=== PATIENT | male | born 1970 | race African-American/Black ===

== ENCOUNTER 2020-01-20 13:59 | Outpatient (REF) | payer OTHER, MEDICAID, SELFPAY ==
[2020-01-20 15:38] LABS: Hematocrit 46.6 % (42-52); Hemoglobin 15.4 g/dl (14.0-18.0); Mean Corpuscular Hemoglobin 31.3 pg (27.0-33.0); Mean Corpuscular Volume 94.7 fL (80-98); Mean Platelet Volume 9.7 fL (9.4-12.4); Platelet Count 310 X10*3/uL (160-400); Red Blood Count 4.92 X10*6/uL (4.60-5.80); Red Cell Distribution Width 13.6 % (11.0-16.0); White Blood Count 7.8 X10*3/uL (4.8-10.8)
[2020-01-20 16:09] LABS: Alanine Aminotransferase 28 U/L (0-40); Albumin Level 3.9 g/dL (3.5-5.0); Alkaline Phosphatase 105 U/L (39-117); Anion Gap 14 (12-20); Aspartate Amino Transferase 18 U/L (5-37); Bilirubin Direct 0.2 mg/dL (0.0-0.5); Bilirubin Total 0.6 mg/dL (0.0-1.0); Blood Urea Nitrogen 24 mg/dL (9-16); Calcium 8.8 mg/dL (8.4-10.2); Carbon Dioxide 20 mmol/L (22-29); Chloride 105 mmol/L (96-108); Estimated Glomerular Filt Rate 51; Glucose Random 333 mg/dL (60-115); Potassium 5.3 mmol/l (3.3-5.1); Sodium 134 mmol/L (135-145)
[2020-01-21 08:22] LABS: Syphilis Screen Reactive (Nonreactive)
[2020-01-21 17:06] LABS: Absolute CD3 Count 2338 cells/uL (840-3060); Absolute CD4 Count 534 cells/uL (490-1740); Absolute CD8 Count 1780 cells/uL (180-1170); Absolute Lymphocytes 2752 cells/uL (850-3900); Percent CD3 Cells 85 % (57-85); Percent CD4 Cells 19 % (30-61); Percent CD8 Cells 65 % (12-42)
[2020-01-24 11:31] LABS: RPR Quantitative Reactive 1:8 (Nonreactive)
[2020-01-25 13:22] LABS: HIV RNA PCR Qn Copies <20 NOT DETECTED copies/mL (NOT DETECTED); HIV RNA PCR Qn Log Copies <1.30 NOT DETECTED (NOT DETECTED)
[2020-02-04 14:37] LABS: T.Pallidum Particle Agg Test Reactive (Nonreactive)
== END 2020-01-20 14:00 | disposition home or self-care (01) ==
LOC: HO.LAB 13:59
PROVIDERS: PCP Internal Medicine; Visit Provider Internal Medicine
DX: B20 Human immunodeficiency virus [HIV] disease (principal); Z11.3 Encounter for screening for infections with a predominantly sexual mode of transmission
CPT/HCPCS: 36415; 80048; 80076; 85027; 86359; 86360; 86592; 86780; 87536; 99212

== ENCOUNTER 2020-06-09 10:46 | Outpatient (REF) | payer OTHER, SELFPAY ==
[2020-06-09 11:43] LABS: MANUAL DIFF FLAG NO
[2020-06-09 11:48] LABS: Basophils Percent Auto 0.6 % (0-2); Eosinophils Absolute Auto 0.1 X10*3/uL (0.0-0.4); Eosinophils Percent Auto 1.4 % (0-4); Hematocrit 49.2 % (42-52); Hemoglobin 15.6 g/dl (14.0-18.0); Imm Gran Abs Auto 0.02 X10*3/uL (0.00-0.03); Imm Gran Pct Auto 0.3 % (0.0-0.4); Lymphocytes Absolute Auto 3.2 X10*3/uL (1.2-4.9); Lymphocytes Percent Auto 45.3 % (20-40); Mean Corpuscular HGB Conc 31.7 g/dl (31.0-36.0); Mean Corpuscular Hemoglobin 30.6 pg (27.0-33.0); Mean Corpuscular Volume 96.5 fL (80-98); Mean Platelet Volume 9.8 fL (9.4-12.4); Monocytes Absolute Auto 0.5 X10*3/uL (0.1-1.2); Monocytes Percent Auto 7.5 % (2-11); Neutrophils Absolute Auto 3.2 X10*3/uL (2.0-8.3); Neutrophils Percent Auto 44.9 % (45-73); Platelet Count 249 X10*3/uL (160-400); Red Cell Distribution Width 13.7 % (11.0-16.0); White Blood Count 7.1 X10*3/uL (4.8-10.8)
[2020-06-09 12:13] LABS: Alanine Aminotransferase 34 U/L (0-40); Alkaline Phosphatase 97 U/L (39-117); Anion Gap 11 (12-20); Aspartate Amino Transferase 21 U/L (5-37); Bilirubin Total 0.6 mg/dL (0.0-1.0); Blood Urea Nitrogen 18 mg/dL (9-16); Carbon Dioxide 21 mmol/L (22-29); Chloride 109 mmol/L (96-108); Cholesterol 149 mg/dL; Estimated Glomerular Filt Rate > 60; Glucose Fasting 163 mg/dL (60-99); HDL Cholesterol 28 mg/dL; LDL Cholesterol Calculated 67 mg/dl; Potassium 5.3 mmol/L (3.3-5.1); Sodium 136 mmol/L (135-145); Total Protein 7.6 g/dL (6.5-8.0); Triglycerides 272 mg/dL
[2020-06-11 20:52] LABS: TS Negative Control Passed; TS Panel A 1; TS Panel B 2; TS Positive Control Passed; TSpotTB Negative (SeeBelow)
[2020-06-14 13:51] LABS: Vitamin D 25-OH, D2 <4 ng/mL; Vitamin D 25-OH, D3 10 ng/mL; Vitamin D 25-OH, Total 10 ng/mL (30-100)
== END 2020-06-09 10:47 | disposition home or self-care (01) ==
LOC: HO.LAB 10:46
PROVIDERS: PCP Internal Medicine; Visit Provider Internal Medicine
DX: B20 Human immunodeficiency virus [HIV] disease (principal); E55.9 Vitamin D deficiency, unspecified; N18.9 Chronic kidney disease, unspecified; E11.9 Type 2 diabetes mellitus without complications; E78.5 Hyperlipidemia, unspecified
CPT/HCPCS: 36415; 80053; 80061; 82306; 85025; 86481

== ENCOUNTER 2020-06-29 13:53 | Outpatient (REF) | payer OTHER, SELFPAY ==
[2020-06-30 08:29] LABS: Syphilis Screen Reactive (Nonreactive)
[2020-06-30 13:01] LABS: Absolute CD3 Count 3224 cells/uL (840-3060); Absolute CD4 Count 667 cells/uL (490-1740); Absolute CD8 Count 2557 cells/uL (180-1170); Absolute Lymphocytes 3800 cells/uL (850-3900); CD4 CD8 Ratio 0.26 (0.86-5.00); Percent CD3 Cells 85 % (57-85); Percent CD4 Cells 18 % (30-61); Percent CD8 Cells 67 % (12-42)
[2020-06-30 15:56] LABS: HIV RNA PCR Qn Copies <20 NOT DETECTED copies/mL (NOT DETECTED); HIV RNA PCR Qn Log Copies <1.30 NOT DETECTED (NOT DETECTED)
[2020-07-06 15:13] LABS: RPR Quantitative Reactive 1:8 (Nonreactive)
[2020-07-09 11:29] LABS: T.Pallidum Particle Agg Test Reactive (Nonreactive)
== END 2020-06-29 13:54 | disposition home or self-care (01) ==
LOC: HO.LAB 13:53
PROVIDERS: PCP Internal Medicine; Visit Provider Internal Medicine
DX: B20 Human immunodeficiency virus [HIV] disease (principal); Z79.899 Other long term (current) drug therapy
CPT/HCPCS: 36415; 86359; 86360; 86592; 86780; 87536; 99212

== ENCOUNTER 2020-10-05 09:42 | Outpatient (REF) | payer OTHER, SELFPAY ==
[2020-10-05 10:22] LABS: MANUAL DIFF FLAG NO
[2020-10-05 10:25] LABS: Basophils Percent Auto 0.4 % (0-2); Eosinophils Absolute Auto 0.1 X10*3/uL (0.0-0.4); Eosinophils Percent Auto 1.6 % (0-4); Hematocrit 45.8 % (42-52); Hemoglobin 15.2 g/dl (14.0-18.0); Imm Gran Abs Auto 0.04 X10*3/uL (0.00-0.03); Imm Gran Pct Auto 0.5 % (0.0-0.4); Lymphocytes Absolute Auto 3.1 X10*3/uL (1.2-4.9); Lymphocytes Percent Auto 41.1 % (20-40); Mean Corpuscular HGB Conc 33.2 g/dl (31.0-36.0); Mean Corpuscular Hemoglobin 31.4 pg (27.0-33.0); Mean Corpuscular Volume 94.6 fL (80-98); Mean Platelet Volume 9.5 fL (9.4-12.4); Monocytes Absolute Auto 0.6 X10*3/uL (0.1-1.2); Monocytes Percent Auto 7.5 % (2-11); Neutrophils Absolute Auto 3.7 X10*3/uL (2.0-8.3); Neutrophils Percent Auto 48.9 % (45-73); Platelet Count 249 X10*3/uL (160-400); Red Blood Count 4.84 X10*6/uL (4.60-5.80); Red Cell Distribution Width 13.6 % (11.0-16.0); White Blood Count 7.6 X10*3/uL (4.8-10.8)
[2020-10-05 10:50] LABS: Alanine Aminotransferase 42 U/L (0-40); Albumin Level 3.9 g/dL (3.5-5.0); Alkaline Phosphatase 96 U/L (39-117); Anion Gap 13 (12-20); Aspartate Amino Transferase 24 U/L (5-37); Bilirubin Total 0.3 mg/dL (0.0-1.0); Blood Urea Nitrogen 21 mg/dL (9-16); Calcium 9.1 mg/dL (8.4-10.2); Carbon Dioxide 20 mmol/L (22-29); Chloride 107 mmol/L (96-108); Cholesterol 167 mg/dL; Estimated Glomerular Filt Rate 49; Glucose Fasting 242 mg/dL (60-99); HDL Cholesterol 30 mg/dL; Potassium 4.7 mmol/L (3.3-5.1); Sodium 135 mmol/L (135-145); Total Protein 7.5 g/dL (6.5-8.0); Triglycerides 443 mg/dL
[2020-10-05 11:51] LABS: Creatinine Urine 68.27 mg/dL
[2020-10-09 14:51] LABS: Vitamin D 25-OH, D2 20 ng/mL; Vitamin D 25-OH, D3 7 ng/mL; Vitamin D 25-OH, Total 27 ng/mL (30-100)
== END 2020-10-05 09:43 | disposition home or self-care (01) ==
LOC: HO.LAB 09:42
PROVIDERS: PCP Internal Medicine; Visit Provider Internal Medicine
DX: E11.22 Type 2 diabetes mellitus with diabetic chronic kidney disease (principal); N18.31 Chronic kidney disease, stage 3a; D63.1 Anemia in chronic kidney disease; E66.01 Morbid (severe) obesity due to excess calories; E78.5 Hyperlipidemia, unspecified; E55.9 Vitamin D deficiency, unspecified; Z79.4 Long term (current) use of insulin
CPT/HCPCS: 36415; 80053; 80061; 82043; 82306; 85025

== ENCOUNTER 2020-12-28 14:10 | Outpatient (REF) | payer OTHER, SELFPAY ==
[2020-12-28 15:18] LABS: MANUAL DIFF FLAG NO
[2020-12-28 15:35] LABS: Basophils Percent Auto 0.3 % (0-2); Eosinophils Absolute Auto 0.1 X10*3/uL (0.0-0.4); Eosinophils Percent Auto 0.6 % (0-4); Hematocrit 50.9 % (42.0-52.0); Hemoglobin 16.8 g/dl (14.0-18.0); Imm Gran Abs Auto 0.03 X10*3/uL (0.00-0.03); Imm Gran Pct Auto 0.3 % (0.0-0.4); Lymphocytes Absolute Auto 3.1 X10*3/uL (1.2-4.9); Lymphocytes Percent Auto 34.2 % (20-40); Mean Corpuscular Hemoglobin 31.6 pg (27.0-33.0); Mean Corpuscular Volume 95.7 fL (80.0-98.0); Mean Platelet Volume 9.6 fL (9.4-12.4); Monocytes Absolute Auto 0.6 X10*3/uL (0.1-1.2); Monocytes Percent Auto 6.6 % (2-11); Neutrophils Absolute Auto 5.16 x10*3/uL (2.0-8.3); Platelet Count 325 X10*3/uL (160-400); Red Blood Count 5.32 X10*6/uL (4.60-5.80); Red Cell Distribution Width 12.8 % (11.0-16.0); White Blood Count 8.9 X10*3/uL (4.8-10.8)
[2020-12-28 15:59] LABS: Alanine Aminotransferase 28 U/L (0-40); Albumin Level 4.5 g/dL (3.5-5.0); Alkaline Phosphatase 96 U/L (39-117); Anion Gap 15 (12-20); Aspartate Amino Transferase 23 U/L (5-37); Bilirubin Direct 0.3 mg/dL (0.0-0.5); Bilirubin Total 0.8 mg/dL (0.0-1.0); Blood Urea Nitrogen 24 mg/dL (9-16); Calcium 9.6 mg/dL (8.4-10.2); Carbon Dioxide 21 mmol/L (22-29); Chloride 105 mmol/L (96-108); Estimated Glomerular Filt Rate 37; Glucose Random 173 mg/dL (60-115); Potassium 5.8 mmol/L (3.3-5.1); Sodium 135 mmol/L (135-145); Total Protein 8.4 g/dL (6.5-8.0)
[2020-12-29 09:33] LABS: Syphilis Screen Reactive (Nonreactive)
[2020-12-29 14:20] LABS: Absolute CD3 Count 2502 cells/uL (840-3060); Absolute CD4 Count 676 cells/uL (490-1740); Absolute CD8 Count 1817 cells/uL (180-1170); Absolute Lymphocytes 3023 cells/uL (850-3900); CD4 CD8 Ratio 0.37 (0.86-5.00); Percent CD3 Cells 83 % (57-85); Percent CD4 Cells 22 % (30-61); Percent CD8 Cells 60 % (12-42)
[2020-12-29 16:21] LABS: HIV RNA PCR Qn Copies <20 NOT DETECTED copies/mL (NOT DETECTED); HIV RNA PCR Qn Log Copies <1.30 NOT DETECTED (NOT DETECTED)
[2021-01-04 15:18] LABS: RPR Quantitative Reactive 1:8 (Nonreactive)
[2021-01-04 15:22] LABS: T.Pallidum Particle Agg Test Reactive (Nonreactive)
== END 2020-12-28 14:11 | disposition home or self-care (01) ==
LOC: HO.LAB 14:10
PROVIDERS: PCP Internal Medicine; Visit Provider Internal Medicine
DX: B20 Human immunodeficiency virus [HIV] disease (principal)
CPT/HCPCS: 36415; 80048; 80076; 85025; 86359; 86360; 86592; 86780; 87536; 99212

== ENCOUNTER 2021-03-04 11:11 | Outpatient (REF) | payer OTHER, SELFPAY ==
[2021-03-04 12:03] LABS: Binax Internal Control QC Valid; Binax Now Covid-19 Ag Negative (Negative)
== END 2021-03-04 11:12 | disposition home or self-care (01) ==
LOC: HO.LAB 11:11
PROVIDERS: Visit Provider Internal Medicine
DX: Z20.822 Contact with and (suspected) exposure to COVID-19 (principal)
CPT/HCPCS: 36415; C9803; U0003

== ENCOUNTER 2021-03-16 14:05 | Outpatient (REF) | payer OTHER, SELFPAY ==
[2021-03-16 15:04] LABS: COVID-19 Test Positive (Negative); IDNOW Serial# 16C4AD1C
== END 2021-03-16 14:06 | disposition home or self-care (01) ==
LOC: HO.LAB 14:05
PROVIDERS: Visit Provider Internal Medicine
DX: Z20.822 Contact with and (suspected) exposure to COVID-19 (principal)
CPT/HCPCS: 87635; C9803

== ENCOUNTER 2021-03-22 14:57 | Outpatient (REF) | payer OTHER, SELFPAY ==
[2021-03-22 15:42] LABS: Binax Internal Control QC Valid; Binax Now Covid-19 Ag Negative (Negative)
== END 2021-03-22 14:58 | disposition home or self-care (01) ==
LOC: HO.LAB 14:57
PROVIDERS: Visit Provider Internal Medicine
DX: Z20.822 Contact with and (suspected) exposure to COVID-19 (principal)
CPT/HCPCS: C9803

== ENCOUNTER 2021-04-15 15:00 | Outpatient (REF) | payer OTHER, SELFPAY ==
[2021-04-15 15:54] LABS: Binax Internal Control QC Valid; Binax Now Covid-19 Ag Negative (Negative)
== END 2021-04-15 15:01 | disposition home or self-care (01) ==
LOC: HO.LAB 15:00
PROVIDERS: PCP Internal Medicine; Visit Provider Internal Medicine
DX: Z13.89 Encounter for screening for other disorder (principal)

== ENCOUNTER 2021-05-02 10:47 | Outpatient (REF) | payer OTHER, SELFPAY ==
--- NOTE | 2021-05-02 10:56 | ECG_ITS ---
Test Reason : E87.5 Blood Pressure : / mmHG Vent. Rate : 071 BPM Atrial Rate : 071 BPM P-R Int : 162 ms QRS Dur : 080 ms QT Int : 398 ms P-R-T Axes : 066 028 034 degrees QTc Int : 432 ms Normal sinus rhythm Normal ECG No previous ECGs available Referred By: Humaira Hood Electronically Signed By:ENE LUU MD
[2021-05-02 12:30] LABS: Alanine Aminotransferase 18 U/L (0-40); Alkaline Phosphatase 76 U/L (39-117); Anion Gap 13 (12-20); Aspartate Amino Transferase 20 U/L (5-37); Bilirubin Total 0.6 mg/dL (0.0-1.0); Blood Urea Nitrogen 37 mg/dL (9-16); Calcium 9.5 mg/dL (8.4-10.2); Carbon Dioxide 21 mmol/L (22-29); Chloride 107 mmol/L (96-108); Cholesterol 149 mg/dL; Estimated Glomerular Filt Rate 33; Glucose Fasting 59 mg/dL (60-99); HDL Cholesterol 29 mg/dL; LDL Cholesterol Calculated 89 mg/dl; Sodium 136 mmol/L (135-145); Total Protein 7.5 g/dL (6.5-8.0); Triglycerides 155 mg/dL
[2021-05-02 12:38] LABS: Creatinine Urine 177.42 mg/dL; Microalbum/Creatinine Ratio Ur 17.4 ug/mg cr
[2021-05-06 13:10] LABS: Vitamin D 25-OH, D2 5 ng/mL; Vitamin D 25-OH, D3 20 ng/mL; Vitamin D 25-OH, Total 25 ng/mL (30-100)
== END 2021-05-02 10:48 | disposition home or self-care (01) ==
LOC: HO.LAB 10:47
PROVIDERS: PCP Internal Medicine; Visit Provider Internal Medicine
DX: E11.9 Type 2 diabetes mellitus without complications (principal); E55.9 Vitamin D deficiency, unspecified; E78.5 Hyperlipidemia, unspecified; E87.5 Hyperkalemia
CPT/HCPCS: 36415; 80053; 80061; 82043; 82306; 93005

== ENCOUNTER 2021-05-24 14:24 | Outpatient (REF) | payer OTHER, SELFPAY ==
[2021-05-24 15:16] LABS: Cholesterol 178 mg/dL; HDL Cholesterol 34 mg/dL; LDL Cholesterol Calculated 105 mg/dl; Triglycerides 196 mg/dL
[2021-05-24 15:39] LABS: Creatinine Urine 85.92 mg/dL; Microalbum/Creatinine Ratio Ur 62.8 ug/mg cr
[2021-05-26 17:41] LABS: TS Negative Control Passed; TS Panel A 3; TS Panel B 1; TS Positive Control Passed; TSpotTB Negative (Negative)
[2021-05-29 13:41] LABS: Vitamin D 25-OH, D2 5 ng/mL; Vitamin D 25-OH, D3 26 ng/mL; Vitamin D 25-OH, Total 31 ng/mL (30-100)
== END 2021-05-24 14:25 | disposition home or self-care (01) ==
LOC: HO.LAB 14:24
PROVIDERS: PCP Internal Medicine; Visit Provider Internal Medicine
DX: E78.5 Hyperlipidemia, unspecified (principal); E11.9 Type 2 diabetes mellitus without complications; E55.9 Vitamin D deficiency, unspecified; Z11.1 Encounter for screening for respiratory tuberculosis
CPT/HCPCS: 36415; 80061; 82043; 82306; 86481

== ENCOUNTER → 2021-06-08 14:44 | Outpatient (BNVA) | payer OTHER, SELFPAY | PROVIDERS: Visit Provider Internal Medicine | DX: Z21 Asymptomatic human immunodeficiency virus [HIV] infection status (principal) | CPT/HCPCS: 99212 ==

== ENCOUNTER 2021-06-20 11:31 | Outpatient (REF) | payer OTHER, SELFPAY ==
[2021-06-20 13:35] LABS: Syphilis Screen Reactive (Nonreactive)
[2021-06-20 14:30] LABS: CT PCR NOT DETECTED (Not Detect.); NG PCR NOT DETECTED (Not Detect.)
[2021-06-21 23:21] LABS: HIV RNA PCR Qn Copies <20 DETECTED copies/mL (NOT DETECTED); HIV RNA PCR Qn Log Copies <1.30 DETECTED (NOT DETECTED)
[2021-06-22 16:56] LABS: Absolute CD3 Count 1800 cells/uL (840-3060); Absolute CD4 Count 528 cells/uL (490-1740); Absolute CD8 Count 1279 cells/uL (180-1170); Absolute Lymphocytes 2364 cells/uL (850-3900); CD4 CD8 Ratio 0.41 (0.86-5.00); Percent CD3 Cells 76 % (57-85); Percent CD4 Cells 22 % (30-61); Percent CD8 Cells 54 % (12-42)
[2021-06-25 11:13] LABS: T.Pallidum Particle Agg Test Reactive (Nonreactive)
[2021-06-25 11:14] LABS: RPR Quantitative Reactive 1:8 (Nonreactive)
== END 2021-06-20 11:32 | disposition home or self-care (01) ==
LOC: HO.LAB 11:31
PROVIDERS: PCP Internal Medicine; Visit Provider Internal Medicine
DX: B20 Human immunodeficiency virus [HIV] disease (principal)
CPT/HCPCS: 36415; 86359; 86360; 86592; 86780; 87491; 87536; 87591

== ENCOUNTER 2021-09-19 11:55 | Outpatient (REF) | payer OTHER, SELFPAY ==
[2021-09-19 12:22] LABS: COVID-19 Test Positive (Negative)
== END 2021-09-19 11:56 | disposition home or self-care (01) ==
LOC: HO.LAB 11:55
PROVIDERS: PCP Internal Medicine; Visit Provider Internal Medicine
DX: Z20.822 Contact with and (suspected) exposure to COVID-19 (principal)
CPT/HCPCS: 87635; C9803

== ENCOUNTER 2021-09-21 14:28 | Outpatient (REF) | payer OTHER, SELFPAY ==
[2021-09-21 15:06] LABS: COVID-19 Test Positive (Negative); IDNOW Serial# 16C4AD1C
== END 2021-09-21 14:29 | disposition home or self-care (01) ==
LOC: HO.LAB 14:28
PROVIDERS: Visit Provider Internal Medicine
DX: Z20.822 Contact with and (suspected) exposure to COVID-19 (principal)
CPT/HCPCS: 87635; C9803

== ENCOUNTER 2021-09-26 15:11 | Outpatient (REF) | payer OTHER, SELFPAY ==
[2021-09-26 15:46] LABS: COVID-19 Test Positive (Negative); IDNOW Serial# 9DB6401D
== END 2021-09-26 15:12 | disposition home or self-care (01) ==
LOC: HO.LAB 15:11
PROVIDERS: Visit Provider Internal Medicine
DX: Z20.822 Contact with and (suspected) exposure to COVID-19 (principal)
CPT/HCPCS: 87635; C9803

== ENCOUNTER 2021-10-03 15:40 | Outpatient (REF) | payer OTHER, SELFPAY ==
[2021-10-03 17:13] LABS: COVID-19 Test Negative (Negative); IDNOW Serial# 16C4AD1C
== END 2021-10-03 15:41 | disposition home or self-care (01) ==
LOC: HO.LAB 15:40
PROVIDERS: Visit Provider Internal Medicine
DX: Z20.822 Contact with and (suspected) exposure to COVID-19 (principal)
CPT/HCPCS: 87635; C9803

== ENCOUNTER 2021-11-03 10:08 | Outpatient (REF) | payer OTHER, SELFPAY ==
[2021-11-03 11:47] LABS: COVID-19 Test Negative (Negative)
== END 2021-11-03 10:09 | disposition home or self-care (01) ==
LOC: HO.LAB 10:08
PROVIDERS: Visit Provider Internal Medicine
DX: Z20.822 Contact with and (suspected) exposure to COVID-19 (principal)
CPT/HCPCS: 87635; C9803

== ENCOUNTER 2022-01-03 12:31 | Outpatient (REF) | payer OTHER, SELFPAY ==
[2022-01-03 14:14] LABS: Alanine Aminotransferase 28 U/L (0-40); Albumin Level 3.7 g/dL (3.5-5.0); Alkaline Phosphatase 65 U/L (39-117); Anion Gap 10 (12-20); Aspartate Amino Transferase 20 U/L (5-37); Bilirubin Total 0.6 mg/dL (0.0-1.0); Blood Urea Nitrogen 19 mg/dL (9-16); Calcium 8.9 mg/dL (8.4-10.2); Carbon Dioxide 25 mmol/L (22-29); Chloride 108 mmol/L (96-108); Cholesterol 146 mg/dL; Estimated Glomerular Filt Rate > 60; Glucose Fasting 200 mg/dL (60-99); HDL Cholesterol 33 mg/dL; LDL Cholesterol Calculated 90 mg/dl; Potassium 4.6 mmol/L (3.3-5.1); Sodium 138 mmol/L (135-145); Total Protein 6.8 g/dL (6.5-8.0); Triglycerides 115 mg/dL; Vitamin D 25-OH Total 21.5 ng/mL (>30)
[2022-01-03 14:16] LABS: Microalbum/Creatinine Ratio Ur 74.8 ug/mg cr
[2022-01-03 15:40] LABS: CT PCR NOT DETECTED (Not Detect.); NG PCR NOT DETECTED (Not Detect.)
== END 2022-01-03 12:32 | disposition home or self-care (01) ==
LOC: HO.LAB 12:31
PROVIDERS: Absent Provider Internal Medicine; PCP Internal Medicine; Visit Provider Internal Medicine
DX: Z11.3 Encounter for screening for infections with a predominantly sexual mode of transmission (principal); E78.5 Hyperlipidemia, unspecified; E55.9 Vitamin D deficiency, unspecified; E78.2 Mixed hyperlipidemia; E11.9 Type 2 diabetes mellitus without complications; J45.20 Mild intermittent asthma, uncomplicated
CPT/HCPCS: 36415; 80053; 80061; 82043; 82306; 87491; 87591

== ENCOUNTER → 2022-01-10 09:53 | Outpatient (BNVA) | payer OTHER, SELFPAY | PROVIDERS: PCP Internal Medicine; Visit Provider Urology | DX: N40.1 Benign prostatic hyperplasia with lower urinary tract symptoms (principal); E11.69 Type 2 diabetes mellitus with other specified complication; N52.1 Erectile dysfunction due to diseases classified elsewhere | CPT/HCPCS: 99202 ==

== ENCOUNTER 2022-01-31 10:03 | Outpatient (REF) | payer OTHER, SELFPAY ==
[2022-01-31 13:21] LABS: CT PCR NOT DETECTED (Not Detect.); NG PCR NOT DETECTED (Not Detect.)
[2022-02-01 04:47] LABS: ~HepC Num1 0.09 S/CO (0.00-0.79); ~Hepatitis C Antibody Nonreactive (Nonreactive)
[2022-02-01 05:52] LABS: Syphilis Screen Reactive (Nonreactive)
[2022-02-02 11:07] LABS: Absolute CD3 Count 2903 cells/uL (840-3060); Absolute CD4 Count 913 cells/uL (490-1740); Absolute CD8 Count 2028 cells/uL (180-1170); Absolute Lymphocytes 3670 cells/uL (850-3900); CD4 CD8 Ratio 0.45 (0.86-5.00); Percent CD3 Cells 79 % (57-85); Percent CD4 Cells 25 % (30-61); Percent CD8 Cells 55 % (12-42)
[2022-02-02 20:08] LABS: HIV RNA PCR Qn Copies <20 DETECTED copies/mL (NOT DETECTED); HIV RNA PCR Qn Log Copies <1.30 DETECTED (NOT DETECTED)
[2022-02-05 15:32] LABS: RPR Quantitative Reactive 1:8 (Nonreactive)
[2022-02-05 15:33] LABS: T.Pallidum Particle Agg Test Reactive (Nonreactive)
== END 2022-01-31 10:04 | disposition home or self-care (01) ==
LOC: HO.LAB 10:03
PROVIDERS: PCP Internal Medicine; Visit Provider Internal Medicine
DX: Z11.3 Encounter for screening for infections with a predominantly sexual mode of transmission (principal); Z11.4 Encounter for screening for human immunodeficiency virus [HIV]; Z21 Asymptomatic human immunodeficiency virus [HIV] infection status
CPT/HCPCS: 36415; 86359; 86360; 86592; 86780; 86803; 87491; 87536; 87591

== ENCOUNTER → 2022-02-08 11:11 | Outpatient (BNVA) | payer OTHER, SELFPAY | PROVIDERS: PCP Internal Medicine; Visit Provider Internal Medicine | DX: Z21 Asymptomatic human immunodeficiency virus [HIV] infection status (principal); E11.22 Type 2 diabetes mellitus with diabetic chronic kidney disease; N18.30 Chronic kidney disease, stage 3 unspecified; Z79.899 Other long term (current) drug therapy | CPT/HCPCS: 99212 ==

== ENCOUNTER 2022-03-06 18:52 | Outpatient (REF) | payer OTHER, SELFPAY ==
[2022-03-06 19:44] LABS: Influenza A PCR NEGATIVE (Negative); Influenza B PCR NEGATIVE (Negative); Resp Syncy Virus RNA Qual PCR NEGATIVE (Negative); SARS COV2 PCR INHOUSE NEGATIVE (Negative)
== END 2022-03-06 18:53 | disposition home or self-care (01) ==
LOC: HO.LNP 18:52
PROVIDERS: Visit Provider Internal Medicine
DX: R43.9 Unspecified disturbances of smell and taste (principal); Z20.822 Contact with and (suspected) exposure to COVID-19
CPT/HCPCS: 0241U

== ENCOUNTER 2022-05-19 10:57 | Outpatient (REF) | payer OTHER, SELFPAY ==
[2022-05-19 11:17] LABS: MANUAL DIFF FLAG NO
[2022-05-19 11:49] LABS: Basophils Percent Auto 0.4 % (0-2); Eosinophils Absolute Auto 0.1 X10*3/uL (0.0-0.4); Eosinophils Percent Auto 1.3 % (0-4); Hematocrit 46.7 % (42.0-52.0); Hemoglobin 15.2 g/dl (14.0-18.0); Imm Gran Abs Auto 0.03 X10*3/uL (0.00-0.03); Imm Gran Pct Auto 0.4 % (0.0-0.4); Lymphocytes Absolute Auto 3.1 X10*3/uL (1.2-4.9); Lymphocytes Percent Auto 39.2 % (20-40); Mean Corpuscular HGB Conc 32.5 g/dl (31.0-36.0); Mean Corpuscular Hemoglobin 31.1 pg (27.0-33.0); Mean Corpuscular Volume 95.5 fL (80.0-98.0); Mean Platelet Volume 10.1 fL (9.4-12.4); Monocytes Absolute Auto 0.8 X10*3/uL (0.1-1.2); Monocytes Percent Auto 9.7 % (2-11); Neutrophils Absolute Auto 3.9 x10*3/uL (2.0-8.3); Platelet Count 256 X10*3/uL (160-400); Red Blood Count 4.89 X10*6/uL (4.60-5.80); Red Cell Distribution Width 13.6 % (11.0-16.0); White Blood Count 7.9 X10*3/uL (4.8-10.8)
[2022-05-19 12:06] LABS: Estimated Average Glucose 157 mg/dL; Hemoglobin A1c % 7.1 %
[2022-05-19 12:21] LABS: Alanine Aminotransferase 22 U/L (0-40); Albumin Level 3.7 g/dL (3.5-5.0); Alkaline Phosphatase 74 U/L (39-117); Anion Gap 12 (12-20); Aspartate Amino Transferase 18 U/L (5-37); Bilirubin Total 0.5 mg/dL (0.0-1.0); Blood Urea Nitrogen 17 mg/dL (9-16); Calcium 8.8 mg/dL (8.4-10.2); Carbon Dioxide 24 mmol/L (22-29); Chloride 111 mmol/L (96-108); Cholesterol 129 mg/dL; Estimated Glomerular Filt Rate 44; Glucose Fasting 172 mg/dL (60-99); HDL Cholesterol 26 mg/dL; LDL Cholesterol Calculated 59 mg/dl; Potassium 4.6 mmol/L (3.3-5.1); Sodium 142 mmol/L (135-145); Total Protein 6.8 g/dL (6.5-8.0); Triglycerides 224 mg/dL
[2022-05-19 12:37] LABS: Folate 11.2 ng/mL (> or = 4.0); Prostate Specific Antigen 1.43 ng/mL (<0.05-4.0); TSH reflex Free T4 1.74 uIU/mL (0.32-4.0); Vitamin B12 216 pg/mL (200-900); Vitamin D 25-OH Total 29.2 ng/mL (>30)
== END 2022-05-19 10:58 | disposition home or self-care (01) ==
LOC: HO.LAB 10:57
PROVIDERS: PCP Internal Medicine; Visit Provider Nurse Practitioner Family
DX: E11.9 Type 2 diabetes mellitus without complications (principal); E78.5 Hyperlipidemia, unspecified; Z12.5 Encounter for screening for malignant neoplasm of prostate
CPT/HCPCS: 36415; 80053; 80061; 82306; 82607; 82746; 83036; 84153; 84443; 85025

== ENCOUNTER 2022-07-27 15:56 | Outpatient (REF) | payer OTHER, SELFPAY ==
[2022-07-29 22:33] LABS: TS Negative Control Passed; TS Panel A 0; TS Panel B 2; TS Positive Control Passed; TSpotTB Negative (Negative)
== END 2022-07-27 15:57 | disposition home or self-care (01) ==
LOC: HO.LAB 15:56
PROVIDERS: PCP Internal Medicine; Visit Provider Internal Medicine
DX: Z11.1 Encounter for screening for respiratory tuberculosis (principal)
CPT/HCPCS: 36415; 86481

== ENCOUNTER 2022-07-31 12:23 | Outpatient (REF) | payer OTHER, SELFPAY ==
[2022-08-01 18:28] LABS: Rubella IgG Antibody 1.14 Index; Rubeola IgG (Measles) >300.00 AU/mL; Varicella IgG Antibody >4000.00 index
== END 2022-07-31 12:24 | disposition home or self-care (01) ==
LOC: HO.LAB 12:23
PROVIDERS: PCP Internal Medicine; Visit Provider Internal Medicine
DX: Z01.84 Encounter for antibody response examination (principal)
CPT/HCPCS: 36415; 86735; 86762; 86765; 86787

== ENCOUNTER 2022-08-07 12:33 | Outpatient (REF) | payer OTHER, SELFPAY ==
[2022-08-07 14:35] LABS: Syphilis Screen Reactive (Nonreactive)
[2022-08-09 10:39] LABS: Absolute CD3 Count 3468 cells/uL (840-3060); Absolute CD4 Count 1034 cells/uL (490-1740); Absolute CD8 Count 2479 cells/uL (180-1170); Absolute Lymphocytes 4218 cells/uL (850-3900); CD4 CD8 Ratio 0.42 (0.86-5.00); Percent CD3 Cells 82 % (57-85); Percent CD4 Cells 25 % (30-61); Percent CD8 Cells 59 % (12-42)
[2022-08-09 13:54] LABS: HIV RNA PCR Qn Copies NOT DETECTED copies/mL (NOT DETECTED); HIV RNA PCR Qn Log Copies NOT DETECTED (NOT DETECTED)
[2022-08-11 13:57] LABS: RPR Quantitative Reactive 1:8 (Nonreactive)
[2022-08-11 13:58] LABS: T.Pallidum Particle Agg Test Reactive (Nonreactive)
== END 2022-08-07 12:34 | disposition home or self-care (01) ==
LOC: HO.LAB 12:33
PROVIDERS: PCP Internal Medicine; Visit Provider Internal Medicine
DX: B20 Human immunodeficiency virus [HIV] disease (principal)
CPT/HCPCS: 36415; 86359; 86360; 86592; 86780; 87536

== ENCOUNTER → 2022-08-16 13:27 | Outpatient (BNVA) | payer OTHER, SELFPAY | PROVIDERS: PCP Internal Medicine; Visit Provider Internal Medicine | DX: B20 Human immunodeficiency virus [HIV] disease (principal); E11.22 Type 2 diabetes mellitus with diabetic chronic kidney disease; N18.31 Chronic kidney disease, stage 3a; Z79.4 Long term (current) use of insulin | CPT/HCPCS: 99212 ==

== ENCOUNTER 2022-09-21 13:51 | Outpatient (AMB) | payer OTHER, SELFPAY ==
[2022-09-21 13:58] VITALS: BP 134/86; BMI 43.6
--- NOTE | 2022-09-21 13:58 | A.OFFPC_ITS ---
Vital Signs 09/21/22 13:58 Height 5 ft 4 in Weight 254 lb BMI 43.6 BP 134/86 Blood Pressure Location Lt brachial Position Sitting Intake Visit Reasons: DM Intake Note: Patient here for a follow up DM General Neurologist Required: No Accompanied by: Self / Same As Patient Allergies glipizide Allergy (Mild, Verified 09/21/22 14:07) rash tuberculin, purified protein deriva Allergy (Mild, Verified 09/21/22 14:07) Swelling martinez Allergy (Mild, Uncoded 09/21/22 14:07) Hives Medication List - Last Reconciled 09/21/22 by Humaira Hood MD amitriptyline 100 mg PO BEDTIME atorvastatin 10 mg PO DAILY finjhkgmn-kglksojs-xbpmuum ala 50-200-25 mg (Biktarvy) 1 tab PO DAILY 90 days nwfduvbxt-kiieolmr-euqlhld ala 50-200-25 mg (Biktarvy) 1 tab PO DAILY 30 days blood sugar diagnostic Use 1 test strip twice a day blood sugar diagnostic (Accu-Chek Guide test strips) Use 1 test strip three times a day blood-glucose meter (Accu-Chek Guide Glucose Meter) As directed cholecalciferol (vitamin D3) 50 mcg PO DAILY 90 days doxazosin 4 mg PO BEDTIME 30 days dulaglutide 0.75 mg (0.5 mL) subcut QWEEK 90 days fenofibrate 54 mg PO DAILY 90 days glyburide 5 mg PO BID insulin lispro protamin-lispro 100 unit/mL (75-25) 20 units (0.2 mL) subcut BID 30 days lancets (Accu-Chek Fastclix Lancet Drum) Use 1 lancet three times a day lisinopril 10 mg PO DAILY meclizine mg PO nebulizers (AeroEclipse II Nebulizer) As directed omeprazole 20 mg PO DAILY 90 days pen needle, diabetic (Comfort EZ Pen [place]) Use 1 pen needle twice a day sodium chloride 0.9% 1 mL inhalation Q8H PRN 90 days tadalafil 5 mg PO DAILY 90 days tadalafil 20 mg PO ONCE PRN 30 days topiramate 100 mg PO BID Tobacco use date assessed: 05/19/22 Dental Screening Dental Screen Date: 09/21/22 Did you have a dental visit in the last 12 months?: Yes Did you have a dental problem in the last 6 months where you did not have access to dental care?: No Was dental information given to patient?: Patient has dentist HPI HPI Comments History of Present Illness Details This is a 52-year-old male with diabetes mellitus type 2 on long-term current use of insulin, morbid obesity, HIV and chronic kidney disease stage 3 that comes today for follow-up on his conditions. A1c elevated today but for the last 2 week he has not been taking Trulicity or insulin because he was in [place] and forgot his medications. He is morbidly obese with a BMI of 43.6 and was advised to dieting and exercise. Will think about weight loss surgery. HIV has been stable with medications and this is follow by ID. Has chronic kidney disease in which GFR has decreased and this is follow by Nephrology. No chest pain or shortness of breath. [facility] Medical History CKD (chronic kidney disease) CKD (chronic kidney disease) stage 3, GFR 30-59 ml/min Diabetes mellitus Dyslipidemia Essential hypertension HIV (human immunodeficiency virus infection) Hyperkalemia Mild intermittent asthma Mixed hyperlipidemia Morbid obesity Morbid obesity Renal calculi Surgical History No pertinent past surgical history Family History Father Myocardial infarction Hypertension CVD (cardiovascular disease) Mother Stroke CVD (cardiovascular disease) Mental health disorder Sister Diabetes Social History Housing: Apartment Alcohol intake: former Patient Tobacco Use Status: Never used Tobacco e-Cigarette/Vaping Use: Never Used Second Hand Smoke Exposure: Yes service: No Current occupational status: employed Current occupational exposures/hazards: No Cognitive needs: No Hearing needs: No Vision needs: No Questionnaire Thrive Questionnaire Date Thrive assessed: 05/19/22 SARAH-7 AMB Questionnaire SARAH-7 Date SARAH - 7 assessed: 05/19/22 Source: Developed by Drs. Maykel Moreau, Krystal Montaño, Deniz Burgos and colleagues, with an educational samantha from [employer]. Review of Systems Const All systems reviewed & are unremarkable except as noted in HPI and below Eyes Reports no additional complaints, Denies change in vision and Denies other visual disturbances Card Denies chest pain at rest, Denies chest pain with activity, Denies edema, Denies irregular heart rhythm, Denies claudication, Denies dyspnea, Denies dyspnea on exertion, Denies orthopnea, Denies paroxysmal nocturnal dyspnea and Denies slow heart rate Resp Denies cough, Denies dyspnea and Denies dyspnea on exertion GI Denies abdominal pain, Denies change in bowel habits, Denies excessive flatus, Denies nausea and Denies vomiting Denies urinary hesitancy, Denies urinary incontinence and Denies urinary urgency Musc Denies abnormal gait, Denies atrophy, Denies deformity and Denies limited range of motion Skin/Breast Denies bleeding lesions, Denies changing lesions and Denies rash Neuro Denies abnormal gait and Denies lack of coordination Physical exam (Primary Care) Vital Signs: Last Vital Signs BP 134/86 09/21/22 13:58 BMI result Body Mass Index 43.6 Tobacco/Smoking Status: Tobacco use Status Tobacco use date assessed 05/19/22 09/21/22 13:58 Patient Tobacco Use Status Never used Tobacco 09/21/22 13:58 e-Cigarette/Vaping Use Never Used 09/21/22 13:58 Thrive Assessment: Date of Thrive Assessment Date Thrive assessed 05/19/22 09/21/22 13:58 Eyes General: appearance normal, both eyes and all related structures Eyelids: Yes eyelids normal Conjunctivae: conjunctivae normal Neck Neck: Yes normal visual inspection and Yes supple Resp Effort & Inspection: normal respiratory effort Auscultation: clear to auscultation bilaterally Cardio Jugular venous distension: no JVD Rate: regular rate Rhythm: regular rhythm Heart sounds: S1 normal heart sound present and S2 normal heart sound present Extrem General: Yes full ROM Results AMB Hemoglobin A1c AMB Hemoglobin A1c 7.7 % Last Edit by AIDA Magallanes on 09/21/22 14:0 6 Results Reviewed Results Reviewed: Laboratory Last Values Hgb A1c (Clinic) 7.7 % (4.0-6.0) H 09/21/22 13:54 Assessment and Plan Assessment & Plan (1) CKD (chronic kidney disease) stage 3, GFR 30-59 ml/min: Code(s): N18.30 - Chronic kidney disease, stage 3 unspecified Plan: Follow-up with nephrology. Avoid NSAIDs. Keep blood pressure less than 130/80. (2) Morbid obesity: Code(s): E66.01 - Morbid (severe) obesity due to excess calories Plan: Start diet and exercise. BMI goal is less than 30. 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 Continue glyburide. A1c goal is equal or less than 7%. (4) HIV (human immunodeficiency virus infection): Comment: He is doing well He has been taking Biktarvy He is still been taking medication for diabetes. He has no some neuropathy and CKD has worsening in spring but patient says improving Biktarvy can be used with renal dysfunction without dose adjustment. Syphilis titer is serofast at 1:8. Code(s): B20 - Human immunodeficiency virus [HIV] disease Qualifiers: HIV symptom status: asymptomatic, with no history of HIV-related illness Qualified Code(s): Z21 - Asymptomatic human immunodeficiency virus [HIV] infection status Plan: Continue Biktarvy. Follow-up with ID. Orders: Orders Lipid Panel 4 Months E78.5 - Hyperlipidemia, unspecified Microalbumin, Random (w Creat) 4 Months E11.9 - Type 2 diabetes mellitus without complications Vitamin D 25-OH Total 4 Months E55.9 - Vitamin D deficiency, unspecified Comprehensive [place]. Panel Fast 4 Months N18.30 - Chronic kidney disease, stage 3 unspecified AMB Hemoglobin A1c Today E11.9 - Type 2 diabetes mellitus without complications Medications: Refilled dulaglutide 0.75 mg (0.5 mL) subcut QWEEK 90 days 6.5 mL 1RF insulin lispro protamin-lispro 100 unit/mL (75-25) 20 units (0.2 mL) subcut BID 30 days 12 mL 11RF diabetes mellitus pen needle, diabetic (Comfort EZ Pen [place]) Use 1 pen needle twice a day 100 ea 11RF E11.9 - Type 2 diabetes mellitus without complications glyburide 5 mg PO BID 60 tabs 6RF Coding Level of Care Code Est Pt Level 4 (21372) Diagnoses CKD (chronic kidney disease) stage 3, GFR 30-59 ml/min N18.30 Morbid obesity E66.01 Diabetes mellitus E11.22; N18.31; Z79.4 Diabetes mellitus type: type 2 Diabetes mellitus residential insulin use: with residential use Diabetes mellitus complication status: with kidney complications Diabetes mellitus complication detail: with chronic kidney disease Chronic kidney disease stage: stage 3 (moderate) Chronic kidney disease stage 3 subtype: stage 3a (GFR 45-59) HIV (human immunodeficiency virus infection) Z21 HIV symptom status: asymptomatic, with no history of HIV-related illness Time Spent (min) 25
== END 2022-09-21 14:18 | disposition home or self-care (01) ==
PROVIDERS: PCP Internal Medicine; Visit Provider Internal Medicine
DX: E11.22 Type 2 diabetes mellitus with diabetic chronic kidney disease (principal); E66.01 Morbid (severe) obesity due to excess calories; N18.31 Chronic kidney disease, stage 3a; Z68.41 Body mass index [BMI] 40.0-44.9, adult; Z79.4 Long term (current) use of insulin; Z21 Asymptomatic human immunodeficiency virus [HIV] infection status
CPT/HCPCS: 83036; 99214

== ENCOUNTER 2022-09-21 14:56 | Outpatient (AMB) | payer OTHER, SELFPAY ==
--- NOTE | 2022-09-21 15:09 | A.OFFVIS_ITS ---
Intake Intake Visit Reasons: colonoscopy screening Allergies glipizide Allergy (Mild, Verified 09/21/22 14:07) rash tuberculin, purified protein deriva Allergy (Mild, Verified 09/21/22 14:07) Swelling martinez Allergy (Mild, Uncoded 09/21/22 14:07) Hives Medication List - Last Reconciled 09/21/22 by Esha Carias PA-C amitriptyline 100 mg PO BEDTIME atorvastatin 10 mg PO DAILY jxafvcpsu-pezhzzot-hpncxpc ala 50-200-25 mg (Biktarvy) 1 tab PO DAILY 90 days vfemequxp-rjbmdouh-cehpbvr ala 50-200-25 mg (Biktarvy) 1 tab PO DAILY 30 days blood sugar diagnostic Use 1 test strip twice a day blood sugar diagnostic (Accu-Chek Guide test strips) Use 1 test strip three times a day blood-glucose meter (Accu-Chek Guide Glucose Meter) As directed cholecalciferol (vitamin D3) 50 mcg PO DAILY 90 days doxazosin 4 mg PO BEDTIME 30 days dulaglutide 0.75 mg (0.5 mL) subcut QWEEK 90 days fenofibrate 54 mg PO DAILY 90 days glyburide 5 mg PO BID insulin lispro protamin-lispro 100 unit/mL (75-25) 20 units (0.2 mL) subcut BID 30 days lancets (Accu-Chek Fastclix Lancet Drum) Use 1 lancet three times a day lisinopril 10 mg PO DAILY meclizine mg PO nebulizers (AeroEclipse II Nebulizer) As directed omeprazole 20 mg PO DAILY 90 days pen needle, diabetic (Comfort EZ Pen [place]) Use 1 pen needle twice a day sodium chloride 0.9% 1 mL inhalation Q8H PRN 90 days tadalafil 5 mg PO DAILY 90 days tadalafil 20 mg PO ONCE PRN 30 days topiramate 100 mg PO BID HPI HPI Comments History of Present Illness Details A 52 y/o male hx constipation metamucil works very well Acid reflux- for many years-omeprazole- some breakthrough-never had EGD Bowels are normal 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 [place]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 [place] Nausea, vomiting, hematemesis, hematochezia fever or chills PFSH Medical History CKD (chronic kidney disease) CKD (chronic kidney disease) stage 3, GFR 30-59 ml/min Diabetes mellitus Dyslipidemia Essential hypertension HIV (human immunodeficiency virus infection) Hyperkalemia Mild intermittent asthma Mixed hyperlipidemia Morbid obesity Morbid obesity Renal calculi Surgical History No pertinent past surgical history Family History Father Myocardial infarction Hypertension CVD (cardiovascular disease) Mother Stroke CVD (cardiovascular disease) Mental health disorder Sister Diabetes Social History Housing: Apartment Alcohol intake: former Patient Tobacco Use Status: Never used Tobacco e-Cigarette/Vaping Use: Never Used Second Hand Smoke Exposure: Yes service: No Current occupational status: employed Current occupational exposures/hazards: No Cognitive needs: No Hearing needs: No Vision needs: No Review of Systems Const All systems reviewed & are unremarkable except as noted in HPI and below Card Denies chest pain and Denies dyspnea Resp Denies dyspnea GI Denies abdominal pain, Reports constipation and Reports heartburn Physical Exam Const General: cooperative, healthy appearing and comfortable Nutritional Appearance: overweight Orientation/consciousness: patient oriented x3 Limitations: language barrier Cardio Rate: regular rate Rhythm: regular rhythm Heart sounds: S1 normal heart sound present and S2 normal heart sound present GI Palpation (GI): Soft to palpation and nontender Auscultation: normal bowel sounds Skin General skin exam: no rashes or lesions noted Neuro General: patient oriented x3 Extrem General: Yes full ROM Psych Appearance: grossly normal Mental Status: mental status grossly normal Speech and movement: Normal speech and movement present Affect: normal affect Attitude: cooperative Thought process: Normal thought process present Thought content: Normal thought content present Insight: Good insight present (Psych) Judgement: Good judgement present (Psych) Results AMB Hemoglobin A1c AMB Hemoglobin A1c 7.7 % Last Edit by AIDA Magallanes on 09/21/22 14:0 6 Assessment & Plan Assessment & Plan (1) Acid reflux: Code(s): K21.9 - Gastro-esophageal reflux disease without esophagitis Plan: Reflux precautions reviewed/avoid Culprits Continue usual medication EGD-r/o pud, nonulcer dyspepsia, esophagitis other endoscopic findings to account for symptoms (2) Screening for colon cancer: Code(s): Z12.11 - Encounter for screening for malignant neoplasm of colon Plan: Screening colonoscopy Plan EGD/ colonoscopy - PEG 1/2 dose of insulin- morning of - no DM medications Orders: Orders EGD/[place] Combo - GI Use Only 09/21/22 K21.9 - Gastro-esophageal reflux disease without esophagitis, Z12.11 - Encounter for screening for malignant neoplasm of colon Medications: New peg-electrolyte soln 420 gram Start at 6:00pm the evening before procedure, drink one 8oz glass every 15 minutes until complete 240 mL PO ONCE PRN 4,000 mL 0RF laxative effect 1 day Patient Instructions: EGD/ colonoscopy Discussed procedure, rare risks, prep literature given Reflux precautions reviewed Reviewed medications-half dose insulin evening before procedure as well morning of procedure no diabetes medications Must be escorted due to anesthesia Encouraged to call questions or concerns Appreciate the opportunity assist in the care the patient Quality Reporting (2020) Adult ([facility] [address] 138/04/19/68) Smoking risk assessment performed?: Yes Patient Tobacco Use Status: Never used Tobacco Coding Level of Care Code New Pt Level 3 (31031) Diagnoses Acid reflux K21.9 Screening for colon cancer Z12.11 Time Spent (min) 30 Comment [id number]
== END 2022-09-21 15:27 | disposition home or self-care (01) ==
PROVIDERS: PCP Internal Medicine; Visit Provider Physician Assistant
DX: K21.9 Gastro-esophageal reflux disease without esophagitis (principal); Z12.11 Encounter for screening for malignant neoplasm of colon
CPT/HCPCS: 99203

== ENCOUNTER → 2022-09-21 14:56 | Outpatient (BNVA) | payer OTHER, SELFPAY | PROVIDERS: PCP Internal Medicine; Visit Provider Physician Assistant | DX: Z12.11 Encounter for screening for malignant neoplasm of colon (principal); K21.9 Gastro-esophageal reflux disease without esophagitis; E11.9 Type 2 diabetes mellitus without complications; E66.01 Morbid (severe) obesity due to excess calories; Z79.4 Long term (current) use of insulin; Z79.899 Other long term (current) drug therapy | CPT/HCPCS: 99202 ==

== ENCOUNTER 2023-01-24 10:49 | Outpatient (REF) | payer OTHER, SELFPAY ==
[2023-01-24 11:10] LABS: MANUAL DIFF FLAG NO
[2023-01-24 11:49] LABS: Basophils Absolute Auto 0.1 X10*3/uL (0.0-0.2); Basophils Percent Auto 0.6 % (0-2); Eosinophils Absolute Auto 0.1 X10*3/uL (0.0-0.4); Eosinophils Percent Auto 1.6 % (0-4); Hematocrit 48.6 % (42.0-52.0); Hemoglobin 16.6 g/dl (14.0-18.0); Imm Gran Abs Auto 0.01 X10*3/uL (0.00-0.03); Imm Gran Pct Auto 0.1 % (0.0-0.4); Lymphocytes Absolute Auto 3.5 X10*3/uL (1.2-4.9); Lymphocytes Percent Auto 42.2 % (20-40); Mean Corpuscular HGB Conc 34.2 g/dl (31.0-36.0); Mean Corpuscular Volume 93.8 fL (80.0-98.0); Mean Platelet Volume 9.9 fL (9.4-12.4); Monocytes Absolute Auto 0.5 X10*3/uL (0.1-1.2); Monocytes Percent Auto 5.7 % (2-11); Neutrophils Absolute Auto 4.1 x10*3/uL (2.0-8.3); Neutrophils Percent Auto 49.8 % (45-73); Platelet Count 267 X10*3/uL (160-400); Red Blood Count 5.18 X10*6/uL (4.60-5.80); Red Cell Distribution Width 12.5 % (11.0-16.0); White Blood Count 8.2 X10*3/uL (4.8-10.8)
[2023-01-24 12:33] LABS: Alanine Aminotransferase 26 U/L (0-40); Albumin Level 4.2 g/dL (3.5-5.0); Alkaline Phosphatase 73 U/L (39-117); Anion Gap 13 (12-20); Aspartate Amino Transferase 18 U/L (5-37); Bilirubin Direct 0.2 mg/dL (0.0-0.5); Bilirubin Total 0.5 mg/dL (0.0-1.0); Blood Urea Nitrogen 16 mg/dL (9-16); Calcium 9.2 mg/dL (8.4-10.2); Carbon Dioxide 20 mmol/L (22-29); Chloride 108 mmol/L (96-108); Cholesterol 171 mg/dL (<200); Estimated Glomerular Filt Rate > 60; Glucose Fasting 213 mg/dL (60-99); Glucose Random 214 mg/dL (60-115); HDL Cholesterol 32 mg/dL (>40); LDL Cholesterol Calculated 88 mg/dL (<100); Potassium 4.5 mmol/L (3.3-5.1); Sodium 136 mmol/L (135-145); Total Protein 7.8 g/dL (6.5-8.0); Triglycerides 258 mg/dL (<150)
[2023-01-24 12:48] LABS: Vitamin D 25-OH Total 30.3 ng/mL (>30)
[2023-01-24 12:55] LABS: Syphilis Screen Reactive (Nonreactive)
[2023-01-24 13:12] LABS: Creatinine Urine 253.48 mg/dL; Microalbum/Creatinine Ratio Ur 164.5 ug/mg cr (<30)
[2023-01-25 09:15] LABS: ~HepC Num1 0.08 S/CO (0.00-0.79); ~Hepatitis C Antibody Nonreactive (Nonreactive)
[2023-01-25 13:18] LABS: Absolute CD3 Count 2744 cells/uL (840-3060); Absolute CD4 Count 834 cells/uL (490-1740); Absolute CD8 Count 1934 cells/uL (180-1170); Absolute Lymphocytes 3461 cells/uL (850-3900); CD4 CD8 Ratio 0.43 (0.86-5.00); Percent CD3 Cells 79 % (57-85); Percent CD4 Cells 24 % (30-61); Percent CD8 Cells 56 % (12-42)
[2023-01-25 15:13] LABS: HIV RNA PCR Qn Copies NOT DETECTED copies/mL (NOT DETECTED); HIV RNA PCR Qn Log Copies NOT DETECTED (NOT DETECTED)
[2023-01-31 15:05] LABS: RPR Quantitative Reactive 1:4 (Nonreactive)
[2023-01-31 15:06] LABS: T.Pallidum Particle Agg Test Reactive (Nonreactive)
== END 2023-01-24 10:50 | disposition home or self-care (01) ==
LOC: HO.LAB 10:49
PROVIDERS: Internal Medicine; PCP Internal Medicine; Visit Provider Internal Medicine
DX: E78.5 Hyperlipidemia, unspecified (principal); E11.9 Type 2 diabetes mellitus without complications; E55.9 Vitamin D deficiency, unspecified; N18.30 Chronic kidney disease, stage 3 unspecified; B20 Human immunodeficiency virus [HIV] disease
CPT/HCPCS: 36415; 80048; 80053; 80061; 80076; 82043; 82248; 82306; 82570; 85025; 86359; 86360; 86592; 86780; 86803; 87536

== ENCOUNTER 2023-01-30 14:33 | Outpatient (AMB) | payer OTHER, SELFPAY ==
[2023-01-30 14:41] VITALS: BP 152/90; BMI 42.9
--- NOTE | 2023-01-30 14:41 | MHC.PC.OV ---
Vital Signs 01/30/23 14:41 Height 5 ft 4 in Weight 250 lb BMI 42.9 BP 152/90 H Blood Pressure Location Lt brachial Position Sitting Intake Visit Reasons: dm Intake Note: Patient here for a follow up DM Machine Former Required: No Accompanied by: Mother Allergies glipizide Allergy (Mild, Verified 01/30/23 14:52) rash tuberculin, purified protein deriva Allergy (Mild, Verified 01/30/23 14:52) Swelling martinez Allergy (Mild, Uncoded 01/30/23 14:52) Hives Medication List - Last Reconciled 01/30/23 by Humaira Hood MD amitriptyline 100 mg PO BEDTIME atorvastatin 10 mg PO DAILY kworoqgrd-rwsmyrsa-nkkojjs ala 50-200-25 mg (Biktarvy) 1 tab PO DAILY 30 days blood sugar diagnostic Use 1 test strip twice a day blood sugar diagnostic (Accu-Chek Guide test strips) Use 1 test strip three times a day blood-glucose meter (Accu-Chek Guide Glucose Meter) As directed cholecalciferol (vitamin D3) 50 mcg PO DAILY 90 days doxazosin 4 mg PO BEDTIME 30 days dulaglutide 0.75 mg (0.5 mL) subcut QWEEK 90 days empagliflozin (Jardiance) 25 mg PO DAILY 90 days fenofibrate 54 mg PO DAILY 90 days glyburide 5 mg PO BID insulin lispro protamin-lispro 100 unit/mL (75-25) 20 units (0.2 mL) subcut BID 30 days lancets (Accu-Chek Fastclix Lancet Drum) Use 1 lancet three times a day lisinopril 10 mg PO DAILY meclizine mg PO nebulizers (AeroEclipse II Nebulizer) As directed omeprazole 20 mg PO DAILY 90 days peg-electrolyte soln 420 gram 240 mL PO ONCE PRN 1 day pen needle, diabetic (Comfort EZ Pen Olga) Use 1 pen needle twice a day sodium chloride 0.9% 1 mL inhalation Q8H PRN 90 days tadalafil 5 mg PO DAILY 90 days tadalafil 20 mg PO ONCE PRN 30 days topiramate 100 mg PO BID Tobacco use date assessed: 05/19/22 Dental Screening Dental Screen Date: 01/30/23 Did you have a dental visit in the last 12 months?: Yes Did you have a dental problem in the last 6 months where you did not have access to dental care?: No Was dental information given to patient?: Patient has dentist HPI HPI Comments History of Present Illness Details This is a 52-year-old male with diabetes mellitus type 2, hypertension, dyslipidemia, HIV and morbid obesity that comes today for follow-up on his conditions. A1c not on goal and he has been out of Trulicity and insulin for a while. I refill insulin and increase Trulicity. Blood pressure elevated today and he did took his lisinopril. Blood pressure will be recheck in 3 weeks by nurse navigator. LDL not on goal and I will increase statins from 10 mg to 20 mg. HIV stable and this is follow by Infectious Disease. He is morbidly obese with a BMI of 42.9 and declines weight loss surgery at the moment. Was advised to diet and exercise as tolerated to reach BMI goal less than 30. No chest pain or shortness of breath. Accompanied by mother. [facility] Medical History Mixed hyperlipidemia CKD (chronic kidney disease) stage 3, GFR 30-59 ml/min Mild intermittent asthma Hyperkalemia Morbid obesity Renal calculi Morbid obesity Dyslipidemia CKD (chronic kidney disease) Essential hypertension Diabetes mellitus HIV (human immunodeficiency virus infection) Surgical History No pertinent past surgical history Family History Father Myocardial infarction Hypertension CVD (cardiovascular disease) Mother Stroke CVD (cardiovascular disease) Mental health disorder Sister Diabetes Social History Housing: Apartment Alcohol intake: former Patient Tobacco Use Status: Never used Tobacco e-Cigarette/Vaping Use: Never Used Second Hand Smoke Exposure: Yes service: No Current occupational status: employed Current occupational exposures/hazards: No Cognitive needs: No Hearing needs: No Vision needs: No Questionnaire Thrive Questionnaire Date Thrive assessed: 05/19/22 SARAH-7 AMB Questionnaire SARAH-7 Date SARAH - 7 assessed: 05/19/22 Source: Developed by Drs. Maykel Moreau, Krystal MontañoDeniz and colleagues, with an educational samantha from [employer]. Review of Systems Const All systems reviewed & are unremarkable except as noted in HPI and below Eyes Reports no additional complaints, Denies change in vision and Denies other visual disturbances Card Denies chest pain at rest, Denies chest pain with activity, Denies edema, Denies irregular heart rhythm, Denies claudication, Denies dyspnea, Denies dyspnea on exertion, Denies orthopnea, Denies paroxysmal nocturnal dyspnea and Denies slow heart rate Resp Denies cough, Denies dyspnea and Denies dyspnea on exertion GI Denies abdominal pain, Denies change in bowel habits, Denies excessive flatus, Denies nausea and Denies vomiting Denies urinary hesitancy, Denies urinary incontinence and Denies urinary urgency Musc Denies abnormal gait, Denies atrophy, Denies deformity and Denies limited range of motion Skin/Breast Denies bleeding lesions, Denies changing lesions and Denies rash Neuro Denies abnormal gait and Denies lack of coordination Physical exam (Primary Care) Vital Signs: Last Vital Signs BP 152/90 H 01/30/23 14:41 BMI result Body Mass Index 42.9 Tobacco/Smoking Status: Tobacco use Status Tobacco use date assessed 05/19/22 01/30/23 14:49 Patient Tobacco Use Status Never used Tobacco 01/30/23 14:49 e-Cigarette/Vaping Use Never Used 01/30/23 14:49 Thrive Assessment: Date of Thrive Assessment Date Thrive assessed 05/19/22 01/30/23 14:49 Eyes General: appearance normal, both eyes and all related structures Eyelids: Yes eyelids normal Conjunctivae: conjunctivae normal Neck Neck: Yes normal visual inspection and Yes supple Resp Effort & Inspection: normal respiratory effort Auscultation: clear to auscultation bilaterally Cardio Jugular venous distension: no JVD Rate: regular rate Rhythm: regular rhythm Heart sounds: S1 normal heart sound present and S2 normal heart sound present Extrem General: Yes full ROM Office Procedures Flu Questionnaire Does the patient have a severe egg allergy?: No Does the patient have severe life threatening allergies?: No Does the patient have a fever or illness today?: No Has the patient ever had Guillain-[place] Syndrome?: No Has the patient ever had any past reaction to a flu shot?: No Results AMB Hemoglobin A1c AMB Hemoglobin A1c 8.8 % Last Edit by AIDA Magallanes on 01/30/23 14:57 Immunizations flu vacc [id number] 6mos up(PF) 60 mcg(15 mcgx4)/0.5 mL IM syringe Performing Provider: Humaira Hood MD Performing Location: [facility] Administered by: Farzaneh Hernández CMA on 01/30/23 15:15 Dose Route Admin Location Dispensed Lot Number Expiration Date NDC Slab Polisher 0.5 mL IM Right Deltoid 0.5 mL [id number] 08/26/23 [id number] [employer] VIS Given Date VIS Provided VIS Publication Date 01/30/23 Single Vaccine 20 Eligibility Eligibility Date Funding Source Not VFC Eligible 01/30/23 Private Results Reviewed Results Reviewed: Laboratory Last Values Hgb A1c (Clinic) 8.8 % (4.0-6.0) H 01/30/23 14:49 Assessment and Plan Assessment & Plan (1) Diabetes mellitus: Code(s): E11.9 - Type 2 diabetes mellitus without complications Qualifiers: Diabetes mellitus type: type 2 Diabetes mellitus [facility] insulin use: with [facility] use Diabetes mellitus complication status: with kidney complications Diabetes mellitus complication detail: with chronic kidney disease Chronic kidney disease stage: stage 3 (moderate) Chronic kidney disease stage 3 subtype: stage 3a (GFR 45-59) Qualified Code(s): E11.22 - Type 2 diabetes mellitus with diabetic chronic kidney disease; N18.31 - Chronic kidney disease, stage 3a; Z79.4 - [facility] (current) use of insulin Plan: Continue Jardiance. Restart insulin. Restart Trulicity. A1c goal is equal or less than 7%. (2) HIV (human immunodeficiency virus infection): Comment: He is doing well He has been taking Biktarvy He is still been taking medication for diabetes. He has no some neuropathy and CKD has worsening in spring but patient says improving Biktarvy can be used with renal dysfunction without dose adjustment. Syphilis titer is serofast at 1:8. Code(s): B20 - Human immunodeficiency virus [HIV] disease Qualifiers: HIV symptom status: asymptomatic, with no history of HIV-related illness Qualified Code(s): Z21 - Asymptomatic human immunodeficiency virus [HIV] infection status Plan: Continue Biktarvy. Follow-up with Infectious Disease. (3) Essential hypertension: Code(s): I10 - Essential (primary) hypertension Plan: Continue lisinopril. Blood pressure goal is equal or less than 130/80. Blood pressure will be recheck in 3 weeks by nurse navigator. (4) Dyslipidemia: Code(s): E78.5 - Hyperlipidemia, unspecified Plan: Increase statins from 10 mg to 20 mg. LDL goal is equal or less than 70. (5) Morbid obesity: Code(s): E66.01 - Morbid (severe) obesity due to excess calories Plan: Start diet and exercise. BMI goal is less than 30. Orders: Orders Lipid Panel 4 Months E78.5 - Hyperlipidemia, unspecified Vitamin D 25-OH Total 4 Months E55.9 - Vitamin D deficiency, unspecified Influenza [id number] Immunization Today Z23 - Encounter for immunization T Spot TB Today Z11.1 - Encounter for screening for respiratory tuberculosis AMB Hemoglobin A1c Today E11.9 - Type 2 diabetes mellitus without complications Microalbumin, Random (w Creat) 4 Months E11.9 - Type 2 diabetes mellitus without complications Comprehensive [place]. Panel Fast 4 Months E11.9 - Type 2 diabetes mellitus without complications Medications: New dulaglutide (Trulicity) 1.5 mg (0.5 mL) subcut QWEEK 90 days 6.5 mL 1RF E11.9 - Type 2 diabetes mellitus without complications atorvastatin 20 mg PO BEDTIME 90 days 90 tabs 1RF dulaglutide (Trulicity) 1.5 mg (0.5 mL) subcut QWEEK 90 days 6.5 mL 1RF E11.9 - Type 2 diabetes mellitus without complications Refilled insulin lispro protamin-lispro 100 unit/mL (75-25) 20 units (0.2 mL) subcut BID 30 days 12 mL 11RF diabetes mellitus Discontinued atorvastatin Discontinued Reason: Patient Completed Course 10 mg PO DAILY 90 tabs 3RF dulaglutide Discontinued Reason: Patient Completed Course 0.75 mg (0.5 mL) subcut QWEEK 90 days 6.5 mL 1RF Coding Level of Care Code Est Pt Level 4 (13116) Diagnoses Type 2 diabetes mellitus with stage 3a chronic kidney disease, with long-term current use of insulin E11.22; N18.31; Z79.4 Diabetes mellitus type: type 2 Diabetes mellitus [facility] insulin use: with [facility] Diabetes mellitus complication status: with kidney complications Diabetes mellitus complication detail: with chronic kidney disease Chronic kidney disease stage: stage 3 (moderate) Chronic kidney disease stage 3 subtype: stage 3a (GFR 45-59) Asymptomatic HIV infection, with no history of HIV-related illness Z21 HIV symptom status: asymptomatic, with no history of HIV-related illness Essential hypertension I10 Dyslipidemia E78.5 Morbid obesity E66.01 Time Spent (min) 23
== END 2023-01-30 15:19 | disposition home or self-care (01) ==
PROVIDERS: PCP Internal Medicine; Visit Provider Internal Medicine
DX: Z23 Encounter for immunization (principal); E11.22 Type 2 diabetes mellitus with diabetic chronic kidney disease; I12.9 Hypertensive chronic kidney disease with stage 1 through stage 4 chronic kidney disease, or unspecified chronic kidney disease; N18.31 Chronic kidney disease, stage 3a; Z79.4 Long term (current) use of insulin; Z21 Asymptomatic human immunodeficiency virus [HIV] infection status; E78.5 Hyperlipidemia, unspecified; E66.01 Morbid (severe) obesity due to excess calories
CPT/HCPCS: 83036; 90471; 90686; 99214

== ENCOUNTER 2023-02-21 14:36 | Outpatient (AMB) | payer OTHER, SELFPAY ==
--- NOTE | 2023-02-21 14:40 | MHC.OFFVIS ---
Intake Intake Visit Reasons: follow up hiv Allergies glipizide Allergy (Mild, Verified 01/30/23 14:52) rash tuberculin, purified protein deriva Allergy (Mild, Verified 01/30/23 14:52) Swelling martinez Allergy (Mild, Uncoded 01/30/23 14:52) Hives HPI follow up hiv HPI Details He is doing well. He has CD4 count of 834 and viral load undetectable on 01/24. RPR is stable at 1:4. He has no complaints. [facility] Medical History Mixed hyperlipidemia CKD (chronic kidney disease) stage 3, GFR 30-59 ml/min Mild intermittent asthma Hyperkalemia Morbid obesity Renal calculi Morbid obesity Dyslipidemia CKD (chronic kidney disease) Essential hypertension Diabetes mellitus HIV (human immunodeficiency virus infection) Surgical History No pertinent past surgical history Family History Father Myocardial infarction Hypertension CVD (cardiovascular disease) Mother Stroke CVD (cardiovascular disease) Mental health disorder Sister Diabetes Social History Housing: Apartment Alcohol intake: former Patient Tobacco Use Status: Never used Tobacco e-Cigarette/Vaping Use: Never Used Second Hand Smoke Exposure: Yes service: No Current occupational status: employed Current occupational exposures/hazards: No Cognitive needs: No Hearing needs: No Vision needs: No Review of Systems Const All systems reviewed & are unremarkable except as noted in HPI and below Physical Exam Const General: cooperative Orientation/consciousness: patient oriented x3 HEENT Head: Yes normal to inspection Mouth: Normal oral and palatal mucosa present Eyes General: appearance normal, both eyes and all related structures Pupils: Equal, round and reactive pupils present Resp Effort & Inspection: normal respiratory effort Cardio Rate: regular rate Rhythm: regular rhythm GI Palpation (GI): Soft to palpation and nontender General: Yes no CVA tenderness Back/Spine/Pelvis Back: no CVA tenderness Skin General skin exam: no rashes or lesions noted Neuro General: patient oriented x3 Cranial nerves: Yes CN's II-XII intact bilaterally and Yes Equal, round and reactive pupils present Extrem General: Yes normal to inspection Psych Appearance: grossly normal Assessment & Plan Assessment & Plan (1) HIV (human immunodeficiency virus infection): Comment: He is doing well He has been taking Biktarvy Code(s): B20 - Human immunodeficiency virus [HIV] disease Qualifiers: HIV symptom status: asymptomatic, with no history of HIV-related illness Qualified Code(s): Z21 - Asymptomatic human immunodeficiency virus [HIV] infection status Plan: Continue Biktarvy. Six month refill given. See in six months Medications: Refilled ojigofiyp-ktzdmkby-qxmwjlj ala 50-200-25 mg (Biktarvy) 1 tab PO DAILY 30 tabs 0RF 30 days Quality Reporting (2019) Adult ([facility] 138/04/19/68) Smoking risk assessment performed?: Yes Patient Tobacco Use Status: Never used Tobacco Coding Level of Care Code Est Pt Level 3 (75586) Diagnoses Asymptomatic HIV infection, with no history of HIV-related illness Z21 HIV symptom status: asymptomatic, with no history of HIV-related illness
== END 2023-02-21 15:02 | disposition home or self-care (01) ==
PROVIDERS: PCP Internal Medicine; Visit Provider Internal Medicine
DX: Z21 Asymptomatic human immunodeficiency virus [HIV] infection status (principal)
CPT/HCPCS: 99213

== ENCOUNTER → 2023-02-21 14:36 | Outpatient (BNVA) | payer OTHER, SELFPAY | PROVIDERS: PCP Internal Medicine; Visit Provider Internal Medicine | DX: Z21 Asymptomatic human immunodeficiency virus [HIV] infection status (principal) | CPT/HCPCS: 99212 ==

== ENCOUNTER 2023-03-16 14:10 | Outpatient (AMB) | payer OTHER, SELFPAY ==
--- NOTE | 2023-03-16 14:10 | A.OFFVIS_ITS ---
Intake Vital Signs 03/16/23 14:11 Height 5 ft 4 in Weight 245 lb BMI 42.0 Pulse 100 Pulse Source Pulse Oximeter Pulse Oximetry (%) 99 Intake Visit Reasons: hiv follow up 1 month Officer Captain Required: Yes Officer Captain Name: Radha Watkins [employer] Information Interpreted: clinical only Allergies glipizide Allergy (Mild, Verified 03/16/23 14:16) rash tuberculin, purified protein deriva Allergy (Mild, Verified 03/16/23 14:16) Swelling martinez Allergy (Mild, Uncoded 01/30/23 14:52) Hives HPI hiv follow up 1 month HPI Details He had COVID last time he came to see us so is rescheduled for today. He takes Biktarvy and uses Cialis prn need and wants refill. He has CD4 count of 834 and viral load undetectable on 01/24. He has normal PSA and is working on getting a colonoscopy. He has some constipation but otherwise feels well. [facility] Medical History Mixed hyperlipidemia CKD (chronic kidney disease) stage 3, GFR 30-59 ml/min Mild intermittent asthma Hyperkalemia Morbid obesity Renal calculi Morbid obesity Dyslipidemia CKD (chronic kidney disease) Essential hypertension Diabetes mellitus HIV (human immunodeficiency virus infection) Surgical History No pertinent past surgical history Family History Father Myocardial infarction Hypertension CVD (cardiovascular disease) Mother Stroke CVD (cardiovascular disease) Mental health disorder Sister Diabetes Social History Housing: Apartment Alcohol intake: former Patient Tobacco Use Status: Never used Tobacco e-Cigarette/Vaping Use: Never Used Second Hand Smoke Exposure: Yes service: No Current occupational status: employed Current occupational exposures/hazards: No Cognitive needs: No Hearing needs: No Vision needs: No Review of Systems Const All systems reviewed & are unremarkable except as noted in HPI and below Physical Exam Vital Signs: Last Vital Signs Pulse 100 03/16/23 14:11 Pulse Ox 99 03/16/23 14:11 BMI result Body Mass Index 42.0 Const General: cooperative Orientation/consciousness: patient oriented x3 HEENT Head: Yes normal to inspection Mouth: Normal oral and palatal mucosa present Eyes General: appearance normal, both eyes and all related structures Pupils: Equal, round and reactive pupils present Resp Effort & Inspection: normal respiratory effort Cardio Rate: regular rate Rhythm: regular rhythm GI Palpation (GI): Soft to palpation and nontender General: Yes no CVA tenderness Back/Spine/Pelvis Back: no CVA tenderness Skin General skin exam: no rashes or lesions noted Neuro General: patient oriented x3 Cranial nerves: Yes CN's II-XII intact bilaterally and Yes Equal, round and reactive pupils present Extrem General: Yes normal to inspection Psych Appearance: grossly normal Assessment & Plan Assessment & Plan (1) HIV (human immunodeficiency virus infection): Comment: He is doing well He has been taking Biktarvy His CD4 count is 834 and viral load is undetectable. His RPR is 1:4 and stable. Continue Biktarvy Check labs June 2023 and see August 2023 (written for) Also renewal Biktarvy Get Emma from Dr Irvin (last prescriber) Code(s): B20 - Human immunodeficiency virus [HIV] disease Qualifiers: HIV symptom status: asymptomatic, with no history of HIV-related illness Qualified Code(s): Z21 - Asymptomatic human immunodeficiency virus [HIV] infection status Plan: per above Orders: Orders HIV-1 RNA QN PCR Expanded 4 Months B20 - Human immunodeficiency virus [HIV] disease RPR Monitor reflex titer 4 Months B20 - Human immunodeficiency virus [HIV] disease Hepatitis C Antibody 4 Months B20 - Human immunodeficiency virus [HIV] disease Lymphocyte Subset Panel 3 4 Months B20 - Human immunodeficiency virus [HIV] disease Medications: Refilled vxzlaazxf-ahhnodgy-hgrelgl ala 50-200-25 mg (Biktarvy) 1 tab PO DAILY 30 days 30 tabs 5RF mqdhhdgfw-haegxuhj-tiprjxl ala 50-200-25 mg (Biktarvy) 1 tab PO DAILY 30 tabs 5RF 30 days Quality Reporting (2019) Adult ([facility] 138/04/19/68) Smoking risk assessment performed?: Yes Patient Tobacco Use Status: Never used Tobacco Coding Level of Care Code Est Pt Level 4 (43435) Diagnoses Asymptomatic HIV infection, with no history of HIV-related illness Z21 HIV symptom status: asymptomatic, with no history of HIV-related illness
[2023-03-16 14:11] VITALS: PULSE 100; O2SAT 99; BMI 42.0
== END 2023-03-16 14:46 | disposition home or self-care (01) ==
LOC: HO.HID 14:10
PROVIDERS: PCP Internal Medicine; Visit Provider Internal Medicine
DX: Z21 Asymptomatic human immunodeficiency virus [HIV] infection status (principal)
CPT/HCPCS: 99214

== ENCOUNTER → 2023-03-16 14:10 | Outpatient (BNVA) | payer OTHER, SELFPAY | PROVIDERS: PCP Internal Medicine; Visit Provider Internal Medicine | DX: Z21 Asymptomatic human immunodeficiency virus [HIV] infection status (principal) | CPT/HCPCS: 99212 ==

== ENCOUNTER 2023-05-23 12:12 | Outpatient (REF) | payer OTHER, SELFPAY ==
[2023-05-23 13:36] LABS: Alanine Aminotransferase 30 U/L (0-40); Albumin Level 4.1 g/dL (3.5-5.0); Alkaline Phosphatase 75 U/L (39-117); Anion Gap 12 (12-20); Aspartate Amino Transferase 18 U/L (5-37); Bilirubin Total 0.5 mg/dL (0.0-1.0); Blood Urea Nitrogen 17 mg/dL (9-16); Calcium 9.2 mg/dL (8.4-10.2); Carbon Dioxide 23 mmol/L (22-29); Chloride 109 mmol/L (96-108); Cholesterol 164 mg/dL (<200); Estimated Glomerular Filt Rate 50; Glucose Fasting 162 mg/dL (60-99); HDL Cholesterol 35 mg/dL (>40); LDL Cholesterol Calculated 94 mg/dL (<100); Potassium 4.6 mmol/L (3.3-5.1); Sodium 139 mmol/L (135-145); Total Protein 7.9 g/dL (6.5-8.0); Triglycerides 178 mg/dL (<150)
[2023-05-23 13:51] LABS: Vitamin D 25-OH Total 34.9 ng/mL (>30)
[2023-05-23 14:56] LABS: Creatinine Urine 84.58 mg/dL; Microalbum/Creatinine Ratio Ur 70.9 ug/mg cr (<30)
[2023-05-25 23:08] LABS: TS Negative Control Passed; TS Panel A 0; TS Panel B 0; TS Positive Control Passed; TSpotTB Negative (Negative)
== END 2023-05-23 12:13 | disposition home or self-care (01) ==
LOC: HO.LAB 12:12
PROVIDERS: PCP Internal Medicine; Visit Provider Internal Medicine
DX: Z11.1 Encounter for screening for respiratory tuberculosis (principal); E11.9 Type 2 diabetes mellitus without complications; E78.5 Hyperlipidemia, unspecified; E55.9 Vitamin D deficiency, unspecified
CPT/HCPCS: 36415; 80053; 80061; 82043; 82306; 82570; 86481

== ENCOUNTER 2023-05-31 13:58 | Outpatient (AMB) | payer OTHER, SELFPAY ==
--- NOTE | 2023-05-31 14:07 | A.OFFPC_ITS ---
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 Accompanied by: Mother Allergies glipizide Allergy (Mild, Verified 05/31/23 14:37) rash tuberculin, purified protein deriva Allergy (Mild, Verified 05/31/23 14:37) Swelling martinez Allergy (Mild, Uncoded 05/31/23 14:37) Hives Medication List - Last Reconciled 05/31/23 by Humaira Hood MD amitriptyline 100 mg PO BEDTIME atorvastatin 20 mg PO BEDTIME 90 days boswqaqgp-wmcnirzt-fwyyobx ala 50-200-25 mg (Biktarvy) 1 tab PO DAILY 30 days blood sugar diagnostic Use 1 test strip twice a day blood sugar diagnostic (Accu-Chek Guide test strips) Use 1 test strip three times a day blood sugar diagnostic (FreeStyle Test strips) Use 1 strip three times a day blood-glucose meter (Accu-Chek Guide Glucose Meter) As directed blood-glucose meter (FreeStyle Lite Meter kit) As directed cholecalciferol (vitamin D3) 50 mcg PO DAILY 90 days doxazosin 4 mg PO BEDTIME 30 days dulaglutide (Trulicity) 1.5 mg (0.5 mL) subcut QWEEK 90 days empagliflozin (Jardiance) 25 mg PO DAILY 90 days fenofibrate 54 mg PO DAILY 90 days glyburide 5 mg PO BID lancets (FreeStyle Lancets) Use 1 lancet three times a day lancets (Accu-Chek Fastclix Lancet Drum) Use 1 lancet three times a day lisinopril 10 mg PO DAILY meclizine mg PO nebulizers (AeroEclipse II Nebulizer) As directed peg-electrolyte soln 420 gram 240 mL PO ONCE PRN 1 day pen needle, diabetic (Comfort EZ Pen Rollingstone) Use 1 pen needle twice a day sodium chloride 0.9% 1 mL inhalation Q8H PRN 90 days tadalafil 5 mg PO DAILY 90 days tadalafil 20 mg PO ONCE PRN 30 days topiramate 100 mg PO BID Tobacco use date assessed: 05/31/23 Dental Screening Dental Screen Date: 05/31/23 Did you have a dental visit in the last 12 months?: Yes Did you have a dental problem in the last 6 months where you did not have access to dental care?: No Was dental information given to patient?: Patient has dentist HPI HPI Comments History of Present Illness Details This is a 52-year-old male with HIV, diabetes mellitus type 2 and morbid obesity that comes accompanied by mother which has dementia for his physical exam. He also has chronic kidney disease stage 3 which he follows with nephrology. A1c within goal. He is morbidly obese with a BMI of 40.2 and is intentionally losing weight. HIV is follow by Infectious Disease and has been stable. Colonoscopy still pending. No chest pain or shortness of breath. [facility] Medical History Mixed hyperlipidemia CKD (chronic kidney disease) stage 3, GFR 30-59 ml/min Mild intermittent asthma Hyperkalemia Morbid obesity Renal calculi Morbid obesity Dyslipidemia CKD (chronic kidney disease) Essential hypertension Diabetes mellitus HIV (human immunodeficiency virus infection) Surgical History No pertinent past surgical history Family History Father Myocardial infarction Hypertension CVD (cardiovascular disease) Mother Stroke CVD (cardiovascular disease) Mental health disorder Sister Diabetes Social History Housing: Apartment Alcohol intake: former Patient Tobacco Use Status: Never used Tobacco e-Cigarette/Vaping Use: Never Used Second Hand Smoke Exposure: Yes service: No Current occupational status: employed Current occupational exposures/hazards: No Cognitive needs: No Hearing needs: No Vision needs: No Questionnaire PHQ-9 Over the last 2 weeks, how often have you been bothered by any of the following problems? 1. Little interest or pleasure in doing things: not at all 2. Feeling down, depressed, or hopeless: not at all 3. Trouble falling or staying asleep, or sleeping too much: not at all 4. Feeling tired or having little energy: not at all 5. Poor appetite or overeating: not at all 6. Feeling bad about yourself - or that you are a failure or have let yourself or your family down: not at all 7. Trouble concentrating on things, such as reading the newspaper or watching television: not at all 8. Moving or speaking so slowly that other people could have noticed. Or the opposite - being so fidgety or restless that you have been moving around a lot more than usual: not at all 9. Thoughts that you would be better off or of hurting yourself in some way: not at all Total score: 0 Depression Screening Interpretation: Negative Depression Screening Done: Yes 34790 - PHQ-9 Billing: Yes Source: Developed by Drs. Maykel Moreau, Krystal Montaño, Deniz Burgos and colleagues, with an educational samantha from [employer]. Thrive Questionnaire Date Thrive assessed: 05/31/23 I am a: Patient What is your living situation today?: I have a steady place to live Within the past 12 months, did the food you bought not last and you didn't have the money to get more?: Never true Within the past 12 months, did you worry whether your food would run out before you got money to buy more?: Never true Do you have trouble paying for medicines?: No Do you have trouble getting transportation to medical appointments?: No Do you have trouble paying your heating and electricity bill?: No Do you have trouble taking care of your child, family member or friend?: No Do you have trouble with day-to-day activities such as bathing, preparing meals, shopping, managing finances, etc.?: No Are you currently unemployed and looking for a job?: No Are you interested in more education?: No Please select the resources that you would like help with: None Currently or been in a relationship where the following occur: no concerns reported THRIVE Score: 0 AUDIT C Alcohol Use Questionnaire (AUDIT-C) 1. How often do you have a drink containing alcohol?: Never Total Score: 0 SARAH-7 AMB Questionnaire SARAH-7 Date SARAH - 7 assessed: 05/31/23 Feeling nervous, anxious, or on edge: 0 = Not at all Not being able to stop or control worryin = Not at all Worrying too much about different things: 0 = Not at all Trouble relaxin = Not at all Being so restless that it is hard to sit still: 0 = Not at all Becoming easily annoyed or irritable: 0 = Not at all Feeling afraid as if something awful might happen: 0 = Not at all Total SARAH-7 score (0-4 normal; 5-9 mild; 10-14 moderate; 15-21 severe): 0 Source: Developed by Drs. Maykel Moreau, Krystal Montaño, Deniz Burgos and colleagues, with an educational samantha from [employer]. SARAH-7 Assessment Billing SARAH-7 Assessment Tool: SARAH-7 Assessment 91238 Review of Systems Const All systems reviewed & are unremarkable except as noted in HPI and below Eyes Reports no additional complaints, Denies change in vision and Denies other visual disturbances Card Denies chest pain at rest, Denies chest pain with activity, Denies edema, Denies irregular heart rhythm, Denies claudication, Denies dyspnea, Denies dyspnea on exertion, Denies orthopnea, Denies paroxysmal nocturnal dyspnea and Denies slow heart rate Resp Denies cough, Denies dyspnea and Denies dyspnea on exertion Physical exam (Primary Care) Vital Signs: Last Vital Signs BP 122/70 05/31/23 14:12 BMI result Body Mass Index 40.2 Tobacco/Smoking Status: Tobacco use Status Tobacco use date assessed 05/31/23 05/31/23 14:22 Patient Tobacco Use Status Never used Tobacco 05/31/23 14:08 e-Cigarette/Vaping Use Never Used 05/31/23 14:08 PHQ-9: PHQ-9 Score PHQ-9: Total score 0 05/31/23 14:48 Depression Screening Interpretation: Negative Thrive Assessment: Date of Thrive Assessment Date Thrive assessed 05/31/23 05/31/23 14:22 Currently or been in a relationship where the following occur: no concerns reported Const Orientation/consciousness: patient oriented x3 HENMT Head: Yes normal to inspection, Yes normocephalic and Yes atraumatic Ears: external ears normal Eyes General: appearance normal, both eyes and all related structures Eyelids: Yes eyelids normal Conjunctivae: conjunctivae normal Neck Neck: Yes normal visual inspection and Yes supple Resp Effort & Inspection: normal respiratory effort Auscultation: clear to auscultation bilaterally Cardio Jugular venous distension: no JVD Rate: regular rate Rhythm: regular rhythm Heart sounds: S1 normal heart sound present and S2 normal heart sound present GI Inspection: Yes normal to inspection Palpation (GI): Soft to palpation and nontender Auscultation: normal bowel sounds Skin General skin exam: no rashes or lesions noted Neuro General: patient oriented x3 and no focal motor deficits Extrem General: Yes full ROM Psych Appearance: grossly normal Results AMB Hemoglobin A1c AMB Hemoglobin A1c 5.7 % Last Edit by AIDA Magallanes on 05/31/23 14:2 7 Results Reviewed Results Reviewed: Laboratory Last Values Hgb A1c (Clinic) 5.7 % (4.0-6.0) 05/31/23 14:06 Assessment and Plan Assessment & Plan (1) Adult general medical exam: Code(s): Z00.00 - Encounter for general adult medical examination without abnormal findings Plan: Repeat in a year. (2) CKD (chronic kidney disease) stage 3, GFR 30-59 ml/min: Code(s): N18.30 - Chronic kidney disease, stage 3 unspecified Plan: Follow-up with nephrology. Avoid NSAIDs. Keep blood pressure less than 130/80. (3) Morbid obesity: Code(s): E66.01 - Morbid (severe) obesity due to excess calories Plan: Continue diet and exercise. BMI goal is less than 30. (4) Diabetes mellitus: Code(s): E11.9 - Type 2 diabetes mellitus without complications Qualifiers: Diabetes mellitus type: type 2 Diabetes mellitus medical doctor nuclear medicine insulin use: with medical doctor nuclear medicine use Diabetes mellitus complication status: with kidney complications Diabetes mellitus complication detail: with chronic kidney disease Chronic kidney disease stage: stage 3 (moderate) Chronic kidney disease stage 3 subtype: stage 3a (GFR 45-59) Qualified Code(s): E11.22 - Type 2 diabetes mellitus with diabetic chronic kidney disease; N18.31 - Chronic kidney disease, stage 3a; Z79.4 - alf (current) use of insulin Plan: Continue Trulicity and clear for eye. A1c goal is equal or less than 7%. (5) HIV (human immunodeficiency virus infection): Comment: He is doing well He has been taking Biktarvy His CD4 count is 834 and viral load is undetectable. His RPR is 1:4 and stable. Continue Biktarvy Check labs June 2023 and see August 2023 (written for) Also renewal Biktarvy Get Emma from Dr Irvin (last prescriber) Code(s): B20 - Human immunodeficiency virus [HIV] disease Qualifiers: HIV symptom status: asymptomatic, with no history of HIV-related illness Qualified Code(s): Z21 - Asymptomatic human immunodeficiency virus [HIV] infection status Plan: Continue treatment. Follow-up with Infectious Disease. Orders: Orders AMB Hemoglobin A1c Today E11.22 - Type 2 diabetes mellitus with diabetic chronic kidney disease, N18.31 - Chronic kidney disease, stage 3a, Z79.4 - alf (current) use of insulin Comprehensive [place]. Panel Fast 4 Months E11.22 - Type 2 diabetes mellitus with diabetic chronic kidney disease, N18.31 - Chronic kidney disease, stage 3a, Z79.4 - operations lieutenant (current) use of insulin Lipid Panel 4 Months E78.5 - Hyperlipidemia, unspecified Microalbumin, Random (w Creat) 4 Months E11.9 - Type 2 diabetes mellitus without complications Medications: New atorvastatin 40 mg PO BEDTIME 90 days 90 tabs 0RF fluocinolone acetonide oil 0.01% (DermOtic Oil) 5 drps otic (ear) left BID 7 days 20 mL 0RF Discontinued atorvastatin Discontinued Reason: Patient Completed Course 20 mg PO BEDTIME 90 days 90 tabs 1RF Coding Level of Care Code Est Pt Prev Care 40-64y(61076) Diagnoses Adult general medical exam Z00.00 CKD (chronic kidney disease) stage 3, GFR 30-59 ml/min N18.30 Morbid obesity E66.01 Type 2 diabetes mellitus with stage 3a chronic kidney disease, with long-term current use of insulin E11.22; N18.31; Z79.4 Diabetes mellitus type: type 2 Diabetes mellitus longterm insulin use: with longterm use Diabetes mellitus complication status: with kidney complications Diabetes mellitus complication detail: with chronic kidney disease Chronic kidney disease stage: stage 3 (moderate) Chronic kidney disease stage 3 subtype: stage 3a (GFR 45-59) Asymptomatic HIV infection, with no history of HIV-related illness Z21 HIV symptom status: asymptomatic, with no history of HIV-related illness Additional Codes SARAH-7 Assessment Billing - SARAH-7 Assessment Tool: SARAH-7 Assessment [id number] ([id number]) Time Spent (min) 35
[2023-05-31 14:12] VITALS: BP 122/70; BMI 40.2
== END 2023-05-31 14:58 | disposition home or self-care (01) ==
PROVIDERS: PCP Internal Medicine; Visit Provider Internal Medicine
DX: Z00.00 Encounter for general adult medical examination without abnormal findings (principal); E11.22 Type 2 diabetes mellitus with diabetic chronic kidney disease; N18.31 Chronic kidney disease, stage 3a; Z79.4 Long term (current) use of insulin; Z21 Asymptomatic human immunodeficiency virus [HIV] infection status
CPT/HCPCS: 83036; 99396

== ENCOUNTER 2023-07-12 13:42 | Outpatient (AMB) | payer OTHER, SELFPAY ==
[2023-07-12 13:44] VITALS: BP 112/64; PULSE 85; O2SAT 96; BMI 41.5
--- NOTE | 2023-07-12 13:44 | HO.NEPHOV ---
Vital Signs 07/12/23 13:44 Height 5 ft 4 in Weight 242 lb BMI 41.5 BP 112/64 Blood Pressure Location Lt brachial Position Sitting Pulse 85 Pulse Source Pulse Oximeter Pulse Oximetry (%) 96 Oxygen Delivery Method Room Air Intake Visit Reasons: continue care former Pt of Dr. Perez/ Confirmed Supervisor Print Line Required: Yes Supervisor Print Line Name: Speedy [id number] Accompanied by: Mother Allergies glipizide Allergy (Mild, Verified 07/12/23 13:47) rash tuberculin, purified protein deriva Allergy (Mild, Verified 07/12/23 13:47) Swelling martinez Allergy (Mild, Uncoded 05/31/23 14:37) Hives HPI Comments Details: 52-year-old man with HIV and diabetes mellitus with chronic kidney disease. Recent A1c is bumped up to 7.8. Creatinine stable around 1.2 mg/dL. Today he is complaining of Balanitis He is on Jardiance [facility] Medical History Mixed hyperlipidemia CKD (chronic kidney disease) stage 3, GFR 30-59 ml/min Mild intermittent asthma Hyperkalemia Morbid obesity Renal calculi Morbid obesity Dyslipidemia CKD (chronic kidney disease) Essential hypertension Diabetes mellitus HIV (human immunodeficiency virus infection) Surgical History No pertinent past surgical history Family History Father Myocardial infarction Hypertension CVD (cardiovascular disease) Mother Stroke CVD (cardiovascular disease) Mental health disorder Sister Diabetes Social History Housing: Apartment Alcohol intake: former Patient Tobacco Use Status: Never used Tobacco e-Cigarette/Vaping Use: Never Used Second Hand Smoke Exposure: Yes service: No Current occupational status: employed Current occupational exposures/hazards: No Cognitive needs: No Hearing needs: No Vision needs: No Physical Exam Vital Signs: Last Vital Signs Pulse 85 07/12/23 13:44 BP 112/64 07/12/23 13:44 Pulse Ox 96 07/12/23 13:44 Oxygen Delivery Method Room Air 07/12/23 13:44 BMI result Body Mass Index 41.5 Const General: comfortable Nutritional Appearance: well nourished Orientation/consciousness: patient oriented x3 HEENT Head: No normal to inspection Mouth: moist mucous membranes Neck Neck: Yes supple and Yes no JVD Resp Auscultation: clear to auscultation bilaterally, no rales and rub present Cardio Jugular venous distension: no JVD Palpation: no palpable S3 and no palpable S4 Heart sounds: no rubs GI Palpation (GI): Soft to palpation and nontender Percussion: No Fluid wave present General: Yes no CVA tenderness Penis: other (Balanitis) Back/Spine/Pelvis Back: no CVA tenderness Skin General skin exam: no rashes or lesions noted Neuro General: patient oriented x3 Extrem General: Yes no pedal edema and No clubbing Results Reviewed Nephrology Results: Hgb 16.6 g/dl (14.0-18.0) 01/24/23 WBC 8.2 X10*3/uL (4.8-10.8) 01/24/23 Plt Count 267 X10*3/uL (160-400) 01/24/23 Sodium 139 mmol/L (135-145) 05/23/23 Potassium 4.6 mmol/L (3.3-5.1) 05/23/23 Chloride 109 mmol/L (96-108) H 05/23/23 Carbon Dioxide 23 mmol/L (22-29) 05/23/23 BUN 17 mg/dL (9-16) H 05/23/23 Creatinine 1.49 mg/dL (0.5-1.4) H 05/23/23 Calcium 9.2 mg/dL (8.4-10.2) 05/23/23 Urine Creatinine 84.58 mg/dL 05/23/23 Assessment & Plan Assessment & Plan (1) CKD (chronic kidney disease) stage 3, GFR 30-59 ml/min: Code(s): N18.30 - Chronic kidney disease, stage 3 unspecified Category: Medical Plan: CKD in a setting of diabetes mellitus and HIV. Renal function stable with a creatinine 1.3. Goal is to slow the progression of disease Continue with Zelalem inhibitors for renal protection. (2) Balanitis: Code(s): N48.1 - Balanitis Category: Medical Plan: Due to SGLT2 inhibitors. Hold SGLT2 inhibitors temporarily Gave a course of clotrimazole Orders: Orders Total Protein Urine Random 3 Months N18.30 - Chronic kidney disease, stage 3 unspecified Creatinine Urine 3 Months N05.9 - Unspecified nephritic syndrome with unspecified morphologic changes, N18.30 - Chronic kidney disease, stage 3 unspecified Basic Metabolic Panel 3 Months N18.30 - Chronic kidney disease, stage 3 unspecified TSH reflex Free T4 3 Months N18.30 - Chronic kidney disease, stage 3 unspecified Medications: New clotrimazole 1% 1 appl topical BID 4 weeks 30 grams 1RF Coding Level of Care Code Est Pt Level 4 (97059) Diagnoses CKD (chronic kidney disease) stage 3, GFR 30-59 ml/min N18.30 Kayden N48.1
== END 2023-07-12 14:17 | disposition home or self-care (01) ==
PROVIDERS: PCP Internal Medicine; Visit Provider Internal Medicine Hypertension Specialist
DX: N18.30 Chronic kidney disease, stage 3 unspecified (principal); N48.1 Balanitis
CPT/HCPCS: 99214

== ENCOUNTER → 2023-07-12 13:42 | Outpatient (BNVA) | payer OTHER, SELFPAY | PROVIDERS: PCP Internal Medicine; Visit Provider Internal Medicine Hypertension Specialist | DX: E11.22 Type 2 diabetes mellitus with diabetic chronic kidney disease (principal); N18.30 Chronic kidney disease, stage 3 unspecified; N48.1 Balanitis | CPT/HCPCS: 99212 ==

== ENCOUNTER 2023-09-05 15:34 | Outpatient (REF) | payer OTHER, SELFPAY ==
[2023-09-06 08:42] LABS: ~HepC Num1 0.08 S/CO (0.00-0.79); ~Hepatitis C Antibody Nonreactive (Nonreactive)
[2023-09-06 14:53] LABS: HIV RNA PCR Qn Copies <20 DETECTED copies/mL (NOT DETECTED); HIV RNA PCR Qn Log Copies <1.30 DETECTED (NOT DETECTED)
[2023-09-08 18:08] LABS: Absolute CD3 Count 2773 cells/uL (840-3060); Absolute CD4 Count 961 cells/uL (490-1740); Absolute CD8 Count 1900 cells/uL (180-1170); Absolute Lymphocytes 3455 cells/uL (850-3900); CD4 CD8 Ratio 0.51 (0.86-5.00); Percent CD3 Cells 80 % (57-85); Percent CD4 Cells 28 % (30-61); Percent CD8 Cells 55 % (12-42)
== END 2023-09-05 15:35 | disposition home or self-care (01) ==
LOC: HO.LAB 15:34
PROVIDERS: Visit Provider Internal Medicine
DX: B20 Human immunodeficiency virus [HIV] disease (principal)
CPT/HCPCS: 36415; 86359; 86360; 86803; 87536

== ENCOUNTER 2023-09-12 14:28 | Outpatient (AMB) | payer OTHER, SELFPAY ==
[2023-09-12 14:29] VITALS: PULSE 73; O2SAT 98
--- NOTE | 2023-09-12 14:29 | A.OFFVIS_ITS ---
Vital Signs 09/12/23 14:29 Weight 264 lb Pulse 73 Pulse Source Pulse Oximeter Pulse Oximetry (%) 98 Oxygen Delivery Method Room Air Intake Visit Reasons: F/U 6 mth lab Delivery Director Services: Delivery Director Present Delivery Director Name: Radha Watkins CMA Information Interpreted: clinical only Allergies glipizide Allergy (Mild, Verified 09/12/23 14:49) rash tuberculin, purified protein deriva Allergy (Mild, Verified 09/12/23 14:49) Swelling martinez Allergy (Mild, Uncoded 05/31/23 14:37) Hives HPI HPI F/U 6 mth lab: Details: He has been doing well. He has CD4 count of 961 and viral load undetectable on 09/04 He denies recent rectal Pap or TERRY. His creatinine isn 1.49 on 05/22. [facility] Medical History Mixed hyperlipidemia CKD (chronic kidney disease) stage 3, GFR 30-59 ml/min Mild intermittent asthma Hyperkalemia Morbid obesity Renal calculi Morbid obesity Dyslipidemia CKD (chronic kidney disease) Essential hypertension Diabetes mellitus HIV (human immunodeficiency virus infection) Surgical History No pertinent past surgical history Family History Father Myocardial infarction Hypertension CVD (cardiovascular disease) Mother Stroke CVD (cardiovascular disease) Mental health disorder Sister Diabetes Social History Housing: Apartment Alcohol intake: former Patient Tobacco Use Status: Never used Tobacco e-Cigarette/Vaping Use: Never Used Second Hand Smoke Exposure: Yes service: No Current occupational status: employed Current occupational exposures/hazards: No Cognitive needs: No Hearing needs: No Vision needs: No Review of Systems Const All systems reviewed & are unremarkable except as noted in HPI and below Physical Exam Vital Signs: Last Vital Signs Pulse 73 09/12/23 14:29 Pulse Ox 98 09/12/23 14:29 Oxygen Delivery Method Room Air 09/12/23 14:29 Const General: cooperative Orientation/consciousness: patient oriented x3 HEENT Head: Yes normal to inspection Mouth: Normal oral and palatal mucosa present Eyes General: appearance normal, both eyes and all related structures Pupils: Equal, round and reactive pupils present Resp Effort & Inspection: normal respiratory effort Cardio Rate: regular rate Rhythm: regular rhythm GI Palpation (GI): Soft to palpation and nontender General: Yes no CVA tenderness Back/Spine/Pelvis Back: no CVA tenderness Skin General skin exam: no rashes or lesions noted Neuro General: patient oriented x3 Cranial nerves: Yes CN's II-XII intact bilaterally and Yes Equal, round and reactive pupils present Extrem General: Yes normal to inspection Psych Appearance: grossly normal Quality Reporting (2019) Adult ([facility] 138/2//) Smoking risk assessment performed?: Yes Patient Tobacco Use Status: Never used Tobacco Assessment & Plan Assessment & Plan (1) HIV (human immunodeficiency virus infection): Comment: He is doing well He has been taking Biktarvy His CD4 count is 961 and viral load is undetectable 09/04. His RPR is 1:4 and stable. Continue Biktarvy Check labs February 2024 and see March 2024.(written for) Also renewal Biktarvy Get Emma from Dr Irvin (last prescriberJ He will let us know if wishes to get rectal Pap. Code(s): B20 - Human immunodeficiency virus [HIV] disease Category: Medical Qualifiers: HIV symptom status: asymptomatic, with no history of HIV-related illness Qualified Code(s): Z21 - Asymptomatic human immunodeficiency virus [HIV] infection status Plan: n/a Plan na Orders: Orders Lymphocyte Subset Panel 3 6 Months Z21 - Asymptomatic human immunodeficiency virus [HIV] infection status RPR Monitor reflex titer 6 Months Z21 - Asymptomatic human immunodeficiency virus [HIV] infection status HIV-1 RNA QN PCR Expanded 6 Months Z21 - Asymptomatic human immunodeficiency virus [HIV] infection status Medications: Refilled ecrpmlurf-zxyvasss-glunady ala 50-200-25 mg (Biktarvy) 1 tab PO DAILY 30 tabs 5RF 30 days Coding Level of Care Code Est Pt Level 4 (37279) Diagnoses Asymptomatic HIV infection, with no history of HIV-related illness Z21 HIV symptom status: asymptomatic, with no history of HIV-related illness
== END 2023-09-12 15:06 | disposition home or self-care (01) ==
LOC: HO.HID 14:28
PROVIDERS: PCP Internal Medicine; Visit Provider Internal Medicine
DX: Z21 Asymptomatic human immunodeficiency virus [HIV] infection status (principal)
CPT/HCPCS: 99214

== ENCOUNTER → 2023-09-12 14:28 | Outpatient (BNVA) | payer OTHER, SELFPAY | PROVIDERS: PCP Internal Medicine; Visit Provider Internal Medicine | DX: Z21 Asymptomatic human immunodeficiency virus [HIV] infection status (principal); Z79.899 Other long term (current) drug therapy | CPT/HCPCS: 99212 ==

== ENCOUNTER 2023-09-26 11:05 | Outpatient (REF) | payer OTHER, SELFPAY ==
[2023-09-26 12:30] LABS: Alanine Aminotransferase 44 U/L (0-40); Alkaline Phosphatase 73 U/L (39-117); Anion Gap 13 (12-20); Aspartate Amino Transferase 25 U/L (5-37); Bilirubin Total 0.8 mg/dL (0.0-1.0); Blood Urea Nitrogen 18 mg/dL (9-16); Calcium 9.4 mg/dL (8.4-10.2); Carbon Dioxide 24 mmol/L (22-29); Chloride 105 mmol/L (96-108); Cholesterol 181 mg/dL (<200); Estimated Glomerular Filt Rate > 60; Glucose Fasting 113 mg/dL (60-99); HDL Cholesterol 40 mg/dL (>40); LDL Cholesterol Calculated 106 mg/dL (<100); Sodium 138 mmol/L (135-145); Total Protein 7.5 g/dL (6.5-8.0); Triglycerides 176 mg/dL (<150)
[2023-09-26 14:36] LABS: Creatinine Urine 109.96 mg/dL; Microalbum/Creatinine Ratio Ur 497.4 ug/mg cr (<30)
== END 2023-09-26 11:06 | disposition home or self-care (01) ==
LOC: HO.LAB 11:05
PROVIDERS: PCP Internal Medicine; Visit Provider Internal Medicine
DX: E78.5 Hyperlipidemia, unspecified (principal); E11.22 Type 2 diabetes mellitus with diabetic chronic kidney disease; N18.31 Chronic kidney disease, stage 3a; Z79.4 Long term (current) use of insulin; E11.9 Type 2 diabetes mellitus without complications
CPT/HCPCS: 36415; 80053; 80061; 82043; 82570

== ENCOUNTER 2023-10-03 14:07 | Outpatient (AMB) | payer OTHER, SELFPAY ==
[2023-10-03 14:14] VITALS: BP 130/82; BMI 44.6
--- NOTE | 2023-10-03 14:14 | MHC.PC.OV ---
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 Accompanied by: Self / Same As Patient Allergies glipizide Allergy (Mild, Verified 10/03/23 14:49) rash tuberculin, purified protein deriva Allergy (Mild, Verified 10/03/23 14:49) Swelling martinez Allergy (Mild, Uncoded 10/03/23 14:49) Hives jardiance Adverse Reaction (Severe, Uncoded 10/03/23 14:49) Rash/balanitis Medication List - Last Reconciled 10/03/23 by Humaira Hood MD amitriptyline 100 mg PO BEDTIME atorvastatin 40 mg PO BEDTIME 90 days mheggjjvn-gabjtvvz-umgsbyp ala 50-200-25 mg (Biktarvy) 1 tab PO DAILY 30 days blood sugar diagnostic Use 1 test strip twice a day blood sugar diagnostic (Accu-Chek Guide test strips) Use 1 test strip three times a day blood sugar diagnostic (FreeStyle Test strips) Use 1 strip three times a day blood-glucose meter (Accu-Chek Guide Glucose Meter) As directed blood-glucose meter (FreeStyle Lite Meter kit) As directed cholecalciferol (vitamin D3) 50 mcg PO DAILY 90 days clotrimazole 1% 1 appl topical BID 4 weeks dulaglutide (Trulicity) 1.5 mg (0.5 mL) subcut QWEEK 90 days fenofibrate 54 mg PO DAILY 90 days glyburide 5 mg PO BID lancets (FreeStyle Lancets) Use 1 lancet three times a day lancets (Accu-Chek Fastclix Lancet Drum) Use 1 lancet three times a day lisinopril 10 mg PO DAILY meclizine mg PO DAILY nebulizers (AeroEclipse II Nebulizer) As directed pen needle, diabetic (Comfort EZ Pen Colome) Use 1 pen needle twice a day sodium chloride 0.9% 1 mL inhalation Q8H PRN 90 days tadalafil 20 mg PO ONCE PRN 30 days topiramate 100 mg PO BID Tobacco use date assessed: 05/31/23 Dental Screening Dental Screen Date: 05/31/23 HPI HPI Comments History of Present Illness Details This is a 53-year-old male with diabetes mellitus type 2, hypertension, mixed hyperlipidemia, HIV and morbid obesity that comes today accompanied by mother which has dementia for follow-up on his conditions. A1c has improved but still elevated and I will add insulin due to discontinue Jardiance due to fungal infections. Blood pressure stable. LDL not on goal and I will increase statin from 40 mg to 80 mg. HIV well control and follow by ID. He is morbidly obese with a BMI of 44.6 and declines weight loss surgery. Was advised to do diet and exercise to reach BMI goal less than 30. [facility] Medical History (Updated 10/03/23 @ 20:13 by Humaira Hood MD) Mixed hyperlipidemia Mild intermittent asthma Hyperkalemia Morbid obesity Renal calculi Morbid obesity Dyslipidemia CKD (chronic kidney disease) Essential hypertension Diabetes mellitus HIV (human immunodeficiency virus infection) Surgical History No pertinent past surgical history Family History Father Myocardial infarction Hypertension CVD (cardiovascular disease) Mother Stroke CVD (cardiovascular disease) Mental health disorder Sister Diabetes Social History Housing: Apartment Alcohol intake: former Patient Tobacco Use Status: Never used Tobacco e-Cigarette/Vaping Use: Never Used Second Hand Smoke Exposure: Yes service: No Current occupational status: employed Current occupational exposures/hazards: No Cognitive needs: No Hearing needs: No Vision needs: No Questionnaire Thrive Questionnaire Date Thrive assessed: 05/31/23 SARAH-7 AMB Questionnaire SARAH-7 Date SARAH - 7 assessed: 05/31/23 Source: Developed by Drs. Maykel Moreau, Krystal Montaño, Deniz Burgos and colleagues, with an educational samantha from [employer]. Review of Systems Const All systems reviewed & are unremarkable except as noted in HPI and below Card Denies chest pain at rest, Denies chest pain with activity, Denies edema, Denies irregular heart rhythm, Denies claudication, Denies dyspnea, Denies dyspnea on exertion, Denies orthopnea, Denies paroxysmal nocturnal dyspnea and Denies slow heart rate Resp Denies cough, Denies dyspnea and Denies dyspnea on exertion Physical exam (Primary Care) Vital Signs: Last Vital Signs BP 130/82 10/03/23 14:14 BMI result Body Mass Index 44.6 Tobacco/Smoking Status: Tobacco use Status Tobacco use date assessed 05/31/23 10/03/23 14:23 Patient Tobacco Use Status Never used Tobacco 10/03/23 14:23 e-Cigarette/Vaping Use Never Used 10/03/23 14:23 Thrive Assessment: Date of Thrive Assessment Date Thrive assessed 05/31/23 10/03/23 14:23 Resp Effort & Inspection: normal respiratory effort Auscultation: clear to auscultation bilaterally Cardio Jugular venous distension: no JVD Rate: regular rate Rhythm: regular rhythm Heart sounds: S1 normal heart sound present and S2 normal heart sound present Extrem General: Yes full ROM Results AMB Hemoglobin A1c AMB Hemoglobin A1c 7.6 % Last Edit by AIDA Magallanes on 10/03/23 14:29 Results Reviewed Results Reviewed: Laboratory Last Values Hgb A1c (Clinic) 7.6 % (4.0-6.0) H 10/03/23 14:14 Assessment and Plan Assessment & Plan (1) Diabetes mellitus: Code(s): E11.9 - Type 2 diabetes mellitus without complications Qualifiers: Diabetes mellitus type: type 2 Diabetes mellitus [facility] insulin use: with [facility] use Diabetes mellitus complication status: with kidney complications Diabetes mellitus complication detail: with chronic kidney disease Chronic kidney disease stage: stage 3 (moderate) Chronic kidney disease stage 3 subtype: stage 3a (GFR 45-59) Qualified Code(s): E11.22 - Type 2 diabetes mellitus with diabetic chronic kidney disease; N18.31 - Chronic kidney disease, stage 3a; Z79.4 - termite treater (current) use of insulin Plan: Continue Trulicity and glyburide. Start Lantus. A1c goal is equal or less than 7% (2) HIV (human immunodeficiency virus infection): Comment: He is doing well He has been taking Biktarvy His CD4 count is 961 and viral load is undetectable 09/04. His RPR is 1:4 and stable. Continue Biktarvy Check labs February 2024 and see March 2024.(written for) Also renewal Biktarvy Get Emma from Dr Irvin (last prescriberJ He will let us know if wishes to get rectal Pap. Code(s): B20 - Human immunodeficiency virus [HIV] disease Qualifiers: HIV symptom status: asymptomatic, with no history of HIV-related illness Qualified Code(s): Z21 - Asymptomatic human immunodeficiency virus [HIV] infection status Plan: Continue Biktarvy. Follow-up with ID. (3) Morbid obesity: Code(s): E66.01 - Morbid (severe) obesity due to excess calories Plan: Start diet and exercise. BMI goal is less than 30. (4) Mixed hyperlipidemia: Code(s): E78.2 - Mixed hyperlipidemia Plan: Increase statins. Continue fenofibrate. LDL goal is less than 70. (5) Essential hypertension: Code(s): I10 - Essential (primary) hypertension Plan: Continue lisinopril. Blood pressure goal is equal or less than 130/80. Orders: Orders Comprehensive Drake. Panel Fast 4 Months E11.22 - Type 2 diabetes mellitus with diabetic chronic kidney disease, N18.31 - Chronic kidney disease, stage 3a, Z79.4 - termite treater (current) use of insulin AMB Hemoglobin A1c Today E11.22 - Type 2 diabetes mellitus with diabetic chronic kidney disease, N18.31 - Chronic kidney disease, stage 3a, Z79.4 - termite treater (current) use of insulin Lipid Panel 4 Months E78.5 - Hyperlipidemia, unspecified Microalbumin, Random (w Creat) 4 Months E11.9 - Type 2 diabetes mellitus without complications Medications: New insulin glargine (Lantus Solostar U-100 Insulin) 15 units (0.15 mL) subcut QPM 90 days 13.5 mL 1RF E11.22 - Type 2 diabetes mellitus with diabetic chronic kidney disease, N18.31 - Chronic kidney disease, stage 3a, Z79.4 - termite treater (current) use of insulin atorvastatin 80 mg PO BEDTIME 90 days 90 tabs 1RF Discontinued atorvastatin Discontinued Reason: Patient Completed Course 40 mg PO BEDTIME 90 days 90 tabs 0RF Coding Level of Care Code Est Pt Level 4 (65688) Complex EM visit Add On G2211 Diagnoses Type 2 diabetes mellitus with stage 3a chronic kidney disease, with long-term current use of insulin E11.22; N18.31; Z79.4 Diabetes mellitus type: type 2 Diabetes mellitus [facility] insulin use: with [facility] use Diabetes mellitus complication status: with kidney complications Diabetes mellitus complication detail: with chronic kidney disease Chronic kidney disease stage: stage 3 (moderate) Chronic kidney disease stage 3 subtype: stage 3a (GFR 45-59) Asymptomatic HIV infection, with no history of HIV-related illness Z21 HIV symptom status: asymptomatic, with no history of HIV-related illness Morbid obesity E66.01 Mixed hyperlipidemia E78.2 Essential hypertension I10 Time Spent (min) 24
== END 2023-10-03 15:09 | disposition home or self-care (01) ==
PROVIDERS: PCP Internal Medicine; Visit Provider Internal Medicine
DX: I12.9 Hypertensive chronic kidney disease with stage 1 through stage 4 chronic kidney disease, or unspecified chronic kidney disease (principal); E11.22 Type 2 diabetes mellitus with diabetic chronic kidney disease; N18.31 Chronic kidney disease, stage 3a; Z79.4 Long term (current) use of insulin; Z21 Asymptomatic human immunodeficiency virus [HIV] infection status; E66.01 Morbid (severe) obesity due to excess calories; Z68.41 Body mass index [BMI] 40.0-44.9, adult; E78.2 Mixed hyperlipidemia
CPT/HCPCS: 83036; 99214; G2211

== ENCOUNTER 2023-10-19 13:23 | Outpatient (AMB) | payer OTHER, SELFPAY ==
--- NOTE | 2023-10-19 13:26 | A.OFFVIS_ITS ---
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 He is a patient of Dr. Hood. He seen for the following urologic issues - BPH - erectile dysfunction Last seen 2021 Had been on doxazosin with daily tadalafil Recurrent balanitis with Jardiance. But has good blood sugar control on Jardiance. Plan for circumcision Lower urinary tract symptoms Episode of pyelonephritis with admission to [facility] October 2021 Had changed in the counter for diabetic management Feels he had a 2nd UTI in the meantime Prior prostate medication Initiate doxazosin Erectile dysfunction Background HIV, morbid obesity, type 2 diabetes Progressive erectile dysfunction Prior therapy intermittent Plan for daily tadalafil with on demand 20 mg PFSH Medical History (Updated 10/03/23 @ 20:13 by Humaira Hood MD) Mixed hyperlipidemia Mild intermittent asthma Hyperkalemia Morbid obesity Renal calculi Morbid obesity Dyslipidemia CKD (chronic kidney disease) Essential hypertension Diabetes mellitus HIV (human immunodeficiency virus infection) Surgical History No pertinent past surgical history Family History Father Myocardial infarction Hypertension CVD (cardiovascular disease) Mother Stroke CVD (cardiovascular disease) Mental health disorder Sister Diabetes Social History Housing: Apartment Alcohol intake: former Patient Tobacco Use Status: Never used Tobacco e-Cigarette/Vaping Use: Never Used Second Hand Smoke Exposure: Yes service: No Current occupational status: employed Current occupational exposures/hazards: No Cognitive needs: No Hearing needs: No Vision needs: No Review of Systems Const Denies chills and Denies fever(s) Card Reports no additional complaints and Denies syncope Resp Denies cough GI Denies abdominal pain and Denies heartburn Reports as per HPI and Denies change in libido Neuro Denies syncope Psych Denies change in libido Endo Denies change in libido Physical Exam Const General: cooperative, healthy appearing, comfortable and no acute distress Orientation/consciousness: patient oriented x3 HEENT Face and sinus: Yes normal facial exam Mouth: moist mucous membranes Neck Neck: Yes normal visual inspection, Yes full ROM and Yes trachea midline Chest Chest palpation & inspection: normal inspection of the chest Resp Effort & Inspection: normal respiratory effort, able to speak in complete sentences and no respiratory distress GI Inspection: Yes normal to inspection Back/Spine/Pelvis Cervical Spine: normal cervical lordosis Thoracic/Lumbar Spine: thoracic and lumbar spine normal to inspection Skin General skin exam: no rashes or lesions noted Neuro General: patient oriented x3, gait normal, tone normal and moves all extremities Extrem General: Yes normal to inspection and Yes capillary refill normal Results AMB Urinalysis, Automated UA Leukoctes 0 Poli/uL Last Edit by ROSITA Salguero on 10/19/23 13:39 UA Nitrite Negative Last Edit by ROSITA Salguero on 10/19/23 13:39 UA Urobilinogen 0.2 mg/dL Last Edit by ROSITA Salguero on 10/19/23 13:3 9 UA Protein 30 mg/dL Last Edit by ROSITA Salguero on 10/19/23 13:39 UA pH 5.5 Last Edit by ROSITA Salguero on 10/19/23 13:39 UA Blood 0 [place]/uL Last Edit by ROSITA Salguero on 10/19/23 13:39 UA Specific [place] 1.015 Last Edit by ROSITA Salguero on 10/19/23 13: 39 UA Ketone Positive Last Edit by ROSITA Salguero on 10/19/23 13:39 UA Bilirubin 0 mg/dL Last Edit by ROSITA Salguero on 10/19/23 13:39 UA Glucose 1000 mg/dL Last Edit by ROSITA Salguero on 10/19/23 13:39 Quality Reporting (2019) Adult ([facility] 13804/19/68) Smoking risk assessment performed?: Yes Patient Tobacco Use Status: Never used Tobacco Results Reviewed Results Reviewed: Laboratory Last Values Urine pH (Auto) 5.5 10/19/23 13:39 Specific [place] (Auto) 1.015 10/19/23 13:39 Urine Protein (Auto) 30 mg/dL 10/19/23 13:39 Glucose (UA)(Auto) 1000 mg/dL 10/19/23 13:39 Urine Ketones (Auto) Positive 10/19/23 13:39 Urine Blood (Auto) 0 [place]/uL 10/19/23 13:39 Urine Nitrite (Auto) Negative 10/19/23 13:39 Urine Bilirubin (Auto) 0 mg/dL 10/19/23 13:39 Urine Urobilinogen (Auto) 0.2 mg/dL 10/19/23 13:39 Leukocyte Esterase (Auto) 0 Poli/uL 10/19/23 13:39 Assessment & Plan Assessment & Plan (1) Balanitis: Code(s): N48.1 - Balanitis Category: Medical Plan Risks, benefits and alternatives to therapy were discussed. These include but are not limited to infection, bleeding, damage to local organs and tissues, need for further interventions. Anesthetic risks regarding cardiac arrhythmia, blood clots, and potential mortality were discussed. The patient understands the typical recovery time and the outpatient nature of the procedure. After consideration of these risks the patient gives full informed consent and they wish to move ahead with the procedure. Orders: Orders AMB Urinalysis Automated Today Z13.9 - Encounter for screening, unspecified Patient Instructions: Imaging studies, laboratory and physical exam results were discussed and reviewed in detail. No major barriers to patient understanding were identified. An opportunity to ask questions regarding the treatment plan was provided. All questions were answered. The patient expressed understanding and agreement with the above treatment plan. The patient is aware they should contact our office by phone for worsening of their current condition or the appearance of new urologic symptoms. Compliance is encouraged with any medications and followup testing that is ordered. It is a privilege to participate in the urologic care of your patient. If you have any questions or concerns regarding treatment for the above conditions, or other urologic issues, please do not hesitate to contact me. The office telephone contact is [phone]. This note is constructed using voice recognition software. While every effort has been made to ensure accuracy aperture mask etcher errors may have been included. Yours sincerely, Dr Donny Irvin MD, [facility] - Urology Providers of Expert, Compassionate Care for the Genitourinary System Coding Level of Care Code Est Pt Level 4 (19096) Diagnoses Balanitis N48.1
== END 2023-10-19 13:52 | disposition home or self-care (01) ==
PROVIDERS: PCP Internal Medicine; Visit Provider Urology
DX: Z13.9 Encounter for screening, unspecified (principal); N48.1 Balanitis
CPT/HCPCS: 99214

== ENCOUNTER → 2023-10-19 13:23 | Outpatient (BNVA) | payer OTHER, SELFPAY | PROVIDERS: PCP Internal Medicine; Visit Provider Urology | DX: N48.1 Balanitis (principal); N52.9 Male erectile dysfunction, unspecified | CPT/HCPCS: 81003; 99212 ==

== ENCOUNTER 2023-10-23 11:22 | Emergency (ER) | payer OTHER, SELFPAY ==
--- NOTE | ~2023-10-23 | XR_ITS ---
EXAMINATION: XR FOOT, LEFT CLINICAL INFORMATION: Pain without injury. Neuropathy. COMPARISON: None available. TECHNIQUE: AP, lateral, and oblique views of the left foot. FINDINGS: There is some deformity of the medial base of the distal phalanx of the great toe. This could be secondary to a remote healed fracture or possibly a congenital abnormality. No acute fractures are seen. No bony destructive lesions. Vascular calcifications are noted. XR/XR foot LT 2V IMPRESSION: No evidence of an acute injury. Electronically signed by: Erasmo Reyes MD 10/23/2023 01:16 PM EDT
--- NOTE | ~2023-10-23 | US_ITS ---
EXAMINATION: US NONINVASIVE ASSESSMENT OF THE LEFT LOWER EXTREMITY WITH ARTERIAL DUPLEX CLINICAL INFORMATION: Left foot pain and discoloration COMPARISON: None available. TECHNIQUE: Duplex Doppler techniques with waveform analysis and measurement of velocities in the common femoral, profunda femoris, superficial femoral, popliteal and tibial arteries were performed. In addition, ankle pulse volume recordings, ankle pressure measurements and ankle brachial indices were obtained of the left lower extremity arterial system. The study was performed only at rest. FINDINGS: RIGHT LOWER EXTREMITY DUPLEX ULTRASOUND: Common femoral artery: 107 cm/s. Diastolic flow reversal: Present Profunda femoris artery: 61 cm/s. Diastolic flow reversal: Present Superficial femoral artery (proximal): 106 cm/s. Diastolic flow reversal: Present Superficial femoral artery (mid): 95 cm/s. Diastolic flow reversal: Present Superficial femoral artery (distal): 81 cm/s. Diastolic flow reversal: Present Popliteal artery: 78 cm/s Diastolic flow reversal: Present Posterior tibial artery: 99 cm/s Diastolic flow reversal: Present Anterior tibial artery: 64 cm/s Diastolic flow reversal: Present Peroneal artery: Occluded Diastolic flow reversal: No Atherosclerotic disease throughout the left lower extremity. US/US arterial duplex LE LT IMPRESSION: Occluded left peroneal artery. Atherosclerotic disease throughout the left lower extremity. Electronically signed by: Allegra Escobar MD 10/23/2023 02:21 PM EDT
[2023-10-23 11:47] VITALS: BP 138/82; PULSE 95; RESP 18; TEMP 36.9; O2SAT 97; BMI 41.5
--- NOTE | 2023-10-23 11:47 | ED_ITS ---
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 Patient reports the pain started gradually and has been getting worse. He reports for the last 2 or 3 days the pain has been severe, worse with ambulation and palpation. He noticed that his great toe is starting to be discolored, it is black and blue. Last night he was unable to sleep due to the pain and he was putting his foot under cold water with some relief. He was due to see his PCP today but he was 4 minutes late for his appointment so he was sent here for further evaluation. He has had to use his mother's walker for gait stability as his foot pain has been severe, throbbing in nature. He denies any calf pain or swelling in the leg. Of note patient was recently seen at [facility] ER last week for chest pain. He reports a significant family history for cardiac events MD complaint: Left foot and toe pain Onset (ago): day(s) (6) Location: left and lower extremity Radiation: distal Severity: severe Severity scale (1-10): 10 Quality: other (Throbbing) Pain Consistency: constant Relieving factors: rest and other (Cold water) Exacerbating factors: movement Associated symptoms: denies other symptoms Treatments prior to arrival: none Related Data Home Medications ?Medication ?Instructions ?Recorded ?Confirmed amitriptyline 100 mg tablet 100 mg PO BEDTIME 01/20/20 10/03/23 topiramate 100 mg tablet 100 mg PO BID 08/31/21 10/03/23 meclizine 25 mg tablet mg PO DAILY 07/12/23 10/03/23 Previous Rx's ?Medication ?Instructions ?Recorded lisinopril 10 mg tablet 10 mg PO DAILY #90 tabs 03/09/21 nebulizers (AeroEclipse II #50 ea 03/09/21 Nebulizer) blood sugar diagnostic #70 ea 06/24/21 sodium chloride 0.9 % for 1 ml inhalation Q8H PRN shortness 08/08/21 nebulization of breath or wheezing 90 days #90 mL tadalafil 20 mg tablet 20 mg PO ONCE PRN sexual activity 03/02/22 30 days #30 tabs blood-glucose meter (Accu-Chek #1 ea 06/21/22 Guide Glucose Meter) lancets (Accu-Chek Fastclix Lancet #100 ea 06/21/22 Drum) glyburide 5 mg tablet 5 mg PO BID #60 tabs 09/21/22 dulaglutide 1.5 mg/0.5 mL 1.5 mg (0.5 mL) subcut QWEEK 90 01/30/23 subcutaneous pen injector days #6.5 mL (Trulicity) cholecalciferol (vitamin D3) 50 50 mcg PO DAILY 90 days #90 caps 03/19/23 mcg (2,000 unit) capsule blood sugar diagnostic (Accu-Chek #100 ea 04/02/23 Guide test strips) pen needle, diabetic 31 gauge x #100 ea 04/02/2307/11 (Comfort EZ Pen [place]) blood-glucose meter (FreeStyle #1 ea 04/07/23 Lite Meter kit) lancets 28 gauge (FreeStyle #100 ea 04/07/23 Lancets) blood sugar diagnostic (FreeStyle #100 ea 04/11/23 Test strips) clotrimazole 1 % topical cream 1 appl topical BID 4 weeks #30 07/12/23 grams bictegravir 50 mg-emtricitabine 1 tab PO DAILY 30 days #30 tabs 09/12/23 200 mg-tenofovir alafenam 25 mg tablet (Biktarvy) atorvastatin 80 mg tablet 80 mg PO BEDTIME 90 days #90 tabs 10/03/23 insulin glargine 100 unit/mL (3 15 unit (0.15 mL) subcut QPM 90 10/03/23 mL) subcutaneous pen (Lantus days #13.5 mL Solostar U-100 Insulin) fenofibrate 54 mg tablet 54 mg PO DAILY 90 days #90 tabs 10/21/23 aspirin 81 mg tablet,delayed 81 mg PO DAILY #30 tabs 10/23/23 release clopidogrel 75 mg tablet (Plavix) 75 mg PO DAILY #30 tabs 10/23/23 oxycodone 5 mg tablet 5 mg PO Q8H PRN severe pain (scale 10/23/23 score 7-10) #6 tabs Allergies Allergy/AdvReac Type Severity Reaction Status Date / Time glipizide Allergy Mild rash Verified 10/23/23 11:50 tuberculin, purified protein Allergy Mild Swelling Verified 10/23/23 11:50 deriva martinez Allergy Mild Hives Uncoded 10/19/23 13:28 jardiance AdvReac Severe Rash/balani Uncoded 10/19/23 13:28 tis Review of Systems 2 Review of Systems: Yes all other systems are reviewed and are negative [facility] Past Medical History Medical History (Updated 10/23/23 @ 14:50 by PAM Sumner) Mixed hyperlipidemia Mild intermittent asthma Hyperkalemia Morbid obesity Renal calculi Morbid obesity Dyslipidemia CKD (chronic kidney disease) Essential hypertension Diabetes mellitus HIV (human immunodeficiency virus infection) Surgical History No pertinent past surgical history Family History Family History Father Myocardial infarction Hypertension CVD (cardiovascular disease) Mother Stroke CVD (cardiovascular disease) Mental health disorder Sister Diabetes Social History Social History Housing: Apartment Alcohol intake: former Patient Tobacco Use Status: Never used Tobacco e-Cigarette/Vaping Use: Never Used Second Hand Smoke Exposure: Yes Advance Directives: No Do you have a plan to hurt others: No Plan service: No Current occupational status: employed Current occupational exposures/hazards: No Cognitive needs: No Hearing needs: No Vision needs: No Physical Exam ED Vital Signs: Vital Signs - 24 hr 10/23/23 11:47 10/23/23 14:26 Temperature 98.5 F Pulse Rate 95 87 Respiratory Rate 18 16 Blood Pressure 138/82 178/81 H Pulse Oximetry 97 96 Oxygen Delivery Method Room Air Room Air BMI result Body Mass Index 41.5 Appearance: Alert. Oriented X3. No acute distress. HEENT: normal inspection CVS: Normal heart rate and rhythm. Pulses normal. Respiratory: No respiratory distress. Skin: Skin warm and dry. Normal skin color. Normal skin turgor. No rashes. Extremities: Left leg without any swelling. Left foot is warm. There is 1+ DP and PT pulses. There is purplish discoloration to the great toe with significant tenderness. Neuro: Oriented X 3. No motor deficit. No sensory deficit. Course Course Course Narrative: This is an RME done by PAM Garcia: Additional HPI, ROS, PE not included below will be deferred to primary provider. 53 year old male with severe left-sided foot pain and discoloration of hallux x 2-3 days. Pt was recently disagnosed with HIV and syphilis within the past year. Plan- labs, imaging Appearance: Alert.? Oriented X3.? No acute cardiopulmonary distress distress.? Head: Normocephalic, atraumatic, no step-offs or deformities CVS: Pulses normal.? Respiratory: No respiratory distress.? Abdomen: Soft and nontender.? Skin: ? Normal skin color. Extremities: 5/5 strength to bilateral upper and lower extremities; + left-sided hallux discoloration Neuro: Oriented X 3.? No motor deficit.? No sensory deficit. Medical Decision Making Medical Decision Making MDM Narrative: 53-year-old male with multiple comorbidities presents to the ER for evaluation of worsening left great toe pain and left foot pain for the last 6 days. Concern for arterial disease. His foot was warm and did have 1+ pulses on examination. X-ray of the foot was ordered from triage, no acute bony process. Arterial Ultrasounds showed occlusion of the left peroneal artery. Dr. Shaver from vascular was consulted who is recommending dual antiplatelet therapy with aspirin and Plavix. [employer] was used to discuss the results plan as well as need for follow-up, return precautions. Comfortable discharge home with close outpatient follow-up. Differential Diagnosis Differential Diagnoses: The differential diagnosis associated with the presentation includes PAD, PVD, DVT, diabetic wound Admission/Observation Consideration of admission/observation: Escalation of care including admission/observation considered Consult Healthcare Provider Management of the patient was discussed with: Lpn Rn Dr. Shaver Independent Interpretation I performed an independent interpretation of an: Plain X-Ray and Ultrasound Interpretation: X-ray without acute fracture US with occlusion of peroneal artery Radiology Impression Discussion of test interpretation with radiology: I have reviewed the radiologist's reading. Radiologist Impression: EXAMINATION: US NONINVASIVE ASSESSMENT OF THE LEFT LOWER EXTREMITY WITH ARTERIAL DUPLEX CLINICAL INFORMATION: Left foot pain and discoloration COMPARISON: None available. TECHNIQUE: Duplex Doppler techniques with waveform analysis and measurement of velocities in the common femoral, profunda femoris, superficial femoral, popliteal and tibial arteries were performed. In addition, ankle pulse volume recordings, ankle pressure measurements and ankle brachial indices were obtained of the left lower extremity arterial system. The study was performed only at rest. FINDINGS: RIGHT LOWER EXTREMITY DUPLEX ULTRASOUND: Common femoral artery: 107 cm/s. Diastolic flow reversal: Present Profunda femoris artery: 61 cm/s. Diastolic flow reversal: Present Superficial femoral artery (proximal): 106 cm/s. Diastolic flow reversal: Present Superficial femoral artery (mid): 95 cm/s. Diastolic flow reversal: Present Superficial femoral artery (distal): 81 cm/s. Diastolic flow reversal: Present Popliteal artery: 78 cm/s Diastolic flow reversal: Present Posterior tibial artery: 99 cm/s Diastolic flow reversal: Present Anterior tibial artery: 64 cm/s Diastolic flow reversal: Present Peroneal artery: Occluded Diastolic flow reversal: No Atherosclerotic disease throughout the left lower extremity. US/US arterial duplex LE LT IMPRESSION: Occluded left peroneal artery. Atherosclerotic disease throughout the left lower extremity. EXAMINATION: XR FOOT, LEFT CLINICAL INFORMATION: Pain without injury. Neuropathy. COMPARISON: None available. TECHNIQUE: AP, lateral, and oblique views of the left foot. FINDINGS: There is some deformity of the medial base of the distal phalanx of the great toe. This could be secondary to a remote healed fracture or possibly a congenital abnormality. No acute fractures are seen. No bony destructive lesions. Vascular calcifications are noted. XR/XR foot LT 2V IMPRESSION: No evidence of an acute injury. External Record Review External record reviewed: Office record, Outpatient record, Prior outpatient labs and Prior outpatient radiology Prescription Management I considered prescription management with: Pain Medication, Antibiotic and Other (Antiplatelet medications) Chronic Conditions Patient?s care impacted by: Diabetes, Hypertension and Other (obesity, HIV) Social Determinants Patient?s care significantly limited by Social Determinants of Health including: Problems related to primary support group and Other Social Determinant of Health Critical Care Time Critical Care Time Critical Care Time: No Discharge Plan Discharge Clinical Impression: Occlusion of left peroneal artery Patient Disposition: Home, Self-Care Instructions: Peripheral Vascular Disease (ED) Additional Instructions: Take the prescribed medications as directed. It is important that you follow-up with the vascular specialist. Name and number below, call for an appointment. If you develop new or worsening symptoms call 911 or come back to the ER for further evaluation. EXAMINATION: US NONINVASIVE ASSESSMENT OF THE LEFT LOWER EXTREMITY WITH ARTERIAL DUPLEX CLINICAL INFORMATION: Left foot pain and discoloration COMPARISON: None available. TECHNIQUE: Duplex Doppler techniques with waveform analysis and measurement of velocities in the common femoral, profunda femoris, superficial femoral, popliteal and tibial arteries were performed. In addition, ankle pulse volume recordings, ankle pressure measurements and ankle brachial indices were obtained of the left lower extremity arterial system. The study was performed only at rest. FINDINGS: RIGHT LOWER EXTREMITY DUPLEX ULTRASOUND: Common femoral artery: 107 cm/s. Diastolic flow reversal: Present Profunda femoris artery: 61 cm/s. Diastolic flow reversal: Present Superficial femoral artery (proximal): 106 cm/s. Diastolic flow reversal: Present Superficial femoral artery (mid): 95 cm/s. Diastolic flow reversal: Present Superficial femoral artery (distal): 81 cm/s. Diastolic flow reversal: Present Popliteal artery: 78 cm/s Diastolic flow reversal: Present Posterior tibial artery: 99 cm/s Diastolic flow reversal: Present Anterior tibial artery: 64 cm/s Diastolic flow reversal: Present Peroneal artery: Occluded Diastolic flow reversal: No Atherosclerotic disease throughout the left lower extremity. US/US arterial duplex LE LT IMPRESSION: Occluded left peroneal artery. Atherosclerotic disease throughout the left lower extremity. Prescriptions: New aspirin 81 mg tablet,delayed release (DR/EC) 81 mg PO DAILY Qty: 30 1RF clopidogrel [Plavix] 75 mg tablet 75 mg PO DAILY Qty: 30 1RF oxycodone 5 mg tablet 5 mg PO Q8H PRN (Reason: severe pain (scale score 7-10)) Qty: 6 0RF Rx Instructions: Partial Fill upon patient request. No Action (DME) blood sugar diagnostic Strip See Rx Instructions .ROUTE .MEDSUPPLY Qty: 70 11RF Rx Instructions: Use 1 test strip twice a day sodium chloride 0.9 % solution for nebulization 1 ml inhalation Q8H PRN (Reason: shortness of breath or wheezing) 90 Days Qty: 90 1RF tadalafil 20 mg tablet 20 mg PO ONCE PRN (Reason: sexual activity) 30 Days Qty: 30 0RF Rx Instructions: On demand medication take 60 minutes before intended activity (DME) blood-glucose meter [Accu-Chek Guide Glucose Meter] Misc See Rx Instructions .Route Qty: 1 0RF Rx Instructions: As directed (DME) lancets [Accu-Chek Fastclix Lancet Drum] Misc See Rx Instructions .Route Qty: 100 6RF Rx Instructions: Use 1 lancet three times a day cholecalciferol (vitamin D3) 50 mcg (2,000 unit) capsule 50 mcg PO DAILY 90 Days Qty: 90 3RF (DME) Accu-Chek Guide test strips Strip See Rx Instructions .Route Qty: 100 6RF Rx Instructions: Use 1 test strip three times a day (DME) pen needle, diabetic [Comfort EZ Pen [place]] 31 gauge x 5/16 needle See Rx Instructions .ROUTE .MEDSUPPLY Qty: 100 11RF Rx Instructions: Use 1 pen needle twice a day (DME) lancets [FreeStyle Lancets] 28 gauge misc See Rx Instructions .Route Qty: 100 11RF Rx Instructions: Use 1 lancet three times a day (DME) blood-glucose meter [FreeStyle Lite Meter] Kit See Rx Instructions .Route Qty: 1 0RF Rx Instructions: As directed (DME) FreeStyle Test Strip See Rx Instructions .Route Qty: 100 11RF Rx Instructions: Use 1 strip three times a day fenofibrate 54 mg tablet 54 mg PO DAILY 90 Days Qty: 90 2RF lisinopril 10 mg tablet 10 mg PO DAILY Qty: 90 3RF (DME) AeroEclipse II Nebulizer Misc See Rx Instructions .Route Qty: 50 0RF Rx Instructions: As directed topiramate 100 mg tablet 100 mg PO BID glyburide 5 mg tablet 5 mg PO BID Qty: 60 6RF Trulicity 1.5 mg/0.5 mL pen injector 1.5 mg subcut QWEEK 90 Days Qty: 6.5 1RF insulin glargine [Lantus Solostar U-100 Insulin] 100 unit/mL (3 mL) insulin pen 15 unit subcut QPM 90 Days Qty: 13.5 1RF atorvastatin 80 mg tablet 80 mg PO BEDTIME 90 Days Qty: 90 1RF amitriptyline 100 mg tablet 100 mg PO BEDTIME meclizine 25 mg tablet PO DAILY clotrimazole 1 % cream 1 appl topical BID 28 Days Qty: 30 1RF Biktarvy 50-200-25 mg tablet 1 tab PO DAILY 30 Days Qty: 30 5RF Referrals: [facility] [place] [facility] Services [Provider Group] (EXAMINATION: US NONINVASIVE ASSESSMENT OF THE LEFT LOWER EXTREMITY WITH ARTERIAL DUPLEX CLINICAL INFORMATION: Left foot pain and discoloration COMPARISON: None available. TECHNIQUE: Duplex Doppler techniques with waveform analysis and measurement of velocities in the common femoral, profunda femoris, superficial femoral, popliteal and tibial arteries were performed. In addition, ankle pulse volume recordings, ankle pressure measurements and ankle brachial indices were obtained of the left lower extremity arterial system. The study was performed only at rest. FINDINGS: RIGHT LOWER EXTREMITY DUPLEX ULTRASOUND: Common femoral artery: 107 cm/s. Diastolic flow reversal: Present Profunda femoris artery: 61 cm/s. Diastolic flow reversal: Present Superficial femoral artery (proximal): 106 cm/s. Diastolic flow reversal: Present Superficial femoral artery (mid): 95 cm/s. Diastolic flow reversal: Present Superficial femoral artery (distal): 81 cm/s. Diastolic flow reversal: Present Popliteal artery: 78 cm/s Diastolic flow reversal: Present Posterior tibial artery: 99 cm/s Diastolic flow reversal: Present Anterior tibial artery: 64 cm/s Diastolic flow reversal: Present Peroneal artery: Occluded Diastolic flow reversal: No Atherosclerotic disease throughout the left lower extremity. US/US arterial duplex LE LT IMPRESSION: Occluded left peroneal artery. Atherosclerotic disease throughout the left lower extremity.) Humaira Thurston MD [Primary Care Provider] - Interventions: ED Discharge Assessment Last Done: 10/23/23 15:02 Print Language: Ukrainian
[2023-10-23 14:26] VITALS: BP 178/81; PULSE 87; RESP 16; O2SAT 96
[2023-10-23] MEDS: Acetaminophen 325 MG TABLET 975 MG PO (14:56)
[2023-10-23] MEDS: Aspirin 325 MG TABLET PO (14:56)
[2023-10-23] MEDS: oxyCODONE HCl Immed Release 5 MG TABLET PO (14:57)
[2023-10-23] MEDS: Clopidogrel Bisulfate 75 MG TABLET PO (14:57)
[2023-10-23 15:02] VITALS: BP 178/81; PULSE 87; RESP 16; TEMP -17.7; TEMP 0; O2SAT 96
== END 2023-10-23 15:03 | disposition home or self-care (01) ==
PROVIDERS: Emergency Provider Emergency Medicine Emergency Medical Services; PCP Internal Medicine
DX: I77.1 Stricture of artery (principal); I79.8 Other disorders of arteries, arterioles and capillaries in diseases classified elsewhere; M79.672 Pain in left foot; Z79.899 Other long term (current) drug therapy
CPT/HCPCS: 73620; 93926; 99283; 99284

== ENCOUNTER 2023-10-25 15:02 | Outpatient (AMB) | payer OTHER, SELFPAY ==
[2023-10-25 15:05] VITALS: BP 144/80; PULSE 97; O2SAT 98; BMI 42.7
--- NOTE | 2023-10-25 15:05 | A.OFFPC_ITS ---
Vital Signs 10/25/23 15:05 Height 5 ft 4 in Weight 249 lb BMI 42.7 BP 144/80 H Blood Pressure Location Lt brachial Position Sitting Pulse 97 Pulse Source Pulse Oximeter Pulse Oximetry (%) 98 Oxygen Delivery Method Room Air Intake Visit Reasons: [place] [facility] [place] Photovoltaic Crew Lead Required: Yes Solar Photovoltaic Crew Lead Name: Yenny Colby [id number] Accompanied by: Self / Same As Patient Allergies glipizide Allergy (Mild, Verified 10/25/23 15:08) rash tuberculin, purified protein deriva Allergy (Mild, Verified 10/25/23 15:08) Swelling martinez Allergy (Mild, Uncoded 10/25/23 15:08) Hives jardiance Adverse Reaction (Severe, Uncoded 10/25/23 15:08) Rash/balanitis Medication List - Last Reconciled 10/25/23 by Teresa Lal PA-C amitriptyline 100 mg PO BEDTIME aspirin 81 mg PO DAILY atorvastatin 80 mg PO BEDTIME 90 days fnlvztplt-uilpxiuf-wxwrvkf ala 50-200-25 mg (Biktarvy) 1 tab PO DAILY 30 days blood sugar diagnostic Use 1 test strip twice a day blood sugar diagnostic (Accu-Chek Guide test strips) Use 1 test strip three times a day blood sugar diagnostic (FreeStyle Test strips) Use 1 strip three times a day blood-glucose meter (Accu-Chek Guide Glucose Meter) As directed blood-glucose meter (FreeStyle Lite Meter kit) As directed cholecalciferol (vitamin D3) 50 mcg PO DAILY 90 days clopidogrel (Plavix) 75 mg PO DAILY clotrimazole 1% 1 appl topical BID 4 weeks dulaglutide (Trulicity) 1.5 mg (0.5 mL) subcut QWEEK 90 days fenofibrate 54 mg PO DAILY 90 days glyburide 5 mg PO BID insulin glargine (Lantus Solostar U-100 Insulin) 15 units (0.15 mL) subcut QPM 90 days lancets (FreeStyle Lancets) Use 1 lancet three times a day lancets (Accu-Chek Fastclix Lancet Drum) Use 1 lancet three times a day lisinopril 20 mg PO DAILY meclizine mg PO DAILY nebulizers (AeroEclipse II Nebulizer) As directed oxycodone 5 mg PO Q8H PRN pen needle, diabetic (Comfort EZ Pen [place]) Use 1 pen needle twice a day sodium chloride 0.9% 1 mL inhalation Q8H PRN 90 days tadalafil 20 mg PO ONCE PRN 30 days topiramate 100 mg PO BID Tobacco use date assessed: 05/31/23 Dental Screening Dental Screen Date: 05/31/23 HPI ED [place] [facility] Details 53-year-old male with past medical histo ry of HIV, diabetes mellitus, hypertension, chronic kidney disease, hyperlipidemia, BPH last seen by Dr. Flores coming in for hospital follow up.?In review of the notes, patient was seen in [facility] [place]23/[place] for worsening left foot pain.? In the ER patient had arterial ultrasound of the foot which showed occlusion of the left peroneal artery.? Vascular surgery was consulted who recommended dual antiplatelet therapy with aspirin and Plavix.?Patient was discharged home instructed for close follow up. Patient states he continues to have severe pain in the left great toe and describes the pain as pulsing and 10/10. He also mentions he continues to have chest discomfort which has not changed since his [facility] ER visit. Symptoms and pain have not changed in the foot or chest and denies any new symptoms. He has been using oxycodone for pain but has run out of the prescription. Did try to see vascular surgery however they told him he would have to wait for routine appointment. [facility] Medical History Mixed hyperlipidemia Mild intermittent asthma Hyperkalemia Morbid obesity Renal calculi Morbid obesity Dyslipidemia CKD (chronic kidney disease) Essential hypertension Diabetes mellitus HIV (human immunodeficiency virus infection) Surgical History No pertinent past surgical history Family History Father Myocardial infarction Hypertension CVD (cardiovascular disease) Mother Stroke CVD (cardiovascular disease) Mental health disorder Sister Diabetes Social History Housing: Apartment Alcohol intake: former Patient Tobacco Use Status: Never used Tobacco Tobacco use type: Cigarette e-Cigarette/Vaping Use: Never Used Second Hand Smoke Exposure: Yes service: No Current occupational status: employed Current occupational exposures/hazards: No Cognitive needs: No Hearing needs: No Vision needs: No Questionnaire PHQ-9 Over the last 2 weeks, how often have you been bothered by any of the following problems? 1. Little interest or pleasure in doing things: not at all 2. Feeling down, depressed, or hopeless: not at all 3. Trouble falling or staying asleep, or sleeping too much: not at all 4. Feeling tired or having little energy: not at all 5. Poor appetite or overeating: not at all 6. Feeling bad about yourself - or that you are a failure or have let yourself or your family down: not at all 7. Trouble concentrating on things, such as reading the newspaper or watching television: not at all 8. Moving or speaking so slowly that other people could have noticed. Or the opposite - being so fidgety or restless that you have been moving around a lot more than usual: not at all 9. Thoughts that you would be better off or of hurting yourself in some way: not at all Total score: 0 Depression Screening Interpretation: Negative Depression Screening Done: Yes 35714 - PHQ-9 Billing: Yes Source: Developed by Drs. Maykel Moreau, Deniz Meza and colleagues, with an educational samantha from [employer]. Thrive Questionnaire Date Thrive assessed: 05/31/23 AUDIT C Alcohol Use Questionnaire (AUDIT-C) 1. How often do you have a drink containing alcohol?: Never Total Score: 0 SARAH-7 AMB Questionnaire SARAH-7 Date SARAH - 7 assessed: 05/31/23 Source: Developed by Krystal Singh Kurt Kroenke and colleagues, with an educational samantha from [employer]. Review of Systems Const Denies body aches, Denies chills, Denies fever(s), Denies headache(s) and Denies poor appetite Eyes Reports no additional complaints ENT Denies dysphagia, Denies dizziness, Denies headache(s) and Denies odynophagia Card Reports chest pain, Denies syncope, Denies edema, Denies irregular heart rhythm, Denies lightheadedness and Denies dyspnea Resp Denies cough and Denies dyspnea GI Denies abdominal pain, Denies constipation, Denies dysphagia, Denies diarrhea, Reports nausea, Denies odynophagia and Denies vomiting Reports no additional complaints Musc Reports as per HPI and Reports abnormal gait Skin/Breast Reports system reviewed and no additional complaints, except as documented Neuro Reports abnormal gait, Denies dizziness, Denies syncope and Denies headache(s) Psych Reports no additional complaints Physical exam (Primary Care) Vital Signs: Last Vital Signs Pulse 97 10/25/23 15:05 BP 144/80 H 10/25/23 15:05 Pulse Ox 98 10/25/23 15:05 Oxygen Delivery Method Room Air 10/25/23 15:05 BMI result Body Mass Index 42.7 Tobacco/Smoking Status: Tobacco use Status Tobacco use date assessed 05/31/23 10/25/23 15:12 Patient Tobacco Use Status Never used Tobacco 10/25/23 15:12 Tobacco use type Cigarette 10/25/23 15:12 e-Cigarette/Vaping Use Never Used 10/25/23 15:12 PHQ-9: PHQ-9 Score PHQ-9: Total score 0 10/25/23 15:12 Depression Screening Interpretation: Negative Thrive Assessment: Date of Thrive Assessment Date Thrive assessed 05/31/23 10/25/23 15:12 Const General: cooperative, healthy appearing, comfortable and no acute distress Orientation/consciousness: patient oriented x3 HENMT Head: Yes normocephalic Ears: hearing grossly normal bilaterally General nose exam: Normal external nose present Eyes General: appearance normal, both eyes and all related structures Conjunctivae: conjunctivae normal Neck Neck: Yes full ROM and Yes no lymphadenopathy Resp Effort & Inspection: normal respiratory effort Auscultation: clear to auscultation bilaterally, no crackles, no rales, no rhonchi and no wheezes Cardio Rate: regular rate Rhythm: regular rhythm Skin General skin exam: no rashes or lesions noted Neuro General: patient oriented x3 Gait exam (Neuro): Normal gait present Extrem Other: Black and blue discoloration of left great toe pulses intact bilateral lower extremities. Exquisite tenderness to entire left foot. General: Yes normal to inspection, Yes full ROM and No edema Psych Affect: normal affect Attitude: cooperative Insight: Good insight present (Psych) Judgement: Good judgement present (Psych) Assessment and Plan Assessment & Plan (1) Occlusion of left peroneal artery: Code(s): I70.202 - Unspecified atherosclerosis of [place] arteries of extremities, left leg Plan: Etiology of the blood clot is unclear and we will do some further investigation. Basic blood work ordered along with cardiac echo and chest x-ray. Patient was referred to vascular surgery as referral was not placed. Oxycodone will be refilled due to severe pain in the foot. Discussed with patient red flag symptoms and when to present for re-evaluation patient understands and will follow up in 2 months. Plan This note was constructed using voice recognition software. While every effort has been made to ensure accuracy and milling machine operator gear, still areas may have been included sometimes these areas may affect the content or meeting of the given symptoms. Total time spent caring for the patient today was 30 minutes. This includes time spent before the visit reviewing the chart, time spent during the visit, and time spent after the visit and documentation. Orders: Orders CA echo transthoracic complete Today Teresa Lal PA-C I70.202 - Unspecified atherosclerosis of sax[place] arteries of extremities, left leg Complete Blood Count Auto Diff Today Teresa Lal PA-C Z00.00 - Encounter for general adult medical examination without abnormal findings XR chest 2V Today Teresa Lal PA-C I70.202 - Unspecified atherosclerosis of saxman arteries of extremities, left leg TSH reflex Free T4 Today Teresa Lal PA-C Z00.00 - Encounter for general adult medical examination without abnormal findings Free T4 (Free Thyroxine) Today Teresa Lal PA-C Z00.00 - Encounter for general adult medical examination without abnormal findings Comprehensive Met. Panel Today Teresa Lal PA-C Z00.00 - Encounter for general adult medical examination without abnormal findings Referrals Vascular Surgery Referral Teresa Lal PA-C I70.202 - Unspecified atherosclerosis of saxman arteries of extremities, left leg Medications: Changed From lisinopril 10 mg PO DAILY 90 tabs 3RF To lisinopril 20 mg PO DAILY Humaira Hood MD Coding Level of Care Code Est Pt Level 4 (91476) Diagnoses Occlusion of left peroneal artery I70.202
== END 2023-10-25 15:59 | disposition home or self-care (01) ==
PROVIDERS: PCP Internal Medicine
DX: I70.202 Unspecified atherosclerosis of native arteries of extremities, left leg (principal)
CPT/HCPCS: 99214

== ENCOUNTER 2023-10-25 16:19 | Outpatient (REF) | payer OTHER, SELFPAY ==
--- NOTE | ~2023-10-25 | XR_ITS ---
EXAMINATION: XR CHEST CLINICAL INFORMATION: Unspecified atherosclerosis of [place] arteries and extremities COMPARISON: None available. TECHNIQUE: 3 views of the chest FINDINGS: Lungs are well-inflated. There is no gross pneumothorax. Heart size is normal. No pleural effusion. No focal consolidation. XR/XR chest 2V IMPRESSION: No evidence of pneumonia. Electronically signed by: Eva Hsu MD 11/14/2023 01:21 PM EDT RP
[2023-10-25 16:34] LABS: MANUAL DIFF FLAG NO
[2023-10-25 17:26] LABS: Basophils Percent Auto 0.4 % (0-2); Eosinophils Absolute Auto 0.1 X10*3/uL (0.0-0.4); Eosinophils Percent Auto 0.5 % (0-4); Hematocrit 50.8 % (42.0-52.0); Imm Gran Abs Auto 0.05 X10*3/uL (0.00-0.03); Imm Gran Pct Auto 0.5 % (0.0-0.4); Lymphocytes Absolute Auto 3.2 X10*3/uL (1.2-4.9); Lymphocytes Percent Auto 32.8 % (20-40); Mean Corpuscular HGB Conc 33.5 g/dl (31.0-36.0); Mean Corpuscular Hemoglobin 30.4 pg (27.0-33.0); Mean Corpuscular Volume 90.7 fL (80.0-98.0); Mean Platelet Volume 10.3 fL (9.4-12.4); Monocytes Absolute Auto 0.8 X10*3/uL (0.1-1.2); Monocytes Percent Auto 7.8 % (2-11); Neutrophils Absolute Auto 5.6 x10*3/uL (2.0-8.3); Platelet Count 305 X10*3/uL (160-400); Red Cell Distribution Width 12.9 % (11.0-16.0); White Blood Count 9.7 X10*3/uL (4.8-10.8)
[2023-10-25 18:05] LABS: Alanine Aminotransferase 31 U/L (0-40); Albumin Level 4.5 g/dL (3.5-5.0); Alkaline Phosphatase 86 U/L (39-117); Anion Gap 16 (12-20); Aspartate Amino Transferase 21 U/L (5-37); Bilirubin Total 1.1 mg/dL (0.0-1.0); Blood Urea Nitrogen 27 mg/dL (9-16); Calcium 10.5 mg/dL (8.4-10.2); Carbon Dioxide 23 mmol/L (22-29); Chloride 105 mmol/L (96-108); Estimated Glomerular Filt Rate 45; Glucose Random 173 mg/dL (60-115); Potassium 5.5 mmol/L (3.3-5.1); Sodium 138 mmol/L (135-145)
[2023-10-25 18:20] LABS: Free T4 (Free Thyroxine) 0.99 ng/dL (0.71-1.85); TSH reflex Free T4 1.42 uIU/mL (0.32-4.0)
== END 2023-10-25 16:20 | disposition home or self-care (01) ==
LOC: HO.LAB 16:19
PROVIDERS: PCP Internal Medicine
DX: Z00.00 Encounter for general adult medical examination without abnormal findings (principal); I70.202 Unspecified atherosclerosis of native arteries of extremities, left leg
CPT/HCPCS: 36415; 71046; 80053; 84439; 84443; 85025

== ENCOUNTER 2023-11-09 14:20 | Outpatient (REF) | payer OTHER, SELFPAY ==
[2023-11-09 15:55] LABS: Anion Gap 13 (12-20); Blood Urea Nitrogen 22 mg/dL (9-16); Calcium 9.8 mg/dL (8.4-10.2); Carbon Dioxide 23 mmol/L (22-29); Chloride 107 mmol/L (96-108); Estimated Glomerular Filt Rate 53; Glucose Random 148 mg/dL (60-115); Sodium 138 mmol/L (135-145)
[2023-11-09 16:04] LABS: TSH reflex Free T4 1.41 uIU/mL (0.32-4.0)
[2023-11-09 16:36] LABS: Creatinine Urine 89.05 mg/dL; Total Protein Urine Random 18 mg/dL (<12)
== END 2023-11-09 14:21 | disposition home or self-care (01) ==
LOC: HO.LAB 14:20
PROVIDERS: PCP Internal Medicine; Visit Provider Internal Medicine Hypertension Specialist
DX: N05.9 Unspecified nephritic syndrome with unspecified morphologic changes (principal); N18.30 Chronic kidney disease, stage 3 unspecified
CPT/HCPCS: 36415; 80048; 82570; 84156; 84443

== ENCOUNTER 2023-11-13 14:15 | Outpatient (AMB) | payer OTHER, SELFPAY ==
[2023-11-13 14:16] VITALS: BP 138/72; PULSE 83; O2SAT 96; BMI 43.3
--- NOTE | 2023-11-13 14:16 | HO.NEPHOV_ITS ---
Vital Signs 11/13/23 14:16 Height 5 ft 4 in Weight 252 lb BMI 43.3 BP 138/72 Blood Pressure Location Lt brachial Position Sitting Pulse 83 Pulse Source Pulse Oximeter Pulse Oximetry (%) 96 Oxygen Delivery Method Room Air Intake Visit Reasons: CKD/ 4 MO FU/ Conf Assistant Oceanographer Required: Yes Assistant Oceanographer Name: [id number] sloane Accompanied by: Self / Same As Patient Allergies glipizide Allergy (Mild, Verified 11/13/23 14:20) rash tuberculin, purified protein deriva Allergy (Mild, Verified 11/13/23 14:20) Swelling martinez Allergy (Mild, Uncoded 10/25/23 15:08) Hives jardiance Adverse Reaction (Severe, Uncoded 10/25/23 15:08) Rash/balanitis Medication List - Last Reconciled 11/13/23 by Bao Carreon MD amitriptyline 100 mg PO BEDTIME aspirin 81 mg PO DAILY atorvastatin 80 mg PO BEDTIME 90 days imzzptuvn-qcgfurhi-mmzybgv ala 50-200-25 mg (Biktarvy) 1 tab PO DAILY 30 days blood sugar diagnostic (FreeStyle Test strips) Use 1 strip three times a day blood sugar diagnostic Use 1 test strip twice a day blood sugar diagnostic (Accu-Chek Guide test strips) Use 1 test strip three times a day blood-glucose meter (Accu-Chek Guide Glucose Meter) As directed blood-glucose meter (FreeStyle Lite Meter kit) As directed cholecalciferol (vitamin D3) 50 mcg PO DAILY 90 days clopidogrel (Plavix) 75 mg PO DAILY clotrimazole 1% 1 appl topical BID 4 weeks dulaglutide (Trulicity) 1.5 mg (0.5 mL) subcut QWEEK 90 days fenofibrate 54 mg PO DAILY 90 days gabapentin 300 mg PO DAILY glyburide 5 mg PO BID insulin glargine (Lantus Solostar U-100 Insulin) 15 units (0.15 mL) subcut QPM 90 days lancets (FreeStyle Lancets) Use 1 lancet three times a day lancets (Accu-Chek Fastclix Lancet Drum) Use 1 lancet three times a day lisinopril 20 mg PO DAILY meclizine mg PO DAILY nebulizers (AeroEclipse II Nebulizer) As directed oxycodone 5 mg PO DAILY PRN 2 weeks pen needle, diabetic (Comfort EZ Pen [place]) Use 1 pen needle twice a day sodium chloride 0.9% 1 mL inhalation Q8H PRN 90 days tadalafil 20 mg PO ONCE PRN 30 days topiramate 100 mg PO BID HPI Comments Details: 52-year-old man with HIV and diabetes mellitus with chronic kidney disease. Recent A1c is bumped up to 7.8. Creatinine stable around 1.2 mg/dL. he is complaining of Balanitis He was on Jardiance 11/13/2023. Cheng is here for follow-up. After course of clotrimazole there was improvement in the balanitis. He was seen by Urology and circumcision has been scheduled for January of 2024. 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 [facility] Medical History Mixed hyperlipidemia Mild intermittent asthma Hyperkalemia Morbid obesity Renal calculi Morbid obesity Dyslipidemia CKD (chronic kidney disease) Essential hypertension Diabetes mellitus HIV (human immunodeficiency virus infection) Surgical History No pertinent past surgical history Family History Father Myocardial infarction Hypertension CVD (cardiovascular disease) Mother Stroke CVD (cardiovascular disease) Mental health disorder Sister Diabetes Social History Housing: Apartment Alcohol intake: former Patient Tobacco Use Status: Never used Tobacco Tobacco use type: Cigarette e-Cigarette/Vaping Use: Never Used Second Hand Smoke Exposure: Yes service: No Current occupational status: employed Current occupational exposures/hazards: No Cognitive needs: No Hearing needs: No Vision needs: No Physical Exam Vital Signs: Last Vital Signs Pulse 83 11/13/23 14:16 BP 138/72 11/13/23 14:16 Pulse Ox 96 11/13/23 14:16 Oxygen Delivery Method Room Air 11/13/23 14:16 BMI result Body Mass Index 43.3 Const General: comfortable Nutritional Appearance: well nourished Orientation/consciousness: patient oriented x3 HEENT Head: No normal to inspection Mouth: moist mucous membranes Neck Neck: Yes supple and Yes no JVD Resp Auscultation: clear to auscultation bilaterally and no rales Cardio Jugular venous distension: no JVD Palpation: no palpable S3 and no palpable S4 Heart sounds: no rubs GI Palpation (GI): Soft to palpation and nontender Percussion: No Fluid wave present General: Yes no CVA tenderness Penis: other (Balanitis) Back/Spine/Pelvis Back: no CVA tenderness Skin General skin exam: no rashes or lesions noted Neuro General: patient oriented x3 Extrem General: Yes no pedal edema and No clubbing Results Reviewed Nephrology Results: Hgb 17.0 g/dl (14.0-18.0) 10/25/23 WBC 9.7 X10*3/uL (4.8-10.8) 10/25/23 Plt Count 305 X10*3/uL (160-400) 10/25/23 Sodium 138 mmol/L (135-145) 11/09/23 Potassium 5.0 mmol/L (3.3-5.1) 11/09/23 Chloride 107 mmol/L (96-108) 11/09/23 Carbon Dioxide 23 mmol/L (22-29) 11/09/23 BUN 22 mg/dL (9-16) H 11/09/23 Creatinine 1.41 mg/dL (0.5-1.4) H 11/09/23 Calcium 9.8 mg/dL (8.4-10.2) 11/09/23 Urine Creatinine 89.05 mg/dL 11/09/23 Assessment & Plan Assessment & Plan (1) Balanitis: Code(s): N48.1 - Balanitis Category: Medical Plan: Due to SGLT2 inhibitors. Hold SGLT2 inhibitors temporarily Gave another course of clotrimazole Await circumcision (2) CKD (chronic kidney disease): Code(s): N18.9 - Chronic kidney disease, unspecified Category: Medical Qualifiers: Chronic kidney disease stage: stage 3 (moderate) Chronic kidney disease stage 3 subtype: stage 3a (GFR 45-59) Qualified Code(s): N18.31 - Chronic kidney disease, stage 3a Plan: Renal function is close to baseline and stable. Continue to avoid nephrotoxic agents including NSAIDs. Optimize blood sugar. Continue with GEORGES inhibition for renal protection. He will benefit from SGLT2 inhibitors but we will hold it until balanitis resolves Orders: Orders Basic Metabolic Panel 4 Months N18.31 - Chronic kidney disease, stage 3a Medications: Refilled clotrimazole 1% 1 appl topical BID 4 weeks 30 grams 2RF Coding Level of Care Code Est Pt Level 4 (04411) Diagnoses Balanitis N48.1 Stage 3a chronic kidney disease N18.31 Chronic kidney disease stage: stage 3 (moderate) Chronic kidney disease stage 3 subtype: stage 3a (GFR 45-59)
== END 2023-11-13 14:39 | disposition home or self-care (01) ==
PROVIDERS: PCP Internal Medicine; Visit Provider Internal Medicine Hypertension Specialist
DX: N48.1 Balanitis (principal); N18.31 Chronic kidney disease, stage 3a
CPT/HCPCS: 99214

== ENCOUNTER → 2023-11-13 14:15 | Outpatient (BNVA) | payer OTHER, SELFPAY | PROVIDERS: PCP Internal Medicine; Visit Provider Internal Medicine Hypertension Specialist | DX: E11.22 Type 2 diabetes mellitus with diabetic chronic kidney disease (principal); N18.31 Chronic kidney disease, stage 3a; N48.1 Balanitis; B20 Human immunodeficiency virus [HIV] disease | CPT/HCPCS: 99212 ==

== ENCOUNTER → 2023-11-16 15:03 | Outpatient (REF) | payer OTHER, SELFPAY ==
--- NOTE | 2023-11-16 15:06 | CA_ITS ---
Transthoracic Echocardiogram Patient (Last, First, Middle): Cheng Benites, Gender: Male Date of : 1970 Age: 53 Procedure Date: 11/16/2023 Procedure Type: Transthoracic Echocardiogram Location: OP Height: 165.1 cm Weight: 108.86 kg BSA: 2.14 m2 Heart Rate: 64 bpm BP: 110 / 78 mmHg Supervisor Photoengraving: GARRICK Referring MD: Teresa Lal PA-C Shirt Cleaner: Darell Arnold MD Symptoms: I70.202 - Unspecified atherosclerosis of [place] arteries of extremities,... Study Quality: Adequate w contrast ECG Rhythm: Sinus Conclusions: - 1. Normal LV ejection fraction of 65-70% with mild LVH with impaired relaxation filling pattern 2. Normal cardiac valvular Dopplers 3. No gross pericardial effusion Findings Procedure Information Contrast agent, definity, is being given per protocol without apparent complications. The quality of the study was technically difficult. The study quality is limited by patients body habitus. Left Ventricle Normal left ventricular size and systolic function. There is mildly increased left ventricular wall thickness. The visually estimated ejection fraction is between 65-70%. Spectral Doppler is indicative of an impaired relaxation filling pattern. E/E prime ratio is between 8 and 15 consistent with indeterminate filling pressures. Right Ventricle Normal right ventricular cavity size and systolic function. Atria The left atrium is likely dilated. Interatrial shunt cannot be excluded by color Doppler and contrast. The right atrium is normal in size. Aortic Valve The aortic valve structure and function is likely normal. There is no aortic valve stenosis. There is no aortic valve regurgitation. Mitral Valve Normal mitral valve structure and function. There is no mitral valve regurgitation. There is no mitral valve stenosis. Pulmonic Valve The pulmonic valve was not well visualized. There is trace pulmonic valve regurgitation. Tricuspid Valve The tricuspid valve was not well visualized. Tricuspid regurgitation envelope is inadequate for calculation of right ventricular systolic pressure. Normal right atrial pressure. Great Vessels All visible segments of the aorta are normal in size. The pulmonary artery was not well visualized. There is no dilatation of the ascending aorta measuring 3.10 cm. Venous The inferior vena cava is normal in size and collapses greater than 50% with inspiration. Pericardium/Pleural There is no evidence of pericardial effusion. Prior Study Comparison No prior study available for comparison. Recommendations, Care & Conclusions Consider a MIAH if clinically appropriate. Measurements 2D Linear Measurements IVSd: 1.24 0.6-0.9/0.6-1.0 cm LVIDd: 4.12 3.9-5.3/4.2-5.9 cm LVIDd Index: 1.93 2.4-3.2/2.2-3.1 cm/m2 LVIDs: 2.51 2.0-3.6 cm LVPWd: 1.15 0.7-1.1 cm LA Diam: 3.90 2.7-3.8/3.0-4.0 cm LAIDs Index: 1.82 1.5-2.3 cm/m2 LV Mass: 222.21 67-162/88-224 g LV Mass Index: 103.83 43-95/49-115 g/m2 LVOT Diam: 2.10 3.0+(-)1.3 cm 2D Systolic Function EF 4C: 66.00 >55% EF 2C: 69.70 >55% EF BiP: 66.50 >55% Mitral Valve MV Pk E: 0.65 MV PK A: 0.73 MV Decel Time: 237.00 E/A: 0.90 E'Lateral: 10.00 E'Medial: 8.49 E/E' Med: 7.60 E/E' Lat: 6.50 PHT: 70.00 MVA PHT: 3.14 Decel [place]: 2.72 Aortic Valve AoV Pk Hipolito: 1.31 AoV Pk Grad: 7.00 CARLOS ALBERTO: 2.95 LVOT LVOT Pk [place]ito: 1.11 LVOT Mn [place]: 0.80 LVOT VTI: 0.24 LVOT Pk Grad: 5.00 LVOT Mn Grad: 3.00 LVOT Diam: 2.10 LVOT Area: 3.46 Diastolic Function MV Pk E: 0.65 MV Pk A: 0.73 E/A: 0.90 E'Medial: 8.49 E/E' Med: 7.60 E' Laterial: 10.00 E/E' Lat: 6.50 Right Ventricle TAPSE (mm): 20.80 TVS' Hipolito: 9.90 Tricuspid Valve RA Press: 8.00 Great Vessels Aorta Sinus of Valsalva: 3.20 2.0-3.5 cm Ao Asc: 3.10 2.1-3.4 cm Pulmonary Valve PV Pk Hipolito: 0.92 Peak PV Grad: 3.00 Updated in Other Vendor System with Status of Final Darell Arnold MD electronically signed on 11/17/2023 9:38:23 AM with status of Final
== END ==
LOC: HO.CARD 15:03
PROVIDERS: PCP Internal Medicine
DX: I70.202 Unspecified atherosclerosis of native arteries of extremities, left leg (principal)
CPT/HCPCS: 93306; Q9957

== ENCOUNTER → 2023-11-16 15:06 | Outpatient (BNV) | payer OTHER, SELFPAY | PROVIDERS: PCP Internal Medicine; Visit Provider Internal Medicine Cardiovascular Disease | DX: I51.89 Other ill-defined heart diseases (principal); I70.202 Unspecified atherosclerosis of native arteries of extremities, left leg | CPT/HCPCS: 93306 ==

== ENCOUNTER 2023-12-18 14:43 | Outpatient (REF) | payer OTHER, SELFPAY ==
[2023-12-18 15:54] LABS: Alanine Aminotransferase 26 U/L (0-40); Alkaline Phosphatase 59 U/L (39-117); Anion Gap 10 (12-20); Aspartate Amino Transferase 24 U/L (5-37); Bilirubin Total 0.8 mg/dL (0.0-1.0); Blood Urea Nitrogen 17 mg/dL (9-16); Calcium 9.3 mg/dL (8.4-10.2); Carbon Dioxide 24 mmol/L (22-29); Chloride 108 mmol/L (96-108); Estimated Glomerular Filt Rate 57; Glucose Random 237 mg/dL (60-115); Potassium 5.2 mmol/L (3.3-5.1); Sodium 137 mmol/L (135-145); Total Protein 7.5 g/dL (6.5-8.0)
== END 2023-12-18 14:44 | disposition home or self-care (01) ==
LOC: HO.LAB 14:43
PROVIDERS: PCP Internal Medicine; Visit Provider Internal Medicine
DX: Z00.00 Encounter for general adult medical examination without abnormal findings (principal)
CPT/HCPCS: 36415; 80053

== ENCOUNTER 2023-12-25 12:56 | Outpatient (REF) | payer OTHER, SELFPAY ==
[2023-12-25 14:17] LABS: Alanine Aminotransferase 28 U/L (0-40); Albumin Level 3.7 g/dL (3.5-5.0); Alkaline Phosphatase 54 U/L (39-117); Anion Gap 10 (12-20); Aspartate Amino Transferase 21 U/L (5-37); Bilirubin Total 0.5 mg/dL (0.0-1.0); Blood Urea Nitrogen 18 mg/dL (9-16); Calcium 8.9 mg/dL (8.4-10.2); Carbon Dioxide 25 mmol/L (22-29); Chloride 107 mmol/L (96-108); Estimated Glomerular Filt Rate > 60; Glucose Random 181 mg/dL (60-115); Potassium 4.6 mmol/L (3.3-5.1); Sodium 137 mmol/L (135-145); Total Protein 7.2 g/dL (6.5-8.0)
== END 2023-12-25 12:57 | disposition home or self-care (01) ==
LOC: HO.LAB 12:56
PROVIDERS: PCP Internal Medicine
DX: E87.5 Hyperkalemia (principal)
CPT/HCPCS: 36415; 80053

== ENCOUNTER 2023-12-27 13:34 | Outpatient (AMB) | payer OTHER, SELFPAY ==
[2023-12-27 13:36] VITALS: BP 118/72; PULSE 75; O2SAT 97; BMI 44.5
--- NOTE | 2023-12-27 13:36 | A.OFFPC_ITS ---
Vital Signs 12/27/23 13:36 Height 5 ft 4 in Weight 259 lb 0.4 oz BMI 44.5 BP 118/72 Blood Pressure Location Lt brachial Position Sitting Pulse 75 Pulse Source Pulse Oximeter Pulse Oximetry (%) 97 Oxygen Delivery Method Room Air Intake Visit Reasons: f/u arterial occlusion [place] Knitter Required: No Allergies glipizide Allergy (Mild, Verified 12/27/23 13:36) rash tuberculin, purified protein deriva Allergy (Mild, Verified 12/27/23 13:36) Swelling martinez Allergy (Mild, Uncoded 12/27/23 13:36) Hives jardiance Adverse Reaction (Severe, Uncoded 12/27/23 13:36) Rash/balanitis Medication List - Last Reconciled 12/27/23 by Teresa Lal PA-C amitriptyline 100 mg PO BEDTIME aspirin 81 mg PO DAILY 30 days atorvastatin 80 mg PO BEDTIME 90 days ohshbjiso-wqthlaez-ejahapp ala 50-200-25 mg (Biktarvy) 1 tab PO DAILY 30 days blood sugar diagnostic Use 1 test strip twice a day blood sugar diagnostic (Accu-Chek Guide test strips) Use 1 test strip three times a day blood sugar diagnostic (FreeStyle Lite Strips) As directed 3 times per day blood-glucose meter (Accu-Chek Guide Glucose Meter) As directed blood-glucose meter (FreeStyle Lite Meter kit) As directed cholecalciferol (vitamin D3) 50 mcg PO DAILY 90 days clopidogrel (Plavix) 75 mg PO DAILY 30 days clotrimazole 1% 1 appl topical BID 4 weeks dulaglutide (Trulicity) 1.5 mg (0.5 mL) subcut QWEEK 90 days fenofibrate 54 mg PO DAILY 90 days gabapentin 300 mg PO DAILY glyburide 5 mg PO BID insulin glargine (Lantus Solostar U-100 Insulin) 15 units (0.15 mL) subcut QPM 90 days lancets (FreeStyle Lancets) Use 1 lancet three times a day lancets (Accu-Chek Fastclix Lancet Drum) Use 1 lancet three times a day lisinopril 20 mg PO DAILY meclizine mg PO DAILY nebulizers (AeroEclipse II Nebulizer) As directed oxycodone 5 mg PO DAILY PRN 2 weeks pen needle, diabetic (Comfort EZ Pen [place]) Use 1 pen needle twice a day sodium chloride 0.9% 1 mL inhalation Q8H PRN 90 days tadalafil 20 mg PO ONCE PRN 30 days topiramate 100 mg PO BID Tobacco use date assessed: 05/31/23 Dental Screening Dental Screen Date: 05/31/23 HPI f/u arterial occlusion HPI Details 53-year-old male with past medical histo ry of HIV, diabetes mellitus, hypertension, chronic kidney disease, hyperlipidemia, BPH last seen 09/2023 coming in for follow up on arterial occlusion. 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 Patient states he has been without his glyburide for about 2 months and recently ran out of his Trulicity as well. His leg pain has been significantly improving and the discoloration of his foot and toe has also improved since last visit. He mentions in the last several months he has been having increased shortness of breath which improves with his nebulizer. As a result he has been using his nebulizer often daily and sometimes multiple times per day. He also often he will have a cough at night and endorses nighttime awakenings as well. [facility] Medical History Mixed hyperlipidemia Mild intermittent asthma Hyperkalemia Morbid obesity Renal calculi Morbid obesity Dyslipidemia CKD (chronic kidney disease) Essential hypertension Diabetes mellitus HIV (human immunodeficiency virus infection) Surgical History No pertinent past surgical history Family History Father Myocardial infarction Hypertension CVD (cardiovascular disease) Mother Stroke CVD (cardiovascular disease) Mental health disorder Sister Diabetes Social History Housing: Apartment Alcohol intake: former Patient Tobacco Use Status: Never used Tobacco Tobacco use type: Cigarette e-Cigarette/Vaping Use: Never Used Second Hand Smoke Exposure: Yes service: No Current occupational status: employed Current occupational exposures/hazards: No Cognitive needs: No Hearing needs: No Vision needs: No Questionnaire Thrive Questionnaire Date Thrive assessed: 05/31/23 AUDIT C Alcohol Use Questionnaire (AUDIT-C) 1. How often do you have a drink containing alcohol?: Never 3. How often do you have six or more drinks on one occasion?: Never Total Score: 0 SARAH-7 AMB Questionnaire SARAH-7 Date SARAH - 7 assessed: 05/31/23 Source: Developed by Drs. Maykel Moreau, Krystal Montaño, Deniz Burgos and colleagues, with an educational samantha from [employer]. Review of Systems Const Denies body aches, Denies chills, Denies fever(s), Denies headache(s) and Denies poor appetite Eyes Reports no additional complaints ENT Denies dysphagia, Denies dizziness, Denies headache(s) and Denies odynophagia Card Denies chest pain, Denies syncope, Denies edema, Denies irregular heart rhythm, Denies lightheadedness and Reports dyspnea (Occasional) Resp Denies cough and Reports dyspnea (Occasional) GI Denies constipation, Denies dysphagia, Denies diarrhea, Denies nausea, Denies odynophagia and Denies vomiting Details: Balanitis Musc Reports no additional complaints and Reports abnormal gait (Left foot/heel pain) Skin/Breast Reports system reviewed and no additional complaints, except as documented Neuro Reports abnormal gait (Left foot/heel pain), Denies dizziness, Denies syncope and Denies headache(s) Psych Reports no additional complaints Physical exam (Primary Care) Vital Signs: Oxygen Delivery Method Room Air 12/27/23 13:36 BMI result Body Mass Index 44.5 Tobacco/Smoking Status: Tobacco use Status Tobacco use date assessed 05/31/23 12/27/23 13:40 Patient Tobacco Use Status Never used Tobacco 12/27/23 13:40 Tobacco use type Cigarette 12/27/23 13:40 e-Cigarette/Vaping Use Never Used 12/27/23 13:40 Thrive Assessment: Date of Thrive Assessment Date Thrive assessed 05/31/23 12/27/23 13:40 Const General: cooperative, healthy appearing, comfortable and no acute distress Orientation/consciousness: patient oriented x3 HENMT Head: Yes normocephalic Ears: hearing grossly normal bilaterally General nose exam: Normal external nose present Eyes General: appearance normal, both eyes and all related structures Conjunctivae: conjunctivae normal Neck Neck: Yes full ROM and Yes no lymphadenopathy Resp Effort & Inspection: normal respiratory effort Auscultation: clear to auscultation bilaterally, no crackles, no rales, no rhonchi and no wheezes Cardio Rate: regular rate Rhythm: regular rhythm Skin General skin exam: no rashes or lesions noted Neuro General: patient oriented x3 Gait exam (Neuro): Normal gait present Extrem Other: Strength and sensation intact in bilateral lower extremities. No discoloration left foot or toe and no tenderness to palpation. General: Yes normal to inspection, Yes full ROM and No edema Psych Affect: normal affect Attitude: cooperative Insight: Good insight present (Psych) Judgement: Good judgement present (Psych) Results AMB Hemoglobin A1c AMB Hemoglobin A1c 8.0 % Last Edit by AIDA Ray on 12/27/23 13:51 Coding Level of Care Code Est Pt Level 4 (02937) Diagnoses Occlusion of left peroneal artery I70.202 Mild intermittent asthma J45.20 Morbid obesity E66.01 Stage 3a chronic kidney disease N18.31 Chronic kidney disease stage: stage 3 (moderate) Chronic kidney disease stage 3 subtype: stage 3a (GFR 45-59) Essential hypertension I10 Type 2 diabetes mellitus with stage 3a chronic kidney disease, with long-term current use of insulin E11.22; N18.31; Z79.4 Diabetes mellitus type: type 2 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 Has va scular surgery follow up next month. Pain and color changes have greatly improved since last visit. (2) Mild intermittent asthma: Code(s): J45.20 - Mild intermittent asthma, uncomplicated Category: Medical Plan: Patient has been using nebulizer as needed but has been having shortness of breath daily in often requires his nebulizer daily or multiple times per day and also has nighttime awakenings. We will add inhaled corticosteroid to medication regimen at this time and follow up at next visit. Avoid triggers such as allergies and smoke. (3) Morbid obesity: Code(s): E66.01 - Morbid (severe) obesity due to excess calories Category: Medical Plan: Healthy diet and regular exercise is encouraged. (4) CKD (chronic kidney disease): Code(s): N18.9 - Chronic kidney disease, unspecified Category: Medical Qualifiers: Chronic kidney disease stage: stage 3 (moderate) Chronic kidney disease stage 3 subtype: stage 3a (GFR 45-59) Qualified Code(s): N18.31 - Chronic kidney disease, stage 3a Plan: Continue to avoid kidney irritants currently holding SGLT2 at this time due to balanitis. Continue with lisinopril for kidney protection. (5) Essential hypertension: Code(s): I10 - Essential (primary) hypertension Category: Medical Plan: Continue on current blood pressure medication. Avoid salt intake and encourage healthy diet and regular exercise. (6) Diabetes mellitus: Code(s): E11.9 - Type 2 diabetes mellitus without complications Category: Medical Qualifiers: Diabetes mellitus type: type 2 Diabetes mellitus national accounts recruiter insulin use: with skilled nursing use Diabetes mellitus complication status: with kidney compl ications Diabetes mellitus complication detail: with chronic kidney disease Chronic kidney disease stage: stage 3 (moderate) Chronic kidney disease stage 3 subtype: stage 3a (GFR 45-59) Qualified Code(s): E11.22 - Type 2 diabetes mellitus with diabetic chronic kidney disease; N18.31 - Chronic kidney disease, stage 3a; Z79.4 - titrator (current) use of insulin Plan: Decrease the amount of carbohydrates such as pasta, bread, rice, and potatoes and limit the amount of sweets. Although fruits are generally healthy they should be eaten in moderation as they are still high in sugar. Hemoglobin A1c goal of less than 7%. A1c 8.0% on exam today. Patient states he has been without his glyburide for several months and is also out of his Trulicity and has not been on these medications. Advised patient to restart these medications and we will follow up at next appointment with repeat A1c. Patient states he has been skipping meals due to elevated sugars. Strongly advised patient to avoid skipping meals while on the glyburide. (7) Balanitis: Code(s): N48.1 - Balanitis Category: Medical Plan: Continues to have discomfort and has been using the clotrimazole as prescribed. Recently started using zinc oxide with good improvement as well advised patient to follow up with Urology. Plan This note was constructed using voice recognition software. While every effort has been made to ensure accuracy and clay products machine operator, still areas may have been included sometimes these areas may affect the content or meeting of the given symptoms. Total time spent caring for the patient today was 30 minutes. This includes time spent before the visit reviewing the chart, time spent during the visit, and time spent after the visit and documentation. Orders: Referrals Podiatry Referral E11.22 - Type 2 diabetes mellitus with diabetic chronic kidney disease, N18.31 - Chronic kidney disease, stage 3a, Z79.4 - titrator (current) use of insulin Medications: New beclomethasone dipropionate 40 mcg/actuation (Qvar RediHaler) 1 inh inhalation BID 10.6 grams 0RF Refilled glyburide 5 mg PO BID 60 tabs 6RF dulaglutide (Trulicity) 1.5 mg (0.5 mL) subcut QWEEK 90 days 6.5 mL 1RF E11.9 - Type 2 diabetes mellitus without complications
== END 2023-12-27 14:14 | disposition home or self-care (01) ==
LOC: HO.HMCH 13:35
PROVIDERS: PCP Internal Medicine
DX: I12.9 Hypertensive chronic kidney disease with stage 1 through stage 4 chronic kidney disease, or unspecified chronic kidney disease (principal); I70.202 Unspecified atherosclerosis of native arteries of extremities, left leg; N18.31 Chronic kidney disease, stage 3a; E11.22 Type 2 diabetes mellitus with diabetic chronic kidney disease; Z79.4 Long term (current) use of insulin; E66.01 Morbid (severe) obesity due to excess calories; J45.20 Mild intermittent asthma, uncomplicated; N48.1 Balanitis

== ENCOUNTER → 2023-12-27 13:34 | Outpatient (BNVA) | payer OTHER, SELFPAY | PROVIDERS: PCP Internal Medicine | DX: I70.202 Unspecified atherosclerosis of native arteries of extremities, left leg (principal); J45.20 Mild intermittent asthma, uncomplicated; E66.01 Morbid (severe) obesity due to excess calories; I12.9 Hypertensive chronic kidney disease with stage 1 through stage 4 chronic kidney disease, or unspecified chronic kidney disease; E11.22 Type 2 diabetes mellitus with diabetic chronic kidney disease; N18.31 Chronic kidney disease, stage 3a; Z79.4 Long term (current) use of insulin | CPT/HCPCS: 83036; 99212 ==

== ENCOUNTER 2024-01-08 14:05 | Outpatient (AMB) | payer OTHER, SELFPAY ==
--- NOTE | 2024-01-08 14:12 | MHC.OFFVIS ---
Intake Visit Reasons: [employer]/C ED referral for PAD s/p Arterial US Intake Note: Patient presents for PAD s/p arterial US. Patient states he has left foot pain. States the pain is a 9 out of 10. Allergies glipizide Allergy (Mild, Verified 01/08/24 14:13) rash tuberculin, purified protein deriva Allergy (Mild, Verified 01/08/24 14:13) Swelling martinez Allergy (Mild, Uncoded 12/27/23 13:36) Hives jardiance Adverse Reaction (Severe, Uncoded 12/27/23 13:36) Rash/balanitis HPI HPI [employer] ED referral for PAD s/p Arterial US: Details: Irina oconnor for [employer]. Cheng, a pleasant 53 year old German-speaking male patient, is presenting today as a consult due to an ER visit that occurred the end of September for left toe and foot discoloration. He states today he is asymptomatic and there is no pain or discoloration in the toe. States he does have pain only in the heel area, especially when walking or putting any pressure on it. He states in September he was placed on Plavix for the discoloration/patent. He has never been a smoker. He is a diabetic, and is on insulin. [facility] Medical History Mixed hyperlipidemia Mild intermittent asthma Hyperkalemia Morbid obesity Renal calculi Morbid obesity Dyslipidemia CKD (chronic kidney disease) Essential hypertension Diabetes mellitus HIV (human immunodeficiency virus infection) Surgical History No pertinent past surgical history Family History Father Myocardial infarction Hypertension CVD (cardiovascular disease) Mother Stroke CVD (cardiovascular disease) Mental health disorder Sister Diabetes Social History Housing: Apartment Alcohol intake: former Patient Tobacco Use Status: Never used Tobacco Tobacco use type: Cigarette e-Cigarette/Vaping Use: Never Used Second Hand Smoke Exposure: Yes service: No Current occupational status: employed Current occupational exposures/hazards: No Cognitive needs: No Hearing needs: No Vision needs: No Review of Systems Const Reports as per HPI and Denies weakness ENT Reports Normal hearing present and Denies dizziness Card Reports as per HPI, Denies chest pain, Denies chest pain at rest, Denies chest pain with activity, Denies dyspnea and Denies dyspnea on exertion Resp Reports as per HPI, Denies cough, Denies dyspnea and Denies dyspnea on exertion GI Reports as per HPI, Denies abdominal pain, Denies nausea and Denies vomiting Musc Denies numbness Skin/Breast Reports as per HPI, Denies erythema and Denies wounds Neuro Reports Normal hearing present, Denies dizziness, Denies numbness, Denies Sensory deficit (Neuro) and Denies weakness Psych Reports no additional complaints Endo Reports no additional complaints Physical Exam Const General: healthy appearing and no acute distress Orientation/consciousness: patient oriented x3 HEENT Head: Yes normal to inspection Ears: hearing grossly normal bilaterally Mouth: Normal oral and palatal mucosa present Resp Effort & Inspection: normal respiratory effort and able to speak in complete sentences Auscultation: clear to auscultation bilaterally Cardio Jugular venous distension: no JVD Rate: regular rate Rhythm: regular rhythm Heart sounds: S1 normal heart sound present and S2 normal heart sound present Bruits: no abdominal aortic bruits, no carotid bruits, no femoral bruits and no renal bruits Peripheral pulses: Peripheral pulses 2+ throughout GI Inspection: Yes normal to inspection Palpation (GI): No Abdominal aortic bruit present Skin General skin exam: no rashes or lesions noted Wounds: no wounds Hair: normal Neuro General: patient oriented x3 Cranial nerves: Yes Normal hearing present Cognition (Neuro): normal cognition Gait exam (Neuro): Normal gait present Motor exam (neuro): 5/5 motor strength present throughout Sensory Exam: No Sensory deficit (Neuro) Extrem Other: Left foot: [place], warm,and dry. No discoloration noted. Cap refill less than 3 seconds. Palpable DP and PT pulses. No edema noted. No wounds noted. General: Yes normal to inspection, Yes full ROM, Yes capillary refill normal and Yes normal gait Quality Reporting (2019) Adult ([facility] 138/2/) Smoking risk assessment performed?: Yes Patient Tobacco Use Status: Never used Tobacco Results Reviewed Results Reviewed: US arterial duplex from 10/22 occluded left peroneal artery. Atherosclerotic dx throughout the lower left extremity Assessment & Plan Assessment & Plan (1) Occlusion of left peroneal artery: Code(s): I70.202 - Unspecified atherosclerosis of [place] arteries of extremities, left leg Category: Medical Plan: Cheng is presenting today as a follow-up to an ER visit on October 22 with results from an arterial duplex of the left lower extremity. He presented there with worsening left foot pain and discoloration. He states he was placed on Plavix. Since he has been on the Plavix, he states that the pain and discoloration has completely gone away. States it does endorse having left heel pain, which is different than the initial pain than he had. We reviewed the ultrasound from September. We will like him to follow up with us in 3 months for another ultrasound. We discussed continuing with the Plavix. We discussed conservative measures with elevation, compression stockings, and walking. Thank you for the consult. If there are any questions or concerns, please do not hesitate to reach out. Orders: Orders US arterial duplex LE LT 3 Months I70.202 - Unspecified atherosclerosis of [place] arteries of extremities, left leg Coding Level of Care Code New Pt New Pt Level 4 (65997) Patient Type New Diagnoses Occlusion of left peroneal artery I70.202 Comment Review of ultrasound
== END 2024-01-08 14:26 | disposition home or self-care (01) ==
PROVIDERS: PCP Internal Medicine; Visit Provider Physician Assistant Surgical
DX: I70.202 Unspecified atherosclerosis of native arteries of extremities, left leg (principal)
CPT/HCPCS: 99204

== ENCOUNTER → 2024-01-08 14:05 | Outpatient (BNVA) | payer OTHER, SELFPAY | PROVIDERS: PCP Internal Medicine; Visit Provider Physician Assistant Surgical | DX: I70.202 Unspecified atherosclerosis of native arteries of extremities, left leg (principal) | CPT/HCPCS: 99202 ==

== ENCOUNTER 2024-02-25 10:54 | Outpatient (REF) | payer OTHER, SELFPAY ==
[2024-02-25 12:04] LABS: Alanine Aminotransferase 31 U/L (0-40); Albumin Level 4.1 g/dL (3.5-5.0); Alkaline Phosphatase 68 U/L (39-117); Anion Gap 13 (12-20); Aspartate Amino Transferase 24 U/L (5-37); Bilirubin Total 0.7 mg/dL (0.0-1.0); Blood Urea Nitrogen 22 mg/dL (9-16); Calcium 8.9 mg/dL (8.4-10.2); Carbon Dioxide 24 mmol/L (22-29); Chloride 108 mmol/L (96-108); Cholesterol 155 mg/dL (<200); Estimated Glomerular Filt Rate 50; Glucose Fasting 132 mg/dL (60-99); Glucose Random 131 mg/dL (60-115); HDL Cholesterol 31 mg/dL (>40); LDL Cholesterol Calculated 85 mg/dL (<100); Potassium 5.3 mmol/L (3.3-5.1); Sodium 140 mmol/L (135-145); Total Protein 7.8 g/dL (6.5-8.0); Triglycerides 196 mg/dL (<150)
[2024-02-25 12:10] LABS: Creatinine Urine 166.54 mg/dL; Microalbum/Creatinine Ratio Ur 122.4 ug/mg cr (<30)
[2024-02-26 15:58] LABS: HIV RNA PCR Qn Copies 68 copies/mL (NOT DETECTED); HIV RNA PCR Qn Log Copies 1.83 (NOT DETECTED)
[2024-02-28 13:23] LABS: Absolute CD3 Count 2491 cells/uL (840-3060); Absolute CD4 Count 866 cells/uL (490-1740); Absolute CD8 Count 1711 cells/uL (180-1170); Absolute Lymphocytes 3175 cells/uL (850-3900); CD4 CD8 Ratio 0.51 (0.86-5.00); Percent CD3 Cells 78 % (57-85); Percent CD4 Cells 27 % (30-61); Percent CD8 Cells 54 % (12-42)
[2024-03-01 11:14] LABS: RPR Rapid Plasma Reagin REACTIVE (NON-REACTIVE)
== END 2024-02-25 10:55 | disposition home or self-care (01) ==
LOC: HO.LAB 10:54
PROVIDERS: Absent Provider Internal Medicine Hypertension Specialist; PCP Internal Medicine; Referring Provider Internal Medicine; Visit Provider Internal Medicine
DX: N18.31 Chronic kidney disease, stage 3a (principal); Z21 Asymptomatic human immunodeficiency virus [HIV] infection status; E11.22 Type 2 diabetes mellitus with diabetic chronic kidney disease; Z79.4 Long term (current) use of insulin; E78.5 Hyperlipidemia, unspecified; E11.9 Type 2 diabetes mellitus without complications
CPT/HCPCS: 36415; 80048; 80053; 80061; 82043; 82570; 86359; 86360; 86592; 86593; 87536

== ENCOUNTER 2024-03-10 15:09 | Outpatient (AMB) | payer OTHER, SELFPAY ==
--- NOTE | 2024-03-17 16:48 | MHC.OFFVIS ---
Intake Visit Reasons: hiv follow up Allergies glipizide Allergy (Mild, Verified 03/13/24 13:55) rash tuberculin, purified protein deriva Allergy (Mild, Verified 03/13/24 13:55) Swelling martinez Allergy (Mild, Uncoded 12/27/23 13:36) Hives jardiance Adverse Reaction (Severe, Uncoded 12/27/23 13:36) Rash/balanitis HPI HPI hiv follow up: Details: He has been doing well His CD4 count is 866 and viral load undetecctable on 02/25/2024. [facility] Medical History Mixed hyperlipidemia Mild intermittent asthma Hyperkalemia Morbid obesity Renal calculi Morbid obesity Dyslipidemia CKD (chronic kidney disease) Essential hypertension Diabetes mellitus HIV (human immunodeficiency virus infection) Surgical History No pertinent past surgical history Family History Father Myocardial infarction Hypertension CVD (cardiovascular disease) Mother Stroke CVD (cardiovascular disease) Mental health disorder Sister Diabetes Social History Housing: Apartment Alcohol intake: former Patient Tobacco Use Status: Never used Tobacco Tobacco use type: Cigarette e-Cigarette/Vaping Use: Never Used Second Hand Smoke Exposure: Yes service: No Current occupational status: employed Current occupational exposures/hazards: No Cognitive needs: No Hearing needs: No Vision needs: No Review of Systems Const All systems reviewed & are unremarkable except as noted in HPI and below Physical Exam Const General: cooperative Orientation/consciousness: patient oriented x3 HEENT Head: Yes normal to inspection Mouth: Normal oral and palatal mucosa present Eyes General: appearance normal, both eyes and all related structures Pupils: Equal, round and reactive pupils present Resp Effort & Inspection: normal respiratory effort Cardio Rate: regular rate Rhythm: regular rhythm GI Palpation (GI): Soft to palpation and nontender General: Yes no CVA tenderness Back/Spine/Pelvis Back: no CVA tenderness Skin General skin exam: no rashes or lesions noted Neuro General: patient oriented x3 Cranial nerves: Yes CN's II-XII intact bilaterally and Yes Equal, round and reactive pupils present Extrem General: Yes normal to inspection Psych Appearance: grossly normal Quality Reporting (2019) Adult ([facility] 138//) Smoking risk assessment performed?: Yes Patient Tobacco Use Status: Never used Tobacco Assessment & Plan Assessment & Plan (1) HIV (human immunodeficiency virus infection): Comment: He is doing well He has been taking Biktarvy His CD4 count is 961 and viral load is undetectable 09/04. His RPR is 1:4 and stable. Continue Biktarvy Check labs February 2024 and see March 2024.(written for) Also renewal Biktarvy Get Ciaolivers from Dr Irvin (last prescriberJ He will let us know if wishes to get rectal Pap. Code(s): B20 - Human immunodeficiency virus [HIV] disease Category: Medical Qualifiers: HIV symptom status: asymptomatic, with no history of HIV-related illness Qualified Code(s): Z21 - Asymptomatic human immunodeficiency virus [HIV] infection status Plan Check CD4 count and viral load in six months and see then. Continue Biktarvy. Orders: Orders HIV-1 RNA QN PCR Expanded 5 Months Z21 - Asymptomatic human immunodeficiency virus [HIV] infection status Lymphocyte Subset Panel 3 5 Months Z21 - Asymptomatic human immunodeficiency virus [HIV] infection status RPR Monitor reflex titer 5 Months Z21 - Asymptomatic human immunodeficiency virus [HIV] infection status Medications: Refilled sovzitjqy-eygblltm-uhiezaz ala 50-200-25 mg (Biktarvy) 1 tab PO DAILY 30 tabs 5RF 30 days Coding Level of Care Code Est Pt Level 4 (55521) Diagnoses Asymptomatic HIV infection, with no history of HIV-related illness Z21 HIV symptom status: asymptomatic, with no history of HIV-related illness
== END 2024-03-10 16:01 | disposition home or self-care (01) ==
LOC: HO.HID 15:09
PROVIDERS: PCP Internal Medicine; Visit Provider Internal Medicine
DX: Z21 Asymptomatic human immunodeficiency virus [HIV] infection status (principal)
CPT/HCPCS: 99214

== ENCOUNTER → 2024-03-10 15:09 | Outpatient (BNVA) | payer OTHER, SELFPAY | PROVIDERS: PCP Internal Medicine; Visit Provider Internal Medicine | DX: Z21 Asymptomatic human immunodeficiency virus [HIV] infection status (principal) | CPT/HCPCS: 99212 ==

== ENCOUNTER 2024-03-13 13:39 | Outpatient (AMB) | payer OTHER, SELFPAY ==
[2024-03-13 13:53] VITALS: BP 122/64; PULSE 85; O2SAT 97; BMI 43.8
--- NOTE | 2024-03-13 13:53 | HO.NEPHOV ---
Vital Signs 03/13/24 13:53 Height 5 ft 4 in Weight 255 lb BMI 43.8 BP 122/64 Blood Pressure Location Lt brachial Position Sitting Pulse 85 Pulse Source Pulse Oximeter Pulse Oximetry (%) 97 Oxygen Delivery Method Room Air Intake Visit Reasons: 4 mon follow up-Conf Thoracic Medicine Physician Required: Yes Thoracic Medicine Physician Name: Julius [id number] Accompanied by: Self / Same As Patient Allergies glipizide Allergy (Mild, Verified 03/13/24 13:55) rash tuberculin, purified protein deriva Allergy (Mild, Verified 03/13/24 13:55) Swelling martinez Allergy (Mild, Uncoded 12/27/23 13:36) Hives jardiance Adverse Reaction (Severe, Uncoded 12/27/23 13:36) Rash/balanitis Medication List - Last Reconciled 03/13/24 by Bao Carreon MD amitriptyline 100 mg PO BEDTIME aspirin 81 mg PO DAILY 30 days atorvastatin 80 mg PO BEDTIME 90 days zgzqdtsqq-kbspmoeo-nycfhka ala 50-200-25 mg (Biktarvy) 1 tab PO DAILY 30 days blood sugar diagnostic Use 1 test strip twice a day blood sugar diagnostic (Accu-Chek Guide test strips) Use 1 test strip three times a day blood sugar diagnostic (FreeStyle Lite Strips) As directed 3 times per day blood-glucose meter (Accu-Chek Guide Glucose Meter) As directed blood-glucose meter (FreeStyle Lite Meter kit) As directed budesonide 90 mcg/actuation (Pulmicort Flexhaler) 1 inh inhalation BID cholecalciferol (vitamin D3) 50 mcg PO DAILY 90 days clopidogrel (Plavix) 75 mg PO DAILY 30 days clotrimazole 1% 1 appl topical BID 4 weeks dulaglutide (Trulicity) 1.5 mg (0.5 mL) subcut QWEEK 90 days fenofibrate 54 mg PO DAILY 90 days gabapentin 300 mg PO DAILY glyburide 5 mg PO BID insulin glargine (Lantus Solostar U-100 Insulin) 15 units (0.15 mL) subcut QPM 90 days insulin lispro protamin-lispro 100 unit/mL (75-25) subcut lancets (FreeStyle Lancets) Use 1 lancet three times a day lancets (Accu-Chek Fastclix Lancet Drum) Use 1 lancet three times a day lisinopril 10 mg PO DAILY 90 days meclizine mg PO DAILY nebulizers (AeroEclipse II Nebulizer) As directed pen needle, diabetic (Comfort EZ Pen [place]) Use 1 pen needle twice a day sodium chloride 0.9% 1 mL inhalation Q8H PRN 90 days tadalafil 20 mg PO ONCE PRN 30 days topiramate 100 mg PO BID HPI Comments Details: 52-year-old man with HIV and diabetes mellitus with chronic kidney disease. Recent A1c is bumped up to 7.8. Creatinine stable around 1.2 mg/dL. he is complaining of Balanitis He was on Jardiance 11/13/2023. Cheng is here for follow-up. After course of clotrimazole there was improvement in the balanitis. He was seen by Urology and circumcision has been scheduled for January of 2024. 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 03/13/24 Recently took 800 mg Motrin for 2 weeks [facility] Medical History Mixed hyperlipidemia Mild intermittent asthma Hyperkalemia Morbid obesity Renal calculi Morbid obesity Dyslipidemia CKD (chronic kidney disease) Essential hypertension Diabetes mellitus HIV (human immunodeficiency virus infection) Surgical History No pertinent past surgical history Family History Father Myocardial infarction Hypertension CVD (cardiovascular disease) Mother Stroke CVD (cardiovascular disease) Mental health disorder Sister Diabetes Social History Housing: Apartment Alcohol intake: former Patient Tobacco Use Status: Never used Tobacco Tobacco use type: Cigarette e-Cigarette/Vaping Use: Never Used Second Hand Smoke Exposure: Yes service: No Current occupational status: employed Current occupational exposures/hazards: No Cognitive needs: No Hearing needs: No Vision needs: No Physical Exam Vital Signs: Last Vital Signs Pulse 85 03/13/24 13:53 BP 122/64 03/13/24 13:53 Pulse Ox 97 03/13/24 13:53 Oxygen Delivery Method Room Air 03/13/24 13:53 BMI result Body Mass Index 43.8 Comfortable Neck supple no JVD. Lungs entry equal no rales. Heart S1-S2 heard no gallop or rub. Abdomen soft nontender. Neuro alert awake oriented. No asterixis. Extremities no edema. Results Reviewed Nephrology Results: Sodium 140 mmol/L (135-145) 02/25/24 Potassium 5.3 mmol/L (3.3-5.1) H 02/25/24 Chloride 108 mmol/L (96-108) 02/25/24 Carbon Dioxide 24 mmol/L (22-29) 02/25/24 BUN 22 mg/dL (9-16) H 02/25/24 Creatinine 1.47 mg/dL (0.5-1.4) H 02/25/24 Calcium 8.9 mg/dL (8.4-10.2) 02/25/24 Urine Creatinine 166.54 mg/dL 02/25/24 Assessment & Plan Assessment & Plan (1) Balanitis: Code(s): N48.1 - Balanitis Category: Medical Plan: Due to SGLT2 inhibitors. Hold SGLT2 inhibitors temporarily s/p clotrimazole Await circumcision ( probably in April) (2) CKD (chronic kidney disease): Code(s): N18.9 - Chronic kidney disease, unspecified Category: Medical Qualifiers: Chronic kidney disease stage: stage 3 (moderate) Chronic kidney disease stage 3 subtype: stage 3a (GFR 45-59) Qualified Code(s): N18.31 - Chronic kidney disease, stage 3a Plan: Mild bump in Cr with high K Both due to use of NSAIDS avoid nephrotoxic agents including NSAIDs. Optimize blood sugar. Continue with GEORGES inhibition for renal protection. He will benefit from SGLT2 inhibitors but we will hold it until balanitis resolves Orders: Orders Basic Metabolic Panel 4 Months N18.31 - Chronic kidney disease, stage 3a Coding Level of Care Code Est Pt Level 4 (48980) Diagnoses Balanitis N48.1 Stage 3a chronic kidney disease N18.31 Chronic kidney disease stage: stage 3 (moderate) Chronic kidney disease stage 3 subtype: stage 3a (GFR 45-59)
== END 2024-03-13 14:12 | disposition home or self-care (01) ==
LOC: HO.HKA 13:39
PROVIDERS: PCP Internal Medicine; Visit Provider Internal Medicine Hypertension Specialist
DX: N48.1 Balanitis (principal); N18.31 Chronic kidney disease, stage 3a
CPT/HCPCS: 99214

== ENCOUNTER → 2024-03-13 13:39 | Outpatient (BNVA) | payer OTHER, SELFPAY | PROVIDERS: PCP Internal Medicine; Visit Provider Internal Medicine Hypertension Specialist | DX: E11.22 Type 2 diabetes mellitus with diabetic chronic kidney disease (principal); B20 Human immunodeficiency virus [HIV] disease; N18.31 Chronic kidney disease, stage 3a; N48.1 Balanitis | CPT/HCPCS: 99212 ==

== ENCOUNTER 2024-04-02 13:02 | Outpatient (AMB) | payer OTHER, SELFPAY ==
[2024-04-02 13:29] VITALS: BP 150/82; BMI 43.4
--- NOTE | 2024-04-02 13:29 | A.OFFPC_ITS ---
Vital Signs 04/02/24 13:29 Height 5 ft 4 in Weight 253 lb 1.451 oz BMI 43.4 BP 150/82 H Blood Pressure Location Lt brachial Position Sitting Intake Visit Reasons: 4M follow up Intake Note: Patient here for a 4 month follow up Chainman Required: Yes Chainman Language: Pulmonology Technician Name: Humaira Hood MD Information Interpreted: non-clinical & clinical Accompanied by: Mother Allergies glipizide Allergy (Mild, Verified 04/02/24 13:44) rash tuberculin, purified protein deriva Allergy (Mild, Verified 04/02/24 13:44) Swelling martinez Allergy (Mild, Uncoded 04/02/24 13:44) Hives jardiance Adverse Reaction (Severe, Uncoded 04/02/24 13:44) Rash/balanitis Medication List - Last Reconciled 04/02/24 by Humaira Hood MD amitriptyline 100 mg PO BEDTIME aspirin 81 mg PO DAILY 30 days atorvastatin 80 mg PO BEDTIME 90 days htpgrngrh-agiwoljm-rlztqpo ala 50-200-25 mg (Biktarvy) 1 tab PO DAILY 30 days blood sugar diagnostic Use 1 test strip twice a day blood sugar diagnostic (Accu-Chek Guide test strips) Use 1 test strip three times a day blood sugar diagnostic (FreeStyle Lite Strips) As directed 3 times per day blood-glucose meter (Accu-Chek Guide Glucose Meter) As directed blood-glucose meter (FreeStyle Lite Meter kit) As directed budesonide 90 mcg/actuation (Pulmicort Flexhaler) 1 inh inhalation BID cholecalciferol (vitamin D3) 50 mcg PO DAILY 90 days clopidogrel (Plavix) 75 mg PO DAILY 30 days clotrimazole 1% 1 appl topical BID 4 weeks dulaglutide (Trulicity) 1.5 mg (0.5 mL) subcut QWEEK 90 days fenofibrate 54 mg PO DAILY 90 days gabapentin 300 mg PO DAILY glyburide 5 mg PO BID insulin glargine (Lantus Solostar U-100 Insulin) 20 units (0.2 mL) subcut QPM 90 days insulin lispro protamin-lispro 100 unit/mL (75-25) subcut lancets (FreeStyle Lancets) Use 1 lancet three times a day lancets (Accu-Chek Fastclix Lancet Drum) Use 1 lancet three times a day lisinopril 10 mg PO DAILY 90 days meclizine mg PO DAILY nebulizers (AeroEclipse II Nebulizer) As directed pen needle, diabetic (Comfort EZ Pen [place]) Use 1 pen needle twice a day sodium chloride 0.9% 1 mL inhalation Q8H PRN 90 days tadalafil 20 mg PO ONCE PRN 30 days topiramate 100 mg PO BID Tobacco use date assessed: 04/02/24 Dental Screening Dental Screen Date: 04/02/24 Did you have a dental visit in the last 12 months?: No Did you have a dental problem in the last 6 months where you did not have access to dental care?: No Was dental information given to patient?: Patient has dentist HPI HPI Comments History of Present Illness Details This is a 53-year-old male with HIV, diabetes mellitus type 2 on long- term current use of insulin, hypertension, hyperlipidemia and morbid obesity that comes today accompanied by mother with dementia for follow-up on his conditions. HIV stable and follow-up by ID. A1c has worsened and I will increase insulin. Blood pressure elevated and will be recheck in 3 weeks by nurse navigator. LDL very close to goal. He is morbidly obese with a BMI of 43.4 and was advised to diet and exercise to reach BMI goal of less than 30. He also has chronic kidney disease stage 3 which GFR close to 60 and this is follow by Nephrology. Denies any chest pain or shortness on breath. [facility] Medical History (Updated 04/02/24 @ 13:47 by Humaira Hood MD) Erectile dysfunction associated with type 2 diabetes mellitus Mixed hyperlipidemia Mild intermittent asthma Hyperkalemia Morbid obesity Renal calculi Morbid obesity Dyslipidemia CKD (chronic kidney disease) Essential hypertension Diabetes mellitus HIV (human immunodeficiency virus infection) Surgical History No pertinent past surgical history Family History Father Myocardial infarction Hypertension CVD (cardiovascular disease) Mother Stroke CVD (cardiovascular disease) Mental health disorder Sister Diabetes Social History Housing: Apartment Alcohol intake: former Patient Tobacco Use Status: Never used Tobacco e-Cigarette/Vaping Use: Never Used Second Hand Smoke Exposure: Yes service: No Current occupational status: employed Current occupational exposures/hazards: No Cognitive needs: No Hearing needs: No Vision needs: No Questionnaire PHQ-9 Over the last 2 weeks, how often have you been bothered by any of the following problems? 1. Little interest or pleasure in doing things: not at all 2. Feeling down, depressed, or hopeless: not at all 3. Trouble falling or staying asleep, or sleeping too much: not at all 4. Feeling tired or having little energy: not at all 5. Poor appetite or overeating: not at all 6. Feeling bad about yourself - or that you are a failure or have let yourself or your family down: not at all 7. Trouble concentrating on things, such as reading the newspaper or watching television: not at all 8. Moving or speaking so slowly that other people could have noticed. Or the opposite - being so fidgety or restless that you have been moving around a lot more than usual: not at all 9. Thoughts that you would be better off or of hurting yourself in some way: not at all Total score: 0 Depression Screening Interpretation: Negative Depression Screening Done: Yes Source: Developed by Drs. Maykel Moreau, Krystal Montaño, Deniz Burgos and colleagues, with an educational samantha from [employer]. Thrive Questionnaire Date Thrive assessed: 04/02/24 I am a: Patient What is your living situation today?: I have a steady place to live Within the past 12 months, did the food you bought not last and you didn't have the money to get more?: Never true Within the past 12 months, did you worry whether your food would run out before you got money to buy more?: Never true Do you have trouble paying for medicines?: No Do you have trouble getting transportation to medical appointments?: No Do you have trouble paying your heating and electricity bill?: No Do you have trouble taking care of your child, family member or friend?: No Do you have trouble with day-to-day activities such as bathing, preparing meals, shopping, managing finances, etc.?: No Are you currently unemployed and looking for a job?: No Are you interested in more education?: No Please select the resources that you would like help with: None Currently or been in a relationship where the following occur: No concerns reported THRIVE Score: 0 AUDIT C Alcohol Use Questionnaire (AUDIT-C) 1. How often do you have a drink containing alcohol?: Never Total Score: 0 SARAH-7 AMB Questionnaire SARAH-7 Date SARAH - 7 assessed: 04/02/24 Feeling nervous, anxious, or on edge: 1 = Several days Not being able to stop or control worryin = Not at all Worrying too much about different things: 1 = Several days Trouble relaxin = Not at all Being so restless that it is hard to sit still: 0 = Not at all Becoming easily annoyed or irritable: 0 = Not at all Feeling afraid as if something awful might happen: 0 = Not at all Total SARAH-7 score (0-4 normal; 5-9 mild; 10-14 moderate; 15-21 severe): 2 Source: Developed by Drs. Maykel Moreau, Krystal Montaño, Deniz Burgos and colleagues, with an educational samantha from [employer]. Review of Systems Const All systems reviewed & are unremarkable except as noted in HPI and below Card Denies chest pain at rest, Denies chest pain with activity, Denies edema, Denies irregular heart rhythm, Denies claudication, Denies dyspnea, Denies dyspnea on exertion, Denies orthopnea, Denies paroxysmal nocturnal dyspnea and Denies slow heart rate Resp Denies cough, Denies dyspnea and Denies dyspnea on exertion Physical exam (Primary Care) Vital Signs: Last Vital Signs BP 150/82 H 04/02/24 13:29 BMI result Body Mass Index 43.4 BMI Assessment/Plan discussion: High BMI High, discussed plan: lifestyle, weight reduction, dietary and physical activity Tobacco/Smoking Status: Tobacco use Status Tobacco use date assessed 04/02/24 04/02/24 13:34 Patient Tobacco Use Status Never used Tobacco 04/02/24 13:34 Tobacco use type 04/02/24 13:34 e-Cigarette/Vaping Use Never Used 04/02/24 13:34 PHQ-9: PHQ-9 Score PHQ-9: Total score 0 04/02/24 13:46 Depression Screening Interpretation: Negative Thrive Assessment: Date of Thrive Assessment Date Thrive assessed 04/02/24 04/02/24 13:34 Currently or been in a relationship where the following occur: No concerns reported Resp Effort & Inspection: normal respiratory effort Cardio Jugular venous distension: no JVD Rate: regular rate Rhythm: regular rhythm Heart sounds: S1 normal heart sound present and S2 normal heart sound present Extrem General: Yes full ROM Office Procedures Flu Questionnaire Does the patient have a severe egg allergy?: No Results AMB Hemoglobin A1c AMB Hemoglobin A1c 8.1 % Last Edit by AIDA Magallanes on 04/02/24 13:4 8 Immunizations Fluarix Triv [id number] (PF) 45 mcg (15 mcg x 3)/0.5 mL IM syringe Performing Provider: Humaira Hood MD [facility] [place] [facility] Documented (not given) by: AIDA Magallanes on 04/02/24 13:51 Reason Not Given: Patient Refused Results Reviewed Results Reviewed: Laboratory Last Values Hgb A1c (Clinic) 8.1 % (4.0-6.0) H 04/02/24 13:46 Coding Level of Care Code Est Pt Level 4 (83306) Complex EM visit Add On G2211 Diagnoses Hyperkalemia E87.5 Morbid obesity E66.01 Type 2 diabetes mellitus with stage 3a chronic kidney disease, with long-term current use of insulin E11.22; N18.31; Z79.4 Chronic kidney disease stage: stage 3 (moderate) Chronic kidney disease stage 3 subtype: stage 3a (GFR 45-59) Diabetes mellitus complication detail: with chronic kidney disease Diabetes mellitus complication status: with kidney complications Diabetes mellitus correction insulin use: with laborer marine terminal use Diabetes mellitus type: type 2 Essential hypertension I10 Asymptomatic HIV infection, with no history of HIV-related illness Z21 HIV symptom status: asymptomatic, with no history of HIV-related illness Dyslipidemia E78.5 Stage 3a chronic kidney disease N18.31 Chronic kidney disease stage: stage 3 (moderate) Chronic kidney disease stage 3 subtype: stage 3a (GFR 45-59) Time Spent (min) 22 Assessment & Plan Assessment & Plan (1) Hyperkalemia: Code(s): E87.5 - Hyperkalemia Category: Medical (2) Morbid obesity: Code(s): E66.01 - Morbid (severe) obesity due to excess calories Category: Medical (3) Diabetes mellitus: Code(s): E11.9 - Type 2 diabetes mellitus without complications Category: Medical Qualifiers: Chronic kidney disease stage: stage 3 (moderate) Chronic kidney disease stage 3 subtype: stage 3a (GFR 45-59) Diabetes mellitus complication detail: with chronic kidney disease Diabetes mellitus complication status: with kidney complications Diabetes 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 His RPR is 1:4 and stable. Continue Biktarvy Check labs February 2024 and see March 2024.(written for) Also renewal Biktarvy Get Cialis from Dr Irvin (last prescriberJ He will let us know if wishes to get rectal Pap. Code(s): B20 - Human immunodeficiency virus [HIV] disease Category: Medical Qualifiers: HIV symptom status: asymptomatic, with no history of HIV-related illness Qualified Code(s): Z21 - Asymptomatic human immunodeficiency virus [HIV] infection status (6) Dyslipidemia: Code(s): E78.5 - Hyperlipidemia, unspecified Category: Medical (7) CKD (chronic kidney disease): Code(s): N18.9 - Chronic kidney disease, unspecified Category: Medical Qualifiers: Chronic kidney disease stage: stage 3 (moderate) Chronic kidney disease stage 3 subtype: stage 3a (GFR 45-59) Qualified Code(s): N18.31 - Chronic kidney disease, stage 3a Plan Due to hyperkalemia potassium should be repeated. Increase insulin. A1c goal is equal or less than 7%. Recheck blood pressure with nurse navigator in 3 weeks. Blood pressure goal is equal or less than 130/80. LDL goal less than 70 and do some dietary changes. HIV still follow by ID. Orders: Orders Comprehensive Met. Panel Today E87.5 - Hyperkalemia AMB Hemoglobin A1c Today E11.22 - Type 2 diabetes mellitus with diabetic chronic kidney disease, N18.31 - Chronic kidney disease, stage 3a, Z79.4 - intermediate teacher (current) use of insulin Medications: Changed From insulin glargine (Lantus Solostar U-100 Insulin) 15 units (0.15 mL) subcut QPM 90 days 13.5 mL 1RF E11.22 - Type 2 diabetes mellitus with diabetic chronic kidney disease, N18.31 - Chronic kidney disease, stage 3a, Z79.4 - intermediate teacher (current) use of insulin To insulin glargine (Lantus Solostar U-100 Insulin) 20 units (0.2 mL) subcut QPM 90 days 18 mL 2RF E11.22 - Type 2 diabetes mellitus with diabetic chronic kidney disease, N18.31 - Chronic kidney disease, stage 3a, Z79.4 - intermediate teacher (current) use of insulin
--- OUTSIDE RECORDS SUMMARY | 2024-04-02 14:24 | XMS_ITS | Clinical Summary ---
Author Organization 175 [facility] Address [address] [place] [address] Phone Care Team Providers Care Investor Relations Analyst Name Role Phone Damion Galicia MD Primary Care Provider Active Problems Problem Noted Date Diagnosed Date Class 3 severe obesity with body mass index (BMI) of 40.0 to 44.9 in adult 01/10/2024 Encounters Date Type Department Care Team Description 02/18/2024 3:00 PM EST Nutrition Bariatric Surgery [address] [phone] Class 3 severe obesity with body mass index (BMI) of 40.0 to 44.9 in adult, unspecified obesity type, unspecified whether serious comorbidity present (CMS/HCC) (Primary Dx) 01/10/2024 10:00 AM EST Nutrition Bariatric Surgery [address] [address] Class 3 severe obesity with body mass index (BMI) of 40.0 to 44.9 in adult, unspecified obesity type, unspecified whether serious comorbidity present (CMS/HCC) (Primary Dx) from Last 3 Months Social History Tobacco Use Types Packs/Day Years Used Date Smoking Tobacco: Never Assessed Sex and Gender Information Value Date Recorded Sex Assigned at Not on file Gender Identity Not on file Sexual Orientation Not on file Job Start Date Occupation Industry Not on file Not on file Not on file Last Filed Vital Signs Vital Sign Reading Time Taken Comments Blood Pressure 130/81 11/07/2023 1:21 PM EDT Pulse 67 11/07/2023 1:21 PM EDT Temperature - - Respiratory Rate - - Oxygen Saturation - - Inhaled Oxygen Concentration - - Weight 117 kg (259 lb) 02/18/2024 2:58 PM EST Height 162.6 cm (5' 4 ) 01/10/2024 10:16 AM EST Body Mass Index 44.46 01/10/2024 10:16 AM EST Plan of Treatment Upcoming Encounters Date Type Department Care Team (Late st Contact Info) Description 04/04/2024 1:00 PM EST Nutrition Bariatric Surgery - [place] 175 [facility] [address] [place] [phone] Carla Leyva RD 175 [facility] [address] [place] [address] 04/09/2024 2:15 PM EST Office Visit Orthopedic Surgery - [place] 250 175 [facility] [address] [place] [phone] Fernando Sosa DPM [address] [address] Health Maintenance Due Date Last Done Comments Diabetes: Annual Foot Exam 08/18/1981 Diabetes: Annual Retina Eye Exam 08/18/1981 DTaP,Tdap,and Td Vaccines (1 - Tdap) 08/18/1990 Hepatitis B Vaccines (1 of 3 - 19+ 3-dose series) 08/18/1990 Colorectal Cancer Screening: Colonoscopy 01/25/2022 Depression Screening 01/25/2022 HIV Screening 01/25/2022 Hepatitis C Screening 01/25/2022 Social Influencers of Health Screening 01/25/2022 Zoster Vaccines (2 of 2) 03/02/2022 01/05/2022 COVID-19 Vaccine ( - season) 2023 02/09/2021, 07/09/2020, 06/19/2020 Influenza Vaccine (#1) 2023 , 01/05/2022, 12/30/2019, Additional history exists Diabetes: Annual Urine Albumin-Creatinine Ratio (uACR) 01/10/2024 Diabetes: Blood Sugar Control Test (HGBA1C) 08/25/2024 02/26/2024, 07/04/2023, 07/04/2023 Diabetes: Annual GFR (Glomerular Filtration Rate) 02/25/2025 02/26/2024 Hypertension/CHF/CAD Annual BMP Blood Test 02/25/2025 02/26/2024 Cholesterol Screening (Lipid Panel) 02/25/2029 02/26/2024 Pneumococcal Vaccine: Pediatrics (0 to 5 Years) and At-Risk Patients (6 to 64 Years) Completed 05/19/2022 HIB Vaccines Aged Out No longer eligi ble based on patient's age to complete this topic HPV Vaccines Aged Out No longer eligi ble based on patient's age to complete this topic Hepatitis A Vaccines Aged Out No long er eligible based on patient's age to complete this topic IPV Vaccines Aged Out No longer eligi ble based on patient's age to complete this topic MMR Vaccines Aged Out No longer eligi ble based on patient's age to complete this topic Meningococcal ACWY Vaccine Aged Out N o longer eligible based on patient's age to complete this topic RSV Immunization Patients Under 20 months Aged Out No longer eligible based on patient's age to complete this topic Varicella Vaccines Aged Out No longer eligible based on patient's age to complete this topic Procedures Procedure Name Priority Date/Time Associated Diagnosis Comments CBC WITH AUTO DIFFERENTIAL Routine 02/26/2024 2:07 PM EST Class 3 severe obesity with body mass index (BMI) of 40.0 to 44.9 in adult, unspecified obesity type, unspecified whether serious comorbidity present (CMS/HCC) LIPID PANEL WITH REFLEX TO DIRECT LDL Routine 02/26/2024 2:07 PM EST Class 3 severe obesity with body mass index (BMI) of 40.0 to 44.9 in adult, unspecified obesity type, unspecified whether serious comorbidity present (CMS/HCC) VITAMIN D 25 HYDROXY Routine 02/26/2024 2:07 PM EST Class 3 severe obesity with body mass index (BMI) of 40.0 to 44.9 in adult, unspecified obesity type, unspecified whether serious comorbidity present (CMS/HCC) VITAMIN B12 Routine 02/26/2024 2:07 PM EST Class 3 severe obesity with body mass index (BMI) of 40.0 to 44.9 in adult, unspecified obesity type, unspecified whether serious comorbidity present (CMS/HCC) VITAMIN B1 Routine 02/26/2024 2:07 PM EST Class 3 severe obesity with body mass index (BMI) of 40.0 to 44.9 in adult, unspecified obesity type, unspecified whether serious comorbidity present (CMS/HCC) THYROID STIMULATING HORMONE Routine 02/26/2024 2:07 PM EST Class 3 severe obesity with body mass index (BMI) of 40.0 to 44.9 in adult, unspecified obesity type, unspecified whether serious comorbidity present (CMS/HCC) NICOTINE AND COTININE Routine 02/26/2024 2:07 PM EST Class 3 severe obesity with body mass index (BMI) of 40.0 to 44.9 in adult, unspecified obesity type, unspecified whether serious comorbidity present (CMS/HCC) MAGNESIUM Routine 02/26/2024 2:07 PM EST Class 3 severe obesity with body mass index (BMI) of 40.0 to 44.9 in adult, unspecified obesity type, unspecified whether serious comorbidity present (CMS/HCC) IRON AND TIBC Routine 02/26/2024 2:07 PM EST Class 3 severe obesity with body mass index (BMI) of 40.0 to 44.9 in adult, unspecified obesity type, unspecified whether serious comorbidity present (CMS/HCC) HEMOGLOBIN A1C Routine 02/26/2024 2:07 PM EST Class 3 severe obesity with body mass index (BMI) of 40.0 to 44.9 in adult, unspecified obesity type, unspecified whether serious comorbidity present (CMS/HCC) HELICOBACTER PYLORI BREATH TEST Routine 02/26/2024 2:07 PM EST Class 3 severe obesity with body mass index (BMI) of 40.0 to 44.9 in adult, unspecified obesity type, unspecified whether serious comorbidity present (CMS/HCC) FOLATE Routine 02/26/2024 2:07 PM EST Class 3 severe obesity with body mass index (BMI) of 40.0 to 44.9 in adult, unspecified obesity type, unspecified whether serious comorbidity present (CMS/HCC) FERRITIN Routine 02/26/2024 2:07 PM EST Class 3 severe obesity with body mass index (BMI) of 40.0 to 44.9 in adult, unspecified obesity type, unspecified whether serious comorbidity present (CMS/HCC) CORTISOL Routine 02/26/2024 2:07 PM EST Class 3 severe obesity with body mass index (BMI) of 40.0 to 44.9 in adult, unspecified obesity type, unspecified whether serious comorbidity present (CMS/HCC) COMPREHENSIVE METABOLIC PANEL Routine 02/26/2024 2:07 PM EST Class 3 severe obesity with body mass index (BMI) of 40.0 to 44.9 in adult, unspecified obesity type, unspecified whether serious comorbidity present (CMS/HCC) CBC AND DIFFERENTIAL Routine 02/26/2024 2:07 PM EST Class 3 severe obesity with body mass index (BMI) of 40.0 to 44.9 in adult, unspecified obesity type, unspecified whether serious comorbidity present (CMS/HCC) from Last 3 Months Results * (ABNORMAL) Lipid panel with reflex to direct LDL (02/26/2024 2:07 PM EST) Cholesterol 185 0 - 200 mg/dL LAB CHEMISTRY METHOD 02/26/2024 6:32 PM [facility] Triglycerides 203(H) 0 - 150 mg/dL LAB CHEMISTRY METHOD 02/26/2024 6:32 PM [facility] HDL 37(L) >=40 mg/dL LAB CHEMISTRY METHOD 02/26/2024 6:32 PM [facility] LDL Calculated 107(H) 0 - 100 mg/dL LAB CHEMISTRY METHOD 02/26/2024 6:32 PM [facility] VLDL Cholesterol Stephen 40.6 mg/dL LAB CHEMISTRY METHOD 02/26/2024 6:32 PM [facility] Non HDL Chol. (LDL+VLDL) 148(H) <145 mg/dL LAB CHEMISTRY METHOD 02/26/2024 6:32 PM EST [facility] Chol/HDL Ratio 5.0(H) 0.0 - 4.4 LAB CHEMISTRY METHOD 02/26/2024 6:32 PM EST [facility] Blood Venous blood specimen / Unknown Venipuncture / Unknown 02/26/2024 2:07 PM EST 02/26/2024 2:07 PM EST Nereyda Pierre MD LAB BLOOD ORDERABLES [facility] [address] [place] [address], * Nicotine and cotinine (02/26/2024 2:07 PM EST) Nicotine <2.0 <2.0 ng/mL 03/04/2024 7:41 AM EST [facility] Cotinine <2.0 <2.0 ng/mL 03/04/2024 7:41 AM EST [facility] Comment: ?Additional Reference Ranges: ? Active Tobacco ? Passive ? Abstinence ?User ?Exposure ?? 2 Weeks and more ? Nicotine ?30 - 50 ??ng/mL ?<2 ng/mL ?<2 ng/mL Cotinine ?? 200 - 800 ng/mL ?<8 ng/mL ?<2 ng/mL Reference Ranges from: ??Clin. Chem.; ??[id number] (2002) Direct any interpretive questions to the toxicology laboratory. This is for medical use only, it is not intended for forensic use. If applicable, any drug confirmation testing reported here was developed and the performance characteristics determined by [facility]. This confirmation testing has not been cleared or approved by the FDA. The laboratory is regulated under CLIA as qualified to perform high-complexity testing. This test is used for patient testing purposes. It should not be regarded as investigational or for research. Test performed at [facility], [address] , [place], [place] ??[address] ? [phone] Cat Rand MD, PhD - Health Diagnostics Teacher Blood Venous blood specimen / Unknown Venipuncture / Unknown 02/26/2024 2:07 PM EST 02/26/2024 2:07 PM EST Nereyda Pierre MD LAB BLOOD ORDERABLES [facility] [address] [place] [address] * (ABNORMAL) CBC auto differential (02/26/2024 2:07 PM EST) WBC 7.5 4.8 - 10.8 K/mcL LAB HEMETOLOGY METHOD 02/26/2024 6:25 PM EST [facility] RBC 5.30 4.50 - 5.50 M/mcL LAB HEMETOLOGY METHOD 02/26/2024 6:25 PM [facility] Hemoglobin 16.4 13.5 - 17.5 g/dL LAB HEMETOLOGY METHOD 02/26/2024 6:25 PM [facility] Hematocrit 50.3 42.0 - 54.0 % LAB HEMETOLOGY METHOD 02/26/2024 6:25 PM [facility] MCV 95.4 79.0 - 98.0 FL LAB HEMETOLOGY METHOD 02/26/2024 6:25 PM [facility] MCH 31.1 27.0 - 32.0 pcg LAB HEMETOLOGY METHOD 02/26/2024 6:25 PM [facility] MCHC 32.6 32.0 - 37.0 g/dL LAB HEMETOLOGY METHOD 02/26/2024 6:25 PM [facility] RDW 13.2 11.0 - 15.0 % LAB HEMETOLOGY METHOD 02/26/2024 6:25 PM [facility] Platelets 296 130 - 400 K/mcL LAB HEMETOLOGY METHOD 02/26/2024 6:25 PM [facility] MPV 11.1(H) 7.0 - 11.0 FL LAB HEMETOLOGY METHOD 02/26/2024 6:25 PM [facility] NRBC 0.0 <1.0 % LAB HEMETOLOGY METHOD 02/26/2024 6:25 PM [facility] NRBC Absolute 0.00 <0.10 K/mcL LAB HEMETOLOGY METHOD 02/26/2024 6:25 PM [facility] Neutrophils Relative 50.5 % LAB HEMETOLOGY METHOD 02/26/2024 6:25 PM [facility] Lymphocytes Relative 41.0 % LAB HEMETOLOGY METHOD 02/26/2024 6:25 PM [facility] Monocytes Relative 7.0 % LAB HEMETOLOGY METHOD 02/26/2024 6:25 PM [facility] Eosinophils Relative 0.7 % LAB HEMETOLOGY METHOD 02/26/2024 6:25 PM [facility] Basophils Relative 0.5 % LAB HEMETOLOGY METHOD 02/26/2024 6:25 PM [facility] Immature Granulocytes Relative 0.3 % LAB HEMETOLOGY METHOD 02/26/2024 6:25 PM EST [facility] Neutrophils Absolute 3.77 1.50 - 7.00 K/mcL LAB HEMETOLOGY METHOD 02/26/2024 6:25 PM EST [facility] Lymphocytes Absolute 3.06 1.00 - 5.00 K/mcL LAB HEMETOLOGY METHOD 02/26/2024 6:25 PM [facility] Monocytes Absolute 0.52 0.20 - 1.00 K/mcL LAB HEMETOLOGY METHOD 02/26/2024 6:25 PM EST [facility] Eosinophils Absolute 0.05 0.00 - 0.50 K/mcL LAB HEMETOLOGY METHOD 02/26/2024 6:25 PM [facility] Basophils Absolute 0.04 0.00 - 0.20 K/mcL LAB HEMETOLOGY METHOD 02/26/2024 6:25 PM [facility] Immature Granulocytes Absolute 0.02 0.00 - 0.03 K/mcL LAB HEMETOLOGY METHOD 02/26/2024 6:25 PM [facility] Blood Venous blood specimen / Unknown Venipuncture / Unknown 02/26/2024 2:07 PM EST 02/26/2024 2:07 PM EST Nereyda Pierre MD LAB BLOOD ORDERABLES [facility] [address] [place] [address], * Iron and TIBC (02/26/2024 2:07 PM EST) Iron 86 50 - 160 mcg/dL LAB CHEMISTRY METHOD 02/26/2024 6:54 PM EST [facility] TIBC 355 250 - 450 mcg/dL LAB CHEMISTRY METHOD 02/26/2024 6:54 PM [facility] Iron Saturation 24 20 - 50 % LAB CHEMISTRY METHOD 02/26/2024 6:54 PM EST [facility] Blood Venous blood specimen / Unknown Venipuncture / Unknown 02/26/2024 2:07 PM EST 02/26/2024 2:07 PM EST Nereyda Pierre MD LAB BLOOD ORDERABLES Performing Organization Address [facility]/ZIP Co de Phone Number [facility] [address] [place] [address], [place] [phone] * (ABNORMAL) Helicobacter pylori breath test (02/26/2024 2:07 PM EST) Pathologist [facility] H Pylori Breath Test Positive( A) Negative LAB CHEMISTRY METHOD 02/28/2024 10:04 AM EST [facility] Breath Oral cavity structure / Unknown Non-blood Collection / Unknown 02/26/2024 2:07 PM EST 02/26/2024 2:07 PM EST Nereyda Pierre MD LAB BODY FLUIDS AND STOOLS ORDERABLES Performing Organization Address [facility]/ZIP Co de Phone Number [facility] [address] [place] [address], [place] [phone] * Vitamin D 25 hydroxy (02/26/2024 2:07 PM EST) Pathologist [facility] Vit D, 25-Hydroxy 34.3 30.0 - 80.0 ng/mL LAB CHEMISTRY METHOD 02/26/2024 6:39 PM EST [facility] Blood Venous blood specimen / Unknown Venipuncture / Unknown 02/26/2024 2:07 PM EST 02/26/2024 2:07 PM EST Nereyda Pierre MD LAB BLOOD ORDERABLES [facility] [address] [place] [address], [place] [phone] * Thyroid stimulating hormone (02/26/2024 2:07 PM EST) Pathologist [facility] TSH 1.93 0.40 - 4.00 mcIU/mL LAB CHEMISTRY METHOD 02/26/2024 6:39 PM EST [facility] Blood Venous blood specimen / Unknown Venipuncture / Unknown 02/26/2024 2:07 PM EST 02/26/2024 2:07 PM EST Nereyda Pierre MD LAB BLOOD ORDERABLES [facility] [address] [place] [address], * (ABNORMAL) Vitamin B1 (02/26/2024 2:07 PM EST) [facility] Vitamin B1 Whole Blood 127(H) 38 - 122 ug/L 03/04/2024 9:20 AM EST [facility] Comment: This test was developed and the performance characteristics determined by [facility]. It has not been cleared or approved by the FDA. The laboratory is regulated under CLIA as qualified to perform high-complexity testing. This test is used for patient testing purposes. It should not be regarded as investigational or for research. Test performed at [facility], [address] , [place], [place] ??[address] ? [phone] Cat Rand MD, PhD - Health Diagnostics Teacher Blood Venous blood specimen / Unknown Venipuncture / Unknown 02/26/2024 2:07 PM EST 02/26/2024 2:07 PM EST Nereyda Pierre MD LAB BLOOD ORDERABLES [facility] [address] [place] [address] * Magnesium (02/26/2024 2:07 PM EST) [facility] Magnesium 1.9 1.9 - 2.6 mg/dL LAB CHEMISTRY METHOD 02/26/2024 6:32 PM EST [facility] Blood Venous blood specimen / Unknown Venipuncture / Unknown 02/26/2024 2:07 PM EST 02/26/2024 2:07 PM EST Nereyda Pierre MD LAB BLOOD ORDERABLES [facility] [address] [place] [address], [place] [phone] * (ABNORMAL) Hemoglobin A1c (02/26/2024 2:07 PM EST) Hemoglobin A1C 8.6(H) <6.5 % LAB CHEMISTRY METHOD 02/26/2024 8:10 PM EST [facility] Mean Bld Glu Estim. 200 mg/dL LAB CHEMISTRY METHOD 02/26/2024 8:10 PM EST [facility] Blood Venous blood specimen / Unknown Venipuncture / Unknown 02/26/2024 2:07 PM EST 02/26/2024 2:07 PM EST Nereyda Pierre MD LAB BLOOD ORDERABLES Performing Organization Address City/[facility]/ZIP Co de Phone Number [facility] [address] [place] [address], [place] [phone] * (ABNORMAL) Folate (02/26/2024 2:07 PM EST) Folate >20.0(H) 2.8 - 17.0 ng/ml LAB CHEMISTRY METHOD 02/26/2024 6:54 PM EST [facility] Blood Venous blood specimen / Unknown Venipuncture / Unknown 02/26/2024 2:07 PM EST 02/26/2024 2:07 PM EST Nereyda Pierre MD LAB BLOOD ORDERABLES [facility] [address] [place] [address], [place] [phone] * Ferritin (02/26/2024 2:07 PM EST) Pathologist [facility] Ferritin 90 26 - 388 ng/mL LAB CHEMISTRY METHOD 02/26/2024 6:54 PM EST [facility] Blood Venous blood specimen / Unknown Venipuncture / Unknown 02/26/2024 2:07 PM EST 02/26/2024 2:07 PM EST Nereyda Pierre MD LAB BLOOD ORDERABLES [facility] [address] [place] [address], [place] [phone] * (ABNORMAL) Vitamin B12 (02/26/2024 2:07 PM EST) [facility] Vitamin B-12 243(L) 250 - 900 pcg/mL LAB CHEMISTRY METHOD 02/26/2024 6:54 PM EST [facility] Blood Venous blood specimen / Unknown Venipuncture / Unknown 02/26/2024 2:07 PM EST 02/26/2024 2:07 PM EST Nereyda Pierre MD LAB BLOOD ORDERABLES [facility] [address] [place] [address], * Cortisol (02/26/2024 2:07 PM EST) Pathologist [facility] Cortisol 15.4 mcg/dL LAB CHEMISTRY METHOD 02/26/2024 6:41 PM EST [facility] Blood Venous blood specimen / Unknown Venipuncture / Unknown 02/26/2024 2:07 PM EST 02/26/2024 2:07 PM EST Narrative [facility] - 02/26/2024 6:41 PM EST CORTISOL REFERENCE RANGE ?? 8 AM SPEC: ??5.0-23.0 mcg/dL ?? 4 PM SPEC: ??3.0-16.0 mcg/dL ?? 8 PM SPEC: ??<5.0 mcg/dL Nereyda Pierre MD LAB BLOOD ORDERABLES [facility] [address] [place] [address], * (ABNORMAL) Comprehensive metabolic panel (02/26/2024 2:07 PM EST) [facility] Sodium 135 133 - 145 mmol/L LAB CHEMISTRY METHOD 02/26/2024 6:32 PM [facility] Potassium 5.2 3.5 - 5.5 mmol/L LAB CHEMISTRY METHOD 02/26/2024 6:32 PM [facility] Chloride 107 96 - 110 mmol/L LAB CHEMISTRY METHOD 02/26/2024 6:32 PM [facility] CO2 23 21 - 32 mmol/L LAB CHEMISTRY METHOD 02/26/2024 6:32 PM [facility] Anion Gap 5 3 - 11 LAB CHEMISTRY METHOD 02/26/2024 6:32 PM [facility] Glucose 206(H) 70 - 100 mg/dL LAB CHEMISTRY METHOD 02/26/2024 6:32 PM [facility] BUN 23 5 - 25 mg/dL LAB CHEMISTRY METHOD 02/26/2024 6:32 PM [facility] Creatinine 1.46(H) 0.70 - 1.30 mg/dL LAB CHEMISTRY METHOD 02/26/2024 6:32 PM [facility] eGFR 58(L) >=60 mL/min/1. 73m2 LAB CHEMISTRY METHOD 02/26/2024 6:32 PM [facility] Comment:Calculation based on the??Chronic Kidney Disease Epidemiology Collaboration (CKD-EPI) equation refit??without adjustment for race. BUN/Creatinine Ratio 15.8 LAB CHEMISTRY METHOD 02/26/2024 6:32 PM [facility] Calcium 9.6 8.5 - 10.5 mg/dL LAB CHEMISTRY METHOD 02/26/2024 6:32 PM [facility] AST (SGOT) 16 10 - 42 unit/L LAB CHEMISTRY METHOD 02/26/2024 6:32 PM [facility] ALT (SGPT) 28 10 - 60 unit/L LAB CHEMISTRY METHOD 02/26/2024 6:32 PM [facility] Alkaline Phosphatase 76 42 - 121 unit/L LAB CHEMISTRY METHOD 02/26/2024 6:32 PM [facility] Total Protein 8.1(H) 6.0 - 8.0 g/dL LAB CHEMISTRY METHOD 02/26/2024 6:32 PM [facility] Albumin 3.9 3.2 - 5.0 g/dL LAB CHEMISTRY METHOD 02/26/2024 6:32 PM [facility] Total Bilirubin 0.6 0.0 - 1.4 mg/dL LAB CHEMISTRY METHOD 02/26/2024 6:32 PM [facility] Blood Venous blood specimen / Unknown Venipuncture / Unknown 02/26/2024 2:07 PM EST 02/26/2024 2:07 PM EST Nereyda Pierre MD LAB BLOOD ORDERABLES [facility] [address] [place] [address], from Last 3 Months Care Teams Investor Relations Analyst Relationship Specialty Start Date End Date Damion Galicia MD [address] [place], [place] PCP - General Internal Medicine 11/30/23
--- OUTSIDE RECORDS SUMMARY | 2024-04-02 14:24 | XMS_ITS | Clinical Summary ---
Author Organization [facility] Facility Address [address] [place] [address] Care Team Providers Care On Air Personality Name Role Phone Humaira Thurston MD Primary Care Provider [phone] Allergies Active Allergy Reactions Criticality Noted Date Comments Glipizide 12/09/2020 Medications albuterol HFA (PROVENTIL HFA;VENTOLIN HFA) 108 (90 Base) MCG/ACT inhaler 2 puffs by Other route 4 (four) times a day Active Dulaglutide (Trulicity) 0.75 MG/0.5ML solution pen-injector Inject 1 pre-filled pen syringe under the skin 1 (one) time per week Active insulin lispro protamine-insul in lispro (HumaLOG MIX 75/25) (75-25) 100 UNIT/ML suspension Inject 20 Units under the skin 2 (two) times a day Active sodium chloride 1 g tablet Take 1 tablet by mouth 1 (one) time each day Active amitriptyline (ELAVIL) 150 MG tablet Take 150 mg by mouth at bed time Take for 30 days 06/28/2020 Active Biktarvy 50-200-25 MG tablet Take 1 tablet by mouth 1 (one) time each day For 90 days 05/27/2020 Active FREESTYLE LITE test strip 06/09/2020 Active meclizine (ANTIVERT) 25 MG tablet TAKE 1 TABLET BY MOUTH TWICE DAILY NEEDED 05/30/2020 Active topiramate (TOPAMAX) 100 MG tablet Take 100 mg by mouth 2 (two) times a day 06/28/2020 Active fenofibrate (TRICOR) 54 MG tablet 10/14/2020 Active Cholecalciferol (Vitamin D3) 25 MCG (1000 UT) capsule 12/05/2020 Active Dulaglutide (Trulicity) 1.5 MG/0.5ML solution pen-injector Inject 1 Device under the skin 1 (one) time per week 12 mL 5 01/11/2022 Active lisinopril 10 MG tablet Take 1 tablet (10 mg total) by mouth 1 (one) time each day 90 tablet 3 07/13/2022 Active atorvastatin (LIPITOR) 10 MG tablet Take 1 tablet (10 mg total) by mouth 1 (one) time each day 90 tablet 3 07/13/2022 Active glyBURIDE (DIABETA) 5 MG tablet Take 1 tablet (5 mg total) by mouth in the morning and 1 tablet (5 mg total) in the evening. Take with meals. 180 tablet 3 12/27/2022 Active Empagliflozin-m etFORMIN HCl ER (Synjardy XR) 12.5-1000 MG tablet sustained-relea se 24 hour Take 2 tablets by mouth 1 (one) time each day 180 tablet 5 12/27/2022 Active Active Problems Problem Noted Date Diagnosed Date Chronic kidney disease, stage 2 (mild) Hypertension 07/02/2020 Long-term current use of insulin 07/02/2020 Mild intermittent asthma 07/02/2020 Polyneuropathy due to type 2 diabetes mellitus 0 07/02/2020 Pure hyperglyceridemia 07/02/2020 Type 2 diabetes mellitus wit h diabetic chronic kidney disease 07/02/2020 Renal stone 07/02/2020 Type 2 diabetes mellitus without complication Family History Medical History Relation Comments Hypertension Father Diabetes Sibling 2 sisters Relation Status Comments Father Mother Alive Sibling Social History Tobacco Use Types Packs/Day Years Used Date Smoking Tobacco: Never Smokeless Tobacco: Never Alcohol Use Standard Drinks/Week Comments No 0 (1 standard drink = 0.6 oz pur e alcohol) Sex and Gender Information Value Date Recorded Sex Assigned at Not on file Legal Sex Male 4:57 PM EST Gender Identity Not on file Sexual Orientation Not on file Last Filed Vital Signs Vital Sign Reading Time Taken Comments Blood Pressure 118/72 12/27/2022 2:19 PM EDT Pulse 74 12/27/2022 2:19 PM EDT Temperature - - Respiratory Rate - - Oxygen Saturation 99% 12/27/2022 2:19 PM EDT Inhaled Oxygen Concentration - - Weight 116 kg (256 lb 6.4 oz) 12/27/2022 2:19 PM EDT Height 162.6 cm (5' 4 ) 12/27/2022 2:19 PM EDT Body Mass Index 44.01 12/27/2022 2:19 PM EDT Plan of Treatment Health Maintenance Due Date Last Done Comments Pneumococcal Vaccine: Pediat rics (0 to 5 Years) and At-Risk Patients (6 to 64 Years) (1 of 2 - PCV) 08/18/1977 Hepatitis B Vaccine (1 of 3 - 19+ 3-dose series) 08/18/1990 Diabetes: Ophthalmology Exam 03/28/2020 Diabetes: Pedal Pulse Checked 03/28/2020 Diabetes: Sensory Foot Exam 03/28/2020 Diabetes: Visual Foot Exam 03/28/2020 Colorectal Cancer Screening: Annual FOBT 08/18/2020 Colorectal Cancer Screening: Colonoscopy 08/18/2020 Colorectal Cancer Screening: Sigmoidoscopy 08/18/2020 Diabetes: Hemoglobin A1C 10/04/2023 024, 07/13/2022, 07/21/2021, Additional history exists Influenza Vaccine (#1) 2023 Procedures Procedure Name Priority Date/Time Associated Diagnosis Comments HEMOGLOBIN A1C Routine 07/04/2023 9:39 AM EDT from Last 3 Months or Most Recently Relevant to Health Maintenance Results * (ABNORMAL) Hemoglobin A1c (07/04/2023 9:39 AM EDT) Hemoglobin A1C 7.8(H) 4.8 - 5.6 % See order comments Comment: ? Prediabetes: 5.7 - 6.4 ? Diabetes: >6.4 ? Glycemic control for adults with diabetes: <7.0 07/04/2023 9:39 AM EDT 07/04/2023 Narrative [facility] - 07/06/2023 6:08 AM EDT Performed at: ??01 - [facility] [address] ??[id number] Laborer Rags: Cheryl Goodman MD, Phone: ??[phone] us David Perez MD LAB BLOOD ORDERABLES Final Re sult [facility] See order comments [place] [address] from Last 3 Months or Most Recently Relevant to Health Maintenance Insurance MEDICAID MEDICAID Care Teams On Air Personality Relationship Specialty Start Date End Date uHmaira Thurston MD [address] [place] [address] PCP - General Internal Medicine 12/27/22
--- OUTSIDE RECORDS SUMMARY | 2024-04-02 14:24 | XMS_ITS | Encounter Summary ---
Author Organization [facility] Address [address] [place] [address] Phone Care Team Providers Care Accounting Recruiter Name Role Phone Humaira Thurston MD Primary Care Provider [phone] Reason for Visit * Reason Comments Med Refill Encounter Details Date Type Department Care Team (Late st Contact Info) Description 07/03/2023 Refill [facility] [address] [place] [phone] David Perez MD [address] [place] [address], [facility] [address] [place] [address] Social History Tobacco Use Types Packs/Day Years Used Date Smoking Tobacco: Never Smokeless Tobacco: Never Alcohol Use Standard Drinks/Week Comments No 0 (1 standard drink = 0.6 oz pur e alcohol) Sex and Gender Information Value Date Recorded Sex Assigned at Not on file Legal Sex Male 4:57 PM EST Gender Identity Not on file Sexual Orientation Not on file documented as of this encounter Plan of Treatment Not on file documented as of this encounter Visit Diagnoses Not on filedocumented in this encounter Care Teams Accounting Recruiter Relationship Specialty Start Date End Date Humaira Thurston MD [address] [place] [address] PCP - General Internal Medicine 12/27/22 documented as of this encounter
== END 2024-04-02 13:45 | disposition home or self-care (01) ==
PROVIDERS: PCP Internal Medicine; Visit Provider Internal Medicine
DX: I12.9 Hypertensive chronic kidney disease with stage 1 through stage 4 chronic kidney disease, or unspecified chronic kidney disease (principal); E11.22 Type 2 diabetes mellitus with diabetic chronic kidney disease; E66.01 Morbid (severe) obesity due to excess calories; N18.31 Chronic kidney disease, stage 3a; Z79.4 Long term (current) use of insulin; Z21 Asymptomatic human immunodeficiency virus [HIV] infection status; Z68.41 Body mass index [BMI] 40.0-44.9, adult; E87.5 Hyperkalemia; E78.5 Hyperlipidemia, unspecified; Z23 Encounter for immunization

== ENCOUNTER 2024-04-02 13:58 | Outpatient (REF) | payer OTHER, SELFPAY ==
--- NOTE | ~2024-04-02 | US_ITS ---
EXAMINATION: US NONINVASIVE ASSESSMENT OF THE LEFT LOWER EXTREMITY WITH ARTERIAL DUPLEX AND ANKLE BRACHIAL INDICES (ABIS) CLINICAL INFORMATION: Atherosclerosis disease. COMPARISON: October 23, 2023. TECHNIQUE: Duplex Doppler techniques with waveform analysis and measurement of velocities in the common femoral, profunda femoris, superficial femoral, popliteal and tibial arteries were performed. In addition, ankle pulse volume recordings, ankle pressure measurements and ankle brachial indices were obtained of the left lower extremity arterial system. The study was performed only at rest. FINDINGS: NONINVASIVE ASSESSMENT OF THE ARTERIES OF BILATERAL LOWER EXTREMITIES WITH ABIs: RIGHT LEG: Ankle-brachial index: 1.3 Ankle PVR: Abnormal waveforms. LEFT LEG: Ankle-brachial index: 1.11. Left ankle PVR: Abnormal waveforms. TRISTEN Reference: 0.9 - 1.4 = normal - no significant arterial disease 0.7 - 0.89 = mild peripheral arterial disease 0.51 - 0.69 = moderate peripheral arterial disease 0.50 = severe peripheral arterial disease LEFT LOWER EXTREMITY DUPLEX ULTRASOUND: Common femoral artery: 77 cm/s. Triphasic waveform. Profunda femoris artery: 79 cm/s. Triphasic waveform. Superficial femoral artery (proximal): 82 cm/s. Triphasic waveform. Superficial femoral artery (mid): 79 cm/s. Triphasic waveform. Superficial femoral artery (distal): 67 cm/s. Triphasic waveform. Popliteal artery: 103 cm/s Triphasic waveform. Posterior tibial artery: 46 cm/s Biphasic waveform with spectral broadening. Peroneal artery: 41 cm/s. Biphasic waveform. Anterior tibialis artery: 119 cm/s. Monophasic waveform with spectral broadening. Dorsalis pedis artery: 24 cm/s. Monophasic waveform with spectral broadening. 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 Electronically signed by: Keyur Robbins MD 04/03/2024 11:07 AM [facility]
--- NOTE | ~2024-04-02 | US_ITS ---
EXAMINATION: US NONINVASIVE ASSESSMENT OF THE LEFT LOWER EXTREMITY WITH ARTERIAL DUPLEX AND ANKLE BRACHIAL INDICES (ABIS) CLINICAL INFORMATION: Atherosclerosis disease. COMPARISON: October 23, 2023. TECHNIQUE: Duplex Doppler techniques with waveform analysis and measurement of velocities in the common femoral, profunda femoris, superficial femoral, popliteal and tibial arteries were performed. In addition, ankle pulse volume recordings, ankle pressure measurements and ankle brachial indices were obtained of the left lower extremity arterial system. The study was performed only at rest. FINDINGS: NONINVASIVE ASSESSMENT OF THE ARTERIES OF BILATERAL LOWER EXTREMITIES WITH ABIs: RIGHT LEG: Ankle-brachial index: 1.3 Ankle PVR: Abnormal waveforms. LEFT LEG: Ankle-brachial index: 1.11. Left ankle PVR: Abnormal waveforms. TRISTEN Reference: 0.9 - 1.4 = normal - no significant arterial disease 0.7 - 0.89 = mild peripheral arterial disease 0.51 - 0.69 = moderate peripheral arterial disease 0.50 = severe peripheral arterial disease LEFT LOWER EXTREMITY DUPLEX ULTRASOUND: Common femoral artery: 77 cm/s. Triphasic waveform. Profunda femoris artery: 79 cm/s. Triphasic waveform. Superficial femoral artery (proximal): 82 cm/s. Triphasic waveform. Superficial femoral artery (mid): 79 cm/s. Triphasic waveform. Superficial femoral artery (distal): 67 cm/s. Triphasic waveform. Popliteal artery: 103 cm/s Triphasic waveform. Posterior tibial artery: 46 cm/s Biphasic waveform with spectral broadening. Peroneal artery: 41 cm/s. Biphasic waveform. Anterior tibialis artery: 119 cm/s. Monophasic waveform with spectral broadening. Dorsalis pedis artery: 24 cm/s. Monophasic waveform with spectral broadening. US/US TRISTEN complete IMPRESSION: Severe inflow disease below the knee more conspicuous in the dorsalis base artery. Electronically signed by: Keyur Robbins MD 04/03/2024 11:07 AM [facility] [place] [place]
--- OUTSIDE RECORDS SUMMARY | 2024-04-02 15:16 | XMS_ITS | Clinical Summary ---
Author Organization [facility] Address [address] [place] [address] Phone Care Team Providers Care Medical Nurse Name Role Phone Damion Galicia MD Primary Care Provider [phone] Active Problems Problem Noted Date Diagnosed Date Class 3 severe obesity with body mass index (BMI) of 40.0 to 44.9 in adult 01/10/2024 Encounters Date Type Department Care Team Description 02/18/2024 3:00 PM EST Nutrition Bariatric Surgery [address] [address] Class 3 severe obesity with body mass index (BMI) of 40.0 to 44.9 in adult, unspecified obesity type, unspecified whether serious comorbidity present (CMS/HCC) (Primary Dx) 01/10/2024 10:00 AM EST Nutrition Bariatric Surgery [address] [address] Class 3 [...] 1:00 PM EST Nutrition Bariatric Surgery - [place] 175 [facility] [address] [place] [phone] [address] 175 [facility] [address] [place] [address] 04/09/2024 2:15 PM EST Office Visit Orthopedic Surgery - [place] 250 175 [facility] [address] [place] [phone] Fernando Sosa DPM [address] [address] Health Maintenance Due Date Last Done Comments [...] mg/dL LAB CHEMISTRY METHOD 02/26/2024 6:32 PM [facility] Triglycerides 203(H) 0 - 150 mg/dL LAB CHEMISTRY METHOD 02/26/2024 6:32 PM [facility] HDL 37(L) >=40 mg/dL LAB CHEMISTRY METHOD 02/26/2024 6:32 PM [facility] LDL Calculated 107(H) 0 - 100 mg/dL LAB CHEMISTRY METHOD 02/26/2024 6:32 PM [facility] VLDL Cholesterol Stephen 40.6 mg/dL LAB CHEMISTRY METHOD 02/26/2024 6:32 PM [facility] Non HDL Chol. (LDL+VLDL) 148(H) <145 mg/dL LAB CHEMISTRY METHOD 02/26/2024 6:32 PM EST [facility] Chol/HDL Ratio 5.0(H) 0.0 - 4.4 LAB CHEMISTRY METHOD 02/26/2024 6:32 PM EST [facility] Blood Venous blood specimen / Unknown Venipuncture / Unknown 02/26/2024 2:07 PM EST 02/26/2024 2:07 PM EST Nereyda Pierre MD LAB BLOOD ORDERABLES [facility]) [facility] [address] [place] [address], * Nicotine and cotinine (02/26/2024 2:07 PM [...] ?<2 ng/mL Reference Ranges from: ??Clin. Chem.; ??[id number] (2002) Direct any interpretive questions to the toxicology laboratory. This is for medical use only, it is not intended for forensic use. If applicable, any drug confirmation testing reported here was developed and the performance characteristics determined by [facility]. This confirmation testing has not been cleared or approved by the FDA. The laboratory is regulated under CLIA as qualified to perform high-complexity testing. This test is used for patient testing purposes. It should not be regarded as investigational or for research. Test performed at [facility], [address] , [place], [place] ??[address] ? [phone] Cat Rand MD, PhD - Technician Biological Health Blood Venous blood specimen / Unknown Venipuncture / Unknown 02/26/2024 2:07 PM EST 02/26/2024 2:07 PM EST Nereyda Pierre MD LAB BLOOD ORDERABLES [facility] [address] [place] [address] * (ABNORMAL) CBC auto differential (02/26/2024 2:07 PM EST) WBC 7.5 4.8 - 10.8 K/mcL LAB HEMETOLOGY METHOD 02/26/2024 6:25 PM EST [facility] RBC 5.30 4.50 - 5.50 M/mcL LAB HEMETOLOGY METHOD 02/26/2024 6:25 PM [facility] Hemoglobin 16.4 13.5 - 17.5 g/dL LAB HEMETOLOGY METHOD 02/26/2024 6:25 PM [facility] Hematocrit 50.3 42.0 - 54.0 % LAB HEMETOLOGY METHOD 02/26/2024 6:25 PM [facility] MCV 95.4 79.0 - 98.0 FL LAB HEMETOLOGY METHOD 02/26/2024 6:25 PM [facility] MCH 31.1 27.0 - 32.0 pcg LAB HEMETOLOGY METHOD 02/26/2024 6:25 PM [facility] MCHC 32.6 32.0 - 37.0 g/dL LAB HEMETOLOGY METHOD 02/26/2024 6:25 PM [facility] RDW 13.2 11.0 - 15.0 % LAB HEMETOLOGY METHOD 02/26/2024 6:25 PM [facility] Platelets 296 130 - 400 K/mcL LAB HEMETOLOGY METHOD 02/26/2024 6:25 PM [facility] MPV 11.1(H) 7.0 - 11.0 FL LAB HEMETOLOGY METHOD 02/26/2024 6:25 PM [facility] NRBC 0.0 <1.0 % LAB HEMETOLOGY METHOD 02/26/2024 6:25 PM [facility] NRBC Absolute 0.00 <0.10 K/mcL LAB HEMETOLOGY METHOD 02/26/2024 6:25 PM [facility] Neutrophils Relative 50.5 % LAB HEMETOLOGY METHOD 02/26/2024 6:25 PM [facility] Lymphocytes Relative 41.0 % LAB HEMETOLOGY METHOD 02/26/2024 6:25 PM [facility] Monocytes Relative 7.0 % LAB HEMETOLOGY METHOD 02/26/2024 6:25 PM [facility] Eosinophils Relative 0.7 % LAB HEMETOLOGY METHOD 02/26/2024 6:25 PM [facility] Basophils Relative 0.5 % LAB HEMETOLOGY METHOD 02/26/2024 6:25 PM [facility] Immature Granulocytes Relative 0.3 % LAB HEMETOLOGY METHOD 02/26/2024 6:25 PM EST [facility] Neutrophils Absolute 3.77 1.50 - 7.00 K/mcL LAB HEMETOLOGY METHOD 02/26/2024 6:25 PM EST [facility] Lymphocytes Absolute 3.06 1.00 - 5.00 K/mcL LAB HEMETOLOGY METHOD 02/26/2024 6:25 PM [facility] Monocytes Absolute 0.52 0.20 - 1.00 K/mcL LAB HEMETOLOGY METHOD 02/26/2024 6:25 PM EST [facility] Eosinophils Absolute 0.05 0.00 - 0.50 K/mcL LAB HEMETOLOGY METHOD 02/26/2024 6:25 PM [facility] Basophils Absolute 0.04 0.00 - 0.20 K/mcL LAB HEMETOLOGY METHOD 02/26/2024 6:25 PM [facility] Immature Granulocytes Absolute 0.02 0.00 - 0.03 K/mcL LAB HEMETOLOGY METHOD 02/26/2024 6:25 PM [facility] Blood Venous blood specimen / Unknown Venipuncture / Unknown 02/26/2024 2:07 PM EST 02/26/2024 2:07 PM EST Nereyda Pierre MD LAB BLOOD ORDERABLES [facility] [address] [place] [address], * Iron and TIBC (02/26/2024 2:07 PM EST) Iron 86 50 - 160 mcg/dL LAB CHEMISTRY METHOD 02/26/2024 6:54 PM EST [facility] TIBC 355 250 - 450 mcg/dL LAB CHEMISTRY METHOD 02/26/2024 6:54 PM [facility] Iron Saturation 24 20 - 50 % LAB CHEMISTRY METHOD 02/26/2024 6:54 PM EST [facility] Blood Venous blood specimen / Unknown Venipuncture / Unknown 02/26/2024 2:07 PM EST 02/26/2024 2:07 PM EST Nereyda Pierre MD LAB BLOOD ORDERABLES Performing Organization Address [facility]/ZIP Co de Phone Number [facility] [address] [place] [address], [place] [phone] * (ABNORMAL) Helicobacter pylori breath test (02/26/2024 2:07 PM EST) Pathologist [facility] H Pylori Breath Test Positive( A) Negative LAB CHEMISTRY METHOD 02/28/2024 10:04 AM EST [facility] Breath Oral cavity structure / Unknown Non-blood Collection / Unknown 02/26/2024 2:07 PM EST 02/26/2024 2:07 PM EST Nereyda Pierre MD LAB BODY FLUIDS AND STOOLS ORDERABLES Performing Organization Address [facility]/ZIP Co de Phone Number [facility] [address] [place] [address], [place] [phone] * Vitamin D 25 hydroxy (02/26/2024 2:07 PM EST) Pathologist [facility] Vit D, 25-Hydroxy 34.3 30.0 - 80.0 ng/mL LAB CHEMISTRY METHOD 02/26/2024 6:39 PM EST [facility] Blood Venous blood specimen / Unknown Venipuncture / Unknown 02/26/2024 2:07 PM EST 02/26/2024 2:07 PM EST Nereyda Pierre MD LAB BLOOD ORDERABLES [facility] [address] [place] [address], [place] [phone] * Thyroid stimulating hormone (02/26/2024 2:07 PM EST) Pathologist [facility] TSH 1.93 0.40 - 4.00 mcIU/mL LAB CHEMISTRY METHOD 02/26/2024 6:39 PM EST [facility] Blood Venous blood specimen / Unknown Venipuncture / Unknown 02/26/2024 2:07 PM EST 02/26/2024 2:07 PM EST Nereyda Pierre MD LAB BLOOD ORDERABLES [facility] [address] [place] [address], * (ABNORMAL) Vitamin B1 (02/26/2024 2:07 PM EST) [facility] Vitamin B1 Whole Blood 127(H) 38 - 122 ug/L 03/04/2024 9:20 AM EST [facility] Comment: This test was developed and the performance characteristics determined by [facility]. It has not been cleared or approved by the FDA. The laboratory is regulated under CLIA as qualified to perform high-complexity testing. This test is used for patient testing purposes. It should not be regarded as investigational or for research. Test performed at [facility], [address] , [place], [place] ??[address] ? [phone] Cat Rand MD, PhD - Technician Biological Health Blood Venous blood specimen / Unknown Venipuncture / Unknown 02/26/2024 2:07 PM EST 02/26/2024 2:07 PM EST Nereyda Pierre MD LAB BLOOD ORDERABLES [facility] [address] [place] [address] * Magnesium (02/26/2024 2:07 PM EST) [facility] Magnesium 1.9 1.9 - 2.6 mg/dL LAB CHEMISTRY METHOD 02/26/2024 6:32 PM EST [facility] Blood Venous blood specimen / Unknown Venipuncture / Unknown 02/26/2024 2:07 PM EST 02/26/2024 2:07 PM EST Nereyda Pierre MD LAB BLOOD ORDERABLES [facility] [address] [place] [address], [place] [phone] * (ABNORMAL) Hemoglobin A1c (02/26/2024 2:07 PM EST) Hemoglobin A1C 8.6(H) <6.5 % LAB CHEMISTRY METHOD 02/26/2024 8:10 PM EST [facility] Mean Bld Glu Estim. 200 mg/dL LAB CHEMISTRY METHOD 02/26/2024 8:10 PM EST [facility] Blood Venous blood specimen / Unknown Venipuncture / Unknown 02/26/2024 2:07 PM EST 02/26/2024 2:07 PM EST Nereyda Pierre MD LAB BLOOD ORDERABLES Performing Organization Address City/[facility]/ZIP Co de Phone Number [facility] [address] [place] [address], [place] [phone] * (ABNORMAL) Folate (02/26/2024 2:07 PM EST) Folate >20.0(H) 2.8 - 17.0 ng/ml LAB CHEMISTRY METHOD 02/26/2024 6:54 PM EST [facility] Blood Venous blood specimen / Unknown Venipuncture / Unknown 02/26/2024 2:07 PM EST 02/26/2024 2:07 PM EST Nereyda Pierre MD LAB BLOOD ORDERABLES [facility] [address] [place] [address], [place] [phone] * Ferritin (02/26/2024 2:07 PM EST) Pathologist [facility] Ferritin 90 26 - 388 ng/mL LAB CHEMISTRY METHOD 02/26/2024 6:54 PM EST [facility] Blood Venous blood specimen / Unknown Venipuncture / Unknown 02/26/2024 2:07 PM EST 02/26/2024 2:07 PM EST Nereyda Pierre MD LAB BLOOD ORDERABLES [facility] [address] [place] [address], [place] [phone] * (ABNORMAL) Vitamin B12 (02/26/2024 2:07 PM EST) [facility] Vitamin B-12 243(L) 250 - 900 pcg/mL LAB CHEMISTRY METHOD 02/26/2024 6:54 PM EST [facility] Blood Venous blood specimen / Unknown Venipuncture / Unknown 02/26/2024 2:07 PM EST 02/26/2024 2:07 PM EST Nereyda Pierre MD LAB BLOOD ORDERABLES [facility] [address] [place] [address], * Cortisol (02/26/2024 2:07 PM EST) Pathologist [facility] Cortisol 15.4 mcg/dL LAB CHEMISTRY METHOD 02/26/2024 6:41 PM EST [facility] Blood Venous blood specimen / Unknown Venipuncture / Unknown 02/26/2024 2:07 PM EST 02/26/2024 2:07 PM EST Narrative [facility] - 02/26/2024 6:41 PM EST CORTISOL REFERENCE RANGE ?? 8 AM SPEC: ??5.0-23.0 mcg/dL ?? 4 PM SPEC: ??3.0-16.0 mcg/dL ?? 8 PM SPEC: ??<5.0 mcg/dL Nereyda Pierre MD LAB BLOOD ORDERABLES [facility] [address] [place] [address], * (ABNORMAL) Comprehensive metabolic panel (02/26/2024 2:07 PM EST) [facility] Sodium 135 133 - 145 mmol/L LAB CHEMISTRY METHOD 02/26/2024 6:32 PM [facility] Potassium 5.2 3.5 - 5.5 mmol/L LAB CHEMISTRY METHOD 02/26/2024 6:32 PM [facility] Chloride 107 96 - 110 mmol/L LAB CHEMISTRY METHOD 02/26/2024 6:32 PM [facility] CO2 23 21 - 32 mmol/L LAB CHEMISTRY METHOD 02/26/2024 6:32 PM [facility] Anion Gap 5 3 - 11 LAB CHEMISTRY METHOD 02/26/2024 6:32 PM [facility] Glucose 206(H) 70 - 100 mg/dL LAB CHEMISTRY METHOD 02/26/2024 6:32 PM [facility] BUN 23 5 - 25 mg/dL LAB CHEMISTRY METHOD 02/26/2024 6:32 PM [facility] Creatinine 1.46(H) 0.70 - 1.30 mg/dL LAB CHEMISTRY METHOD 02/26/2024 6:32 PM [facility] eGFR 58(L) >=60 mL/min/1. 73m2 LAB CHEMISTRY METHOD 02/26/2024 6:32 PM [facility] Comment:Calculation based on the??Chronic Kidney Disease Epidemiology Collaboration (CKD-EPI) equation refit??without adjustment for race. BUN/Creatinine Ratio 15.8 LAB CHEMISTRY METHOD 02/26/2024 6:32 PM [facility] Calcium 9.6 8.5 - 10.5 mg/dL LAB CHEMISTRY METHOD 02/26/2024 6:32 PM [facility] AST (SGOT) 16 10 - 42 unit/L LAB CHEMISTRY METHOD 02/26/2024 6:32 PM [facility] ALT (SGPT) 28 10 - 60 unit/L LAB CHEMISTRY METHOD 02/26/2024 6:32 PM [facility] Alkaline Phosphatase 76 42 - 121 unit/L LAB CHEMISTRY METHOD 02/26/2024 6:32 PM [facility] Total Protein 8.1(H) 6.0 - 8.0 g/dL LAB CHEMISTRY METHOD 02/26/2024 6:32 PM [facility] Albumin 3.9 3.2 - 5.0 g/dL LAB CHEMISTRY METHOD 02/26/2024 6:32 PM [facility] Total Bilirubin 0.6 0.0 - 1.4 mg/dL LAB CHEMISTRY METHOD 02/26/2024 6:32 PM [facility] Blood Venous blood specimen / Unknown Venipuncture / Unknown 02/26/2024 2:07 PM EST 02/26/2024 2:07 PM EST Nereyda Pierre MD LAB BLOOD ORDERABLES [facility] [address] [place] [address], from Last 3 Months Care Teams Medical Nurse Relationship Specialty Start Date End Date Damion Galicia MD [address] [place], [place] PCP - General Internal Medicine 11/30/23
--- OUTSIDE RECORDS SUMMARY | 2024-04-02 15:16 | XMS_ITS | Clinical Summary ---
Author Organization [facility] Facility Address [address] [place] [address] Care Team Providers Care Load Manager Name Role Phone Humaira Thurston MD Primary Care Provider [phone] Allergies Active Allergy Reactions Criticality Noted Date [...] AM EDT Performed at: ??01 - [facility] [address] ??[id number] Software Developer Mid Level: Cheryl Goodman MD, Phone: ??[phone] us David Perez MD LAB BLOOD ORDERABLES Final Re sult [facility] See order comments [place] [address] from Last 3 Months or Most Recently Relevant to Health Maintenance Insurance MEDICAID MEDICAID Care Teams Load Manager Relationship Specialty Start Date End Date Humaira Thurston MD [address] [place] [phone] PCP - General Internal Medicine 12/27/22
--- OUTSIDE RECORDS SUMMARY | 2024-04-02 15:16 | XMS_ITS | Encounter Summary ---
Author Organization [facility] Address [address] [place] [address] Phone Care Team Providers Care C Python Developer Name Role Phone Humaira Thurston MD Primary Care Provider Reason for Visit * Reason Comments Med Refill Encounter Details Date Type Department Care Team (Late st Contact Info) Description 07/03/2023 Refill [facility] [address] [place] [phone] David Perez MD [address] [place] [address], [facility] [address] [place] [address] Social History Tobacco Use Types Packs/Day Years [...] on filedocumented in this encounter Care Teams C Python Developer Relationship Specialty Start Date End Date Humaira Thurston MD [address] [place] [address] PCP - General Internal Medicine 12/27/22 documented as of this encounter
== END 2024-04-02 13:59 | disposition home or self-care (01) ==
LOC: HO.US 13:58
PROVIDERS: PCP Internal Medicine; Visit Provider Physician Assistant Surgical
DX: I70.202 Unspecified atherosclerosis of native arteries of extremities, left leg (principal); E78.5 Hyperlipidemia, unspecified; E66.01 Morbid (severe) obesity due to excess calories; E11.22 Type 2 diabetes mellitus with diabetic chronic kidney disease; N18.31 Chronic kidney disease, stage 3a; Z79.4 Long term (current) use of insulin
CPT/HCPCS: 83036; 93923; 93926; 99212

== ENCOUNTER → 2024-04-02 14:00 | Outpatient (BNV) | payer OTHER, SELFPAY | PROVIDERS: PCP Internal Medicine; Visit Provider Radiology Diagnostic Radiology | DX: I70.90 Unspecified atherosclerosis (principal) | CPT/HCPCS: 93923; 93926 ==

== ENCOUNTER 2024-04-17 14:44 | Outpatient (AMB) | payer OTHER, SELFPAY ==
--- NOTE | 2024-04-17 14:54 | MHC.OFFVIS ---
Intake Visit Reasons: follow up s/p Arterial US 04/02/24 Intake Note: Patient presents for arterial US performed on 04/02/24. No complaints. Accompanied by: Mother Allergies glipizide Allergy (Mild, Verified 04/17/24 14:56) rash tuberculin, purified protein deriva Allergy (Mild, Verified 04/17/24 14:56) Swelling martinez Allergy (Mild, Uncoded 04/02/24 13:44) Hives jardiance Adverse Reaction (Severe, Uncoded 04/02/24 13:44) Rash/balanitis HPI HPI follow up s/p Arterial US 04/02/24: Details: Cheng is presenting today as a follow up to left lower extremity arterial duplex and ABIs, performed on 04/02/2024. He continues to endorse some swelling in the left lower extremity with some very intermittent pain in his toes with some tingling. 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 He continues on aspirin and Plavix daily. He has no new concerns today. [facility] Medical History (Updated 04/18/24 @ 08:48 by Aileen Del Rio PA-C) Erectile dysfunction associated with type 2 diabetes mellitus Mixed hyperlipidemia Mild intermittent asthma Hyperkalemia Morbid obesity Renal calculi Morbid obesity Dyslipidemia CKD (chronic kidney disease) Essential hypertension Diabetes mellitus HIV (human immunodeficiency virus infection) Surgical History No pertinent past surgical history Family History Father Myocardial infarction Hypertension CVD (cardiovascular disease) Mother Stroke CVD (cardiovascular disease) Mental health disorder Sister Diabetes Social History Housing: Apartment Alcohol intake: former Patient Tobacco Use Status: Never used Tobacco e-Cigarette/Vaping Use: Never Used Second Hand Smoke Exposure: Yes service: No Current occupational status: employed Current occupational exposures/hazards: No Cognitive needs: No Hearing needs: No Vision needs: No Review of Systems Const Reports as per HPI and Denies weakness ENT Reports Normal hearing present Card Reports as per HPI, Denies chest pain, Denies chest pain at rest, Denies chest pain with activity, Denies dyspnea and Denies dyspnea on exertion Resp Reports as per HPI, Denies cough, Denies dyspnea and Denies dyspnea on exertion GI Reports as per HPI, Denies abdominal pain, Denies nausea and Denies vomiting Musc Denies numbness Skin/Breast Reports as per HPI, Denies erythema and Denies wounds Neuro Reports Normal hearing present, Denies numbness, Denies Sensory deficit (Neuro) and Denies weakness Psych Reports no additional complaints Endo Reports no additional complaints Physical Exam Const General: healthy appearing and no acute distress Orientation/consciousness: patient oriented x3 HEENT Head: Yes normal to inspection Ears: hearing grossly normal bilaterally Mouth: Normal oral and palatal mucosa present Resp Effort & Inspection: normal respiratory effort and able to speak in complete sentences Auscultation: clear to auscultation bilaterally Cardio Jugular venous distension: no JVD Rate: regular rate Rhythm: regular rhythm Heart sounds: S1 normal heart sound present and S2 normal heart sound present Bruits: no abdominal aortic bruits, no carotid bruits, no femoral bruits and no renal bruits Peripheral pulses: Peripheral pulses 2+ throughout GI Inspection: Yes normal to inspection Palpation (GI): No Abdominal aortic bruit present Skin General skin exam: no rashes or lesions noted Wounds: no wounds Hair: normal Neuro General: patient oriented x3 Cranial nerves: Yes CN's II-XII intact bilaterally and Yes Normal hearing present Cognition (Neuro): normal cognition Gait exam (Neuro): Normal gait present Motor exam (neuro): 5/5 motor strength present throughout Sensory Exam: No Sensory deficit (Neuro) Extrem Other: Left foot: [place], warm,and dry. No discoloration noted. Cap refill less than 3 seconds. Palpable DP and PT pulses. No edema noted. No wounds noted. General: Yes normal to inspection, Yes full ROM, Yes capillary refill normal and Yes normal gait Quality Reporting (2019) Adult ([facility] 13804/19/68) Smoking risk assessment performed?: Yes Patient Tobacco Use Status: Never used Tobacco Results Reviewed Results Reviewed: Left lower extremity arterial duplex with ABIs: RIGHT LEG: Ankle-brachial index: 1.3 Ankle PVR: Abnormal waveforms. LEFT LEG: Ankle-brachial index: 1.11. Severe inflow disease below the knee more conspicuous in the dorsalis base artery. Assessment & Plan Assessment & Plan (1) Peripheral arterial disease: Code(s): I73.9 - Peripheral vascular disease, unspecified Category: Medical Plan: Cheng is presenting today as a follow up to arterial duplex ultrasound with ABIs, performed on 04/02/2024. He states the pain has gotten much better and only has intermittent pain, with some tingling and numbness. We will have him follow up in 6 months with a repeat arterial duplex. We discussed the importance of continuing with the aspirin and Plavix. We discussed the importance of continuing with compression stockings, elevation, and physical activity. He is currently working with the bariatric team for weight loss, and he has already lost a good amount of weight. We discussed the importance of continuing with a healthy, well-balanced diet. We discussed that if he has any symptoms of claudication or worsening pain, to reach out to our office immediately. If there are any questions or concerns, please do not hesitate to reach out to us. Orders: Orders US arterial duplex LE BI 6 Months I73.9 - Peripheral vascular disease, unspecified Coding Level of Care Code Est Pt Level 4 (49091) Diagnoses Peripheral arterial disease I73.9 Comment Review of arterial duplex with ABIs
--- OUTSIDE RECORDS SUMMARY | 2024-04-17 15:51 | XMS_ITS | Clinical Summary ---
Author Organization [facility] Facility Address [address] [place] [id number] Care Team Providers Care Certified Tower Climber Name Role Phone Humaira Thurston MD Primary Care Provider [phone] Allergies Active Allergy Reactions Criticality Noted Date [...] AM EDT Performed at: ??01 - [facility] [address] ??[id number] [place] Floor: Cheryl Goodman MD, Phone: ??[phone] us David Perez MD LAB BLOOD ORDERABLES Final Re sult [facility] See order comments [place] [address] from Last 3 Months or Most Recently Relevant to Health Maintenance Insurance MEDICAID MEDICAID Care Teams Certified Tower Climber Relationship Specialty Start Date End Date Humaira Thurston MD [address] [place] [id number] PCP - General Internal Medicine 12/27/22
--- OUTSIDE RECORDS SUMMARY | 2024-04-17 15:51 | XMS_ITS | Encounter Summary ---
Author Organization [facility] Address [address] [place] [address] Care Team Providers Care Rn Document Improvement Name Role Phone Damion Galicia MD Primary Care Provider Reason for Visit * Reason Onset Date Comments Advice Only 04/04/2024 Sent to surgeon and surgical PA: Lab work displays positive h pylori breath test, pt wondering if abx should be considered. Pt made aware A1c was 8.6- and the goal would be to have an A1c closer to 8 Encounter Details Date Type Department Care Team ([facility] st Contact Info) Description 04/04/2024 Telephone Bariatric Surgery - [place] [address] [place] [phone] Carla Leyva, RD [address] [place] [address] Advice Only (Sent to surgeon and surgical PA: Lab work displays positive h pylori breath test, pt wondering if abx should be considered. Pt made aware A1c was 8.6- and the goal would be to have an A1c closer to 8) Social History Tobacco Use Types Packs/Day Years Used Date Smoking Tobacco: Never Assessed Sex and Gender Information Value Date Recorded Sex Assigned at Not on file Legal Sex Male 2:10 PM EST Gender Identity Not on file Sexual Orientation Not on file documented as of this encounter Ordered Prescriptions Prescription Sig Dispense Quantity Refills Last Filled Start Date End Date omeprazole OTC (PriLOSEC OTC) 20 mg EC tablet Take 1 tablet (20 mg total) by mouth 2 (two) times a day for 14 days, THEN 1 tablet (20 mg total) 1 (one) time each day. Do not crush, chew, or split.. 58 tablet 04/14/2024 02/17/202 6 clarithromycin (BIAXIN) 500 mg tablet Take 1 tablet (500 mg total) by mouth 2 (two) times a day for 14 days. 28 each 04/14/2024 5 amoxicillin (AMOXIL) 500 mg capsule Take 1 capsule (500 mg total) by mouth 2 (two) times a day for 14 days. 28 each 04/14/2024 5 documented in this encounter Progress Notes * PAM Portillo - 04/14/2024 9:24 AM ESTAddended by: MARGAUX HERNANDEZ on: 04/14/2024 09:24 AM Modules accepted: Orders * Aminta Jimenez MA - 04/11/2024 3:22 PM EST He uses [facility] * PAM Portillo - 04/08/2024 2:39 PM EST Can send antibx - need to know which pharmacy he prefers * Carla Leyva RD - 04/04/2024 1:32 PM EST Sent to surgeon and surgical PA: Lab work displays positive h pylori breath test, pt wondering if abx should be considered. Pt made aware A1c was 8.6- and the goal would be to have an A1c closer to 8 documented in this encounter Plan of Treatment Upcoming Encounters Date Type Department Care Team (Late st Contact Info) Description 04/23/2024 1:00 PM EST Office Visit Bariatric Surgery - [place] [address] [phone] Nereyda Pierre MD 175 [facility] [address] [place] [address] 05/22/2024 3:15 PM EDT Office Visit Orthopedic Surgery - [place] [address] [facility] [address] [place] [phone] Fernando Sosa, DPM [address] [facility] [address] [place] [address] 06/03/2024 2:00 PM EDT Nutrition Bariatric Surgery - [place] [address] [facility] [address] [place] [phone] Carla Leyva, LUIS ALFREDO 175 [facility] [address] [place] [address] documented as of this encounter Visit Diagnoses Not on filedocumented in this encounter Care Teams Rn Document Improvement Relationship Specialty Start Date End Date Damion Galicia MD [address] [place] [address] [address] [place], [place] PCP - General Internal Medicine 11/30/23 documented as of this encounter
--- OUTSIDE RECORDS SUMMARY | 2024-04-17 15:51 | XMS_ITS | Encounter Summary ---
Author Organization [facility] Address [address] [place] [address] Phone Care Team Providers Care Bonbon Cream Warmer Name Role Phone Humaira Thurston MD Primary Care Provider [phone] Reason for Visit * Reason Comments Med Refill Encounter Details Date Type Department Care Team (Late st Contact Info) Description 07/03/2023 Refill [facility] [address] [place] [phone] David Perez MD [address] [place] [address], [facility] [address] [place] [address] Social History Tobacco Use Types Packs/Day Years [...] on filedocumented in this encounter Care Teams Bonbon Cream Warmer Relationship Specialty Start Date End Date Humaira Thurston MD [address] [place] [address] PCP - General Internal Medicine 12/27/22 documented as of this encounter
--- OUTSIDE RECORDS SUMMARY | 2024-04-17 15:51 | XMS_ITS | Encounter Summary ---
Author Organization [facility] Address [address] [place] [address] Care Team Providers Care Plate Driller Name Role Phone Damion Galicia MD Primary Care Provider [phone] Reason for Visit * Reason Comments Obesity Encounter Details Date Type Department Care Team (Late st Contact Info) Description 04/04/2024 1:00 PM EST Nutrition Bariatric Surgery - [place] [address] [place] [phone] Carla Leyva RD [address] [facility] [address] [place] [address] Class 3 severe obesity with body mass index (BMI) of 40.0 to 44.9 in adult, unspecified obesity type, unspecified whether serious comorbidity present (CMS/HCC) (Primary Dx) Social History Tobacco Use Types Packs/Day Years Used Date Smoking Tobacco: Never Assessed Sex and Gender Information Value Date Recorded Sex Assigned at Not on file Legal Sex Male 2:10 PM EST Gender Identity Not on file Sexual Orientation Not on file documented as of this encounter Last Filed Vital Signs Vital Sign Reading Time Taken Comments Blood Pressure - - Pulse - - Temperature - - Respiratory Rate - - Oxygen Saturation - - Inhaled Oxygen Concentration - - Weight 115 kg (253 lb) 04/04/2024 1:03 PM EST Height - - Body Mass Index 43.43 01/10/2024 10:16 AM EST documented in this encounter Progress Notes * Carla Leyva RD - 04/04/2024 1:00 PM EST Evaluaci??n psicol??gica: Tienes dos opciones para tu evaluaci??n psicol??toni Chávez [phone] Justin Philippeerg, TRANSPORTATION COORDINATOR [phone] Ambos est??n haciendo visitas remotas. Llame a cualquiera de ellos y h??kyara saber que est?? en elPrograma Ronald??[facility] y necesita magaly evaluaci??n psicol??gica. Aseg??rese de proporcionar barnes nombre, n??danya y fecha de nacimiento. Metas creadas por el paciente: Puede obtener B12 sin receta Contin??e caminando lo m??s que pueda. Batidos de prote??sachi: pueden reemplazar magaly comida o un refrigerio, busque entre 20 y 30 g de prote??na y menos de 5 g de az??car agregada (premeir, asegurar el m??ximo de prote??sachi, fairlife, equivale a alto rendimiento) Prote??na en polvo sin sabor: se puede mezclar con cualquier cosa que coma o hernan y no cambiar?? elsabor (orgain, isopure, unjury) Objetivo de prote??sachi: 60-80 g diarios, consumir prote??sachi al menos alice veces al d??a Revise las dietas antes y despu??s de la operaci??n, venga al siguiente apartamento si tiene preguntas. * Carla Leyva RD - 04/04/2024 1:00 PM EST NUTRITION FOLLOW-UP NOTE: Patient Name: Cheng Martinez Date of : 1970 Date of Service: 04/04/2024 SURGEON: Dr. Nereyda Pierre DESIRED SURGERY: Gastric bypass Food allergies / intolerances: Yes, describe: turkey, pork martinez Sent to surgeon and surgical PA: Lab work displays positive h pylori breath test, pt wondering if abx should be considered. Pt made aware A1c was 8.6- and the goal would be to have an A1c closer to 8 CHIEF COMPLAINT: Obesity HISTORY: Cheng Martinez is a 53 y.o. male who presents for nutrition visit for preop bariatric surgery. This is their 3 visit. Ht Readings from Last 1 Encounters: 01/10/24 1.626 m (64 ) Wt Readings from Last 4 Encounters: 04/04/24 115 kg (253 lb) 02/18/24 117 kg (259 lb) 01/10/24 117 kg (259 lb) 11/07/23 117 kg (259 lb) Body mass index is 43.43 kg/m??. Wt at initial: 259 Wt change since initial: -6 EBW = current - wt at BMI of 25: [phone] Challenges: low B12, positive h pylori breath test, A1c was 8.6, not a fan of protein shakes or protein powders Changes since last visit: walking, stopped rice, more salad, more water, more energy EATING HABITS/DIET RECALL: Breakfast: scrambled eggs with WG toast Lunch: tuna salad Snack: nuts unsalted Dinner: boiled chicken rice beans and salad Snacks: fruits/ nuts/ protein shake Beverages: water with lemon- reports lots MVI: magnesium Exercise: walking ALLERGIES: Not on File Nutrition diagnosis: Class III obesity related to hx of skipped meals as evidenced by BMI of 43.4 Patient-created Goals: Can get B12 over the counter Continue walking as able Protein shakes- can replace a meal or snack look for 20-30g of protein and less than 5g of added sugar (premeir, ensure max protein, fairlife, equate high performance) Unflavored protein powder- can mix into anything your eating or drinking will not change the taste ( orgain, isopure, unjury) Protein goal: 60-80g daily, get protein at least three times a day Review pre and post op diets, come to next apt with questions Literature Provided: Pt centered goals and RD contact information Interventions: Discuss importance of eating at least 3 meals per day and the impact on metabolism, Discussed the need to have protein with each meal and snack, Discussed the plate method and balancedmeals, and Discussed the importance of drinking enough water Nutrition assessment: Pt is 53 y.o. male with h/o has no past medical history on file. 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 Pt reports completion of labs, physical, and support group. Pt has lost weight and has positive dietary habits RD to see patient for follow-up nutrition visit in 2 months Visit Time: The total time of this visit was 30 minutes of which we spent 30 minutes (>50% of the time spent) in direct [id number] consultation for counseling, reviewing medical record and/or coordinating the plan as described above. Carla Leyva RD NUTRITION SERVICES Cosigned by Nereyda Pierre MD at 04/04/2024 4:03 PM EST documented in this encounter Plan of Treatment Upcoming Encounters Date Type Department Care Team (Late st Contact Info) Description 04/23/2024 1:00 PM EST Office Visit Bariatric Surgery - [place] [address] [phone] Nereyda Pierre MD 175 [facility] 120 [place] [address] 05/22/2024 3:15 PM EDT Office Visit Orthopedic Surgery - [place] 250 175 [facility] 250 [place] [phone] Fernando Sosa DPM 175 [facility] [address] [place] [address] 06/03/2024 2:00 PM EDT Nutrition Bariatric Surgery - [place] [address] [facility] [address] [place] [phone] Carla Leyva, RD 175 [facility] 120 [place] [address] documented as of this encounter Visit Diagnoses Diagnosis Class 3 severe obesity with body mass index (BMI) of 40.0 to 44.9 in adult, unspecified obesity type, unspecified whether serious comorbidity present (CMS/HCC)- Primary documented in this encounter Care Teams Plate Driller Relationship Specialty Start Date End Date Damion Galicia MD [address] [place] [address] [address] [place], [place] PCP - General Internal Medicine 11/30/23 documented as of this encounter
--- OUTSIDE RECORDS SUMMARY | 2024-04-17 15:52 | XMS_ITS | Clinical Summary ---
Author Organization 175 [facility] Address [address] [place] [address] Phone Care Team Providers Care Asset Protection Manager Name Role Phone Damion Galicia MD Primary Care Provider [phone] Medications amoxicillin (AMOXIL) 500 mg capsule Take 1 capsule (500 mg total) by mouth 2 (two) times a day for 14 days. 28 each 04/14/2024 5 Active clarithromycin (BIAXIN) 500 mg tablet Take 1 tablet (500 mg total) by mouth 2 (two) times a day for 14 days. 28 each 04/14/2024 5 Active omeprazole OTC (PriLOSEC OTC) 20 mg EC tablet Take 1 tablet (20 mg total) by mouth 2 (two) times a day for 14 days, THEN 1 tablet (20 mg total) 1 (one) time each day. Do not crush, chew, or split.. 58 tablet 04/14/2024 Active Hospital, Clinic, or Other Facility Administered Medication Ordered Dose Route Frequency Start Date End Date Status lidocaine (PF) (XYLOCAINE-MPF) 1 % injection 0.5 mLIndications:Planta r fascial fibromatosis .5 mL inj Once PRN Procedure 04/09/2024 04/09/2024 Ended triamcinolone acetonide (KENALOG-40) 40 mg/mL injection 20 mgIndications:Planta r fascial fibromatosis 20 mg IAtc Once PRN Procedure 04/09/2024 04/09/2024 Ended Active Problems Problem Noted Date Diagnosed Date Class 3 severe obesity with body mass index (BMI) of 40.0 to 44.9 in adult 01/10/2024 Encounters Date Type Department Care Team Description 04/09/2024 2:15 PM EST Office Visit Orthopedic Surgery [facility] [address] [phone] Fernando Sosa, DPM Dermatophytosis of nail (Primary Dx); Plantar fascial fibromatosis; Diabetic mononeuropathy simplex (CMS/HCC); Equinus contracture of ankle 04/04/2024 1:00 PM EST Nutrition Bariatric Surgery [address] [phone] Class 3 severe obesity with body mass index (BMI) of 40.0 to 44.9 in adult, unspecified obesity type, unspecified whether serious comorbidity present (CMS/HCC) (Primary Dx) 04/04/2024 [facility] [address] [phone] Advice Only (Sent to surgeon and surgical PA: Lab work displays positive h pylori breath test, pt wondering if abx should be considered. Pt made aware A1c was 8.6- and the goal would be to have an A1c closer to 8) 02/18/2024 3:00 PM EST Nutrition Bariatric Surgery [address] [phone] Class 3 [...] (253 lb) 04/04/2024 1:03 PM EST Height 162.6 cm (5' 4 ) 01/10/2024 10:16 AM EST Body Mass Index 43.43 01/10/2024 10:16 AM EST Plan of Treatment Upcoming Encounters Date Type Department Care Team (Late st Contact Info) Description 04/23/2024 1:00 PM EST Office Visit Bariatric Surgery - [place] [address] [phone] Nereyda Pierre MD [address] [address] 05/22/2024 3:15 PM EDT Office Visit Orthopedic Surgery - [place] [address] [phone] Fernando Sosa DPM [address] [address] 06/03/2024 2:00 PM EDT Nutrition Bariatric Surgery [facility] [address] [phone] Carla Leyva, LUIS ALFREDO [address] [address] Health Maintenance Due Date Last Done Comments [...] 02/09/2021, 07/09/2020, 06/19/2020 Influenza Vaccine (#1) 2023 3, 01/05/2022, 12/30/2019, Additional history exists Diabetes: Annual Urine Albumin-Creatinine Ratio (uACR) 01/10/2024 Diabetes: Blood Sugar Control Test (HGBA1C) 08/25/2024 02/26/2024, 07/04/2023, 07/04/2023 Diabetes: Annual GFR (Glomerular Filtration Rate) 02/25/2025 02/26/2024 Hypertension/CHF/CAD Annual BMP Blood Test 02/25/2025 02/26/2024 Cholesterol Screening (Lipid Panel) 02/25/2029 02/26/2024 Pneumococcal Vaccine: 50+ Years Completed 05/19/2022 Pneumococcal Vaccine: Pediatrics (0 to 5 Years) [...] patient's age to complete this topic Meningococcal B Vacine Aged Out No lo nger eligible based on patient's age to complete this topic RSV Immunization Patients Under 20 months Aged Out No longer eligible based on patient's age to complete this topic Varicella Vaccines Aged Out No longer eligible based on patient's age to complete this topic Procedures Procedure Name Priority Date/Time Associated Diagnosis Comments INJECTION TENDON OR LIGAMENT Routine 04/09/2024 2:15 PM EST Plantar fascial fibromatosis CBC WITH AUTO DIFFERENTIAL Routine 02/26/2024 2:07 [...] (CMS/HCC) from Last 3 Months Results * Injection tendon or ligament (04/09/2024 2:15 PM EST) Narrative Fernando Sosa DPM - 04/09/2024 2:15 PM EST Fernando Sosa DPM ? 04/09/2024 ??4:37 PM Injection tendon or ligament Indications: pain Details: 25 G needle Medications: 0.5 mL lidocaine (PF) 1 %; 20 mg triamcinolone acetonide 40 mg/mL Informed Consent: ??Site: ??Foot ligament tendon us Fernando Sosa DPM IN CLINIC/BEDSIDE ORDERAB LES Final Result * (ABNORMAL) Lipid panel with reflex to direct LDL (02/26/2024 2:07 PM EST) Cholesterol 185 0 - 200 mg/dL LAB CHEMISTRY METHOD 02/26/2024 6:32 PM EST [facility] Triglycerides 203(H) 0 - 150 mg/dL LAB CHEMISTRY METHOD 02/26/2024 6:32 PM EST [facility] HDL 37(L) >=40 mg/dL LAB CHEMISTRY METHOD 02/26/2024 6:32 PM EST [facility] LDL Calculated 107(H) 0 - 100 mg/dL LAB CHEMISTRY METHOD 02/26/2024 6:32 PM EST [facility] VLDL Cholesterol Stephen 40.6 mg/dL LAB CHEMISTRY METHOD 02/26/2024 6:32 PM EST [facility] Non HDL Chol. (LDL+VLDL) 148(H) <145 mg/dL LAB CHEMISTRY METHOD 02/26/2024 6:32 PM EST [facility] Chol/HDL Ratio 5.0(H) 0.0 - 4.4 LAB CHEMISTRY METHOD 02/26/2024 6:32 PM EST [facility] Blood Venous blood specimen / Unknown Venipuncture / Unknown 02/26/2024 2:07 PM EST 02/26/2024 2:07 PM EST us Nereyda Pierre MD LAB BLOOD ORDERABLES Final R esult [facility] [address] [place] [address], [place] [phone] * Nicotine and cotinine (02/26/2024 2:07 PM EST) Nicotine <2.0 <2.0 ng/mL 03/04/2024 7:41 AM EST [facility] Cotinine <2.0 <2.0 ng/mL 03/04/2024 7:41 AM EST [facility] Comment: ?Additional Reference Ranges: ? Active Tobacco ? Passive ? Abstinence ?User ?Exposure ?? 2 Weeks and more ? Nicotine ?30 - 50 ??ng/mL ?<2 ng/mL ?<2 ng/mL Cotinine ?? 200 - 800 ng/mL ?<8 ng/mL ?<2 ng/mL Reference Ranges from: ??Clin. Chem.; ??[id number] (2002) Direct any interpretive questions to the toxicology laboratory. This is for medical use only, it is not intended for forensic use. If applicable, any drug confirmation testing reported here was developed and the performance characteristics determined by [facility]. This confirmation testing has not been cleared or approved by the FDA. The laboratory is regulated under CLIA as qualified to perform high-complexity testing. This test is used for patient testing purposes. It should not be regarded as investigational or for research. Test performed at [facility], [facility] [address] [place], [place] ??[address] ? [phone] Cat Rand MD, PhD - Applique Cutter Blood Venous blood specimen / Unknown Venipuncture / Unknown 02/26/2024 2:07 PM EST 02/26/2024 2:07 PM EST us Nereyda Pierre MD LAB BLOOD ORDERABLES Final R [place] [address] [place] [address] * (ABNORMAL) CBC auto differential (02/26/2024 2:07 PM EST) WBC 7.5 4.8 - 10.8 K/mcL LAB HEMETOLOGY METHOD 02/26/2024 6:25 PM EST [facility] RBC 5.30 4.50 - 5.50 M/mcL LAB HEMETOLOGY METHOD 02/26/2024 6:25 PM EST [facility] Hemoglobin 16.4 13.5 - 17.5 g/dL LAB HEMETOLOGY METHOD 02/26/2024 6:25 PM [facility] Hematocrit 50.3 42.0 - 54.0 % LAB HEMETOLOGY METHOD 02/26/2024 6:25 PM EST [facility] MCV 95.4 79.0 - 98.0 FL LAB HEMETOLOGY METHOD 02/26/2024 6:25 PM EST [facility] MCH 31.1 27.0 - 32.0 pcg LAB HEMETOLOGY METHOD 02/26/2024 6:25 PM [facility] MCHC 32.6 32.0 - 37.0 g/dL LAB HEMETOLOGY METHOD 02/26/2024 6:25 PM EST [facility] RDW 13.2 11.0 - 15.0 % LAB HEMETOLOGY METHOD 02/26/2024 6:25 PM EST [facility] Platelets 296 130 - 400 K/mcL LAB HEMETOLOGY METHOD 02/26/2024 6:25 PM [facility] MPV 11.1(H) 7.0 - 11.0 FL LAB HEMETOLOGY METHOD 02/26/2024 6:25 PM [facility] NRBC 0.0 <1.0 % LAB HEMETOLOGY METHOD 02/26/2024 6:25 PM [facility] NRBC Absolute 0.00 <0.10 K/mcL LAB HEMETOLOGY METHOD 02/26/2024 6:25 PM [facility] Neutrophils Relative 50.5 % LAB HEMETOLOGY METHOD 02/26/2024 6:25 PM [facility] Lymphocytes Relative 41.0 % LAB HEMETOLOGY METHOD 02/26/2024 6:25 PM [facility] Monocytes Relative 7.0 % LAB HEMETOLOGY METHOD 02/26/2024 6:25 PM [facility] Eosinophils Relative 0.7 % LAB HEMETOLOGY METHOD 02/26/2024 6:25 PM [facility] Basophils Relative 0.5 % LAB HEMETOLOGY METHOD 02/26/2024 6:25 PM [facility] Immature Granulocytes Relative 0.3 % LAB HEMETOLOGY METHOD 02/26/2024 6:25 PM [facility] Neutrophils Absolute 3.77 1.50 - 7.00 K/mcL LAB HEMETOLOGY METHOD 02/26/2024 6:25 PM [facility] Lymphocytes Absolute 3.06 1.00 - 5.00 K/mcL LAB HEMETOLOGY METHOD 02/26/2024 6:25 PM [facility] Monocytes Absolute 0.52 0.20 - 1.00 K/mcL LAB HEMETOLOGY METHOD 02/26/2024 6:25 PM [facility] Eosinophils Absolute 0.05 0.00 - 0.50 K/mcL LAB HEMETOLOGY METHOD 02/26/2024 6:25 PM [facility] Basophils Absolute 0.04 0.00 - 0.20 K/mcL LAB HEMETOLOGY METHOD 02/26/2024 6:25 PM [facility] Immature Granulocytes Absolute 0.02 0.00 - 0.03 K/mcL LAB HEMETOLOGY METHOD 02/26/2024 6:25 PM EST [facility] Blood Venous blood specimen / Unknown Venipuncture / Unknown 02/26/2024 2:07 PM EST 02/26/2024 2:07 PM EST us Nereyda Pierre MD LAB BLOOD ORDERABLES Final R esult [facility] [address] [place] [address], [place] [phone] * Iron and TIBC (02/26/2024 2:07 PM EST) Iron 86 50 - 160 mcg/dL LAB CHEMISTRY METHOD 02/26/2024 6:54 PM EST [facility] TIBC 355 250 - 450 mcg/dL LAB CHEMISTRY METHOD 02/26/2024 6:54 PM EST [facility] Iron Saturation 24 20 - 50 % LAB CHEMISTRY METHOD 02/26/2024 6:54 PM EST [facility] Blood Venous blood specimen / Unknown Venipuncture / Unknown 02/26/2024 2:07 PM EST 02/26/2024 2:07 PM EST us Nereyda Pierre MD LAB BLOOD ORDERABLES Final R esult [facility] [address] [place] [address], [place] [phone] * (ABNORMAL) Helicobacter pylori breath test (02/26/2024 2:07 PM EST) H Pylori Breath Test Positive( A) Negative LAB CHEMISTRY METHOD 02/28/2024 10:04 AM EST [facility] Breath Oral cavity structure / Unknown Non-blood Collection / Unknown 02/26/2024 2:07 PM EST 02/26/2024 2:07 PM EST us Nereyda Pierre MD LAB BODY FLUIDS AND STOOLS O RDERABLES Final Result Performing Organization Address [facility]/ZIP Co de Phone Number [facility] [address] [place] [address], [place] [phone] * Vitamin D 25 hydroxy (02/26/2024 2:07 PM EST) [facility] Vit D, 25-Hydroxy 34.3 30.0 - 80.0 ng/mL LAB CHEMISTRY METHOD 02/26/2024 6:39 PM EST [facility] Blood Venous blood specimen / Unknown Venipuncture / Unknown 02/26/2024 2:07 PM EST 02/26/2024 2:07 PM EST us Nereyda Pierre MD LAB BLOOD ORDERABLES Final R esult Performing Organization Address City/[facility]/ZIP Co de Phone Number [facility] [address] [place] [address], [place] [phone] * Thyroid stimulating hormone (02/26/2024 2:07 PM EST) [facility] TSH 1.93 0.40 - 4.00 mcIU/mL LAB CHEMISTRY METHOD 02/26/2024 6:39 PM EST [facility] Blood Venous blood specimen / Unknown Venipuncture / Unknown 02/26/2024 2:07 PM EST 02/26/2024 2:07 PM EST us Nereyda Pierre MD LAB BLOOD ORDERABLES Final R esult Performing Organization Address City/[facility]/ZIP Co de Phone Number [facility] [address] [place] [address], [place] [phone] * (ABNORMAL) Vitamin B1 (02/26/2024 2:07 PM EST) [facility] Vitamin B1 Whole Blood 127(H) 38 - 122 ug/L 03/04/2024 9:20 AM EST [facility] Comment: This test was developed and the performance characteristics determined by [facility]. It has not been cleared or approved by the FDA. The laboratory is regulated under CLIA as qualified to perform high-complexity testing. This test is used for patient testing purposes. It should not be regarded as investigational or for research. Test performed at [facility], [address] , [place], [place] ??[address] ? [phone] Cat Rand MD, PhD - Applique Cutter Blood Venous blood specimen / Unknown Venipuncture / Unknown 02/26/2024 2:07 PM EST 02/26/2024 2:07 PM EST Nereyda Pierre MD LAB BLOOD ORDERABLES Final R esult [facility] [address] [place] [address] * Magnesium (02/26/2024 2:07 PM EST) [facility] Magnesium 1.9 1.9 - 2.6 mg/dL LAB CHEMISTRY METHOD 02/26/2024 6:32 PM EST [facility] Blood Venous blood specimen / Unknown Venipuncture / Unknown 02/26/2024 2:07 PM EST 02/26/2024 2:07 PM EST Nereyda Pierre MD LAB BLOOD ORDERABLES Final R esult [facility] [address] [place] [address], [place] [phone] * (ABNORMAL) Hemoglobin A1c (02/26/2024 2:07 PM EST) [facility] Hemoglobin A1C 8.6(H) <6.5 % LAB CHEMISTRY METHOD 02/26/2024 8:10 PM EST [facility] Mean Bld Glu Estim. 200 mg/dL LAB CHEMISTRY METHOD 02/26/2024 8:10 PM EST [facility] Blood Venous blood specimen / Unknown Venipuncture / Unknown 02/26/2024 2:07 PM EST 02/26/2024 2:07 PM EST Nereyda Pierre MD LAB BLOOD ORDERABLES Final R esult Performing Organization Address City/[facility]/ZIP Co de Phone Number [facility] [address] [place] [address], [place] [phone] * (ABNORMAL) Folate (02/26/2024 2:07 PM EST) Folate >20.0(H) 2.8 - 17.0 ng/ml LAB CHEMISTRY METHOD 02/26/2024 6:54 PM EST [facility] Blood Venous blood specimen / Unknown Venipuncture / Unknown 02/26/2024 2:07 PM EST 02/26/2024 2:07 PM EST Nereyda Pierre MD LAB BLOOD ORDERABLES Final R esult Performing Organization Address [facility] Co de Phone Number [facility] [address] [place] [address], [place] [phone] * Ferritin (02/26/2024 2:07 PM EST) Ferritin 90 26 - 388 ng/mL LAB CHEMISTRY METHOD 02/26/2024 6:54 PM EST [facility] Blood Venous blood specimen / Unknown Venipuncture / Unknown 02/26/2024 2:07 PM EST 02/26/2024 2:07 PM EST us Nereyda Pierre MD LAB BLOOD ORDERABLES Final R esult [facility] [address] [place] [address], [place] [phone] * (ABNORMAL) Vitamin B12 (02/26/2024 2:07 PM EST) [facility] Vitamin B-12 243(L) 250 - 900 pcg/mL LAB CHEMISTRY METHOD 02/26/2024 6:54 PM EST [facility] Blood Venous blood specimen / Unknown Venipuncture / Unknown 02/26/2024 2:07 PM EST 02/26/2024 2:07 PM EST us Nereyda Pierre MD LAB BLOOD ORDERABLES Final R esult [facility] [address] [place] [address], [place] [phone] * Cortisol (02/26/2024 2:07 PM EST) [facility] Cortisol 15.4 mcg/dL LAB CHEMISTRY METHOD 02/26/2024 6:41 PM EST [facility] Blood Venous blood specimen / Unknown Venipuncture / Unknown 02/26/2024 2:07 PM EST 02/26/2024 2:07 PM EST Narrative [facility] - 02/26/2024 6:41 PM EST CORTISOL REFERENCE RANGE ?? 8 AM SPEC: ??5.0-23.0 mcg/dL ?? 4 PM SPEC: ??3.0-16.0 mcg/dL ?? 8 PM SPEC: ??<5.0 mcg/dL us Nereyda Pierre MD LAB BLOOD ORDERABLES Final R esult [facility] [address] [place] [address], [place] [phone] * (ABNORMAL) Comprehensive metabolic panel (02/26/2024 2:07 PM EST) Sodium 135 133 - 145 mmol/L LAB CHEMISTRY METHOD 02/26/2024 6:32 PM [facility] Potassium 5.2 3.5 - 5.5 mmol/L LAB CHEMISTRY METHOD 02/26/2024 6:32 PM [facility] Chloride 107 96 - 110 mmol/L LAB CHEMISTRY METHOD 02/26/2024 6:32 PM [facility] CO2 23 21 - 32 mmol/L LAB CHEMISTRY METHOD 02/26/2024 6:32 PM [facility] Anion Gap 5 3 - 11 LAB CHEMISTRY METHOD 02/26/2024 6:32 PM [facility] Glucose 206(H) 70 - 100 mg/dL LAB CHEMISTRY METHOD 02/26/2024 6:32 PM [facility] BUN 23 5 - 25 mg/dL LAB CHEMISTRY METHOD 02/26/2024 6:32 PM [facility] Creatinine 1.46(H) 0.70 - 1.30 mg/dL LAB CHEMISTRY METHOD 02/26/2024 6:32 PM [facility] eGFR 58(L) >=60 mL/min/1. 73m2 LAB CHEMISTRY METHOD 02/26/2024 6:32 PM [facility] Comment:Calculation based on the??Chronic Kidney Disease Epidemiology Collaboration (CKD-EPI) equation refit??without adjustment for race. BUN/Creatinine Ratio 15.8 LAB CHEMISTRY METHOD 02/26/2024 6:32 PM [facility] Calcium 9.6 8.5 - 10.5 mg/dL LAB CHEMISTRY METHOD 02/26/2024 6:32 PM [facility] AST (SGOT) 16 10 - 42 unit/L LAB CHEMISTRY METHOD 02/26/2024 6:32 PM [facility] ALT (SGPT) 28 10 - 60 unit/L LAB CHEMISTRY METHOD 02/26/2024 6:32 PM [facility] Alkaline Phosphatase 76 42 - 121 unit/L LAB CHEMISTRY METHOD 02/26/2024 6:32 PM EST [facility] Total Protein 8.1(H) 6.0 - 8.0 g/dL LAB CHEMISTRY METHOD 02/26/2024 6:32 PM EST [facility] Albumin 3.9 3.2 - 5.0 g/dL LAB CHEMISTRY METHOD 02/26/2024 6:32 PM EST [facility] Total Bilirubin 0.6 0.0 - 1.4 mg/dL LAB CHEMISTRY METHOD 02/26/2024 6:[address] [facility] Blood Venous blood specimen / Unknown Venipuncture / Unknown 02/26/2024 2:07 PM EST 02/26/2024 2:07 PM EST us Nereyda Pierre MD LAB BLOOD ORDERABLES Final R esult [facility] ([facility]) [facility] [address] [place] [address], [place] [phone] from Last 3 Months Insurance [facility] [employer] Care Teams Asset Protection Manager Relationship Specialty Start Date End Date Damion Galicia MD [address] [place] [address] [place] [address] [place] [address] [place] PCP - General Internal Medicine 11/30/23
--- OUTSIDE RECORDS SUMMARY | 2024-04-17 15:52 | XMS_ITS | Encounter Summary ---
Author Organization [facility] Address [address] [place] [phone] Care Team Providers Care Marine Services Technician Name Role Phone Damion Galicia MD Primary Care Provider [phone] Reason for Visit * Orthopedic (Routine) - Closed Specialty Diagnoses / Procedures Referred By Contact Referred To Contact Podiatry / Orthopaedic Surgery Diagnoses Type 2 diabetes mellitus with diabetic chronic kidney disease Chronic kidney disease, stage 3a long term (current) use of insulin Procedures AMB Referral to Podiatry Humaira Hood MD [address] [place], [place] [address] [facility] [place], [place] Phone: tel: fax: Fernando Sosa DPM [address] [address] Phone: tel: fax: Referral ID Status Reason Start Date Expiration Date V isits Requested Visits Authorized [id number] Closed Consult and Treat 1 Encounter Details Date Type Department Care Team (Late st Contact Info) Description 04/09/2024 2:15 PM EST Office Visit Orthopedic Surgery - [place] [address] [phone] Fernando Sosa DPM [address] [address] Dermatophytosis of nail (Primary Dx); Plantar fascial fibromatosis; Diabetic mononeuropathy simplex (CMS/HCC); Equinus contracture of ankle Social History Tobacco Use Types Packs/Day Years Used Date Smoking Tobacco: Never Assessed Sex and Gender Information Value Date Recorded Sex Assigned at Not on file Legal Sex Male 2:10 PM EST Gender Identity Not on file Sexual Orientation Not on file documented as of this encounter Progress Notes * Fernando Sosa DPM - 04/09/2024 2:15 PM ESTAssociated Order(s): Injection tendon or ligament Post-Procedure Diagnose(s): Plantar fascial fibromatosis Last PCP visit:Referring MD: Humaira Hood MD IDENTIFIER: Karson Martinez is a 53 y.o. year old male who presents for consultation. CC: Foot pain HPI: Patient presents today complaining pain in his feet he reports he gets occasional numbness burning tingling notes his nails are thick and discolored but does keep care of them reports he gets sharp shooting pains left heels been going for last 3 to 6 months where she was from sit to stand or standsfor long periods of time he reports he has had some weight loss which has helped with the pain doesreport that he denies trauma to the area as a 7 out of 10 on a visual analog scale ROS: GENERAL: Pt denies nausea, fever, vomiting, chills, or shortness of breath. Pt in NAD. CARDIOLOGY: pt denies chest pain, palpitations LUNGS: pt denies shortness of breath MUSCULOSKELETAL: See HPI, otherwise no joint pain or swelling, back pain, or muscle pain. SKIN: see HPI, otherwise no lesions, rash or itching NEURO: No persistent headache, weakness or numbness The remainder of the review of systems is noncontributory PAST MEDICAL HISTORY: Patient Active Problem List Diagnosis Class 3 severe obesity with body mass index (BMI) of 40.0 to 44.9 in adult (CMS/[facility]) SOCIAL HISTORY: Social History Tobacco Use Smoking status: Not on file Smokeless tobacco: Not on file Substance Use Topics Alcohol use: Not on file ACTIVE MEDICATIONS: No outpatient medications have been marked as taking for the 04/09/24 encounter (Appointment) with Fernando Sosa DPM. ALLERGIES: Not on File PHYSICAL EXAM: There were no vitals taken for this visit. PODIATRIC EXAMINATION: GENERAL: Patient appears well nourished, with NAD. VASCULAR: Dorsalis pedis pulses are 2/4 bilaterally and Posterior tibial pulses are 2/4 bilaterally. Capillary filling time within normal limits the digits. No pallor on elevation or rubor on dependency. No varicosities. Denies rest pain or claudication pain. NEUROLOGICAL: Sharp/dull sensation intact, protective sensation intact 10/10 with 5.07 semmes lilian bilaterally, vibratory sensation with tuning fork intact to the tibial tuberosity. ORTHOPEDIC: Good muscle strength 5/5 of all flexors and extensors. Dorsi flexion of ankle ,0 degrees, plantar flexion WNL. No muscle atrophy. Pain with palpation of the medial tuber of the left calcaneus, negative palpable fibromas Equinus with 5 degrees dorsiflexion with knee bent 0 degrees with knee extended positive silver skoild test No pain on palpation of the posterior tibial tendon, patient to perform single and double heel raise No pain on palpation of the Achilles tendon. Negative palpable deficits of the Achilles tendon Normal range of motion of the ankle joint and subtalar joint DERMATOLOGICAL:. Toenails: Left Toenail(s) 1-5: subungual debris, discoloration, dystrophy, , mycotic appearance, onychomycosis Right Toenail(s) 1-5: subungual debris, discoloration, dystrophy, , mycotic appearance, onychomycosis Annular scaling bilateral feet moccasin distribution Skin thinning texture shiny appearance diffuse hyperpigmentation bilaterally pedal hair decreased BIOMECHANICS: Ankle ROM WNL, STJ ROM wnl, MTJ ROM wnl, 1st MPJ ROM wnl. IMAGING: IMPRESSION: 1. Dermatophytosis of nail 2. Plantar fascial fibromatosis 3. Diabetic mononeuropathy simplex (CMS/HCC) 4. Equinus contracture of ankle PLAN: Pt was seen and examined, history reviewed. Treatment options were discussed and reviewed including stretching exercises demonstrated for patient anti-inflammatory medications steroid injections orthotics and insoles Recommendations given for prefabricated insoles Referral offered physical therapy patient declined Prescription given for anti-inflammatory medication X-rays ordered left foot 3 views Discussed with patient regarding proper glucose control, exercise, and diet. Explained to patient proper shoe gear, and importance of daily foot checks. I reviewed neuropathy and why it occurs in diabetics. I educated the patient on proper blood sugar control and the importance of an HgBA1c of less than 7.0%. I reviewed the signs and symptoms of neuropathy with the patient . Follow-up in 4 to 6 weeks Injection of left plantar fascial ligament was performed after consent was obtained. Risks and benefits discussed in detail with patient and include but are not limited to risk of infection risk of recurrence . Injection given of half cc 1% lidocaine half cc of Kenalog 40 Strapping padding performed left foot and ankle Injection tendon or ligament Indications: pain Details: 25 G needle Medications: 0.5 mL lidocaine (PF) 1 %; 20 mg triamcinolone acetonide 40 mg/mL Informed Consent: Site: Foot ligament tendon Fernando Sosa DPM documented in this encounter Plan of Treatment Upcoming Encounters Date Type Department Care Team (Late st Contact Info) Description 04/23/2024 1:00 PM EST Office Visit Bariatric Surgery [facility] [address] [phone] Nereyda Pierre MD [address] [address] 05/22/2024 3:15 PM EDT Office Visit Orthopedic Surgery [facility] [address] [phone] Fernando Sosa DPM [address] [address] 06/03/2024 2:00 PM EDT Nutrition Bariatric Surgery [facility] [address] [phone] [address] documented as of this encounter Procedures Procedure Name Priority Date/Time Associated Diagnosis Comments INJECTION TENDON OR LIGAMENT Routine 04/09/2024 2:15 PM EST Plantar fascial fibromatosis documented in this encounter Results * Injection tendon or ligament (04/09/2024 [...] DPM IN CLINIC/BEDSIDE ORDERAB LES Final Result documented in this encounter Visit Diagnoses Diagnosis Dermatophytosis of nail- Primary Plantar fascial fibromatosis Diabetic mononeuropathy simplex (CMS/HCC) Type II or unspecified type diabetes mellitus with neurological manifestations, not stated as uncontrolled Equinus contracture of ankle documented in this encounter Administered Medications Inactive Administered Medications - up to 3 most recent administrations Medication Order MAR Action Action Date Dose Rate Site lidocaine (PF) (XYLOCAINE-MPF) 1 % injection 0.5 mL 0.5 mL, injection, Once PRN Procedure, Starting on Sun04/09/24 at 1415, For 1 doseIndications:Plantar fascial fibromatosis Given 04/09/2024 2:15 PM EST 0.5 mL triamcinolone acetonide (KENALOG-40) 40 mg/mL injection 20 mg 20 mg, intra-articular, Once PRN Procedure, Starting on Sun04/09/24 at 1415, For 1 doseIndications:Plantar fascial fibromatosis Given 04/09/2024 2:15 PM EST 20 mg documented in this encounter Care Teams Marine Services Technician Relationship Specialty Start Date End Date Damion Galicia MD [address] [place] [address] [address] [place], [place] PCP - General Internal Medicine 11/30/23 documented as of this encounter
== END 2024-04-17 15:07 | disposition home or self-care (01) ==
PROVIDERS: PCP Internal Medicine; Visit Provider Physician Assistant Surgical
DX: I73.9 Peripheral vascular disease, unspecified (principal)
CPT/HCPCS: 99214

== ENCOUNTER → 2024-04-17 14:44 | Outpatient (BNVA) | payer OTHER, SELFPAY | PROVIDERS: PCP Internal Medicine; Visit Provider Physician Assistant Surgical | DX: I73.9 Peripheral vascular disease, unspecified (principal) | CPT/HCPCS: 99212 ==

== ENCOUNTER 2024-04-30 14:44 | Outpatient (AMB) | payer OTHER, SELFPAY ==
--- NOTE | 2024-04-30 14:53 | A.OFFVIS_ITS ---
Intake Visit Reasons: Balanitis- follow up(SET) Intake Note: Patient is present for balanitis f/u Urology Medication:tadalafil Antibiotic Allergy:tuberculin Blood Thinner:aspirin Clinical Services Consultant Required: No Allergies glipizide Allergy (Mild, Verified 04/30/24 14:56) rash tuberculin, purified protein deriva Allergy (Mild, Verified 04/30/24 14:56) Swelling martinez Allergy (Mild, Uncoded 04/30/24 14:56) Hives jardiance Adverse Reaction (Severe, Uncoded 04/30/24 14:56) Rash/balanitis HPI Comments Details: Cheng is a pleasant [place] Verdean-speaking male. He is a patient of Dr. Hood. He s een for the following urologic issues - lower tract symptoms - erectile dysfunction - balanitis [place]an translation provided by qualified medical education specialist Last seen 2021 Currently not on any medications for urination Had recurrent balanitis with Jardiance. Initially planned for circumcision. Would like to move ahead with this Refill provided of tadalafil with both daily and on demand Lower urinary tract symptoms Episode of pyelonephritis with admission to [facility] October 2021 Had changed in the counter for diabetic management Feels he had a 2nd UTI in the meantime Prior prostate medication Prior medications included low-dose tadalafil with doxazosin Erectile dysfunction HIV associated with type 2 diabetes Background HIV, morbid obesity, type 2 diabetes Progressive erectile dysfunction Prior therapy intermittent Plan for daily tadalafil with on demand 20 mg PFSH Medical History (Updated 04/30/24 @ 15:12 by Donny Irvin MD) Erectile dysfunction associated with type 2 diabetes mellitus Mixed hyperlipidemia Mild intermittent asthma Hyperkalemia Morbid obesity Renal calculi Morbid obesity Dyslipidemia CKD (chronic kidney disease) Essential hypertension Diabetes mellitus HIV (human immunodeficiency virus infection) Surgical History No pertinent past surgical history Family History Father Myocardial infarction Hypertension CVD (cardiovascular disease) Mother Stroke CVD (cardiovascular disease) Mental health disorder Sister Diabetes Social History Housing: Apartment Alcohol intake: former Patient Tobacco Use Status: Never used Tobacco e-Cigarette/Vaping Use: Never Used Second Hand Smoke Exposure: Yes service: No Current occupational status: employed Current occupational exposures/hazards: No Cognitive needs: No Hearing needs: No Vision needs: No Review of Systems Const Denies chills and Denies fever(s) Card Reports no additional complaints and Denies syncope Resp Denies cough GI Denies abdominal pain and Denies heartburn Reports as per HPI and Denies change in libido Neuro Denies syncope Psych Denies change in libido Endo Denies change in libido Physical Exam Const General: cooperative, healthy appearing, comfortable and no acute distress Orientation/consciousness: patient oriented x3 HEENT Face and sinus: Yes normal facial exam Mouth: moist mucous membranes Neck Neck: Yes normal visual inspection, Yes full ROM and Yes trachea midline Chest Chest palpation & inspection: normal inspection of the chest Resp Effort & Inspection: normal respiratory effort, able to speak in complete sentences and no respiratory distress GI Inspection: Yes normal to inspection Back/Spine/Pelvis Cervical Spine: normal cervical lordosis Thoracic/Lumbar Spine: thoracic and lumbar spine normal to inspection Skin General skin exam: no rashes or lesions noted Neuro General: patient oriented x3, gait normal, tone normal and moves all extremities Extrem General: Yes normal to inspection and Yes capillary refill normal Quality Reporting (2019) Adult ([facility] ) Smoking risk assessment performed?: Yes Patient Tobacco Use Status: Never used Tobacco Assessment & Plan Assessment & Plan (1) Erectile dysfunction associated with type 2 diabetes mellitus: Code(s): E11.69 - Type 2 diabetes mellitus with other specified complication; N52.1 - Erectile dysfunction due to diseases classified elsewhere Category: Medical (2) Balanitis: Code(s): N48.1 - Balanitis Category: Medical Plan Risks, benefits and alternatives to therapy were discussed. These include but are not limited to infection, bleeding, damage to local organs and tissues, need for further interventions. Anesthetic risks regarding cardiac arrhythmia, blood clots, and potential mortality were discussed. The patient understands the typical recovery time and the outpatient nature of the procedure. After consideration of these risks the patient gives full informed consent and they wish to move ahead with the procedure. Circumcision Medications: New tadalafil 5 mg PO DAILY 90 tabs 1RF sexual activity 90 days E11.69 - Type 2 fany betes mellitus with other specified complication, N52.1 - Erectile dysfunction due to diseases classified elsewhere Refilled tadalafil On demand medication take 60 minutes before intended activity 20 mg PO ONCE PRN 30 tabs 0RF sexual activity 30 days E11.69 - Type 2 diabetes mellitus with other specified complication, N52.1 - Erectile dysfunction due to diseases classified elsewhere Patient Instructions: This note is constructed using voice recognition software. While every effort has been made to ensure accuracy administrative secretary errors may have been included. Imaging studies, laboratory and physical exam results were discussed and reviewed in detail. No major barriers to patient understanding were identified. An opportunity to ask questions regarding the treatment plan was provided. All questions were answered. The patient expressed understanding and agreement with the above treatment plan. The patient is aware they should contact our office by phone for worsening of their current condition or the appearance of new urologic symptoms. Compliance is encouraged with any medications and followup testing that is ordered. It is a privilege to participate in the urologic care of your patient. If you have any questions or concerns regarding treatment for the above conditions, or other urologic issues, please do not hesitate to contact me. The office telephone contact is [phone]. Sincerely, Dr Donny Irvin MD, [facility] - Urology Compassionate Specialist Care for the Genitourinary System Coding Level of Care Code Est Pt Level 4 (24681) Diagnoses Erectile dysfunction associated with type 2 diabetes mellitus E11.69; N52.1 Balanitis N48.1
--- OUTSIDE RECORDS SUMMARY | 2024-04-30 17:47 | XMS_ITS | Encounter Summary ---
Author Organization [facility] Address [id number] [place] [phone] Care Team Providers Care Enterprise Architect Name Role Phone Damion Galicia MD Primary Care Provider Reason for Visit * Reason Comments Obesity Encounter Details Date Type Department Care Team (Late st Contact Info) Description 04/04/2024 1:00 PM EST Nutrition Bariatric Surgery - [place] [address] [place] [phone] Carla Leyva RD [address] [place] [address] Class 3 severe obesity with body mass [...] dos opciones para tu evaluaci??n psicol??toni Chávez [phone] Justin Philippeerg, LENS MOUNTER [phone] Ambos est??n haciendo visitas remotas. Llame a [...] current - wt at BMI of 25: [phone] Challenges: low B12, positive h pylori breath [...] make changes to diet and lifestyle used basket person [phone] Concerns regarding considerations for bariatric surgery: Patient [...] (>50% of the time spent) in direct [id number] consultation for counseling, reviewing medical record and/or coordinating the plan as described above. Carla Leyva RD NUTRITION SERVICES Cosigned by Nereyda Pierre MD at 04/04/2024 4:03 PM EST documented in this encounter Plan of Treatment Upcoming Encounters Date Type Department Care Team (Late st Contact Info) Description 05/22/2024 3:15 PM EDT Office Visit Orthopedic Surgery - [place] [address] [phone] Fernando Sosa DPM [address] [address] 06/03/2024 2:00 PM EDT Nutrition Bariatric Surgery - [place] [address] [phone] Carla Leyva RD [address] [address] documented as of this encounter Visit Diagnoses Diagnosis Class 3 severe obesity with body mass index (BMI) of 40.0 to 44.9 in adult, unspecified obesity type, unspecified whether serious comorbidity present (CMS/[facility])- Primary documented in this encounter Care Teams Enterprise Architect Relationship Specialty Start Date End Date Damion Galicia MD [address] [place] [address] [address] [place], [place] PCP - General Internal Medicine 11/30/23 documented as of this encounter
--- OUTSIDE RECORDS SUMMARY | 2024-04-30 17:47 | XMS_ITS | Encounter Summary ---
Author Organization [facility] Address [address] [place] [address] Phone Care Team Providers Care Vertical Roll Operator Name Role Phone Humaira Thurston MD Primary Care Provider [phone] Reason for Visit * Reason Comments Med Refill Encounter Details Date Type Department Care Team (Late st Contact Info) Description 07/03/2023 Refill [facility] [address] [place] [phone] David Perez MD [address] [place] [address], [facility] [address] [place] [address] Social History Tobacco Use Types Packs/Day Years [...] on filedocumented in this encounter Care Teams Vertical Roll Operator Relationship Specialty Start Date End Date Humaira Thurston MD [address] [place] [address] PCP - General Internal Medicine 12/27/22 documented as of this encounter
--- OUTSIDE RECORDS SUMMARY | 2024-04-30 17:47 | XMS_ITS | Encounter Summary ---
Author Organization [facility] Address [address] [place] [address] Care Team Providers Care Cpr Instructor Name Role Phone Damion Galicia MD Primary [...] Encounter Details Date Type Department Care Team ([facility] st Contact Info) Description 04/04/2024 Telephone Bariatric Surgery - [place] [address] [place] [phone] Carla Leyva, RD [address] [place] [address] Advice Only (Sent to surgeon and surgical [...] - 04/11/2024 3:22 PM EST He uses [facility] * PAM Portillo - 04/08/2024 2:39 [...] PM EDT Office Visit Orthopedic Surgery - [place] [address] [phone] Fernando Sosa, DPM [address] [address] 06/03/2024 2:00 PM EDT Nutrition Bariatric Surgery - [place] 175 [facility] [address] [place] [address] Carla Leyva, LUIS ALFREDO 175 [facility] [address] [place] [address] documented as of this encounter Visit Diagnoses Not on filedocumented in this encounter Care Teams Cpr Instructor Relationship Specialty Start Date End Date Damion Galicia MD [address] [place] [address] [address] [place], [place] PCP - General Internal Medicine 11/30/23 documented as of this encounter
--- OUTSIDE RECORDS SUMMARY | 2024-04-30 17:48 | XMS_ITS | Clinical Summary ---
Author Organization 175 [facility] Address 175 [place] [address] Phone Care Team Providers Care Table Cover Folder Name Role Phone Damion Galicia MD Primary Care Provider Allergies Active Allergy Reactions Criticality Noted Date Comments Glipizide 12/09/2020 Medications omeprazole OTC (PriLOSEC OTC) 20 mg EC tablet Take 1 tablet (20 mg total) by mouth 2 (two) times a day for 14 days, THEN 1 tablet (20 mg total) 1 (one) time each day. Do not crush, chew, or split.. 58 tablet 04/14/2024 04/14/19 26 Active lisinopriL (PRINIVIL,ZESTR IL) 20 mg tablet Take 1 tablet (20 mg total) by mouth 1 (one) time each day. 10/12/2023 Active amoxicillin (AMOXIL) 500 mg capsule Take 1 capsule (500 mg total) by mouth 2 (two) times a day for 14 days. 28 each 04/14/2024 04/29/19 25 clarithromycin (BIAXIN) 500 mg tablet Take 1 tablet (500 mg total) by mouth 2 (two) times a day for 14 days. 28 each 04/14/2024 04/29/19 25 Hospital, Clinic, or Other Facility Administered Medication [...] Encounters Date Type Department Care Team Description 04/29/2024 Telephone Bariatric Surgery [address] [address] Nereyda Pierre MD Advice Only (Surgery PA) 04/24/2024 1:15 PM EST Office Visit Bariatric Surgery [address] [phone] Nereyda Pierre MD Class 3 severe obesity with body mass index (BMI) of 40.0 to 44.9 in adult, unspecified obesity type, unspecified whether serious comorbidity present (CMS/HCC) (Primary Dx) 04/09/2024 2:15 PM EST Office Visit Orthopedic Surgery [facility] [address] [phone] Fernando Sosa, DPM Dermatophytosis of nail (Primary Dx); Plantar fascial fibromatosis; Diabetic mononeuropathy simplex (CMS/HCC); Equinus contracture of ankle 04/04/2024 1:00 PM EST Nutrition Bariatric Surgery [address] [phone] Class 3 severe obesity with body mass index (BMI) of 40.0 to 44.9 in adult, unspecified obesity type, unspecified whether serious comorbidity present (CMS/HCC) (Primary Dx) 04/04/2024 Telephone Bariatric Surgery [address] [phone] Advice Only (Sent to surgeon and surgical PA: Lab work displays positive h pylori breath test, pt wondering if abx should be considered. Pt made aware A1c was 8.6- and the goal would be to have an A1c closer to 8) 02/18/2024 3:00 PM EST Nutrition Bariatric Surgery [address] [phone] Class 3 [...] Sign Reading Time Taken Comments Blood Pressure 156/91 04/24/2024 1:28 PM EST Pulse 72 04/24/2024 1:28 PM EST Temperature 36.6 ??C (97.8 ??F) 04/24/2024 1:28 PM ES T Respiratory Rate - - Oxygen Saturation - - Inhaled Oxygen Concentration - - Weight 119 kg (262 lb) 04/24/2024 1:28 PM EST Height 162.6 cm (5' 4 ) 04/24/2024 1:28 PM EST Body Mass Index 44.97 04/24/2024 1:28 PM EST Plan of Treatment Upcoming Encounters Date Type Department Care Team (Late st Contact Info) Description 05/22/2024 3:15 PM EDT Office Visit Orthopedic Surgery [facility] [address] [phone] Fernando Sosa DPM [address] [address] 06/03/2024 2:00 PM EDT Nutrition Bariatric Surgery - [place] [address] [phone] 175 [facility] [address] [place] [address] Health Maintenance Due Date Last Done Comments [...] of 2) 03/02/2022 01/05/2022 COVID-19 Vaccine ( season) 2023 02/09/2021, 07/09/2020, 06/19/2020 Influenza Vaccine [...] obesity type, unspecified whether serious comorbidity present (CMS/[facility]) from Last 3 Months Results * Injection tendon or ligament (04/09/2024 2:15 PM EST) Fernando Gambino DPM - 04/09/2024 2:15 PM EST Fernando [...] mg/dL LAB CHEMISTRY METHOD 02/26/2024 6:32 PM [facility] Triglycerides 203(H) 0 - 150 mg/dL LAB CHEMISTRY METHOD 02/26/2024 6:32 PM [facility] HDL 37(L) >=40 mg/dL LAB CHEMISTRY METHOD 02/26/2024 6:32 PM [facility] LDL Calculated 107(H) 0 - 100 mg/dL LAB CHEMISTRY METHOD 02/26/2024 6:32 PM [facility] VLDL Cholesterol Stephen 40.6 mg/dL LAB CHEMISTRY METHOD 02/26/2024 6:32 PM [facility] Non HDL Chol. (LDL+VLDL) 148(H) <145 mg/dL LAB CHEMISTRY METHOD 02/26/2024 6:32 PM [facility] Chol/HDL Ratio 5.0(H) 0.0 - 4.4 LAB CHEMISTRY METHOD 02/26/2024 6:32 PM [facility] Blood Venous blood specimen / Unknown Venipuncture / Unknown 02/26/2024 2:07 PM EST 02/26/2024 2:07 PM EST us Nereyda Pierre MD LAB BLOOD ORDERABLES Final R esult [facility] ([facility]) [facility] [address] [place] [address], * Nicotine and cotinine (02/26/2024 2:07 PM EST) [facility] Nicotine <2.0 <2.0 ng/mL 03/04/2024 7:41 AM EST [facility] Cotinine <2.0 <2.0 ng/mL 03/04/2024 7:41 AM EST [facility] Comment: ?Additional Reference Ranges: ? Active Tobacco ? Passive ? Abstinence ?User ?Exposure ?? 2 Weeks and more ? Nicotine ?30 - 50 ??ng/mL ?<2 ng/mL ?<2 ng/mL Cotinine ?? 200 - 800 ng/mL ?<8 ng/mL ?<2 ng/mL Reference Ranges from: ??Clin. Chem.; ??[id number] (2002) Direct any interpretive questions to the [...] [facility], [address] , [place], [place] ??[address] ? [phone] Cat Rand MD, PhD - Nursing Agency Manager Blood Venous blood specimen / Unknown Venipuncture / Unknown 02/26/2024 2:07 PM EST 02/26/2024 2:07 PM EST us Nereyda Pierre MD LAB BLOOD ORDERABLES Final R esult [facility] [address] [place] [address] * (ABNORMAL) CBC auto differential (02/26/2024 2:07 PM EST) WBC 7.5 4.8 - 10.8 K/mcL LAB HEMETOLOGY METHOD 02/26/2024 6:25 PM [facility] RBC 5.30 4.50 - 5.50 M/mcL LAB HEMETOLOGY METHOD 02/26/2024 6:25 PM [facility] Hemoglobin 16.4 13.5 - 17.5 g/dL LAB HEMETOLOGY METHOD 02/26/2024 6:25 PM [facility] Hematocrit 50.3 42.0 - 54.0 % LAB HEMETOLOGY METHOD 02/26/2024 6:25 PM [facility] MCV 95.4 79.0 - 98.0 FL LAB HEMETOLOGY METHOD 02/26/2024 6:25 PM [facility] MCH 31.1 27.0 - 32.0 pcg LAB HEMETOLOGY METHOD 02/26/2024 6:25 PM [facility] MCHC 32.6 32.0 - 37.0 g/dL LAB HEMETOLOGY METHOD 02/26/2024 6:25 PM [facility] RDW 13.2 11.0 - 15.0 % LAB HEMETOLOGY METHOD 02/26/2024 6:25 PM [facility] Platelets 296 130 - 400 K/mcL LAB HEMETOLOGY METHOD 02/26/2024 6:25 PM [facility] MPV 11.1(H) 7.0 - 11.0 FL LAB HEMETOLOGY METHOD 02/26/2024 6:25 PM [facility] NRBC 0.0 <1.0 % LAB HEMETOLOGY METHOD 02/26/2024 6:25 PM [facility] NRBC Absolute 0.00 <0.10 K/mcL LAB HEMETOLOGY METHOD 02/26/2024 6:25 PM [facility] Neutrophils Relative 50.5 % LAB HEMETOLOGY METHOD 02/26/2024 6:25 PM [facility] Lymphocytes Relative 41.0 % LAB HEMETOLOGY METHOD 02/26/2024 6:25 PM [facility] Monocytes Relative 7.0 % LAB HEMETOLOGY METHOD 02/26/2024 6:25 PM [facility] Eosinophils Relative 0.7 % LAB HEMETOLOGY METHOD 02/26/2024 6:25 PM [facility] Basophils Relative 0.5 % LAB HEMETOLOGY METHOD 02/26/2024 6:25 PM [facility] Immature Granulocytes Relative 0.3 % LAB HEMETOLOGY METHOD 02/26/2024 6:25 PM [facility] Neutrophils Absolute 3.77 1.50 - 7.00 K/mcL LAB HEMETOLOGY METHOD 02/26/2024 6:25 PM [facility] Lymphocytes Absolute 3.06 1.00 - 5.00 K/mcL LAB HEMETOLOGY METHOD 02/26/2024 6:[address] [facility] Monocytes Absolute 0.52 0.20 - 1.00 K/[facility] LAB HEMETOLOGY METHOD 02/26/2024 6:[address] [facility] Eosinophils Absolute 0.05 0.00 - 0.50 K/[facility] LAB HEMETOLOGY METHOD 02/26/2024 6:[address] [facility] Basophils Absolute 0.04 0.00 - 0.20 K/[facility] HEMETOLOGY METHOD 02/26/2024 6:[address] [facility] Immature Granulocytes Absolute 0.02 0.00 - 0.03 K/[facility] LAB HEMETOLOGY METHOD 02/26/2024 6:[address] [facility] Blood Venous blood specimen / Unknown Venipuncture / Unknown 02/26/2024 2:07 PM EST 02/26/2024 2:07 PM EST us Nereyda Pierre MD LAB BLOOD ORDERABLES Final R esult [facility] [address] [place] [address], [place] [phone] * Iron and TIBC (02/26/2024 2:07 PM EST) Iron 86 50 - 160 mcg/dL LAB CHEMISTRY METHOD 02/26/2024 6:[address] [facility] TIBC 355 250 - 450 mcg/dL LAB CHEMISTRY METHOD 02/26/2024 6:[address] [facility] Iron Saturation 24 20 - 50 % LAB CHEMISTRY METHOD 02/26/2024 6:[address] [facility] Blood Venous blood specimen / Unknown Venipuncture / Unknown 02/26/2024 2:07 PM EST 02/26/2024 2:07 PM EST us Nereyda Pierre MD LAB BLOOD ORDERABLES Final R esult Performing Organization Address City/[facility]/ZIP Co de Phone Number [facility] [address] [place] [address], [place] [phone] * (ABNORMAL) Helicobacter pylori breath test (02/26/2024 2:07 PM EST) H Pylori Breath Test Positive( A) Negative LAB CHEMISTRY METHOD 02/28/2024 10:[address] [facility] Breath Oral cavity structure / Unknown Non-blood Collection / Unknown 02/26/2024 2:07 PM EST 02/26/2024 2:07 PM EST Nereyda Pierre MD LAB BODY FLUIDS AND STOOLS O RDERABLES Final Result Performing Organization Address [facility]/ZIP Co de Phone Number [facility] [address] [place] [address], [place] [phone] * Vitamin D 25 hydroxy (02/26/2024 2:07 PM EST) Pathologist [facility] Vit D, 25-Hydroxy 34.3 30.0 - 80.0 ng/mL LAB CHEMISTRY METHOD 02/26/2024 6:[address] [facility] Blood Venous blood specimen / Unknown Venipuncture / Unknown 02/26/2024 2:07 PM EST 02/26/2024 2:07 PM EST Nereyda Pierre MD LAB BLOOD ORDERABLES Final R esult Performing Organization Address City/[facility]/ZIP Co de Phone Number [facility] [address] [place] [address], [place] [phone] * Thyroid stimulating hormone (02/26/2024 2:07 PM EST) TSH 1.93 0.40 - 4.00 mcIU/mL LAB CHEMISTRY METHOD 02/26/2024 6:[address] [facility] Blood Venous blood specimen / Unknown Venipuncture / Unknown 02/26/2024 2:07 PM EST 02/26/2024 2:07 PM EST Nereyda Pierre MD LAB BLOOD ORDERABLES Final R esult Performing Organization Address [facility]/ZIP Co de Phone Number [facility] [address] [place] [address], [place] [phone] * (ABNORMAL) Vitamin B1 (02/26/2024 2:07 PM EST) Vitamin B1 Whole Blood 127(H) 38 - 122 ug/L 03/04/2024 9:20 AM EST [facility] Comment: This test was developed and the performance characteristics determined by [facility]. It has not been cleared or approved by the FDA. The laboratory is regulated under CLIA as qualified to perform high-complexity testing. This test is used for patient testing purposes. It should not be regarded as investigational or for research. Test performed at [facility], [address] , [place], [place] ??[address] ? [phone] Cat Rand MD, PhD - Nursing Agency Manager Blood Venous blood specimen / Unknown Venipuncture / Unknown 02/26/2024 2:07 PM EST 02/26/2024 2:07 PM EST Nereyda Pierre MD LAB BLOOD ORDERABLES Final R esult Performing Organization Address City/[facility]/ZIP Co de Phone Number [facility] [address] [place] [address] * Magnesium (02/26/2024 2:07 PM EST) Pathologist [facility] Magnesium 1.9 1.9 - 2.6 mg/dL LAB CHEMISTRY METHOD 02/26/2024 6:[address] [facility] Blood Venous blood specimen / Unknown Venipuncture / Unknown 02/26/2024 2:07 PM EST 02/26/2024 2:07 PM EST us Nereyda Pierre MD LAB BLOOD ORDERABLES Final R esult [facility] [address] [place] [address], [place] [phone] * (ABNORMAL) Hemoglobin A1c (02/26/2024 2:07 PM EST) Pathologist [facility] Hemoglobin A1C 8.6(H) <6.5 % LAB CHEMISTRY METHOD 02/26/2024 8:[address] [facility] Mean Bld Glu Estim. 200 mg/dL LAB CHEMISTRY METHOD 02/26/2024 8:[address] [facility] Blood Venous blood specimen / Unknown Venipuncture / Unknown 02/26/2024 2:07 PM EST 02/26/2024 2:07 PM EST us Nereyda Pierre MD LAB BLOOD ORDERABLES Final R esult [facility] [address] [place] [address], [place] [phone] * (ABNORMAL) Folate (02/26/2024 2:07 PM EST) [facility] Folate >20.0(H) 2.8 - 17.0 ng/ml LAB CHEMISTRY METHOD 02/26/2024 6:[address] [facility] Blood Venous blood specimen / Unknown Venipuncture / Unknown 02/26/2024 2:07 PM EST 02/26/2024 2:07 PM EST us Nereyda Pierre MD LAB BLOOD ORDERABLES Final R esult [facility] [address] [place] [address], [place] [phone] * Ferritin (02/26/2024 2:07 PM EST) Pathologist [facility] Ferritin 90 26 - 388 ng/mL LAB CHEMISTRY METHOD 02/26/2024 6:[address] [facility] Blood Venous blood specimen / Unknown Venipuncture / Unknown 02/26/2024 2:07 PM EST 02/26/2024 2:07 PM EST Nereyda Pierre MD LAB BLOOD ORDERABLES Final R esult Performing Organization Address City/[facility]/ZIP Co de Phone Number [facility] [address] [place] [address], [place] [phone] * (ABNORMAL) Vitamin B12 (02/26/2024 2:07 PM EST) [facility] Vitamin B-12 243(L) 250 - 900 pcg/mL LAB CHEMISTRY METHOD 02/26/2024 6:[address] [facility] Blood Venous blood specimen / Unknown Venipuncture / Unknown 02/26/2024 2:07 PM EST 02/26/2024 2:07 PM EST us Nereyda Pierre MD LAB BLOOD ORDERABLES Final R esult Performing Organization Address City/[facility]/ZIP Co de Phone Number [facility] [address] [place] [address], [place] [phone] * Cortisol (02/26/2024 2:07 PM EST) [facility] Cortisol 15.4 mcg/dL LAB CHEMISTRY METHOD 02/26/2024 6:[address] [facility] Blood Venous blood specimen / Unknown Venipuncture / Unknown 02/26/2024 2:07 PM EST 02/26/2024 2:[address] [facility] - 02/26/2024 6:41 PM EST CORTISOL REFERENCE RANGE ?? 8 AM SPEC: ??5.0-23.0 mcg/dL ?? 4 PM SPEC: ??3.0-16.0 mcg/dL ?? 8 PM SPEC: ??<5.0 mcg/dL us Nereyda Pierre MD LAB BLOOD ORDERABLES Final R esult [facility] [address] [place] [address], * (ABNORMAL) Comprehensive metabolic panel (02/26/2024 2:07 PM EST) Sodium 135 133 - 145 mmol/L LAB CHEMISTRY METHOD 02/26/2024 6:32 PM [facility] Potassium 5.2 3.5 - 5.5 mmol/L LAB CHEMISTRY METHOD 02/26/2024 6:32 PM [facility] Chloride 107 96 - 110 mmol/L LAB CHEMISTRY METHOD 02/26/2024 6:32 PM [facility] CO2 23 21 - 32 mmol/L LAB CHEMISTRY METHOD 02/26/2024 6:32 PM [facility] Anion Gap 5 3 - 11 LAB CHEMISTRY METHOD 02/26/2024 6:32 PM [facility] Glucose 206(H) 70 - 100 mg/dL LAB CHEMISTRY METHOD 02/26/2024 6:32 PM [facility] BUN 23 5 - 25 mg/dL LAB CHEMISTRY METHOD 02/26/2024 6:32 PM [facility] Creatinine 1.46(H) 0.70 - 1.30 mg/dL LAB CHEMISTRY METHOD 02/26/2024 6:32 PM [facility] eGFR 58(L) >=60 mL/min/1. 73m2 LAB CHEMISTRY METHOD 02/26/2024 6:32 PM [facility] Comment:Calculation based on the??Chronic Kidney Disease Epidemiology Collaboration (CKD-EPI) equation refit??without adjustment for race. BUN/Creatinine Ratio 15.8 LAB CHEMISTRY METHOD 02/26/2024 6:32 PM [facility] Calcium 9.6 8.5 - 10.5 mg/dL LAB CHEMISTRY METHOD 02/26/2024 6:32 PM [facility] AST (SGOT) 16 10 - 42 unit/L LAB CHEMISTRY METHOD 02/26/2024 6:32 PM [facility] ALT (SGPT) 28 10 - 60 unit/L LAB CHEMISTRY METHOD 02/26/2024 6:32 PM [facility] Alkaline Phosphatase 76 42 - 121 unit/L LAB CHEMISTRY METHOD 02/26/2024 6:32 PM [facility] Total Protein 8.1(H) 6.0 - 8.0 g/dL LAB CHEMISTRY METHOD 02/26/2024 6:32 PM [facility] Albumin 3.9 3.2 - 5.0 g/dL LAB CHEMISTRY METHOD 02/26/2024 6:32 PM [facility] Total Bilirubin 0.6 0.0 - 1.4 mg/dL LAB CHEMISTRY METHOD 02/26/2024 6:32 PM [facility] Blood Venous blood specimen / Unknown Venipuncture / Unknown 02/26/2024 2:07 PM EST 02/26/2024 2:07 PM EST us Nereyda Pierre MD LAB BLOOD ORDERABLES Final R esult [facility] [address] [place] [address], [place] [phone] from Last 3 Months Insurance [facility] [address] Care Teams Table Cover Folder Relationship Specialty Start Date End Date Damion Galicia MD [address] [place] [address] [address] [place], [place] PCP - General Internal Medicine 11/30/23
--- OUTSIDE RECORDS SUMMARY | 2024-04-30 17:48 | XMS_ITS | Clinical Summary ---
Author Organization [facility] Address [address] [place] [address] Care Team Providers Care Varnish Melter Helper Name Role Phone Humaira Thurston MD Primary Care Provider [phone] Allergies Active Allergy Reactions Criticality Noted Date [...] AM EDT Performed at: ??01 - [facility] [address] ??[id number] Food Science Technician: Cheryl Goodman MD, Phone: ??[phone] us David Perez MD LAB BLOOD ORDERABLES Final Re sult [facility] See order comments [place] [address] from Last 3 Months or Most Recently Relevant to Health Maintenance Insurance MEDICAID MEDICAID Care Teams Varnish Melter Helper Relationship Specialty Start Date End Date Humaira Thurston MD [address] [place] [phone] PCP - General Internal Medicine 12/27/22
--- OUTSIDE RECORDS SUMMARY | 2024-04-30 17:48 | XMS_ITS | Encounter Summary ---
Author Organization [facility] Address [address] [place] [phone] Care Team Providers Care Plastics Heat Welder Name Role Phone Damion Galicia MD Primary Care Provider Reason for Visit * Reason Onset Date Comments Advice Only 04/29/2024 Surgery PA Encounter Details Date Type Department Care Team (Late Contact Info) Description 04/29/2024 Telephone Bariatric Surgery - [facility] [address] [place] [phone] Nereyda Pierre MD 175 [facility] [address] [place] [address] Advice Only (Surgery PA) Social History Tobacco Use Types Packs/Day Years Used Date Smoking Tobacco: Never Assessed Sex and Gender Information Value Date Recorded Sex Assigned at Not on file Legal Sex Male 2:10 PM EST Gender Identity Not on file Sexual Orientation Not on file documented as of this encounter Progress Notes * Aminta Jimenez MA - 04/29/2024 12:33 PM EST Booking slip given however - patient still has to complete psych clearance for submission. Patient was made aware of this at last visit with dietitian. Once all requirements received, he will be submitted. documented in this encounter Plan of Treatment Upcoming Encounters Date Type Department Care Team (Late Contact Info) Description 05/22/2024 3:15 PM EDT Office Visit Orthopedic Surgery - [facility] [address] [facility] [address] [place] [address] Fernando Sosa, DPM [address] [facility] [address] [place] [address] 06/03/2024 2:00 PM EDT Nutrition Bariatric Surgery - [facility] [address] [facility] [address] [place] [phone] Carla Leyva, RD 175 [facility] [address] [place] [address] documented as of this encounter Visit Diagnoses Not on filedocumented in this encounter Care Teams Plastics Heat Welder Relationship Specialty Start Date End Date Damion Galicia MD [address] [place] [address] [address] [place], [place] PCP - General Internal Medicine 11/30/23 documented as of this encounter
--- OUTSIDE RECORDS SUMMARY | 2024-04-30 17:48 | XMS_ITS | Encounter Summary ---
Author Organization [facility] Address [address] [place] [id number] Care Team Providers Care Consulting Sme Name Role Phone Damion Galicia MD Primary Care Provider [phone] Reason for Visit * Reason Comments Follow-up Ready to sign Encounter Details Date Type Department Care Team (Late st Contact Info) Description 04/24/2024 1:15 PM EST Office Visit Bariatric Surgery - [place] [address] [place] [phone] Nereyda Pierre MD [address] [place] [address] Class 3 severe obesity with body mass [...] Mass Index 44.97 04/24/2024 1:28 PM EST documented in this encounter Progress Notes * Nereyda Pierre MD - 04/24/2024 1:15 PM EST Mr. Karson Martinez is a 53 y.o. year old male who presents for surgical follow up regarding obesity. HPI: Mr. Karson Martinez has been in the program for gastric bypass. Has been clear by dietitian. DVT in September. On Plavix and ASA. Most recent US was negative. Has been following diet. Weight about the same. ROS: GENERAL: No malaise, significant unintentional weight loss, fever, chills or night sweats. HEENT: No changes in hearing or vision, no nose bleeds or other nasal problems. NECK: No lumps, goiter, pain or significant neck swelling RESPIRATORY: No cough, wheezing or shortness of breath CARDIOVASCULAR: No chest pain, leg swelling or palpitations. GI: No abdominal discomfort, nausea, vomiting, or change in bowel habits. : No dysuria, frequency or incontinence. SKIN: No lesions, rash or itching. HEMATOLOGY: No prolonged bleeding, easy bruisability. LYMPHOLOGY No swollen nodes. MUSCULOSKELETAL: No abnormalities. NEURO: No abnormalities. All other systems reviewed which are negative. PAST MEDICAL HISTORY: Patient Active Problem List Diagnosis Date Noted Date Diagnosed Class 3 severe obesity with body mass index (BMI) of 40.0 to 44.9 in adult (CMS/[facility]) 01/10/2024 PAST SURGICAL HISTORY: No past surgical history on file. SOCIAL HISTORY: Social History Tobacco Use Smoking status: Not on file Smokeless tobacco: Not on file Substance Use Topics Alcohol use: Not on file FAMILY HISTORY: No family history on file. No family status information on file. MEDICATIONS: There are no discontinued medications. ACTIVE MEDICATIONS: Outpatient Medications Marked as Taking for the 04/24/24 encounter (Office Visit) with Nereyda Pierre MD Medication Sig Dispense Refill lisinopriL (PRINIVIL,ZESTRIL) 20 mg tablet Take 1 tablet (20 mg total) by mouth 1 (one) time each day. ALLERGIES: Allergies Allergen Reactions Glipizide PHYSICAL EXAM: Visit Vitals BP (!) 156/91 Pulse 72 Temp 36.6 ??C (97.8 ??F) (Temporal) Ht 1.626 m (64 ) Wt 119 kg (262 lb) BMI 44.97 kg/m?? BSA 2.2 m?? APPEARANCE: Alert and oriented and in no acute distress EYES: Conjunctiva normal and sclera normal and anicteric. NECK: Neck supple with no adenopathy. HEART: RRR with normal S 1 and S 2, no murmurs, no gallops. LUNG: Clear to auscultation LYMPH NODES: No gross cervical or clavicular lymphadenopathy. ABDOMEN: Bowel sounds normoactive, soft, non-tender, non-distended, EXTREMITIES: Extremities warm and well perfused without clubbing, cyanosis, or edema. SKIN: Skin color and texture normal. No rashes or lesions. NEUROLOGIC: Alert and oriented ??3. No motor or sensory deficits in the extremities. LABS/IMAGING: ASSESSMENT: 1. Class 3 severe obesity with body mass index (BMI) of 40.0 to 44.9 in adult, unspecified obesity type, unspecified whether serious comorbidity present (CMS/HCC) PLAN: 1. The patient is good candidate for gastric bypass. With help a lot with DM. Will start insurance process. documented in this encounter Plan of Treatment Upcoming Encounters Date Type Department Care Team (Late st Contact Info) Description 05/22/2024 3:15 PM EDT Office Visit Orthopedic Surgery [facility] [address] [phone] Fernando Sosa, DPM [address] [address] 06/03/2024 2:00 PM EDT Nutrition Bariatric Surgery - [place] [address] [phone] [address] 175 [facility] 120 [place] [address] documented as of this encounter Visit Diagnoses Diagnosis Class 3 severe obesity with body mass index (BMI) of 40.0 to 44.9 in adult, unspecified obesity type, unspecified whether serious comorbidity present (CMS/HCC)- Primary documented in this encounter Historical Medications * This list may reflect changes made after this encounter. lisinopriL (PRINIVIL,ZESTRIL ) 20 mg tablet Take 1 tablet (20 mg total) by mouth 1 (one) time each day. 10/12/2023 added in this encounter Care Teams Consulting Sme Relationship Specialty Start Date End Date Damion Galicia MD [address] [place] [address] [address] [place] PCP - General Internal Medicine 11/30/23 documented as of this encounter
--- OUTSIDE RECORDS SUMMARY | 2024-04-30 17:48 | XMS_ITS | Encounter Summary ---
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 Procedures AMB Referral to Podiatry Humaira Hood MD [address] [place], [place] [address]Is[place] [address] [facility] [place], [place] Phone: tel: fax: Fernando Sosa DPM [address] [address] Phone: tel: fax: Referral ID Status Reason Start Date Expiration Date V isits Requested Visits Authorized [id number] Closed Consult and Treat 1 Encounter Details Date Type Department Care Team (Late st Contact Info) Description 04/09/2024 2:15 PM EST Office Visit Orthopedic Surgery - [place] [id number] [phone] Fernando Sosa DPM [address] [address] Dermatophytosis of nail (Primary Dx); Plantar fascial [...] (BMI) of 40.0 to 44.9 in adult (CMS/[facility]) SOCIAL HISTORY: Social History Tobacco Use Smoking [...] protective sensation intact 10/10 with 5.07 semmes lliian bilaterally, vibratory sensation with tuning fork intact [...] 3:15 PM EDT Office Visit Orthopedic Surgery [facility] [address] [phone] Fernando Sosa DPM [address] [address] 06/03/2024 2:00 PM EDT Nutrition Bariatric Surgery - [place] 175 [facility] [address] [place] [address] 175 [facility] 120 [place] [address] documented as of this encounter Procedures Procedure [...] mg documented in this encounter Care Teams Instructional Technology Instructor Relationship Specialty Start Date End Date Damion Galicia MD [address] [place] [address] [address] CAROL Alvarado PCP - General Internal Medicine 11/30/23 documented as of this encounter
== END 2024-04-30 15:15 | disposition home or self-care (01) ==
PROVIDERS: PCP Internal Medicine; Visit Provider Urology
DX: E11.69 Type 2 diabetes mellitus with other specified complication (principal); N52.1 Erectile dysfunction due to diseases classified elsewhere; N48.1 Balanitis
CPT/HCPCS: 99214

== ENCOUNTER → 2024-04-30 14:44 | Outpatient (BNVA) | payer OTHER, SELFPAY | PROVIDERS: PCP Internal Medicine; Visit Provider Urology | DX: E11.69 Type 2 diabetes mellitus with other specified complication (principal); N52.1 Erectile dysfunction due to diseases classified elsewhere; N48.1 Balanitis | CPT/HCPCS: 99212 ==

== ENCOUNTER 2024-05-29 11:15 | Day surgery (SDC) | payer OTHER, SELFPAY ==
--- NOTE | 2024-05-27 14:51 | P.CONAN_ITS ---
Documented by User: Padmini Vaughn NP 05/27/24 14:56 HPI - Anesthesia Eval Consult details Narrative: 53yo M for Circumcision [facility] Vascular for PAD - asa/plavix BMI: 43 Anesthesia Pre-Procedure Meds Is the patient on any of the following meds?: GLP1/DPP4 PMFSH Active Problems Active Problems: All Active Problems Latent tuberculosis (Acute) Erectile dysfunction associated with type 2 diabetes mellitus (Acute) Peripheral arterial disease (Acute) Hyperkalemia (Acute) Occlusion of left peroneal artery (Acute) Encounter for circumcision (Acute) Balanitis (Acute) Acid reflux (Acute) Immunization due (Acute) Adult general medical exam (Acute) Screening for colon cancer (Acute) Screening for prostate cancer (Acute) Gastroenteritis (Acute) BPH loc w urin obs/LUTS (Acute) Hospital discharge follow-up (Acute) Acute pyelonephritis (Acute) Cough (Acute) Mixed hyperlipidemia (Acute) Mild intermittent asthma (Acute) Hyperkalemia (Acute) Morbid obesity (Acute) Renal calculi (Acute) Dyslipidemia (Acute) CKD (chronic kidney disease) (Acute) Essential hypertension (Acute) Diabetes mellitus (Acute) HIV (human immunodeficiency virus infection) (Acute) Past Medical History Medical History (Updated 05/29/24 @ 13:30 by Lanie Kumar MD) Erectile dysfunction associated with type 2 diabetes mellitus Mixed hyperlipidemia Mild intermittent asthma Hyperkalemia Morbid obesity Renal calculi Morbid obesity Dyslipidemia CKD (chronic kidney disease) Essential hypertension Diabetes mellitus HIV (human immunodeficiency virus infection) Family History Family History Father Myocardial infarction Hypertension CVD (cardiovascular disease) Mother Stroke CVD (cardiovascular disease) Mental health disorder Sister Diabetes Surgical History Surgical History No pertinent past surgical history Social History Social History Housing: Apartment Alcohol intake: former Patient Tobacco Use Status: Never used Tobacco e-Cigarette/Vaping Use: Never Used Second Hand Smoke Exposure: Yes Use of substances other than those prescribed or required for medical reasons: No Advance Directives: No Advance Directives Information Provided: Yes service: No Current occupational status: employed Current occupational exposures/hazards: No Cognitive needs: No Hearing needs: No Vision needs: No Meds Allergies Allergy/AdvReac Type Severity Reaction Status Date / Time glipizide Allergy Mild rash Verified 05/29/24 12:32 tuberculin, purified protein Allergy Mild Swelling Verified 05/29/24 12:32 deriva martinez Allergy Mild Hives Uncoded 05/29/24 12:32 jardiance AdvReac Severe Rash/balani Uncoded 05/29/24 12:32 tis Home Medications ?Medication ?Instructions ?Recorded ?Confirmed ?Last Taken ?Type amitriptyline 100 mg tablet 100 mg PO BEDTIME 01/20/20 05/29/24 Unknown History topiramate 100 mg tablet 100 mg PO BID 08/31/21 05/29/24 Unknown History meclizine 25 mg tablet mg PO DAILY 07/12/23 04/02/24 Unknown History gabapentin 300 mg capsule 300 mg PO DAILY 11/13/23 05/29/24 Unknown History insulin lispro protamine-lispro subcut 03/13/24 04/02/24 Unknown History 100 unit/mL (75-25) subcutaneous pen Exam Pertinent Lab Results Pertinent Lab Results: Laboratory Tests 10/25/23 02/25/24 16:32 11:12 WBC 9.7 Hgb 17.0 Hct 50.8 Plt Count 305 Sodium 140 Potassium 5.3 H Chloride 108 Carbon Dioxide 24 BUN 22 H Creatinine 1.47 H Laboratory Tests 04/02/24 13:46 Hgb A1c (Clinic) 8.1 H Narrative Narrative: ECHO 2023 Conclusions: - 1. Normal LV ejection fraction of 65-70% with mild LVH with impaired relaxation filling pattern 2. Normal cardiac valvular Dopplers 3. No gross pericardial effusion Assessment and Plan Assessment Anesthesia Assessment: Chart Reviewed Documented by User: Lanie Kumar MD 05/29/24 14:11 HPI - Anesthesia Eval Consult details Narrative: 53yo M for Circumcision C Vascular for PAD - asa/plavix BMI: 43 Addendum: Last K+ 5.3 Will check Repeat K+ 05/29/24 4.7 Anesthesia Pre-Procedure Meds Is the patient on any of the following meds?: GLP1/DPP4 (Last dose of dulaglutide 05/10/24) If yes to any meds - educate patient: Pt education - increased risk of aspiration and/or euvolemic DKA [facility] Active Problems Active Problems: All Active Problems Latent tuberculosis (Acute) Erectile dysfunction associated with type 2 diabetes mellitus (Acute) Peripheral arterial disease (Acute) Hyperkalemia (Acute)- Last K+ 5.3 Occlusion of left peroneal artery (Acute) Encounter for circumcision (Acute) Balanitis (Acute) Acid reflux (Acute) Immunization due (Acute) Adult general medical exam (Acute) Screening for colon cancer (Acute) Screening for prostate cancer (Acute) Gastroenteritis (Acute) BPH loc w urin obs/LUTS (Acute) Acute pyelonephritis (Acute) Cough (Acute) Mixed hyperlipidemia (Acute) Mild intermittent asthma (Acute). No symptoms recently Morbid obesity (Acute) BMI 45.3. Denies KAYLA Renal calculi (Acute) Dyslipidemia (Acute) CKD (chronic kidney disease) (Acute) Essential hypertension (Acute) Diabetes mellitus (Acute) HIV (human immunodeficiency virus infection) (Acute) Past Medical History Medical History (Updated 05/29/24 @ 13:30 by Lanie Kumar MD) Erectile dysfunction associated with type 2 diabetes mellitus Mixed hyperlipidemia Mild intermittent asthma Hyperkalemia Morbid obesity Renal calculi Morbid obesity Dyslipidemia CKD (chronic kidney disease) Essential hypertension Diabetes mellitus HIV (human immunodeficiency virus infection) Family History Family History Father Myocardial infarction Hypertension CVD (cardiovascular disease) Mother Stroke CVD (cardiovascular disease) Mental health disorder Sister Diabetes Family history of problems with anesthesia: No Surgical History Surgical History No pertinent past surgical history History of Problems with Anesthesia: No Social History Social History Housing: Apartment Alcohol intake: former Patient Tobacco Use Status: Never used Tobacco e-Cigarette/Vaping Use: Never Used Second Hand Smoke Exposure: Yes Use of substances other than those prescribed or required for medical reasons: No Advance Directives: No Advance Directives Information Provided: Yes service: No Current occupational status: employed Current occupational exposures/hazards: No Cognitive needs: No Hearing needs: No Vision needs: No Meds Allergies Allergy/AdvReac Type Severity Reaction Status Date / Time glipizide Allergy Mild rash Verified 05/29/24 12:32 tuberculin, purified protein Allergy Mild Swelling Verified 05/29/24 12:32 deriva martinez Allergy Mild Hives Uncoded 05/29/24 12:32 jardiance AdvReac Severe Rash/balani Uncoded 05/29/24 12:32 tis Home Medications ?Medication ?Instructions ?Recorded ?Confirmed ?Last Taken ?Type amitriptyline 100 mg tablet 100 mg PO BEDTIME 01/20/20 05/29/24 Unknown History topiramate 100 mg tablet 100 mg PO BID 08/31/21 05/29/24 Unknown History meclizine 25 mg tablet mg PO DAILY 07/12/23 04/02/24 Unknown History gabapentin 300 mg capsule 300 mg PO DAILY 11/13/23 05/29/24 Unknown History insulin lispro protamine-lispro subcut 03/13/24 04/02/24 Unknown History 100 unit/mL (75-25) subcutaneous pen Exam Height,Weight and Vital Signs: Height 5 ft 4 in Weight 119.748 kg Vital Signs Temp Pulse Resp BP Pulse Ox O2 Del Method 05/29/24 12:12 97.7 F 80 18 168/80 H 96 Room Air Pertinent Lab Results Pertinent Lab Results: Laboratory Tests 10/25/23 02/25/24 16:32 11:12 WBC 9.7 Hgb 17.0 Hct 50.8 Plt Count 305 Sodium 140 Potassium 5.3 H Chloride 108 Carbon Dioxide 24 BUN 22 H Creatinine 1.47 H Laboratory Tests 04/02/24 13:46 Hgb A1c (Clinic) 8.1 H Lab Results 05/29/24 05/29/24 Range/Units 12:42 13:17 Sodium 139 (135-145) mmol/L Potassium 4.7 (3.3-5.1) mmol/L Chloride 106 (96-108) mmol/L Carbon Dioxide 26 (22-29) mmol/L Anion Gap 12 (12-20) BUN 18 H (9-16) mg/dL Creatinine 1.00 (0.5-1.4) mg/dL Estim Creat Clear Calc 101.9 Estimated GFR > 60 POC Glucose 125 H (60-115) mg/dL Fasting Glucose 126 H (60-99) mg/dL Calcium 9.2 (8.4-10.2) mg/dL Airway Mallampati Class: II TM Dist: >3cm Neck ROM: Full Partial: Upper and Lower Loose/Missing/Broken Teeth: Yes (Partial dentures. Denies broken or loose teeth) Heart: RRR Lungs: CTAB Assessment and Plan Assessment Anesthesia Assessment: Anesthesia Plan Discussed and Chart Reviewed Final Anesthetic Review Family History of Problems with Anesthesia: No History of Problems with Anesthesia: No NPO: Yes ASA Class: III Final Preanesthetic Review: No Changes in Pt Med Stat, Meds/Allgs Chart Reviewed, Consent Obtained/Reviewed and Anes Risks/Benef Reviewed Patient Risk: Intermediate Procedure Risk: Low Assessment/Block/Sedation in SS: Assess/Block/Sedation-SS Anesthetic Plan Anesthetic Plan: GA Disposition: Standard PACU
[2024-05-29] VITALS (12 sets, daily range): BP systolic 115–168; BP diastolic 60–80; PULSE 72–84; RESP 12–18; TEMP 36.1–36.5; O2SAT 94–99; BMI 45.3
[2024-05-29] MEDS: Lactated Ringers 1,000 ML 100 ML IVCONT (12:46)
[2024-05-29 12:49] LABS: Glucose, Whole Blood 125 mg/dL (60-115)
[2024-05-29 13:37] LABS: Anion Gap 12 (12-20); Blood Urea Nitrogen 18 mg/dL (9-16); Calcium 9.2 mg/dL (8.4-10.2); Carbon Dioxide 26 mmol/L (22-29); Chloride 106 mmol/L (96-108); Creatinine Clr Calc Pharmacy 101.9; Estimated Glomerular Filt Rate > 60; Glucose Fasting 126 mg/dL (60-99); Potassium 4.7 mmol/L (3.3-5.1); Sodium 139 mmol/L (135-145)
--- NOTE | 2024-05-29 13:41 | MHC.SHP ---
Pre-Procedural Eval Section A - 24 Hr Update-Section A only Date of Service: 05/29/24 The patient is an INPATIENT: No Changes since office visit: No Cold of Flu in the past 2 weeks, No New Medical Problems, No Changes in Medication and No Patient answered all questions The patient has been examined within 24 hours of the surgical procedure. The History & Physical has been completed within 30 days and I have reviewed it.: Yes Section B - Complete if H&P > 30 days Chief Complaint: Balanitis Details of Present Illness: circumcision Allergies: Allergies Allergy/AdvReac Type Severity Reaction Status Date / Time glipizide Allergy Mild rash Verified 05/29/24 12:32 tuberculin, purified protein Allergy Mild Swelling Verified 05/29/24 12:32 deriva martinez Allergy Mild Hives Uncoded 05/29/24 12:32 jardiance AdvReac Severe Rash/balani Uncoded 05/29/24 12:32 tis Plan I have reviewed the history and physical and performed a pertinent physical examination on my patient. No changes have occurred unless specified. Time Spent With Patient Time: Total time managing care of this patient today ____ minutes.
[2024-05-29] MEDS: ceFAZolin Sodium/Dextrose,Iso 2 GM/50 ML PIGGYBACK IV (13:49)
[2024-05-29] MEDS: Acetaminophen 1,000 MG/100 ML PIGGYBACK 400 MG IV (13:49)
--- NOTE | 2024-05-29 14:36 | P.OP_ITS ---
Operative Note Operative Note Date of Service: 05/29/24 Narrative: PreOperative Diagnosis: Balanitis and phimosis Post Operative Diagnosis: Balanitis and phimosis Procedure: Circumcision Surgeon: Dr Donny Irvin Anesthesia: General Indications for procedure: Recurring balanitis in inability to withdrawal foreskin of penile glans. Risks and benefits including bleeding, scarring, need for revision surgery been discussed. Procedure: After informed consent was verified the patient was brought to the operating room and placed in a supine position. Anesthesia was administered per protocol. The patient was prepped and draped sterile fashion. Safety pause time-out was performed. Antibiotics have been given. The penis was examined and proximal incision marked that lay just proximal to the resting position of the penile sulcus. This was followed around the circumference of the penis. A penile ring block was performed using 1% lidoca ine with no epinephrine. Approximately 8 cc. The proximal incision was developed with sharp blade running circumferentially around the penis. The skin was to give a 1 cm separation between the foreskin in the remaining penile shaft skin. The foreskin was withdrawn and the penile glans exposed. A a distal incision was made approximately 5 mm proximal to the penile sulcus. At the area of the frenulum care was taken to empty the penile frenulum intact. Using clamps the dorsal skin was elevated. Using Metzenbaum scissors the avascular plane was entered and proximal and distal incision were joined. The bridging skin was elevated and clamped. It was then divided using Bovie. The sleeve of tissue was then removed circumferentially around the penis using cautery in order to minimize bleeding. The shaft was then examined in any bleeding areas were controlled. More local anesthetic was injected into the plane beneath avascular plane to help with postprocedure pain management. The skin edges after they were appropriately examined low reapposed. A 3-0 chromic suture was placed at 12:00 o'clock and 06:00 o'clock positions. Interrupted 3-0 was then placed the 09:00 o'clock and 3 o'clock position. Each quadrant was then filled with 3 sutures using 4-0 chromic. At the completion of the procedure there was adequate hemostasis. The incision was washed and dried. Antibiotic cream was applied to the incision. A Sandra wrap was applied followed by a Coban dressing. Xeroform gauze had been used to cover antibiotic ointment. He tolerated the procedure well and was extubated in the room and transferred in stable condition to the recovery area. Pathology: Foreskin Drains: none
[2024-05-29] MEDS: ondansetron HCL 4 MG/2 ML VIAL IVPUSH (15:45)
== END 2024-05-29 17:15 | disposition home or self-care (01) ==
PROVIDERS: Anesthesiology; PCP Internal Medicine; Visit Provider Urology
PROC: (CPT 54161; principal; 2024-05-29 13:30)
DX: N48.1 Balanitis (principal); N47.1 Phimosis; E11.69 Type 2 diabetes mellitus with other specified complication; N52.1 Erectile dysfunction due to diseases classified elsewhere; E11.22 Type 2 diabetes mellitus with diabetic chronic kidney disease; I12.9 Hypertensive chronic kidney disease with stage 1 through stage 4 chronic kidney disease, or unspecified chronic kidney disease; N18.9 Chronic kidney disease, unspecified; B20 Human immunodeficiency virus [HIV] disease; E78.2 Mixed hyperlipidemia; J45.20 Mild intermittent asthma, uncomplicated; E66.01 Morbid (severe) obesity due to excess calories; Z79.4 Long term (current) use of insulin; Z79.85 Long-term (current) use of injectable non-insulin antidiabetic drugs; Z79.84 Long term (current) use of oral hypoglycemic drugs; Z79.899 Other long term (current) drug therapy; Z79.82 Long term (current) use of aspirin; Z88.8 Allergy status to other drugs, medicaments and biological substances
CPT/HCPCS: 54161; 36415; 80048; 82947; 88304; J0131; J0690; J1100; J2003; J2250; J2405; J2704; J2795; J3010

== ENCOUNTER → 2024-05-29 11:15 | Outpatient (BNV) | payer OTHER, SELFPAY | PROVIDERS: PCP Internal Medicine; Visit Provider Urology | DX: N48.1 Balanitis (principal); N47.1 Phimosis | CPT/HCPCS: 54161 ==

== ENCOUNTER 2024-06-02 14:35 | Outpatient (AMB) | payer OTHER, SELFPAY ==
--- NOTE | 2024-06-02 14:36 | MHC.PC.OV ---
Vital Signs 06/02/24 14:37 Height 5 ft 4 in Weight 264 lb BMI 45.3 BP 130/86 Blood Pressure Location Lt brachial Position Sitting Intake Visit Reasons: Annual Exam Intake Note: Patient here for an annual physical exam Cowlman Required: Yes Cowlman Language: Cognos Bi Developer Name: Humaira Hood MD Information Interpreted: non-clinical & clinical Accompanied by: Self / Same As Patient Allergies glipizide Allergy (Mild, Verified 06/02/24 14:49) rash tuberculin, purified protein deriva Allergy (Mild, Verified 06/02/24 14:49) Swelling martinez Allergy (Mild, Uncoded 06/02/24 14:49) Hives jardiance Adverse Reaction (Severe, Uncoded 06/02/24 14:49) Rash/balanitis Medication List - Last Reconciled 06/02/24 by Humaira Hood MD amitriptyline 100 mg PO BEDTIME aspirin 81 mg PO DAILY 30 days atorvastatin 80 mg PO BEDTIME 90 days linigzjih-cmxjeeee-vbyqnlg ala 50-200-25 mg (Biktarvy) 1 tab PO DAILY 30 days blood sugar diagnostic Use 1 test strip twice a day blood sugar diagnostic (Accu-Chek Guide test strips) Use 1 test strip three times a day blood sugar diagnostic (FreeStyle Lite Strips) As directed 3 times per day blood-glucose meter (Accu-Chek Guide Glucose Meter) As directed blood-glucose meter (FreeStyle Lite Meter kit) As directed budesonide 90 mcg/actuation (Pulmicort Flexhaler) 1 inh inhalation BID cholecalciferol (vitamin D3) 50 mcg PO DAILY 90 days clopidogrel (Plavix) 75 mg PO DAILY 30 days clotrimazole 1% 1 appl topical BID 4 weeks dulaglutide (Trulicity) 1.5 mg (0.5 mL) subcut QWEEK 90 days fenofibrate 54 mg PO DAILY 90 days gabapentin 300 mg PO DAILY glyburide 5 mg PO BID insulin glargine (Lantus Solostar U-100 Insulin) 20 units (0.2 mL) subcut QPM 90 days insulin lispro protamin-lispro 100 unit/mL (75-25) subcut lancets (FreeStyle Lancets) Use 1 lancet three times a day lancets (Accu-Chek Fastclix Lancet Drum) Use 1 lancet three times a day lisinopril 10 mg PO DAILY 90 days meclizine mg PO DAILY nebulizers (AeroEclipse II Nebulizer) As directed oxycodone 5 mg PO Q8H PRN 3 days pen needle, diabetic (Comfort EZ Pen Asher) Use 1 pen needle twice a day sodium chloride 0.9% 1 mL inhalation Q8H PRN 90 days sulfamethoxazole-trimethoprim 400-80 mg (Bactrim) 1 tab PO DAILY tadalafil 20 mg PO ONCE PRN 30 days tadalafil 5 mg PO DAILY 90 days topiramate 100 mg PO BID Tobacco use date assessed: 04/02/24 Dental Screening Dental Screen Date: 04/02/24 HPI HPI Comments History of Present Illness Details The patient is a 53-year-old male presenting for an annual physical examination. His medical history includes Type 2 Diabetes Mellitus with recent glycemic levels of Hemoglobin A1c at 8.1%, highlighting a necessity for optimal diabetes management. He reports a history of allergic reaction to Glipizide, and an adverse effect from Empagliflozin (Jardiance), both previously used for glycemic control. Ongoing management includes insulin glargine, but he questions its effectiveness, and other medications such as metformin and Trulicity are implied. Further, the patient manages hyperlipidemia with atorvastatin, showing LDL regulation, and presents hypertension history. 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 Anticoagulation discussion emphasized his use of Plavix and aspirin for prevention post-vascular surgery. Has history of occlusion of left peroneal artery and peripheral vascular disease. He also has HIV that has been stable with medications. He has undergone bariatric surgery to support weight loss efforts. Family history includes mother's dementia and father's cardiac events culminating in from myocardial infarction. Preventative health discussions encompassed pneumonia vaccination and colorectal cancer screening via Cologu[facility], though official colonoscopy is pending. He denies tobacco use and reports prior alcohol consumption with cessation after realizing potential health consequences. - Pneumonia vaccination completed. - Colorectal cancer screening via Cologuard three years prior; preparation for colonoscopy initiated but not completed. - Hemoglobin A1c last checked in March with a result of 8.1%. - LDL cholesterol measured at 85. - Bariatric surgery for weight management. - Management of hypertension and hyperlipidemia with medications. [facility] Medical History Erectile dysfunction associated with type 2 diabetes mellitus Mixed hyperlipidemia Mild intermittent asthma Hyperkalemia Morbid obesity Renal calculi Morbid obesity Dyslipidemia CKD (chronic kidney disease) Essential hypertension Diabetes mellitus HIV (human immunodeficiency virus infection) Surgical History No pertinent past surgical history Family History Father Myocardial infarction Hypertension CVD (cardiovascular disease) Mother Stroke CVD (cardiovascular disease) Mental health disorder Sister Diabetes Social History Housing: Apartment Alcohol intake: former Patient Tobacco Use Status: Never used Tobacco e-Cigarette/Vaping Use: Never Used Second Hand Smoke Exposure: Yes service: No Current occupational status: employed Current occupational exposures/hazards: No Cognitive needs: No Hearing needs: No Vision needs: No Questionnaire PHQ-9 Over the last 2 weeks, how often have you been bothered by any of the following problems? 1. Little interest or pleasure in doing things: not at all 2. Feeling down, depressed, or hopeless: not at all 3. Trouble falling or staying asleep, or sleeping too much: not at all 4. Feeling tired or having little energy: not at all 5. Poor appetite or overeating: not at all 6. Feeling bad about yourself - or that you are a failure or have let yourself or your family down: not at all 7. Trouble concentrating on things, such as reading the newspaper or watching television: not at all 8. Moving or speaking so slowly that other people could have noticed. Or the opposite - being so fidgety or restless that you have been moving around a lot more than usual: not at all 9. Thoughts that you would be better off or of hurting yourself in some way: not at all Total score: 0 Depression Screening Interpretation: Negative Depression Screening Done: Yes 61337 - PHQ-9 Billing: Yes Source: Developed by Drs. Maykel Moreau, Krystal Montaño, Deniz Burgos and colleagues, with an educational samantha from [employer]. Thrive Questionnaire Date Thrive assessed: 04/02/24 I am a: Patient What is your living situation today?: I choose not to answer this question Within the past 12 months, did the food you bought not last and you didn't have the money to get more?: I choose not to answer this question Within the past 12 months, did you worry whether your food would run out before you got money to buy more?: I choose not to answer this question Do you have trouble paying for medicines?: I choose not to answer this question Do you have trouble getting transportation to medical appointments?: I choose not to answer this question Do you have trouble paying your heating and electricity bill?: I choose not to answer this question Do you have trouble taking care of your child, family member or friend?: I choose not to answer this question Do you have trouble with day-to-day activities such as bathing, preparing meals, shopping, managing finances, etc.?: I choose not to answer this question Are you currently unemployed and looking for a job?: I choose not to answer this question Are you interested in more education?: I choose not to answer this question Please select the resources that you would like help with: Transportation Currently or been in a relationship where the following occur: I choose not to answer THRIVE Score: 0 AUDIT C Alcohol Use Questionnaire (AUDIT-C) 1. How often do you have a drink containing alcohol?: Never Total Score: 0 Score Reviewed/Action Taken: No SARAH-7 AMB Questionnaire SARAH-7 Date SARAH - 7 assessed: 04/02/24 Feeling nervous, anxious, or on edge: 0 = Not at all Not being able to stop or control worryin = Not at all Worrying too much about different things: 0 = Not at all Trouble relaxin = Not at all Being so restless that it is hard to sit still: 0 = Not at all Becoming easily annoyed or irritable: 0 = Not at all Feeling afraid as if something awful might happen: 0 = Not at all Total SARAH-7 score (0-4 normal; 5-9 mild; 10-14 moderate; 15-21 severe): 0 Source: Developed by Drs. Maykel Moreau, Krystal Montaño, Deniz Burgos and colleagues, with an educational samantha from [employer]. SARAH-7 Assessment Billing SARAH-7 Assessment Tool: SARAH-7 Assessment 13954 Review of Systems Const All systems reviewed & are unremarkable except as noted in HPI and below Card Denies chest pain at rest, Denies chest pain with activity, Denies edema, Denies irregular heart rhythm, Denies claudication, Denies dyspnea, Denies dyspnea on exertion, Denies orthopnea, Denies paroxysmal nocturnal dyspnea and Denies slow heart rate Resp Denies cough, Denies dyspnea and Denies dyspnea on exertion GI Denies abdominal pain, Denies change in bowel habits, Denies excessive flatus, Denies nausea and Denies vomiting Denies urinary hesitancy, Denies urinary incontinence and Denies urinary urgency Musc Denies abnormal gait, Denies atrophy, Denies deformity and Denies limited range of motion Skin/Breast Denies bleeding lesions, Denies changing lesions and Denies rash Neuro Denies abnormal gait and Denies lack of coordination Physical exam (Primary Care) Vital Signs: Last Vital Signs BP 130/86 06/02/24 14:37 BMI result Body Mass Index 45.3 BMI Assessment/Plan discussion: High BMI High, discussed plan: lifestyle, weight reduction, dietary and physical activity Tobacco/Smoking Status: Tobacco use Status Tobacco use date assessed 04/02/24 06/02/24 14:42 Patient Tobacco Use Status Never used Tobacco 06/02/24 14:42 Tobacco use type 04/02/24 13:44 e-Cigarette/Vaping Use Never Used 06/02/24 14:42 PHQ-9: PHQ-9 Score PHQ-9: Total score 0 06/02/24 15:08 Depression Screening Interpretation: Negative Thrive Assessment: Date of Thrive Assessment Date Thrive assessed 04/02/24 06/02/24 14:42 Currently or been in a relationship where the following occur: I choose not to answer [facility] Head: Yes normal to inspection, Yes normocephalic and Yes atraumatic Ears: external ears normal Eyes General: appearance normal, both eyes and all related structures Eyelids: Yes eyelids normal Conjunctivae: conjunctivae normal Neck Neck: Yes normal visual inspection and Yes supple Resp Effort & Inspection: normal respiratory effort Auscultation: clear to auscultation bilaterally Cardio Jugular venous distension: no JVD Rate: regular rate Rhythm: regular rhythm Heart sounds: S1 normal heart sound present and S2 normal heart sound present GI Inspection: Yes normal to inspection Palpation (GI): Soft to palpation and nontender Auscultation: normal bowel sounds Skin General skin exam: no rashes or lesions noted Neuro General: no focal motor deficits Extrem General: Yes full ROM Psych Appearance: grossly normal Coding Level of Care Code Est Pt Prev Care 40-64y(12850) Diagnoses Adult general medical exam Z00.00 Type 2 diabetes mellitus with stage 3a chronic kidney disease, with long-term current use of insulin E11.22; N18.31; Z79.4 Chronic kidney disease stage: stage 3 (moderate) Chronic kidney disease stage 3 subtype: stage 3a (GFR 45-59) Diabetes mellitus complication detail: with chronic kidney disease Diabetes mellitus complication status: with kidney complications Diabetes mellitus buttermaker continuous churn insulin use: with buttermaker continuous churn use Diabetes mellitus type: type 2 Asymptomatic HIV infection, with no history of HIV-related illness Z21 HIV symptom status: asymptomatic, with no history of HIV-related illness Morbid obesity E66.01 Peripheral arterial disease I73.9 Occlusion of left peroneal artery I70.202 Additional Codes SARAH-7 Assessment Billing - SARAH-7 Assessment Tool: SARAH-7 Assessment 61346 ([id number]) PHQ-9 - 12524 - PHQ-9 Billing: Yes ([id number]) Time Spent (min) 30 Assessment & Plan Assessment & Plan (1) Adult general medical exam: Code(s): Z00.00 - Encounter for general adult medical examination without abnormal findings Category: Medical (2) Diabetes mellitus: Code(s): E11.9 - Type 2 diabetes mellitus without complications Category: Medical Qualifiers: Chronic kidney disease stage: stage 3 (moderate) Chronic kidney disease stage 3 subtype: stage 3a (GFR 45-59) Diabetes mellitus complication detail: with chronic kidney disease Diabetes mellitus complication status: with kidney complications Diabetes mellitus buttermaker continuous churn insulin use: with skilled nursing use Diabetes mellitus type: type 2 Qualified Code(s): E11.22 - Type 2 diabetes mellitus with diabetic chronic kidney disease; N18.31 - Chronic kidney disease, stage 3a; Z79.4 - buttermaker continuous churn (current) use of insulin (3) HIV (human immunodeficiency virus infection): Comment: He is doing well He has been taking Biktarvy His CD4 count is 961 and viral load is undetectable 09/04. His RPR is 1:4 and stable. Continue Biktarvy Check labs February 2024 and see March 2024.(written for) Also renewal Blake Carter from Dr Irvin (last prescriberJ He will let us know if wishes to get rectal Pap. Code(s): B20 - Human immunodeficiency virus [HIV] disease Category: Medical Qualifiers: HIV symptom status: asymptomatic, with no history of HIV-related illness Qualified Code(s): Z21 - Asymptomatic human immunodeficiency virus [HIV] infection status (4) Morbid obesity: Code(s): E66.01 - Morbid (severe) obesity due to excess calories Category: Medical (5) Peripheral arterial disease: Code(s): I73.9 - Peripheral vascular disease, unspecified Category: Medical (6) Occlusion of left peroneal artery: Code(s): I70.202 - Unspecified atherosclerosis of [place] arteries of extremities, left leg Category: Medical Plan A comprehensive management approach was discussed involving adjustments to his diabetic regimen due to expressed concerns over medication efficacy and allergic history, while ensuring his hyperlipidemia remains managed effectively with atorvastatin. The anticoagulation strategy using Plavix and aspirin will continue given the absence of bleeding risks. Post-operative follow-up is prioritized to adequately assess healing of the supernumerary digit surgical site. A commitment to enhance preventative care through completion of a colonoscopy as well as appropriate laboratory monitoring was established. The patient has been educated on continuing current medication regimens and the significance of adherence to set appointments and utilizing available health resources. Patient was informed and verbally consented to the use of an ambient scribe for clinic note documentation during this visit. I thoroughly discussed the patient's management strategies for his chronic conditions, detailing the necessity of diabetes medication optimization due to inadequate glucose control and previous drug adverse effects. For hyperlipidemia, I affirmed the atorvastatin regimen, emphasizing lab-confirmed LDL control. Anticoagulation therapy using Plavix and aspirin will proceed regarding previous vascular surgical history, avoiding Eliquis mention due to patient stability without it. Colon cancer prevention was reiterated with the importance of completing colonoscopy scheduled procedures. Reassurance was provided about post-operative healing, and a clear health maintenance schedule was recommended, including future follow-up visits and labs. Orders: Orders Microalbumin, Random (w Creat) 4 Months R80.9 - Proteinuria, unspecified Vitamin D 25-OH Total 4 Months E55.9 - Vitamin D deficiency, unspecified Lipid Panel 4 Months E78.5 - Hyperlipidemia, unspecified Comprehensive Zenia. Panel Fast 4 Months E11.22 - Type 2 diabetes mellitus with diabetic chronic kidney disease, N18.31 - Chronic kidney disease, stage 3a, Z79.4 - buttermaker continuous churn (current) use of insulin Referrals Gastroenterology Referral Z12.11 - Encounter for screening for malignant neoplasm of colon Medications: New lisinopril 20 mg PO DAILY 90 tabs 3RF 90 days lisinopril 20 mg PO DAILY 90 days 90 tabs 3RF Discontinued lisinopril Discontinued Reason: Patient Completed Course 10 mg PO DAILY 90 days 90 tabs 1RF Patient Instructions: - Continue medication regimen as directed. - Complete post-operative follow-up as scheduled. - Schedule and prepare for a colonoscopy given prior instruction. - Contact the office if new symptoms arise or existing conditions worsen. - Maintain a balanced diet and engage in regular physical activity.
[2024-06-02 14:37] VITALS: BP 130/86; BMI 45.3
--- OUTSIDE RECORDS SUMMARY | 2024-06-02 17:25 | XMS_ITS | Clinical Summary ---
Author Organization [facility] Facility Address [address] [place] [id number] Care Team Providers Care Stone Engraver Name Role Phone Humaira Thurston MD Primary Care Provider [phone] Allergies Active Allergy Reactions Criticality Noted Date [...] 07/13/2022, 07/21/2021, Additional history exists Influenza Vaccine (Season Ended) 2024 Procedures Procedure Name Priority Date/Time Associated Diagnosis [...] AM EDT Performed at: ??01 - [facility] [address] ??[id number] Bullet Casting Operator: Cheryl Goodman MD, Phone: ??[phone] us David Perez MD LAB BLOOD ORDERABLES Final Re sult [facility] See order comments [place] [address] from Last 3 Months or Most Recently Relevant to Health Maintenance Insurance MEDICAID MEDICAID Care Teams Stone Engraver Relationship Specialty Start Date End Date Humaira Thurston MD [address] [place] [id number] PCP - General Internal Medicine 12/27/22
--- OUTSIDE RECORDS SUMMARY | 2024-06-02 17:25 | XMS_ITS | Clinical Summary ---
Author Organization 175 [facility] Address 175 [place] [address] Phone Care Team Providers Care Head Of Physics Name Role Phone Damion Galicia MD Primary Care Provider [phone] Allergies Active Allergy Reactions Criticality Noted Date Comments Glipizide 12/09/2020 Medications omeprazole OTC (PriLOSEC OTC) 20 mg EC tablet Take 1 tablet (20 mg total) by mouth 2 (two) times a day for 14 days, THEN 1 tablet (20 mg total) 1 (one) time each day. Do not crush, chew, or split.. 58 tablet 04/14/2024 6 Active lisinopriL (PRINIVIL,ZESTRI L) 20 mg tablet Take 1 tablet (20 mg total) by mouth 1 (one) time each day. 10/12/2023 Active terbinafine (LamISIL) 250 mg tablet Take 1 tablet (250 mg total) by mouth 1 (one) time each day. 30 each 05/22/2024 5 Active meloxicam (Mobic) 15 mg tablet Take 1 tablet (15 mg total) by mouth 1 (one) time each day. 30 each 05/22/2024 5 Active Active Problems Problem Noted Date Diagnosed Date Class 3 severe obesity with body mass index (BMI) of 40.0 to 44.9 in adult 01/10/2024 Encounters Date Type Department Care Team Description 05/22/2024 3:15 PM EDT Office Visit Orthopedic Surgery [facility] 250 175 [facility] 250 [place] [address] Fernando Sosa, DPM Plantar fascial fibromatosis (Primary Dx); Follow-up exam; Equinus contracture of ankle; Dermatophytosis of nail 04/29/2024 Telephone Bariatric Surgery - [place] [address] [phone] Nereyda Pierre MD Advice Only (Surgery PA) 04/24/2024 1:15 PM EST Office Visit Bariatric Surgery [facility] [address] [phone] Nereyda Pierre MD Class 3 severe obesity with body mass index (BMI) of 40.0 to 44.9 in adult, unspecified obesity type, unspecified whether serious comorbidity present (CMS/HCC) (Primary Dx) 04/09/2024 2:15 PM EST Office Visit Orthopedic Surgery [place] [address] [phone] Fernando Sosa DPM Dermatophytosis of nail (Primary Dx); Plantar fascial fibromatosis; Diabetic mononeuropathy simplex (CMS/HCC); Equinus contracture of ankle 04/04/2024 1:00 PM EST Nutrition Bariatric Surgery - [address] [phone] Class 3 severe obesity with body mass index (BMI) of 40.0 to 44.9 in adult, unspecified obesity type, unspecified whether serious comorbidity present (CMS/HCC) (Primary Dx) 04/04/2024 Telephone Bariatric Surgery [address] [phone] Advice Only (Sent to surgeon and surgical PA: Lab work displays positive h pylori breath test, pt wondering if abx should be considered. Pt made aware A1c was 8.6- and the goal would be to have an A1c closer to 8) from Last 3 Months Social History Tobacco [...] - - Weight 119 kg (262 lb) 05/22/2024 3:17 PM EDT Height 162.6 cm (5' 4.02 ) 05/22/2024 3:17 PM ED T Body Mass Index 44.95 05/22/2024 3:17 PM EDT Plan of Treatment Upcoming Encounters Date Type Department Care Team (Late st Contact Info) Description 06/03/2024 2:00 PM EDT Nutrition Bariatric Surgery - [place] [address] [phone] 175 [facility] 120 [place] [address] 07/01/2024 3:30 PM EDT Office Visit Orthopedic Surgery - [place] [address] [phone] Fernando Sosa DPM [address] [address] Health Maintenance Due Date Last Done Comments [...] Vaccine ( season) 2023 02/09/2021, 07/09/2020, 06/19/2020 Diabetes: Annual Urine Albumin-Creatinine Ratio (uACR) 01/10/2024 Diabetes: Blood Sugar Control Test (HGBA1C) 08/25/2024 02/26/2024, 07/04/2023, 07/04/2023 Influenza Vaccine (Season Ended) 2024 01/30/2023, 01/05/2022, 12/30/2019, Additional history exists Diabetes: Annual GFR (Glomerular Filtration Rate) 02/25/2025 [...] age to complete this topic Meningococcal B Vaccine Aged Out No l onger eligible based on patient's age to complete this topic RSV Immunization Patients Under 20 months Aged Out No longer eligible based on patient's age to complete this topic Varicella Vaccines Aged Out No longer eligible based on patient's age to complete this topic Procedures Procedure Name Priority Date/Time Associated Diagnosis Comments XR FOOT 3+ VIEWS LEFT Routine 05/22/2024 4:11 PM EDT Follow-up exam INJECTION TENDON OR LIGAMENT Routine 04/09/2024 2:15 PM EST Plantar fascial fibromatosis COMPREHENSIVE METABOLIC PANEL Routine 02/26/2024 2:07 PM EST Class 3 severe obesity with body mass index (BMI) of 40.0 to 44.9 in adult, unspecified obesity type, unspecified whether serious comorbidity present (CMS/[facility]) HEMOGLOBIN A1C Routine 02/26/2024 2:07 PM EST [...] comorbidity present (CMS/HCC) from Last 3 Months or Most Recently Relevant to Health Maintenance Results * XR Foot 3+ Views Left (05/22/2024 4:11 PM EDT) Anatomical Region Laterality Modality Lower Extremities, Foot Left Computed Radiography Narrative 05/23/2024 10:26 AM EDT Left foot 3 views Previous bony overgrowth versus healed fracture of the phalanx noted hallux distal phalanx base joint spaces arthritis moderate ?? Foot position Pes planus with Talus navicular uncovering decreased calcaneal inclination anterior displaced symes line talus navicular joint to calcaneal cuboid joint ?? Fernando Sosa DPM IMG XR PROCEDURES Final R esult * Injection tendon or ligament (04/09/2024 2:15 PM EST) Narrative Fernando Sosa DPM - 04/09/2024 2:15 PM EST Fernando Sosa DPM ? 04/09/2024 ??4:37 PM Injection tendon or ligament Indications: pain Details: 25 G needle Medications: 0.5 mL lidocaine (PF) 1 %; 20 mg triamcinolone acetonide 40 mg/mL Informed Consent: ??Site: ??Foot ligament tendon Fernando Sosa DPM IN CLINIC/BEDSIDE ORDERAB LES Final Result * (ABNORMAL) Lipid panel with reflex to direct LDL (02/26/2024 2:07 PM EST) Cholesterol 185 0 - 200 mg/dL LAB CHEMISTRY METHOD 02/26/2024 6:32 PM EST [facility] Triglycerides 203(H) 0 - 150 mg/dL LAB CHEMISTRY METHOD 02/26/2024 6:32 PM EST [facility] HDL 37(L) >=40 mg/dL LAB CHEMISTRY METHOD 02/26/2024 6:32 PM EST [facility] LDL Calculated 107(H) 0 - 100 mg/dL LAB CHEMISTRY METHOD 02/26/2024 6:32 PM EST [facility] VLDL Cholesterol Stephen 40.6 mg/dL LAB CHEMISTRY METHOD 02/26/2024 6:32 PM EST [facility] Non HDL Chol. (LDL+VLDL) 148(H) <145 mg/dL LAB CHEMISTRY METHOD 02/26/2024 6:32 PM [facility] Chol/HDL Ratio 5.0(H) 0.0 - 4.4 LAB CHEMISTRY METHOD 02/26/2024 6:32 PM [facility] Blood Venous blood specimen / Unknown Venipuncture / Unknown 02/26/2024 2:07 PM EST 02/26/2024 2:07 PM EST Nereyda Pierre MD LAB BLOOD ORDERABLES Final R esult [facility] 299 [place] [address], * (ABNORMAL) Hemoglobin A1c (02/26/2024 2:07 PM EST) Hemoglobin A1C 8.6(H) <6.5 % LAB CHEMISTRY METHOD 02/26/2024 8:10 PM EST [facility] Mean Bld Glu Estim. 200 mg/dL LAB CHEMISTRY METHOD 02/26/2024 8:10 PM EST [facility] Blood Venous blood specimen / Unknown Venipuncture / Unknown 02/26/2024 2:07 PM EST 02/26/2024 2:07 PM EST us Nereyda Pierre MD LAB BLOOD ORDERABLES Final R esult [facility] [address] [place] [address], [place] [phone] * (ABNORMAL) Comprehensive metabolic panel (02/26/2024 2:07 PM EST) Sodium 135 133 - 145 mmol/L LAB CHEMISTRY METHOD 02/26/2024 6:32 PM [facility] Potassium 5.2 3.5 - 5.5 mmol/L LAB CHEMISTRY METHOD 02/26/2024 6:32 PM [facility] Chloride 107 96 - 110 mmol/L LAB CHEMISTRY METHOD 02/26/2024 6:32 PM [facility] CO2 23 21 - 32 mmol/L LAB CHEMISTRY METHOD 02/26/2024 6:32 PM [facility] Anion Gap 5 3 - 11 LAB CHEMISTRY METHOD 02/26/2024 6:32 PM [facility] Glucose 206(H) 70 - 100 mg/dL LAB CHEMISTRY METHOD 02/26/2024 6:32 PM [facility] BUN 23 5 - 25 mg/dL LAB CHEMISTRY METHOD 02/26/2024 6:32 PM [facility] Creatinine 1.46(H) 0.70 - 1.30 mg/dL LAB CHEMISTRY METHOD 02/26/2024 6:32 PM [facility] eGFR 58(L) >=60 mL/min/1. 73m2 LAB CHEMISTRY METHOD 02/26/2024 6:32 PM [facility] Comment:Calculation based on the??Chronic Kidney Disease Epidemiology Collaboration (CKD-EPI) equation refit??without adjustment for race. BUN/Creatinine Ratio 15.8 LAB CHEMISTRY METHOD 02/26/2024 6:32 PM [facility] Calcium 9.6 8.5 - 10.5 mg/dL LAB CHEMISTRY METHOD 02/26/2024 6:32 PM [facility] AST (SGOT) 16 10 - 42 unit/L LAB CHEMISTRY METHOD 02/26/2024 6:32 PM [facility] ALT (SGPT) 28 10 - 60 unit/L LAB CHEMISTRY METHOD 02/26/2024 6:32 PM [facility] Alkaline Phosphatase 76 42 - 121 unit/L LAB CHEMISTRY METHOD 02/26/2024 6:32 PM [facility] Total Protein 8.1(H) 6.0 - 8.0 g/dL LAB CHEMISTRY METHOD 02/26/2024 6:32 PM [facility] Albumin 3.9 3.2 - 5.0 g/dL LAB CHEMISTRY METHOD 02/26/2024 6:32 PM [facility] Total Bilirubin 0.6 0.0 - 1.4 mg/dL LAB CHEMISTRY METHOD 02/26/2024 6:32 PM [facility] Blood Venous blood specimen / Unknown Venipuncture / Unknown 02/26/2024 2:07 PM EST 02/26/2024 2:07 PM EST us Nereyda Pierre MD LAB BLOOD ORDERABLES Final R esult [facility] [address] [place] [address], from Last 3 Months or Most Recently Relevant to Health Maintenance Insurance [facility] [employer] Care Teams Head Of Physics Relationship Specialty Start Date End Date Damion Glaicia MD [address] [place] [address] [address] [place] PCP - General Internal Medicine 11/30/23
--- OUTSIDE RECORDS SUMMARY | 2024-06-02 17:25 | XMS_ITS | Encounter Summary ---
Author Organization [facility] Address [address] [place] [address] Phone Care Team Providers Care Green End Man Name Role Phone Humaira Thurston MD Primary Care Provider Reason for Visit * Reason Comments Med Refill Encounter Details Date Type Department Care Team (Late st Contact Info) Description 07/03/2023 Refill [facility] [address] [place] [phone] David Perez MD [address] [place] [address], [facility] 4 [place] [address] Social History Tobacco Use Types Packs/Day Years [...] on filedocumented in this encounter Care Teams Green End Man Relationship Specialty Start Date End Date Humaira Thurston MD [address] [place] [address] PCP - General Internal Medicine 12/27/22 documented as of this encounter
== END 2024-06-02 15:00 | disposition home or self-care (01) ==
LOC: HO.HMCH 14:35
PROVIDERS: PCP Internal Medicine; Visit Provider Internal Medicine
DX: Z00.00 Encounter for general adult medical examination without abnormal findings (principal); E11.22 Type 2 diabetes mellitus with diabetic chronic kidney disease; N18.31 Chronic kidney disease, stage 3a; Z79.4 Long term (current) use of insulin; Z21 Asymptomatic human immunodeficiency virus [HIV] infection status; E66.01 Morbid (severe) obesity due to excess calories; I73.9 Peripheral vascular disease, unspecified; I70.202 Unspecified atherosclerosis of native arteries of extremities, left leg

== ENCOUNTER → 2024-06-02 14:35 | Outpatient (BNVA) | payer OTHER, SELFPAY | PROVIDERS: PCP Internal Medicine; Visit Provider Internal Medicine | DX: Z00.00 Encounter for general adult medical examination without abnormal findings (principal); E11.22 Type 2 diabetes mellitus with diabetic chronic kidney disease; E11.51 Type 2 diabetes mellitus with diabetic peripheral angiopathy without gangrene; N18.31 Chronic kidney disease, stage 3a; E66.01 Morbid (severe) obesity due to excess calories; I70.202 Unspecified atherosclerosis of native arteries of extremities, left leg; R80.9 Proteinuria, unspecified; E55.9 Vitamin D deficiency, unspecified; E78.5 Hyperlipidemia, unspecified; Z68.42 Body mass index [BMI] 45.0-49.9, adult; Z21 Asymptomatic human immunodeficiency virus [HIV] infection status; Z79.84 Long term (current) use of oral hypoglycemic drugs; Z79.4 Long term (current) use of insulin | CPT/HCPCS: 96127; 99396 ==

== ENCOUNTER 2024-06-04 13:52 | Outpatient (AMB) | payer OTHER, SELFPAY ==
--- NOTE | 2024-06-04 14:07 | AM.OFFVISNUR ---
Intake Visit Reasons: Bandage change (Circumcision) Allergies glipizide Allergy (Mild, Verified 06/02/24 14:49) rash tuberculin, purified protein deriva Allergy (Mild, Verified 06/02/24 14:49) Swelling martinez Allergy (Mild, Uncoded 06/02/24 14:49) Hives jardiance Adverse Reaction (Severe, Uncoded 06/02/24 14:49) Rash/balanitis Nursing Note Patient presents to office to circumcision check. Qualified assembler brazer utilized for visit. Incision appear to be free from any sign of infection. Patient reporting that he feels well. Patient however did say that he has some burning with urination and urgency. UA run showed high glucose in urine. Let patient know results and let him know to reach out to diabetes provider about glucose in urine. Patient understood. Patient to keep follow up with Dr. Almaraz as scheduled Results AMB Urinalysis, Automated UA Leukoctes 0 Poli/uL Last Edit by Kevin Womack LPN on 06/04/24 14:12 UA Nitrite Negative Last Edit by Kevin Womack LPN on 06/04/24 14:12 UA Urobilinogen 0.2 mg/dL Last Edit by Kevin Womack LPN on 06/04/24 14:12 UA Protein 15 mg/dL Last Edit by Kevin Womack LPN on 06/04/24 14:12 UA pH 6.0 Last Edit by Kevin Womack LPN on 06/04/24 14:12 UA Blood 10 [place]/uL Last Edit by Kevin Womack LPN on 06/04/24 14:12 UA Specific [place] 1.015 Last Edit by Kevin Womack LPN on 06/04/24 14:12 UA Ketone Negative Last Edit by Kevin Womack LPN on 06/04/24 14:12 UA Bilirubin 0 mg/dL Last Edit by Kevin Womack LPN on 06/04/24 14:12 UA Glucose 1000 mg/dL Last Edit by Kevin Womack LPN on 06/04/24 14:12 Assessment & Plan Assessment & Plan Orders: Orders AMB Urinalysis Automated Today E11.69 - Type 2 diabetes mellitus with other specified complication, N48.1 - Balanitis, N52.1 - Erectile dysfunction due to diseases classified elsewhere Coding
--- OUTSIDE RECORDS SUMMARY | 2024-06-04 16:04 | XMS_ITS | Encounter Summary ---
Author Organization [facility] Address [address] [place] [address] Phone Care Team Providers Care Workers Compensation Adjuster Name Role Phone Humaira Thurston MD Primary Care Provider [phone] Reason for Visit * Reason Comments Med Refill Encounter Details Date Type Department Care Team (Late st Contact Info) Description 07/03/2023 Refill [facility] [address] [place] [phone] David Perez MD [address] [place] [address], [facility] 4 [place] [address] Social History Tobacco Use Types Packs/Day Years [...] on filedocumented in this encounter Care Teams Workers Compensation Adjuster Relationship Specialty Start Date End Date Humaira Thurston MD [address] [place] [address] PCP - General Internal Medicine 12/27/22 documented as of this encounter
--- OUTSIDE RECORDS SUMMARY | 2024-06-04 16:04 | XMS_ITS | Clinical Summary ---
Author Organization 175 [facility] Address 175 [place] [address] Phone Care Team Providers Care Manager Testing Name Role Phone Damion Galicia MD Primary [...] obesity with body mass index (BMI) of 45.0 to 49.9 in adult 01/10/2024 Encounters Date Type Department Care Team Description 06/03/2024 2:00 PM EDT Nutrition Bariatric Surgery - [place] 175 [facility] [address] [place] [address] Class 3 severe obesity with body mass index (BMI) of 45.0 to 49.9 in adult, unspecified obesity type, unspecified whether serious comorbidity present (Primary Dx) 05/22/2024 3:15 PM EDT Office Visit Orthopedic Surgery [place] [address] [phone] Fernando Sosa DPM Plantar fascial fibromatosis (Primary Dx); Follow-up exam; Equinus contracture of ankle; Dermatophytosis of nail 04/29/2024 Telephone Bariatric Surgery [address] [address] Nereyda Pierre MD Advice Only (Surgery PA) 04/24/2024 1:15 PM EST Office Visit Bariatric Surgery [address] [address] Nereyda Pierre MD Class 3 severe obesity with body mass index (BMI) of 40.0 to 44.9 in adult, unspecified obesity type, unspecified whether serious comorbidity present (CMS/HCC) (Primary Dx) 04/09/2024 2:15 PM EST Office Visit Orthopedic Surgery [place] [address] [phone] Fernando Sosa DPM Dermatophytosis of nail (Primary Dx); Plantar fascial fibromatosis; Diabetic mononeuropathy simplex (CMS/HCC); Equinus contracture of ankle 04/04/2024 1:00 PM EST Nutrition Bariatric Surgery - [address] [phone] Class 3 severe obesity with body mass index (BMI) of 40.0 to 44.9 in adult, unspecified obesity type, unspecified whether serious comorbidity present (CMS/HCC) (Primary Dx) 04/04/2024 Telephone Bariatric Surgery [address] [phone] Advice Only (Sent to [...] - Inhaled Oxygen Concentration - - Weight 122 kg (268 lb) 06/03/2024 2:14 PM EDT Height 162.6 cm (5' 4.02 ) 05/22/2024 3:17 PM ED T Body Mass Index 45.98 05/22/2024 3:17 PM EDT Plan of Treatment Upcoming Encounters Date Type Department Care Team (Late st Contact Info) Description 07/01/2024 3:30 PM EDT Office Visit Orthopedic Surgery - [place] [address] [phone] Fernando Sosa, DPM [address] [address] Health Maintenance Due Date Last Done Comments [...] ( - season) 2023 02/09/2021, 07/09/2020, 06/19/2020 Diabetes: Annual [...] obesity type, unspecified whether serious comorbidity present (CMS/[facility]) HEMOGLOBIN A1C Routine 02/26/2024 2:07 PM EST [...] navicular joint to calcaneal cuboid joint ?? us Fernando Sosa DPM IMG XR PROCEDURES Final [...] LAB CHEMISTRY METHOD 02/26/2024 6:32 PM EST [facility] Triglycerides 203(H) 0 - 150 mg/dL LAB CHEMISTRY METHOD 02/26/2024 6:32 PM EST [facility] HDL 37(L) >=40 mg/dL LAB CHEMISTRY METHOD 02/26/2024 6:32 PM [facility] LDL Calculated 107(H) 0 - 100 mg/dL LAB CHEMISTRY METHOD 02/26/2024 6:32 PM EST [facility] VLDL Cholesterol Stephen 40.6 mg/dL LAB CHEMISTRY METHOD 02/26/2024 6:32 PM [facility] Non HDL Chol. (LDL+VLDL) 148(H) <145 mg/dL LAB CHEMISTRY METHOD 02/26/2024 6:32 PM [facility] Chol/HDL Ratio 5.0(H) 0.0 - 4.4 LAB CHEMISTRY METHOD 02/26/2024 6:32 PM EST [facility] Blood Venous blood specimen / Unknown Venipuncture / Unknown 02/26/2024 2:07 PM EST 02/26/2024 2:07 PM EST us Nereyda Pierre MD LAB BLOOD ORDERABLES Final R esult [facility] [address] [place] [address], * (ABNORMAL) Hemoglobin A1c (02/26/2024 2:07 PM EST) Hemoglobin A1C 8.6(H) <6.5 % LAB CHEMISTRY METHOD 02/26/2024 8:10 PM EST [facility] Mean Bld Glu Estim. 200 mg/dL LAB CHEMISTRY METHOD 02/26/2024 8:10 PM EST [facility] Blood Venous blood specimen / Unknown Venipuncture / Unknown 02/26/2024 2:07 PM EST 02/26/2024 2:07 PM EST us Nereyda Pierre MD LAB BLOOD ORDERABLES Final R esult [facility] [address] [place] [address], [place] [phone] * (ABNORMAL) Comprehensive metabolic panel (02/26/2024 2:07 PM EST) Sodium 135 133 - 145 mmol/L LAB CHEMISTRY METHOD 02/26/2024 6:32 PM [facility] Potassium 5.2 3.5 - 5.5 mmol/L LAB CHEMISTRY METHOD 02/26/2024 6:32 PM [facility] Chloride 107 96 - 110 mmol/L LAB CHEMISTRY METHOD 02/26/2024 6:32 PM [facility] CO2 23 21 - 32 mmol/L LAB CHEMISTRY METHOD 02/26/2024 6:32 PM [facility] Anion Gap 5 3 - 11 LAB CHEMISTRY METHOD 02/26/2024 6:32 PM [facility] Glucose 206(H) 70 - 100 mg/dL LAB CHEMISTRY METHOD 02/26/2024 6:32 PM [facility] BUN 23 5 - 25 mg/dL LAB CHEMISTRY METHOD 02/26/2024 6:32 PM [facility] Creatinine 1.46(H) 0.70 - 1.30 mg/dL LAB CHEMISTRY METHOD 02/26/2024 6:32 PM [facility] eGFR 58(L) >=60 mL/min/1. 73m2 LAB CHEMISTRY METHOD 02/26/2024 6:32 PM [facility] Comment:Calculation based on the??Chronic Kidney Disease Epidemiology Collaboration (CKD-EPI) equation refit??without adjustment for race. BUN/Creatinine Ratio 15.8 LAB CHEMISTRY METHOD 02/26/2024 6:32 PM [facility] Calcium 9.6 8.5 - 10.5 mg/dL LAB CHEMISTRY METHOD 02/26/2024 6:32 PM [facility] AST (SGOT) 16 10 - 42 unit/L LAB CHEMISTRY METHOD 02/26/2024 6:32 PM [facility] ALT (SGPT) 28 10 - 60 unit/L LAB CHEMISTRY METHOD 02/26/2024 6:32 PM [facility] Alkaline Phosphatase 76 42 - 121 unit/L LAB CHEMISTRY METHOD 02/26/2024 6:32 PM [facility] Total Protein 8.1(H) 6.0 - 8.0 g/dL LAB CHEMISTRY METHOD 02/26/2024 6:32 PM [facility] Albumin 3.9 3.2 - 5.0 g/dL LAB CHEMISTRY METHOD 02/26/2024 6:32 PM [facility] Total Bilirubin 0.6 0.0 - 1.4 mg/dL LAB CHEMISTRY METHOD 02/26/2024 6:32 PM [facility] Blood Venous blood specimen / Unknown Venipuncture / Unknown 02/26/2024 2:07 PM EST 02/26/2024 2:07 PM EST us Nereyda Pierre MD LAB BLOOD ORDERABLES Final R esult [facility] [address] [place] [address], from Last 3 Months or Most Recently Relevant to Health Maintenance Insurance [facility] [employer] Care Teams Manager Testing Relationship Specialty Start Date End Date Damion Galicia MD [address] [place] [address] [place] [address] [place] PCP - General Internal Medicine 11/30/23
--- OUTSIDE RECORDS SUMMARY | 2024-06-04 16:04 | XMS_ITS | Clinical Summary ---
Author Organization [facility] Facility Address [address] [place] [place] [address] Care Team Providers Care Public Relations Intern Name Role Phone Humaira Thurston MD Primary Care Provider [phone] Allergies Active Allergy Reactions Criticality Noted Date [...] AM EDT Performed at: ??01 - [facility] [address] ??[id number] Annual Giving Officer: Cheryl Goodman MD, Phone: ??[phone] us David Perez MD LAB BLOOD ORDERABLES Final Re sult [facility] See order comments [place] [address] from Last 3 Months or Most Recently Relevant to Health Maintenance Insurance MEDICAID MEDICAID Care Teams Public Relations Intern Relationship Specialty Start Date End Date Humaira Thurston MD [address] [place] [address] PCP - General Internal Medicine 12/27/22
--- OUTSIDE RECORDS SUMMARY | 2024-06-04 16:04 | XMS_ITS | Encounter Summary ---
Author Organization [facility] Address [address] [place] [phone] Care Team Providers Care Deputy Brand Inspector Name Role Phone Damion Galicia MD Primary Care Provider Reason for Visit * Reason Comments Obesity Encounter Details Date Type Department Care Team (Late st Contact Info) Description 06/03/2024 2:00 PM EDT Nutrition Bariatric Surgery - [place] [address] [address] [place] [phone] [address]va [address] 175 [facility] 120 [place] [address] Class 3 severe obesity with body mass index (BMI) of 45.0 to 49.9 in adult, unspecified obesity type, unspecified whether serious comorbidity present (Primary Dx) Social History Tobacco Use Types [...] (268 lb) 06/03/2024 2:14 PM EDT Height - - Body Mass Index 45.98 05/22/2024 3:17 PM EDT documented in this encounter Progress Notes * Carla Leyva RD - 06/03/2024 2:00 PM EDT Evaluaci??n psicol??gica: Tienes dos opciones para tu evaluaci??n psicol??toni Chávez [phone] Justin Reeder, [facility] [phone] Ambos est??n haciendo visitas remotas. Llame a cualquiera de ellos y h??kyara saber que est?? en elPrograma Ronald??trico de [facility] y necesita magaly evaluaci??n psicol??gica. Aseg??rese de proporcionar barnes nombre, n??danya y fecha de nacimiento. Objetivos creados por el paciente: Aliviar el estre??imiento consumiendo abundante l??quido, aumentando la fibra y la actividad f??david seg??n sea posible. Batidos de prote??sachi: pueden reemplazar magaly comida o refrigerio; busque 20-30 g de prote??na y menos de 5 g de az??car a??adido (Premeir, Ensure Max Protein, Fairlife, Equate High Performance). Prote??na en polvo sin sabor: puede mezclarla con cualquier alimento o bebida; no altera el sabor (Orgain, Isopure, Unjury). Objetivo de prote??na: 60-80 g al d??a. Revise las dietas pre y postoperatorias; cont??ctenos si tiene alguna pregunta. Multivitam??victoria ronald??trico con yue [facility] - masticable. Enlace a la ayuda del parche: [email or web address] documented in this encounter Plan of Treatment Upcoming Encounters Date Type Department Care Team ([facility] Contact Info) Description 07/01/2024 3:30 PM EDT Office Visit Orthopedic Surgery - [address] [phone] Fernando Sosa DPMatt 175 [facility] [address] [place] [address] documented as of this encounter Visit Diagnoses Diagnosis Class 3 severe obesity with body mass index (BMI) of 45.0 to 49.9 in adult, unspecified obesity type, unspecified whether serious comorbidity present- Primary documented in this encounter Care Teams Deputy Brand Inspector Relationship Specialty Start Date End Date Damion Glaicia MD [address] [place] [address] [address] [place], [place] PCP - General Internal Medicine 11/30/23 documented as of this encounter
== END 2024-06-04 14:16 | disposition home or self-care (01) ==
LOC: HO.HUSH 13:52
PROVIDERS: PCP Internal Medicine; Visit Provider Urology
DX: E11.69 Type 2 diabetes mellitus with other specified complication (principal); N52.1 Erectile dysfunction due to diseases classified elsewhere; N48.1 Balanitis

== ENCOUNTER → 2024-06-04 13:52 | Outpatient (BNVA) | payer OTHER, SELFPAY | PROVIDERS: PCP Internal Medicine; Visit Provider Urology | DX: E11.69 Type 2 diabetes mellitus with other specified complication (principal); N52.1 Erectile dysfunction due to diseases classified elsewhere; N48.1 Balanitis | CPT/HCPCS: 81003 ==

== ENCOUNTER 2024-07-01 14:12 | Outpatient (AMB) | payer OTHER, SELFPAY ==
[2024-07-01 14:15] VITALS: BP 140/64; BMI 46.0
--- NOTE | 2024-07-01 14:15 | HO.NEPHOV ---
Vital Signs 07/01/24 14:15 Height 5 ft 4 in Weight 268 lb BMI 46.0 BP 140/64 H Blood Pressure Location Rt brachial Position Sitting Intake Visit Reasons: 4 MO FU/ Conf Sales Assoc Required: Yes Sales Assoc Name: [id number] John Accompanied by: Mother Allergies glipizide Allergy (Mild, Verified 07/01/24 14:19) rash tuberculin, purified protein deriva Allergy (Mild, Verified 07/01/24 14:19) Swelling martinez Allergy (Mild, Uncoded 06/02/24 14:49) Hives jardiance Adverse Reaction (Severe, Uncoded 06/02/24 14:49) Rash/balanitis Medication List - Last Reconciled 07/01/24 by Bao Carreon MD amitriptyline 100 mg PO BEDTIME aspirin 81 mg PO DAILY 30 days atorvastatin 80 mg PO BEDTIME 90 days bwfodehed-vfvglcmd-nrsdbew ala 50-200-25 mg (Biktarvy) 1 tab PO DAILY 30 days blood sugar diagnostic Use 1 test strip twice a day blood sugar diagnostic (Accu-Chek Guide test strips) Use 1 test strip three times a day blood sugar diagnostic (FreeStyle Lite Strips) As directed 3 times per day blood-glucose meter (Accu-Chek Guide Glucose Meter) As directed blood-glucose meter (FreeStyle Lite Meter kit) As directed budesonide 90 mcg/actuation (Pulmicort Flexhaler) 1 inh inhalation BID cholecalciferol (vitamin D3) 50 mcg PO DAILY 90 days clopidogrel (Plavix) 75 mg PO DAILY 30 days clotrimazole 1% 1 appl topical BID 4 weeks dulaglutide (Trulicity) 1.5 mg (0.5 mL) subcut QWEEK 90 days empagliflozin-metformin 12.5-1,000 mg (Synjardy) 2 tabs PO DAILY fenofibrate 54 mg PO DAILY 90 days gabapentin 300 mg PO DAILY glyburide 5 mg PO BID insulin glargine (Lantus Solostar U-100 Insulin) 20 units (0.2 mL) subcut QPM 90 days insulin lispro protamin-lispro 100 unit/mL (75-25) subcut lancets (FreeStyle Lancets) Use 1 lancet three times a day lancets (Accu-Chek Fastclix Lancet Drum) Use 1 lancet three times a day lisinopril 20 mg PO DAILY 90 days meclizine mg PO DAILY nebulizers (AeroEclipse II Nebulizer) As directed omeprazole mg PO oxycodone 5 mg PO Q8H PRN 3 days pen needle, diabetic (Comfort EZ Pen [place]) Use 1 pen needle twice a day sodium chloride 0.9% 1 mL inhalation Q8H PRN 90 days tadalafil 20 mg PO ONCE PRN 30 days tadalafil 5 mg PO DAILY 90 days topiramate 100 mg PO BID HPI Comments Details: 52-year-old man with HIV and diabetes mellitus with chronic kidney disease. Recent A1c is bumped up to 7.8. Creatinine stable around 1.2 mg/dL. he is complaining of Balanitis He was on Jardiance 11/13/2023. Cheng is here for follow-up. After course of clotrimazole there was improvement in the balanitis. He was seen by Urology and circumcision has been scheduled for January of 2024. 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 03/13/24 Recently took 800 mg Motrin for 2 weeks 07/01/24 s/p Circumcision Feels better Balanitits improved Back on SGLT-2 inhibitor [facility] Medical History Erectile dysfunction associated with type 2 diabetes mellitus Mixed hyperlipidemia Mild intermittent asthma Hyperkalemia Morbid obesity Renal calculi Morbid obesity Dyslipidemia CKD (chronic kidney disease) Essential hypertension Diabetes mellitus HIV (human immunodeficiency virus infection) Surgical History No pertinent past surgical history Family History Father Myocardial infarction Hypertension CVD (cardiovascular disease) Mother Stroke CVD (cardiovascular disease) Mental health disorder Sister Diabetes Social History Housing: Apartment Alcohol intake: former Patient Tobacco Use Status: Never used Tobacco e-Cigarette/Vaping Use: Never Used Second Hand Smoke Exposure: Yes service: No Current occupational status: employed Current occupational exposures/hazards: No Cognitive needs: No Hearing needs: No Vision needs: No Physical Exam Vital Signs: Last Vital Signs BP 140/64 H 07/01/24 14:15 BMI result Body Mass Index 46.0 Comfortable Neck supple no JVD. Lungs entry equal no rales. Heart S1-S2 heard no gallop or rub. Abdomen soft nontender. Neuro alert awake oriented. No asterixis. Extremities no edema. Results Reviewed Nephrology Results: Sodium 139 mmol/L (135-145) 05/29/24 Potassium 4.7 mmol/L (3.3-5.1) 05/29/24 Chloride 106 mmol/L (96-108) 05/29/24 Carbon Dioxide 26 mmol/L (22-29) 05/29/24 BUN 18 mg/dL (9-16) H 05/29/24 Creatinine 1.00 mg/dL (0.5-1.4) 05/29/24 Calcium 9.2 mg/dL (8.4-10.2) 05/29/24 Assessment & Plan Assessment & Plan (1) Balanitis: Code(s): N48.1 - Balanitis Category: Medical Plan: s/p circumcision (2) CKD (chronic kidney disease): Code(s): N18.9 - Chronic kidney disease, unspecified Category: Medical Qualifiers: Chronic kidney disease stage: stage 3 (moderate) Chronic kidney disease stage 3 subtype: stage 3a (GFR 45-59) Qualified Code(s): N18.31 - Chronic kidney disease, stage 3a Plan: Mild bump in Cr with high K Both due to use of NSAIDS avoid nephrotoxic agents including NSAIDs. Cr is back to baseline now after stopping NSAIDS Optimize blood sugar. Continue with GEORGES inhibition for renal protection. Orders: Orders Basic Metabolic Panel 6 Months N18.31 - Chronic kidney disease, stage 3a, N48.1 - Balanitis Medications: New empagliflozin-metformin 12.5-1,000 mg (Synjardy) 2 tabs PO DAILY 180 tabs 1RF Coding Level of Care Code Est Pt Level 4 (62494) Diagnoses Balanitis N48.1 Stage 3a chronic kidney disease N18.31 Chronic kidney disease stage: stage 3 (moderate) Chronic kidney disease stage 3 subtype: stage 3a (GFR 45-59)
--- OUTSIDE RECORDS SUMMARY | 2024-07-01 15:34 | XMS_ITS | Encounter Summary ---
Author Organization [facility] Address [address] [place] [address] Phone Care Team Providers Care Utility Worker Driver Name Role Phone Humaira Thurston MD Primary Care Provider [phone] Reason for Visit * Reason Comments Med Refill Encounter Details Date Type Department Care Team (Late st Contact Info) Description 07/03/2023 Refill [facility] [address] [place] [phone] David Perez MD [address] [place] [address], [facility] [address] [place] [address] Social History Tobacco Use Types Packs/Day Years [...] on filedocumented in this encounter Care Teams Utility Worker Driver Relationship Specialty Start Date End Date Humaira Thurston MD [address] [place] [address] PCP - General Internal Medicine 12/27/22 documented as of this encounter
--- OUTSIDE RECORDS SUMMARY | 2024-07-01 15:34 | XMS_ITS | Clinical Summary ---
Author Organization [facility] Address [address] [place] [address] Care Team Providers Care Finance Vice President Name Role Phone Humaira Thurston MD Primary Care Provider [phone] Allergies Active Allergy Reactions Criticality Noted Date [...] Health Maintenance Due Date Last Done Comments Hepatitis B Vaccine (1 of 3 - 19+ 3-dose series) 08/18/1990 Pneumococcal Vaccine: 50+ Ye ars (1 of 2 - PCV) 08/18/1990 Diabetes: Ophthalmology Exam 03/28/2020 Diabetes: Pedal [...] AM EDT Performed at: ??01 - [facility] [address] ??[id number] Typing Secretary: Cheryl Goodman MD, Phone: ??[phone] us David Perez MD LAB BLOOD ORDERABLES Final Re sult [facility] See order comments [place] [address] from Last 3 Months or Most Recently Relevant to Health Maintenance Insurance Care Teams Finance Vice President Relationship Specialty Start Date End Date Humaira Thurston MD [address] [place] [id number] PCP - General Internal Medicine 12/27/22
--- OUTSIDE RECORDS SUMMARY | 2024-07-01 15:34 | XMS_ITS | Clinical Summary ---
Author Organization [facility] Address [address] [place] [address] Phone Care Team Providers Care Tennis Desk Team Member Name Role Phone Damion Galicia MD Primary [...] split.. 58 tablet 04/14/2024 6 Active lisinopriL (PRINIVIL,ZESTR IL) 20 mg tablet Take 1 tablet (20 mg total) by mouth 1 (one) time each day. 10/12/2023 Active terbinafine (LamISIL) 250 mg tablet Take 1 tablet (250 mg total) by mouth 1 (one) time each day. 30 each 05/22/2024 5 meloxicam (Mobic) 15 mg tablet Take 1 tablet (15 mg total) by mouth 1 (one) time each day. 30 each 05/22/2024 5 Active Problems Problem Noted Date Diagnosed Date Class 3 severe obesity with body mass index (BMI) of 45.0 to 49.9 in adult (CMS/HCC V24, CMS/HCC V28) 01/10/2024 Encounters Date Type Department Care Team Description 06/03/2024 2:00 PM EDT Nutrition Bariatric Surgery [facility] [address] [facility] [address] [place] [address] Class 3 severe obesity with body mass index (BMI) of 45.0 to 49.9 in adult, unspecified obesity type, unspecified whether serious comorbidity present (CMS/HCC V24, CMS/HCC V28) (Primary Dx) 05/22/2024 3:15 PM EDT Office Visit Orthopedic Surgery [facility] [address] [phone] Fernando Sosa DPM Plantar fascial fibromatosis (Primary Dx); Follow-up exam; Equinus contracture of ankle; Dermatophytosis of nail 04/29/2024 Telephone Bariatric Surgery [address] [phone] Nereyda Pierre MD Advice Only (Surgery PA) 04/24/2024 1:15 PM EST Office Visit Bariatric Surgery [address] [phone] Nereyda Pierre MD Class 3 severe obesity with body mass index (BMI) of 40.0 to 44.9 in adult, unspecified obesity type, unspecified whether serious comorbidity present (CMS/HCC V24, CMS/HCC V28) (Primary Dx) 04/09/2024 2:15 PM EST Office Visit Orthopedic Surgery [facility] [address] [phone] Fernando Sosa DPM Dermatophytosis of nail (Primary Dx); Plantar fascial fibromatosis; Diabetic mononeuropathy simplex (CMS/HCC V24, CMS/HCC V28); Equinus contracture of ankle 04/04/2024 1:00 PM EST Nutrition Bariatric Surgery [address] [phone] Class 3 severe obesity with body mass index (BMI) of 40.0 to 44.9 in adult, unspecified obesity type, unspecified whether serious comorbidity present (CMS/HCC V24, CMS/HCC V28) (Primary Dx) 04/04/2024 Telephone Bariatric Surgery [address] [phone] Advice Only (Sent to [...] 05/22/2024 3:17 PM EDT Plan of Treatment Health Maintenance [...] obesity type, unspecified whether serious comorbidity present ([facility]/HCC V24, [facility] V28) HEMOGLOBIN A1C Routine 02/26/2024 2:07 PM EST Class 3 severe obesity with body mass index (BMI) of 40.0 to 44.9 in adult, unspecified obesity type, unspecified whether serious comorbidity present (CMS/[facility] V24, CMS/[facility] V28) LIPID PANEL WITH REFLEX TO DIRECT LDL Routine 02/26/2024 2:07 PM EST Class 3 severe obesity with body mass index (BMI) of 40.0 to 44.9 in adult, unspecified obesity type, unspecified whether serious comorbidity present (CMS/[facility] V24, CMS/[facility] V28) from Last 3 Months or Most Recently [...] LAB CHEMISTRY METHOD 02/26/2024 6:32 PM EST [facility] Triglycerides 203(H) 0 - 150 mg/dL LAB CHEMISTRY METHOD 02/26/2024 6:32 PM EST [facility] HDL 37(L) >=40 mg/dL LAB CHEMISTRY METHOD 02/26/2024 6:32 PM EST [facility] LDL Calculated 107(H) 0 - 100 mg/dL LAB CHEMISTRY METHOD 02/26/2024 6:32 PM EST [facility] VLDL Cholesterol Stephen 40.6 mg/dL LAB CHEMISTRY METHOD 02/26/2024 6:32 PM EST [facility] Non HDL Chol. (LDL+VLDL) 148(H) <145 mg/dL LAB CHEMISTRY METHOD 02/26/2024 6:32 PM [facility] Chol/HDL Ratio 5.0(H) 0.0 - 4.4 LAB CHEMISTRY METHOD 02/26/2024 6:32 PM [facility] Blood Venous blood specimen / Unknown Venipuncture / Unknown 02/26/2024 2:07 PM EST 02/26/2024 2:07 PM EST us Nereyda Pierre MD LAB BLOOD ORDERABLES Final R esult [facility] [address] [place] [address], [place] [phone] * (ABNORMAL) Hemoglobin A1c (02/26/2024 2:07 PM EST) Hemoglobin A1C 8.6(H) <6.5 % LAB CHEMISTRY METHOD 02/26/2024 8:10 PM EST [facility] Mean Bld Glu Estim. 200 mg/dL LAB CHEMISTRY METHOD 02/26/2024 8:10 PM EST [facility] Blood Venous blood specimen / Unknown Venipuncture / Unknown 02/26/2024 2:07 PM EST 02/26/2024 2:07 PM EST us Nereyda Pierre MD LAB BLOOD ORDERABLES Final R esult [facility] [address] [place] [address], * (ABNORMAL) Comprehensive metabolic panel (02/26/2024 2:07 PM EST) Sodium 135 133 - 145 mmol/L LAB CHEMISTRY METHOD 02/26/2024 6:32 PM EST [facility] Potassium 5.2 3.5 - [...] MD LAB BLOOD ORDERABLES Final R esult [facility] [address] [place] [address], [place] [phone] from Last 3 Months or Most Recently Relevant to Health Maintenance Insurance [facility] Care Teams Tennis Desk Team Member Relationship Specialty Start Date End Date Damion Galicia MD [address] [place] [address] [address] [place] PCP - General Internal Medicine 11/30/23
== END 2024-07-01 14:34 | disposition home or self-care (01) ==
LOC: HO.HKA 14:13
PROVIDERS: PCP Internal Medicine; Visit Provider Internal Medicine Hypertension Specialist
DX: N48.1 Balanitis (principal); N18.31 Chronic kidney disease, stage 3a
CPT/HCPCS: 99214

== ENCOUNTER → 2024-07-01 14:12 | Outpatient (BNVA) | payer OTHER, SELFPAY | PROVIDERS: PCP Internal Medicine; Visit Provider Internal Medicine Hypertension Specialist | DX: E11.22 Type 2 diabetes mellitus with diabetic chronic kidney disease (principal); B20 Human immunodeficiency virus [HIV] disease; N48.1 Balanitis; N18.31 Chronic kidney disease, stage 3a | CPT/HCPCS: 99212 ==

== ENCOUNTER 2024-07-04 15:11 | Outpatient (AMB) | payer OTHER, SELFPAY ==
--- OUTSIDE RECORDS SUMMARY | 2024-07-04 15:13 | XMS_ITS | Encounter Summary ---
Author Organization [facility] Address [address] [place] [phone] Care Team Providers Care Recovery Room Rn Name Role Phone Damion Galicia MD Primary Care Provider [phone] Reason for Visit * Reason Comments Follow-up DM Foot Care * Orthopedic (Routine) - Closed Specialty Diagnoses / Procedures Referred By Contact Referred To Contact Podiatry / Orthopaedic Surgery Diagnoses Type 2 diabetes mellitus with diabetic chronic kidney disease ([facility] V24, [facility] V28) Chronic kidney disease, stage 3a ([facility] V24, [facility] V28) watermaster (current) use of insulin ([facility] V24, [facility] V28) Procedures AMB Referral to Podiatry Humaira Hood MD [address] [place] [address] DrIsidro, [address] [facility] D[facility]A: [facility] [place] Phone: tel: fax: Fernando Sosa DPM [address] [address] Phone: tel: fax: Referral ID Status Reason Start Date Expiration Date V isits Requested Visits Authorized [id number] Closed Consult and Treat 1 Encounter Details Date Type Department Care Team (Late st Contact Info) Description 07/01/2024 3:30 PM EDT Office Visit Orthopedic Surgery - [place] [address] [phone] Fernando Sosa DPM [address] [address] Dermatophytosis of nail (Primary Dx); Plantar fascial fibromatosis; Diabetic mononeuropathy simplex ([facility] V24, [facility] V28); Equinus contracture of ankle Social History Tobacco [...] Refills Last Filled Start Date End Date terbinafine (LamISIL) 250 mg tablet Take 1 tablet (250 mg total) by mouth 1 (one) time each day. 60 each 07/01/2024 08/30/2024 documented in this encounter Progress Notes * Fernando Sosa DPM - 07/01/2024 3:30 PM EDT S Patient presents today complaining pain in his feet he reports he gets occasional numbness burning tingling notes his nails are thick and discolored but does keep care of them reports he gets sharp shooting pains left heels reports that pain is improving significantly with Mobic states that pain swe lling has gone away down notes that he has thickened fungal nails skin of continue to improve he isfinished 1 month course of Lamisil would like to know if he can continue it material loader ID number [id number] ROS: GENERAL: Pt denies nausea, fever, vomiting, [...] (BMI) of 45.0 to 49.9 in adult ([facility] V24, [facility] V28) SOCIAL HISTORY: Social History Tobacco Use Smoking status: Not on file Smokeless tobacco: Not on file Substance Use Topics Alcohol use: Not on file ACTIVE MEDICATIONS: Outpatient Medications Marked as Taking for the 07/01/24 encounter (Office Visit) with Christopher M Sosa, DPM Medication Sig Dispense Refill amitriptyline (ELAVIL) 100 mg tablet TAKE 1 TABLET BY MOUTH AT BEDTIME ONCE EVERY DAY aspirin 81 mg EC tablet Take 1 tablet (81 mg total) by mouth 1 (one) time each day. BD Ultra-Fine Short Pen Needle 31 gauge x 5/16 needle Biktarvy 50-200-25 mg per tablet Take 1 tablet by mouth 1 (one) time each day. cholecalciferol (VITAMIN D-3) 50 mcg (2,000 unit) capsule Take 1 capsule (2,000 Units total) by mouth 1 (one) time each day. clopidogreL (PLAVIX) 75 mg tablet Take 1 tablet (75 mg total) by mouth 1 (one) time each day. fenofibrate (LOFIBRA) 54 mg tablet Take 1 tablet (54 mg total) by mouth 1 (one) time each day. FreeStyle Lancets 28 gauge lancets FreeStyle Lite Meter monitoring kit USE TO MONITOR BLOOD SUGAR DIRECTED glyBURIDE (DIABETA) 5 mg tablet Take 1 tablet (5 mg total) by mouth 2 (two) times a day. insulin glargine-yfgn 100 unit/mL (3 mL) injection 15 UNIT (0.15 ML) SUBCUTANEOUSLY EVERY EVENING FOR 90 DAYS (INSURANCE MAX DAY SUPPLY 30) insulin lispro protamine-insulin lispro (HumaLOG 75/25 KwikPen) 100 unit/mL (75- 25) injection pen Lantus Solostar U-100 Insulin 100 unit/mL (3 mL) injection pen INJECT 20 UNITS SUBCUTANEOUSLY EVERYEVENING FOR 90 DAYS * WILL LAST 90 DAYS lisinopriL (PRINIVIL,ZESTRIL) 10 mg tablet Take 1 tablet (10 mg total) by mouth 1 (one) time each day. omeprazole (PriLOSEC) [address] capsule TAKE 1 TABLET 2 TIMES A DAY FOR 14 DAYS, THEN 1 TABLET DAILY. DO NOT CRUSH, CHEW, OR SPLIT. oxyCODONE (ROXICODONE) 5 mg immediate release tablet TAKE 1 TABLET (5 MG) EVERY 8 HOURS NEEDED FOR PAIN FOR 3 DAYS PARTIAL FILL UPON PATIENT REQUEST. Pulmicort Flexhaler 90 mcg/actuation inhaler Inhale 1 puff by mouth 2 (two) times a day. sulfamethoxazole-trimethoprim (BACTRIM,SEPTRA) 400-80 mg per tablet Take 1 tablet by mouth 1 (one) time each day. tadalafiL (CIALIS) 20 mg tablet TAKE 1 TABLET BY MOUTH ONCE NEEDED FOR SEXUAL ACTIVITY . ON DEMAND MEDICATION TAKE 60 MINUTES BEFORE INTENDED ACTIVITY. tadalafiL (CIALIS) 5 mg tablet TAKE ONE TABLET BY MOUTH EVERY DAY FOR SEXUAL ACTIVITY Trulicity 1.5 mg/0.5 mL pen injector injection INJECT 1.5 MG SUBCUTANEOUSLY ONCE WEEKLY ALLERGIES: Allergies Allergen Reactions Glipizide PHYSICAL EXAM: There were no vitals taken [...] Plantar fascial fibromatosis 3. Diabetic mononeuropathy simplex (CMS/HCC V24, CMS/HCC V28) 4. Equinus contracture of ankle PLAN: Pt was seen and examined, history reviewed. Treatment options were discussed and reviewed including stretching exercises demonstrated for patient anti-inflammatory medications steroid injections orthotics and insoles Recommendations given for prefabricated insoles Referral offered physical therapy patient declined Mobic p can continue with with improving fasciitis drug management patient declined steroid shot Radiographs reviewed with patient in detail Antifungal treatment options were discussed and reviewed As patient has failed topical medications offered alternatives patient like to pursue oral therapy Lamisil prescribed for prescription drug management 2 months prescribed patient finished 1 month with significant proved nails and skin . Follow-up in 4 to 6 weeks Fernando Sosa DPM documented in this encounter Plan of Treatment Upcoming Encounters Date Type Department Care Team (Late st Contact Info) Description 08/05/2024 3:30 PM EDT Office Visit Orthopedic Surgery - [place] [address] [phone] Fernando Sosa DPM [address] [address] documented as of this encounter Visit Diagnoses Diagnosis Dermatophytosis of nail- Primary Plantar fascial fibromatosis Diabetic mononeuropathy simplex ([facility] V24, [facility] V28) Type II or unspecified type diabetes mellitus with neurological manifestations, not stated as uncontrolled Equinus contracture of ankle documented in this encounter Historical Medications * This list may reflect changes made after this encounter. lisinopriL (PRINIVIL,ZESTR IL) 10 mg tablet Take 1 tablet (10 mg total) by mouth 1 (one) time each day. 05/31/2024 tadalafiL (CIALIS) 5 mg tablet TAKE ONE TABLET BY MOUTH EVERY DAY FOR SEXUAL ACTIVITY 04/30/2024 tadalafiL (CIALIS) 20 mg tablet TAKE 1 TABLET BY MOUTH ONCE NEEDED FOR SEXUAL ACTIVITY . ON DEMAND MEDICATION TAKE 60 MINUTES BEFORE INTENDED ACTIVITY. 04/30/2024 sulfamethoxazol e-trimethoprim (BACTRIM,SEPTRA ) 400-80 mg per tablet Take 1 tablet by mouth 1 (one) time each day. 05/29/2024 BD Ultra-Fine Short Pen Needle 31 gauge x 5/16 needle 10/24/2023 oxyCODONE (ROXICODONE) 5 mg immediate release tablet TAKE 1 TABLET (5 MG) EVERY 8 HOURS NEEDED FOR PAIN FOR 3 DAYS PARTIAL FILL UPON PATIENT REQUEST. 05/29/2024 omeprazole (PriLOSEC) [address] capsule TAKE 1 TABLET 2 TIMES A DAY FOR 14 DAYS, THEN 1 TABLET DAILY. DO NOT CRUSH, CHEW, OR SPLIT. 06/03/2024 FreeStyle Lancets 28 gauge lancets 07/15/2023 insulin lispro protamine-insul in lispro (HumaLOG 75/25 KwikPen) 100 unit/mL (75-25) injection pen 08/25/2023 insulin glargine-yfgn 100 unit/mL (3 mL) injection 15 UNIT (0.15 ML) SUBCUTANEOUSLY EVERY EVENING FOR 90 DAYS (INSURANCE MAX DAY SUPPLY 30) 04/16/2024 Lantus Solostar U-100 Insulin 100 unit/mL (3 mL) injection pen INJECT 20 UNITS SUBCUTANEOUSLY EVERY EVENING FOR 90 DAYS * WILL LAST 90 DAYS 06/25/2024 glyBURIDE (DIABETA) 5 mg tablet Take 1 tablet (5 mg total) by mouth 2 (two) times a day. 06/25/2024 fenofibrate (LOFIBRA) 54 mg tablet Take 1 tablet (54 mg total) by mouth 1 (one) time each day. 05/12/2024 Trulicity 1.5 mg/0.5 mL pen injector injection INJECT 1.5 MG SUBCUTANEOUSLY ONCE WEEKLY 06/23/2024 clopidogreL (PLAVIX) 75 mg tablet Take 1 tablet (75 mg total) by mouth 1 (one) time each day. 05/15/2024 cholecalciferol (VITAMIN D-3) 50 mcg (2,000 unit) capsule Take 1 capsule (2,000 Units total) by mouth 1 (one) time each day. 11/06/2023 Pulmicort Flexhaler 90 mcg/actuation inhaler Inhale 1 puff by mouth 2 (two) times a day. 03/14/2024 FreeStyle Lite Meter monitoring kit USE TO MONITOR BLOOD SUGAR DIRECTED 03/04/2024 Biktarvy 50-200-25 mg per tablet Take 1 tablet by mouth 1 (one) time each day. 06/21/2024 aspirin 81 mg EC tablet Take 1 tablet (81 mg total) by mouth 1 (one) time each day. 04/14/2024 amitriptyline (ELAVIL) 100 mg tablet TAKE 1 TABLET BY MOUTH AT BEDTIME ONCE EVERY DAY 06/23/2024 added in this encounter Care Teams Recovery Room Rn Relationship Specialty Start Date End Date Damion Galicia MD [address] [place] [address] [address] [place] PCP - General Internal Medicine 11/30/23 documented as of this encounter
--- OUTSIDE RECORDS SUMMARY | 2024-07-04 15:13 | XMS_ITS | Encounter Summary ---
Author Organization [facility] Address [address] [place] [address] Phone Care Team Providers Care Feed Manager Name Role Phone Humaira Thurston MD Primary Care Provider [phone] Reason for Visit * Reason Comments Med Refill Encounter Details Date Type Department Care Team (Late st Contact Info) Description 07/03/2023 Refill [facility] [address] [place] [phone] David Perez MD [address] [place] [address], [facility] [address] [place] [address] Social History Tobacco Use Types Packs/Day Years [...] on filedocumented in this encounter Care Teams Feed Manager Relationship Specialty Start Date End Date Humaira Thurston MD [address] [place] [address] PCP - General Internal Medicine 12/27/22 documented as of this encounter
--- OUTSIDE RECORDS SUMMARY | 2024-07-04 15:13 | XMS_ITS | Clinical Summary ---
Author Organization 175 [facility] Address [address] [place] [address] Phone Care Team Providers Care Social Research Assistant Name Role Phone Damion Galicia MD Primary Care Provider Allergies Active Allergy Reactions Criticality Noted Date Comments Glipizide 12/09/2020 Medications omeprazole OTC (PriLOSEC OTC) 20 mg EC tablet Take 1 tablet (20 mg total) by mouth 2 (two) times a day for 14 days, THEN 1 tablet (20 mg total) 1 (one) time each day. Do not crush, chew, or split.. 58 tablet 04/14/19 25 026 Active lisinopriL (PRINIVIL,ZEST RIL) 20 mg tablet Take 1 tablet (20 mg total) by mouth 1 (one) time each day. 10/12/19 24 Active amitriptyline (ELAVIL) 100 mg tablet TAKE 1 TABLET BY MOUTH AT BEDTIME ONCE EVERY DAY 06/24/19 25 Active aspirin 81 mg EC tablet Take 1 tablet (81 mg total) by mouth 1 (one) time each day. 04/14/19 25 Active Biktarvy 50-200-25 mg per tablet Take 1 tablet by mouth 1 (one) time each day. 06/22/19 25 Active FreeStyle Lite Meter monitoring kit USE TO MONITOR BLOOD SUGAR DIRECTED 03/04/19 25 Active Pulmicort Flexhaler 90 mcg/actuation inhaler Inhale 1 puff by mouth 2 (two) times a day. 03/14/19 25 Active cholecalcifero l (VITAMIN D-3) 50 mcg (2,000 unit) capsule Take 1 capsule (2,000 Units total) by mouth 1 (one) time each day. 11/06/19 24 Active clopidogreL (PLAVIX) 75 mg tablet Take 1 tablet (75 mg total) by mouth 1 (one) time each day. 05/16/19 25 Active Trulicity 1.5 mg/0.5 mL pen injector injection INJECT 1.5 MG SUBCUTANEOUSLY ONCE WEEKLY 06/24/19 25 Active fenofibrate (LOFIBRA) 54 mg tablet Take 1 tablet (54 mg total) by mouth 1 (one) time each day. 05/13/19 25 Active glyBURIDE (DIABETA) 5 mg tablet Take 1 tablet (5 mg total) by mouth 2 (two) times a day. 06/26/19 25 Active Lantus Solostar U-100 Insulin 100 unit/mL (3 mL) injection pen INJECT 20 UNITS SUBCUTANEOUSLY EVERY EVENING FOR 90 DAYS * WILL LAST 90 DAYS 06/26/19 25 Active insulin glargine-yfgn 100 unit/mL (3 mL) injection 15 UNIT (0.15 ML) SUBCUTANEOUSLY EVERY EVENING FOR 90 DAYS (INSURANCE MAX DAY SUPPLY 30) 04/16/19 25 Active insulin lispro protamine-insu ney lispro (HumaLOG 75/25 KwikPen) 100 unit/mL (75-25) injection pen 08/25/19 24 Active FreeStyle Lancets 28 gauge lancets 07/15/19 24 Active omeprazole (PriLOSEC) [address] capsule TAKE 1 TABLET 2 TIMES A DAY FOR 14 DAYS, THEN 1 TABLET DAILY. DO NOT CRUSH, CHEW, OR SPLIT. 06/04/19 25 Active oxyCODONE (ROXICODONE) 5 mg immediate release tablet TAKE 1 TABLET (5 MG) EVERY 8 HOURS NEEDED FOR PAIN FOR 3 DAYS PARTIAL FILL UPON PATIENT REQUEST. 05/30/19 25 Active BD Ultra-Fine Short Pen Needle 31 gauge x 5/16 needle 10/24/19 24 Active sulfamethoxazo le-trimethopri m (BACTRIM,SEPTR A) 400-80 mg per tablet Take 1 tablet by mouth 1 (one) time each day. 05/30/19 25 Active tadalafiL (CIALIS) 20 mg tablet TAKE 1 TABLET BY MOUTH ONCE NEEDED FOR SEXUAL ACTIVITY . ON DEMAND MEDICATION TAKE 60 MINUTES BEFORE INTENDED ACTIVITY. 05/01/19 25 Active tadalafiL (CIALIS) 5 mg tablet TAKE ONE TABLET BY MOUTH EVERY DAY FOR SEXUAL ACTIVITY 05/01/19 25 Active lisinopriL (PRINIVIL,ZEST RIL) 10 mg tablet Take 1 tablet (10 mg total) by mouth 1 (one) time each day. 06/01/19 25 Active terbinafine (LamISIL) 250 mg tablet Take 1 tablet (250 mg total) by mouth 1 (one) time each day. 60 each 07/02/19 25 025 Active terbinafine (LamISIL) 250 mg tablet Take 1 tablet (250 mg total) by mouth 1 (one) time each day. 30 each 05/23/19 25 025 meloxicam (Mobic) 15 mg tablet Take 1 tablet (15 mg total) by mouth 1 (one) time each day. 30 each 05/23/19 25 025 Active Problems Problem Noted Date Diagnosed Date Class 3 severe obesity with body mass index (BMI) of 45.0 to 49.9 in adult ([facility] V24, [facility] V28) 01/10/2024 Encounters Date Type Department Care Team Description 07/01/2024 3:30 PM EDT Office Visit Orthopedic Surgery [address] [phone] Fernando Sosa DPM Dermatophytosis of nail (Primary Dx); Plantar fascial fibromatosis; Diabetic mononeuropathy simplex ([facility] V24, [facility] V28); Equinus contracture of ankle 06/03/2024 2:00 PM EDT Nutrition Bariatric Surgery [address] [phone] Class 3 severe obesity with body mass index (BMI) of 45.0 to 49.9 in adult, unspecified obesity type, unspecified whether serious comorbidity present ([facility] V24, [facility] V28) (Primary Dx) 05/22/2024 3:15 PM EDT Office Visit Orthopedic [place] [address] [phone] Fernando Sosa DPM Plantar fascial fibromatosis (Primary Dx); Follow-up exam; Equinus contracture of ankle; Dermatophytosis of nail 04/29/2024 Telephone Bariatric Surgery [facility] 175 [facility] [address] [place] [address] Nereyda Pierre MD Advice Only (Surgery PA) 04/24/2024 1:15 PM EST Office Visit Bariatric Surgery [facility] 175 [facility] [address] [place] [address] Nereyda Pierre MD Class 3 severe obesity with body mass index (BMI) of 40.0 to 44.9 in adult, unspecified obesity type, unspecified whether serious comorbidity present (CMS/HCC V24, CMS/HCC V28) (Primary Dx) 04/09/2024 2:15 PM EST Office Visit Orthopedic Surgery [facility] [address] [phone] Fernando Sosa DPM Dermatophytosis of nail (Primary Dx); Plantar fascial fibromatosis; Diabetic mononeuropathy simplex (CMS/HCC V24, CMS/HCC V28); Equinus contracture of ankle from Last 3 Months Social History Tobacco [...] 3:30 PM EDT Office Visit Orthopedic Surgery [facility] [address] [phone] Fernando Sosa, DPM 175 [facility] [address] [place] [address] Health Maintenance Due Date Last Done Comments [...] unspecified whether serious comorbidity present (CMS/HCC V24, CMS/[facility] V28) HEMOGLOBIN A1C Routine 02/26/2024 2:07 PM EST Class 3 severe obesity with body mass index (BMI) of 40.0 to 44.9 in adult, unspecified obesity type, unspecified whether serious comorbidity present (CMS/HCC V24, CMS/HCC V28) LIPID PANEL WITH REFLEX TO DIRECT LDL Routine 02/26/2024 2:07 PM EST Class 3 severe obesity with body mass index (BMI) of 40.0 to 44.9 in adult, unspecified obesity type, unspecified whether serious comorbidity present (CMS/HCC V24, CMS/HCC V28) from Last 3 Months or Most [...] mg/dL LAB CHEMISTRY METHOD 02/26/2024 6:32 PM [facility] Triglycerides 203(H) 0 - 150 mg/dL LAB CHEMISTRY METHOD 02/26/2024 6:32 PM [facility] HDL 37(L) >=40 mg/dL LAB CHEMISTRY METHOD 02/26/2024 6:32 PM [facility] LDL Calculated 107(H) 0 - 100 mg/dL LAB CHEMISTRY METHOD 02/26/2024 6:32 PM [facility] VLDL Cholesterol Stephen 40.6 mg/dL LAB CHEMISTRY METHOD 02/26/2024 6:32 PM [facility] Non HDL Chol. (LDL+VLDL) 148(H) <145 mg/dL LAB CHEMISTRY METHOD 02/26/2024 6:32 PM [facility] Chol/HDL Ratio 5.0(H) 0.0 - 4.4 LAB CHEMISTRY METHOD 02/26/2024 6:32 PM [facility] Blood Venous blood specimen / Unknown Venipuncture / Unknown 02/26/2024 2:07 PM EST 02/26/2024 2:07 PM EST Nereyda Pierre MD LAB BLOOD ORDERABLES Final R esult Performing Organization Address [facility]/ZIP Co de Phone Number [facility] [address] [place] [address], [place] [phone] * (ABNORMAL) Hemoglobin A1c (02/26/2024 2:07 PM EST) [facility] Hemoglobin A1C 8.6(H) <6.5 % LAB CHEMISTRY METHOD 02/26/2024 8:10 PM EST [facility] Mean Bld Glu Estim. 200 mg/dL LAB CHEMISTRY METHOD 02/26/2024 8:10 PM EST [facility] Blood Venous blood specimen / Unknown Venipuncture / Unknown 02/26/2024 2:07 PM EST 02/26/2024 2:07 PM EST Nereyda Pierre MD LAB BLOOD ORDERABLES Final R esult Performing Organization Address City/[facility]/ZIP Co de Phone Number [facility] [address] [place] [address], [place] [phone] * (ABNORMAL) Comprehensive metabolic panel (02/26/2024 2:07 PM EST) [facility] Sodium 135 133 - 145 mmol/L LAB CHEMISTRY METHOD 02/26/2024 6:32 PM EST [facility] Potassium 5.2 3.5 - 5.5 mmol/L LAB CHEMISTRY METHOD 02/26/2024 6:32 PM EST [facility] Chloride 107 96 - 110 mmol/L LAB CHEMISTRY METHOD 02/26/2024 6:32 PM EST [facility] CO2 23 21 - 32 mmol/L LAB CHEMISTRY METHOD 02/26/2024 6:32 PM EST [facility] Anion Gap 5 3 - 11 LAB CHEMISTRY METHOD 02/26/2024 6:32 PM [facility] Glucose 206(H) 70 - 100 mg/dL LAB CHEMISTRY METHOD 02/26/2024 6:32 PM [facility] BUN 23 5 - 25 mg/dL LAB CHEMISTRY METHOD 02/26/2024 6:32 PM [facility] Creatinine 1.46(H) 0.70 - 1.30 mg/dL LAB CHEMISTRY METHOD 02/26/2024 6:32 PM [facility] eGFR 58(L) >=60 mL/min/1. 73m2 LAB CHEMISTRY METHOD 02/26/2024 6:32 PM [facility] Comment:Calculation based on the??Chronic Kidney Disease Epidemiology Collaboration (CKD-EPI) equation refit??without adjustment for race. BUN/Creatinine Ratio 15.8 LAB CHEMISTRY METHOD 02/26/2024 6:32 PM [facility] Calcium 9.6 8.5 - 10.5 mg/dL LAB CHEMISTRY METHOD 02/26/2024 6:32 PM [facility] AST (SGOT) 16 10 - 42 unit/L LAB CHEMISTRY METHOD 02/26/2024 6:32 PM [facility] ALT (SGPT) 28 10 - 60 unit/L LAB CHEMISTRY METHOD 02/26/2024 6:32 PM [facility] Alkaline Phosphatase 76 42 - 121 unit/L LAB CHEMISTRY METHOD 02/26/2024 6:32 PM [facility] Total Protein 8.1(H) 6.0 - 8.0 g/dL LAB CHEMISTRY METHOD 02/26/2024 6:32 PM [facility] Albumin 3.9 3.2 - 5.0 g/dL LAB CHEMISTRY METHOD 02/26/2024 6:32 PM [facility] Total Bilirubin 0.6 0.0 - 1.4 mg/dL LAB CHEMISTRY METHOD 02/26/2024 6:32 PM EST [facility] Blood Venous blood specimen / Unknown Venipuncture / Unknown 02/26/2024 2:07 PM EST 02/26/2024 2:07 PM EST us Nereyda Pierre MD LAB BLOOD ORDERABLES Final R esult [facility] [address] [place] [address], from Last 3 Months or Most Recently Relevant to Health Maintenance Insurance [facility] [place] [employer] Care Teams Social Research Assistant Relationship Specialty Start Date End Date Damion Galicia MD [address] [place] [address] [address] [place], [place] PCP - General Internal Medicine 11/30/23
--- OUTSIDE RECORDS SUMMARY | 2024-07-04 15:13 | XMS_ITS | Clinical Summary ---
Author Organization [facility] Address [address] [place] [address] Care Team Providers Care Counterintelligence Agent Name Role Phone Humaira Thurston MD Primary Care Provider [phone] Allergies Active Allergy Reactions Criticality Noted Date [...] AM EDT Performed at: ??01 - [facility] [address] ??[id number] Diesel Fleet Mechanic: Cheryl Goodman MD, Phone: ??[phone] us David Perez MD LAB BLOOD ORDERABLES Final Re sult [facility] See order comments [place] [address] from Last 3 Months or Most Recently Relevant to Health Maintenance Insurance Care Teams Counterintelligence Agent Relationship Specialty Start Date End Date Humaira Thurston MD [address] [place] [id number] PCP - General Internal Medicine 12/27/22
--- NOTE | 2024-07-04 15:15 | A.OFFVIS_ITS ---
Intake Visit Reasons: Circumcision follow up Intake Note: Patient is present for CIRCUMCISION F/U Urology Medication:TADALAFIL Antibiotic Allergy:TUBERCULIN Blood Thinner:ASPIRIN Appliance Installer Required: No Allergies glipizide Allergy (Mild, Verified 07/04/24 15:17) rash tuberculin, purified protein deriva Allergy (Mild, Verified 07/04/24 15:17) Swelling martinez Allergy (Mild, Uncoded 07/04/24 15:17) Hives jardiance Adverse Reaction (Severe, Uncoded 07/04/24 15:17) Rash/balanitis HPI Comments Details: Cheng is a pleasant [place]er-speaking male. He is a patient of Dr. Hood. He s een for the following urologic issues - lower tract symptoms - erectile dysfunction - balanitis Follow-up circumcision Continues with cracking Able to expose more easily Given combination topical therapy Is starting diabetes therapy encouraged him to removal had with this In terms of his Jardiance should be on lowest dose. High-dose Jardiance associated with balanitis. Lower urinary tract symptoms Episode of pyelonephritis with admission to [facility] October 2021 Had changed in the counter for diabetic management Feels he had a 2nd UTI in the meantime Prior prostate medication Prior medications included low-dose tadalafil with doxazosin Erectile dysfunction HIV associated with type 2 diabetes Background HIV, morbid obesity, type 2 diabetes Progressive erectile dysfunction Prior therapy intermittent Plan for daily tadalafil with on demand 20 mg PFSH Medical History Erectile dysfunction associated with type 2 diabetes mellitus Mixed hyperlipidemia Mild intermittent asthma Hyperkalemia Morbid obesity Renal calculi Morbid obesity Dyslipidemia CKD (chronic kidney disease) Essential hypertension Diabetes mellitus HIV (human immunodeficiency virus infection) Surgical History No pertinent past surgical history Family History Father Myocardial infarction Hypertension CVD (cardiovascular disease) Mother Stroke CVD (cardiovascular disease) Mental health disorder Sister Diabetes Social History Housing: Apartment Alcohol intake: former Patient Tobacco Use Status: Never used Tobacco e-Cigarette/Vaping Use: Never Used Second Hand Smoke Exposure: Yes service: No Current occupational status: employed Current occupational exposures/hazards: No Cognitive needs: No Hearing needs: No Vision needs: No Review of Systems Const Denies chills and Denies fever(s) Card Reports no additional complaints and Denies syncope Resp Denies cough GI Denies abdominal pain and Denies heartburn Reports as per HPI and Denies change in libido Neuro Denies syncope Psych Denies change in libido Endo Denies change in libido Physical Exam Const General: cooperative, healthy appearing, comfortable and no acute distress Orientation/consciousness: patient oriented x3 HEENT Face and sinus: Yes normal facial exam Mouth: moist mucous membranes Neck Neck: Yes normal visual inspection, Yes full ROM and Yes trachea midline Chest Chest palpation & inspection: normal inspection of the chest Resp Effort & Inspection: normal respiratory effort, able to speak in complete sentences and no respiratory distress GI Inspection: Yes normal to inspection Back/Spine/Pelvis Cervical Spine: normal cervical lordosis Thoracic/Lumbar Spine: thoracic and lumbar spine normal to inspection Skin General skin exam: no rashes or lesions noted Neuro General: patient oriented x3, gait normal, tone normal and moves all extremities Extrem General: Yes normal to inspection and Yes capillary refill normal Assessment & Plan Assessment & Plan (1) Balanitis: Code(s): N48.1 - Balanitis Category: Medical Plan Six-month follow-up Medications: New clotrimazole-betamethasone 1-0.05 % Apply thin coat 2 times per day 1 appl topical BID 4 weeks 45 grams 0RF N48.1 - Balanitis Patient Instructions: This note is constructed using voice recognition software. While every effort has been made to ensure accuracy supervisor of research errors may have been included. Imaging studies, laboratory and physical exam results were discussed and reviewed in detail. No major barriers to patient understanding were identified. An opportunity to ask questions regarding the treatment plan was provided. All questions were answered. The patient expressed understanding and agreement with the above treatment plan. The patient is aware they should contact our office by phone for worsening of their current condition or the appearance of new urologic symptoms. Compliance is encouraged with any medications and followup testing that is ordered. It is a privilege to participate in the urologic care of your patient. If you have any questions or concerns regarding treatment for the above conditions, or other urologic issues, please do not hesitate to contact me. The office telephone contact is [phone]. Sincerely, Dr Donny Irvin MD, [facility] - Urology Compassionate Specialist Care for the Genitourinary System Coding Level of Care Code Est Pt Level 4 (37934) Diagnoses Balanitis N48.1
== END 2024-07-04 15:41 | disposition home or self-care (01) ==
LOC: HO.HUSH 15:12
PROVIDERS: PCP Internal Medicine; Visit Provider Urology
DX: N48.1 Balanitis (principal)
CPT/HCPCS: 99214

== ENCOUNTER → 2024-07-04 15:11 | Outpatient (BNVA) | payer OTHER, SELFPAY | PROVIDERS: PCP Internal Medicine; Visit Provider Urology | DX: N52.9 Male erectile dysfunction, unspecified (principal); B20 Human immunodeficiency virus [HIV] disease; E11.9 Type 2 diabetes mellitus without complications; Z98.890 Other specified postprocedural states | CPT/HCPCS: 99212 ==

== ENCOUNTER 2024-07-10 15:09 | Outpatient (AMB) | payer OTHER, SELFPAY ==
[2024-07-10 15:15] VITALS: BP 121/58; PULSE 75; BMI 45.8
--- NOTE | 2024-07-10 15:15 | A.OFFVIS_ITS ---
Vital Signs 07/10/24 15:15 Height 5 ft 4 in Weight 266 lb 12.149 oz BMI 45.8 BP 121/58 L Blood Pressure Location Lt brachial Position Sitting Pulse 75 Intake Visit Reasons: Acid reflux and pre colonoscopy/ Esha wanda 08/2022 Intake Note: Cheng presents in the office as a follow up - seen Esha in the past. CC: He states that he takes the omeprazole and he states that he feels like it helps him. Yardage Tufting Machine Operator Required: Yes Yardage Tufting Machine Operator Services: Yardage Tufting Machine Operator Present Yardage Tufting Machine Operator Name: naturopathic oncology provider Mary [id number]. 1550 Information Interpreted: non-clinical & clinical Allergies glipizide Allergy (Mild, Verified 07/10/24 15:16) rash tuberculin, purified protein deriva Allergy (Mild, Verified 07/10/24 15:16) Swelling martinez Allergy (Mild, Uncoded 07/10/24 15:16) Hives Medication List - Last Reconciled 07/10/24 by Tina Barksdale, RADHA amitriptyline 100 mg PO BEDTIME ascorbate calcium (vitamin C) 1 g PO Q6H aspirin 81 mg PO DAILY 30 days atorvastatin 80 mg PO BEDTIME 90 days ayitrtlpx-hxyyarfm-hsvhtos ala 50-200-25 mg (Biktarvy) 1 tab PO DAILY 30 days bisacodyl 5 mg PO ONCE 1 day blood sugar diagnostic Use 1 test strip twice a day blood sugar diagnostic (Accu-Chek Guide test strips) Use 1 test strip three times a day blood sugar diagnostic (FreeStyle Lite Strips) As directed 3 times per day blood-glucose meter (Accu-Chek Guide Glucose Meter) As directed blood-glucose meter (FreeStyle Lite Meter kit) As directed budesonide 90 mcg/actuation (Pulmicort Flexhaler) 1 inh inhalation BID haqatrbqdy-yaizvztvytnsv-qdyg 50-325-40 mg tabs PO clopidogrel (Plavix) 75 mg PO DAILY 30 days clotrimazole-betamethasone 1-0.05 % 1 appl topical BID 4 weeks dulaglutide (Trulicity) 1.5 mg (0.5 mL) subcut QWEEK 90 days empagliflozin-metformin 12.5-1,000 mg (Synjardy) 2 tabs PO DAILY fenofibrate 54 mg PO DAILY 90 days gabapentin 300 mg PO DAILY glyburide 5 mg PO BID insulin glargine (Lantus Solostar U-100 Insulin) 20 units (0.2 mL) subcut QPM 90 days lancets (FreeStyle Lancets) Use 1 lancet three times a day lancets (Accu-Chek Fastclix Lancet Drum) Use 1 lancet three times a day lisinopril 20 mg PO DAILY 90 days meclizine mg PO DAILY meloxicam 15 mg PO DAILY nebulizers (AeroEclipse II Nebulizer) As directed omeprazole 20 mg PO .daily pen needle, diabetic (Comfort EZ Pen Accord) Use 1 pen needle twice a day polyethylene glycol 3350 (Miralax) 238 grams PO ONCE sodium chloride 0.9% 1 mL inhalation Q8H PRN 90 days tadalafil 20 mg PO ONCE PRN 30 days tadalafil 5 mg PO DAILY 90 days terbinafine HCl 250 mg PO DAILY topiramate 100 mg PO BID HPI HPI Acid reflux and pre colonoscopy/ Esha muñoz 08/2022: Details: Patient is a 53-year-old Nicaraguan-speaking male with PMH of hyperlipidemia, hypertension, diabetes, morbid obesity, asthma and CKD. Last visit with [facility] 09/21/2022 for pre colonoscopy screening Pt is here today for per colonoscopy screening. Patient is accompanied by his mother. Preparation for colonoscopy initiated 2022 but not completed due to no call for scheduling per pt. He denies any previous colon cancer screening. He reports history of constipation, which has improved over the past three months with a diet high in salads and fiber. Previously, the patient experienced severe constipation, requiring OTC management with Metamucil when living in [place]. Currently, bowel movements are regular. The patient reports experiencing acid reflux for the past six months, starting around January. Shares symptoms of burning sensation and regurgation are reliev ed by omeprazole, which the patient started taking recently and providing significant relief. The patient also recently completed treatment for what sounds like H. pylori infection with antibiotics and is scheduled for a repeat test on July 29 managed by bariatric surgery. His bariatric team is through [facility]. The patient has lost weight intentionally, currently weighing 266 lbs, down from 325 lbs. The patient has passed all pre-surgery stages, including psychological evaluation, and is scheduled for pre-op workup next week. The patient follows a diet high in salads, fruits, and water, avoiding martinez due to an allergy. He underwent recent polydactyly surgery, finished antibiotics for infection prevention but remains on meloxicam all prescribed by podiatry. Also with remote history of circumcision-related procedure and was prescribed Clotrimazole-Betamethasone cream to apply for a month to manage post-surgical care. Patient denies: systemic symptoms, n/v, appetite changes, dysphasia, unintentional wt loss, ab pain or melena/hematochezia. SOCIAL HISTORY - Diet: High intake of salads, water, and occasional protein (avoiding martinez). Increased intake of fruits and healthier options to manage weight loss. 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 -tolerated anesthesia in the past without difficulty. [facility] Medical History (Updated 07/10/24 @ 17:36 by Tina Barksdale CNP) Constipation Erectile dysfunction associated with type 2 diabetes mellitus Mixed hyperlipidemia Mild intermittent asthma Hyperkalemia Morbid obesity Renal calculi Morbid obesity Dyslipidemia CKD (chronic kidney disease) Essential hypertension Diabetes mellitus HIV (human immunodeficiency virus infection) Surgical History Hx of circumcision No pertinent past surgical history Family History (Updated 07/10/24 @ 17:31 by Tina Barksdale CNP) Father Myocardial infarction Hypertension CVD (cardiovascular disease) Mother Stroke CVD (cardiovascular disease) Mental health disorder Sister Diabetes Maternal Grandmother CVD (cardiovascular disease) Maternal Uncle Pancreatic cancer Social History Housing: Apartment Alcohol intake: former Patient Tobacco Use Status: Never used Tobacco e-Cigarette/Vaping Use: Never Used Second Hand Smoke Exposure: Yes service: No Current occupational status: employed Current occupational exposures/hazards: No Cognitive needs: No Hearing needs: No Vision needs: No Review of Systems Const Reports as per HPI ENT Reports as per HPI Card Reports as per HPI Resp Reports as per HPI GI Reports as per HPI Reports as per HPI Physical Exam Vital Signs: Last Vital Signs Pulse 75 07/10/24 15:15 BP 121/58 L 07/10/24 15:15 BMI result Body Mass Index 45.8 Const General: healthy appearing, no acute distress and well developed Nutritional Appearance: obese Orientation/consciousness: patient oriented x3 HEENT Head: Yes normal to inspection, Yes normocephalic and Yes atraumatic Face and sinus: Yes normal facial exam Eyes General: appearance normal, both eyes and all related structures Neck Neck: Yes normal visual inspection Resp Effort & Inspection: normal respiratory effort, able to speak in complete sentences, no tracheal deviation and symmetric chest movement Auscultation: clear to auscultation bilaterally Cardio Jugular venous distension: no JVD Rate: regular rate Rhythm: regular rhythm Heart sounds: S1 normal heart sound present, S2 normal heart sound present, no gallops and no murmurs GI Inspection: Yes normal to inspection, No distended and Yes obesity Palpation (GI): Soft to palpation, not firm, nontender and No hepatosplenomegaly present Auscultation: normal bowel sounds Neuro General: patient oriented x3 Gait exam (Neuro): Normal gait present Psych Appearance: grossly normal Mental Status: mental status grossly normal Speech and movement: Normal speech and movement present Affect: normal affect Attitude: cooperative Thought process: Normal thought process present Thought content: Normal thought content present Insight: Good insight present (Psych) Judgement: Good judgement present (Psych) Assessment & Plan Assessment & Plan (1) Screen for colon cancer: Code(s): Z12.11 - Encounter for screening for malignant neoplasm of colon Category: Medical Plan: Due for index screening colonoscopy. Diagnostic Tests: Prescriptions for laxative tablets and Miralax sent to pharmacy; instructions for Gatorade purchase and clear liquid diet given. Medications: Hold aspirin, Plavix, Trulicity ( at least 7 days before), Lantus ( 1/2 dose starting two nights before), glyburide and synjardy (morning of) as discussed or indicated by prescriber. Patient educated on procedure preparation, including avoiding certain foods and ensuring clear liquid intake. Advised on necessity for ride post-procedure due to sedation. (2) Constipation: Code(s): K59.00 - Constipation, unspecified Category: Medical Qualifiers: Constipation type: unspecified constipation type Qualified Code(s): K59.00 - Constipation, unspecified Plan: Improved with diet and lifestyle modifications. Prescription sent for fiber tablet. Reinforced lifestyle modifications to promote regularity: -higher fiber diet, examples provided -adequate hydration with water -150 minutes of moderate intensity exercise per week (3) Acid reflux: Code(s): K21.9 - Gastro-esophageal reflux disease without esophagitis Category: Medical Qualifiers: Esophagitis presence: esophagitis presence not specified Qualified Code(s): K21.9 - Gastro-esophageal reflux disease without esophagitis Plan: Diagnostic Tests: Endoscopy to assess for chronic inflammation Medications: Continue omeprazole, refill sent Encouraged to take omeprazole as prescribed, taken at least 30-60 minutes before a meal. Education on GERD prevention : -Advised against heavy meals; encouraged small, frequent meals instead of large ones. - Instructed to remain upright for 2?3 hours after eating. - Advised to avoid late-night meals, spicy foods, caffeine, alcohol, known dietary triggers, and tight-fitting clothing. - Emphasis placed on gradual implementation of lifestyle changes to improve adherence and symptom control. (4) Morbid obesity: Code(s): E66.01 - Morbid (severe) obesity due to excess calories Category: Medical Plan: BMI 45.8 Establish with bariatric [facility]. Would like colonoscopy prior to bariatric surgery. Diagnostic Tests: Pre-op workup scheduled for next week Patient Education: Follow bariatric program instructions, maintain healthy diet, follow-up coordination with pre-op procedures Follow-up with bariatric surgery team as planned Plan Follow-up after EGD/colonoscopy are sooner as needed. Time: I spent a total of 45 minutes on the date of encounter which includes: Preparing to see the patient (reviewed previous documentation, test results and medical history) Performing a medically appropriate exam and/or evaluation Ordering medications, tests, and procedures Documenting clinical information in the health record Medications: New bisacodyl Take four tablets once for 1 day per colonoscopy instructions 5 mg PO ONCE 4 tabs 0RF 1 day methylcellulose (laxative) (Citrucel) 500 mg PO DAILY 90 tabs 1RF polyethylene glycol 3350 (Miralax) per colonoscopy prep instructions 238 grams PO ONCE 238 grams 0RF Changed From omeprazole PO To omeprazole Take one tablet daily. Best taken 30 minutes before a meal. 20 mg PO .daily 90 caps 1RF Coding Level of Care Code New Pt New Pt Level 5 (65947) Patient Type New Diagnoses Screen for colon cancer Z12.11 Constipation, unspecified constipation type K59.00 Constipation type: unspecified constipation type Gastroesophageal reflux disease, unspecified whether esophagitis present K21.9 Esophagitis presence: esophagitis presence not specified Morbid obesity E66.01
--- OUTSIDE RECORDS SUMMARY | 2024-07-10 15:46 | XMS_ITS | Encounter Summary ---
Author Organization [facility] Address [address] [place] [address] Phone Care Team Providers Care Recruiting Intern Name Role Phone Humaira Thurston MD Primary Care Provider [phone] Reason for Visit * Reason Comments Med Refill Encounter Details Date Type Department Care Team (Late st Contact Info) Description 07/03/2023 Refill [facility] [address] [place] [phone] David Perez MD [address] [place] [address], [facility] [address] [place] [address] Social History Tobacco Use Types Packs/Day Years [...] on filedocumented in this encounter Care Teams Recruiting Intern Relationship Specialty Start Date End Date Humaira Thurston MD [address] [place] [address] PCP - General Internal Medicine 12/27/22 documented as of this encounter
--- OUTSIDE RECORDS SUMMARY | 2024-07-10 15:47 | XMS_ITS | Clinical Summary ---
Author Organization 175 [facility] Address [address] [place] [address] Phone Care Team Providers Care Head Of Merchandise Buying Name Role Phone Damion Galicia MD Primary [...] (BMI) of 45.0 to 49.9 in adult ([facility] V24, [facility] V28) 01/10/2024 Encounters Date Type Department Care Team Description 07/01/2024 3:30 PM EDT Office Visit Orthopedic Surgery [address] [phone] Fernando Sosa DPM Dermatophytosis of nail (Primary Dx); Plantar fascial fibromatosis; Diabetic mononeuropathy simplex ([facility] V24, [facility] V28); Equinus contracture of ankle 06/03/2024 2:00 PM EDT Nutrition Bariatric Surgery [address] [phone] Class 3 severe obesity with body mass index (BMI) of 45.0 to 49.9 in adult, unspecified obesity type, unspecified whether serious comorbidity present ([facility] V24, [facility] V28) (Primary Dx) 05/22/2024 3:15 PM EDT Office Visit Orthopedic [place] [address] [phone] Fernando Sosa DPM Plantar fascial fibromatosis (Primary Dx); Follow-up exam; Equinus contracture of ankle; Dermatophytosis of nail 04/29/2024 Telephone Bariatric Surgery - [place] 175 [facility] [address] [place] [address] Nereyda Pierre MD Advice Only (Surgery PA) 04/24/2024 1:15 PM EST Office Visit Bariatric Surgery [facility] 175 [facility] [address] [place] [address] Nereyda Pierre MD Class 3 severe obesity with body mass index (BMI) of 40.0 to 44.9 in adult, unspecified obesity type, unspecified whether serious comorbidity present (CMS/HCC V24, CMS/HCC V28) (Primary Dx) from Last 3 Months Social [...] PM EDT Office Visit Orthopedic Surgery - [place] [address] [phone] Fernando Sosa DPM [address] [address] Health Maintenance Due Date Last Done Comments [...] Routine 05/22/2024 4:11 PM EDT Follow-up exam COMPREHENSIVE METABOLIC PANEL Routine 02/26/2024 2:07 PM EST Class 3 severe obesity with body mass index (BMI) of 40.0 to 44.9 in adult, unspecified obesity type, unspecified whether serious comorbidity present (CMS/[facility] V24, [facility] V28) HEMOGLOBIN A1C Routine 02/26/2024 2:07 PM EST Class 3 severe obesity with body mass index (BMI) of 40.0 to 44.9 in adult, unspecified obesity type, unspecified whether serious comorbidity present (CMS/[facility] V24, CMS/[facility] V28) LIPID PANEL WITH REFLEX TO DIRECT LDL Routine 02/26/2024 2:07 PM EST Class 3 severe obesity with body mass index (BMI) of 40.0 to 44.9 in adult, unspecified obesity type, unspecified whether serious comorbidity present (CMS/[facility] V24, CMS/[facility] V28) from Last 3 Months or Most [...] IMG XR PROCEDURES Final R esult * (ABNORMAL) Lipid panel with reflex to direct LDL (02/26/2024 2:07 PM EST) [facility] Signature Cholesterol 185 0 - 200 mg/dL LAB CHEMISTRY METHOD 02/26/2024 6:[address] [facility] Triglycerides 203(H) 0 - 150 mg/dL LAB CHEMISTRY METHOD 02/26/2024 6:[address] [facility] HDL 37(L) >=40 mg/dL LAB CHEMISTRY METHOD 02/26/2024 6:[address] [facility] LDL Calculated 107(H) 0 - 100 mg/dL LAB CHEMISTRY METHOD 02/26/2024 6:[address] [facility] VLDL Cholesterol Stephen 40.6 mg/dL LAB CHEMISTRY METHOD 02/26/2024 6:[address] [facility] Non HDL Chol. (LDL+VLDL) 148(H) <145 mg/dL LAB CHEMISTRY METHOD 02/26/2024 6:[address] [facility] Chol/HDL Ratio 5.0(H) 0.0 - 4.4 LAB CHEMISTRY METHOD 02/26/2024 6:[address] [facility] Blood Venous blood specimen / Unknown Venipuncture / Unknown 02/26/2024 2:07 PM EST 02/26/2024 2:07 PM EST us Nereyda Pierre MD LAB BLOOD ORDERABLES Final R esult [facility] [address] [place] [address], * (ABNORMAL) Hemoglobin A1c (02/26/2024 2:07 PM [...] R esult [facility] [address] [place] [address], * (ABNORMAL) Comprehensive metabolic panel (02/26/2024 2:07 PM EST) Sodium 135 133 - 145 mmol/L LAB CHEMISTRY METHOD 02/26/2024 6:[address] [facility] Potassium 5.2 3.5 - 5.5 mmol/L LAB CHEMISTRY METHOD 02/26/2024 6:32 PM [facility] Chloride 107 96 - 110 mmol/L LAB CHEMISTRY METHOD 02/26/2024 6:32 PM [facility] CO2 23 21 - 32 mmol/L LAB CHEMISTRY METHOD 02/26/2024 6:32 PM [facility] Anion Gap 5 3 - 11 LAB CHEMISTRY METHOD 02/26/2024 6:32 PM [facility] Glucose 206(H) 70 - 100 mg/dL LAB CHEMISTRY METHOD 02/26/2024 6:32 PM [facility] BUN 23 5 - 25 mg/dL LAB CHEMISTRY METHOD 02/26/2024 6:32 PM [facility] Creatinine 1.46(H) 0.70 - 1.30 mg/dL LAB CHEMISTRY METHOD 02/26/2024 6:32 PM [facility] eGFR 58(L) >=60 mL/min/1. 73m2 LAB CHEMISTRY METHOD 02/26/2024 6:32 PM [facility] Comment:Calculation based on the??Chronic Kidney Disease Epidemiology Collaboration (CKD-EPI) equation refit??without adjustment for race. BUN/Creatinine Ratio 15.8 LAB CHEMISTRY METHOD 02/26/2024 6:32 PM [facility] Calcium 9.6 8.5 - 10.5 mg/dL LAB CHEMISTRY METHOD 02/26/2024 6:32 PM [facility] AST (SGOT) 16 10 - 42 unit/L LAB CHEMISTRY METHOD 02/26/2024 6:32 PM [facility] ALT (SGPT) 28 10 - 60 unit/L LAB CHEMISTRY METHOD 02/26/2024 6:32 PM [facility] Alkaline Phosphatase 76 42 - 121 unit/L LAB CHEMISTRY METHOD 02/26/2024 6:32 PM [facility] Total Protein 8.1(H) 6.0 - 8.0 g/dL LAB CHEMISTRY METHOD 02/26/2024 6:32 PM [facility] Albumin 3.9 3.2 - 5.0 g/dL LAB CHEMISTRY METHOD 02/26/2024 6:32 PM [facility] Total Bilirubin 0.6 0.0 - 1.4 mg/dL LAB CHEMISTRY METHOD 02/26/2024 6:[address] [facility] Blood Venous blood specimen / Unknown Venipuncture / Unknown 02/26/2024 2:07 PM EST 02/26/2024 2:07 PM EST us Nereyda Pierre MD LAB BLOOD ORDERABLES Final R esult [facility] [address] [place] [address], from Last 3 Months or Most Recently Relevant to Health Maintenance Insurance [facility] Care Teams Head Of Merchandise Buying Relationship Specialty Start Date End Date Damion Galicia MD [address] [place] [address] [place] [address] [place] PCP - General Internal Medicine 11/30/23
--- OUTSIDE RECORDS SUMMARY | 2024-07-10 15:47 | XMS_ITS | Clinical Summary ---
Author Organization [facility] Address [address] [place] [address] Care Team Providers Care Tallow Pumper Name Role Phone Humaira Thurston MD Primary Care Provider Allergies Active Allergy [...] 25 MCG (1000 UT) capsule 12/05/2020 Active lisinopril 10 MG tablet Take 1 [...] AM EDT Performed at: ??01 - [facility] [address] ??[id number] Carbon Cleaner: Cheryl Goodman MD, Phone: ??[phone] us David Perez MD LAB BLOOD ORDERABLES Final Re sult [facility] See order comments [place] [address] from Last 3 Months or Most Recently Relevant to Health Maintenance Insurance Medicaid Care Teams Tallow Pumper Relationship Specialty Start Date End Date Humaira Thurston MD [address] [place] [address] PCP - General Internal Medicine 12/27/22
== END 2024-07-10 16:06 | disposition home or self-care (01) ==
LOC: HO.HGI 15:10
PROVIDERS: PCP Internal Medicine; Visit Provider Nurse Practitioner Family
DX: Z01.818 Encounter for other preprocedural examination (principal); Z12.11 Encounter for screening for malignant neoplasm of colon; K59.00 Constipation, unspecified; K21.9 Gastro-esophageal reflux disease without esophagitis; E66.01 Morbid (severe) obesity due to excess calories
CPT/HCPCS: 99202

== ENCOUNTER → 2024-07-10 15:09 | Outpatient (BNVA) | payer OTHER, SELFPAY | PROVIDERS: PCP Internal Medicine; Visit Provider Nurse Practitioner Family | DX: Z12.11 Encounter for screening for malignant neoplasm of colon (principal); K59.00 Constipation, unspecified; K21.9 Gastro-esophageal reflux disease without esophagitis; E66.01 Morbid (severe) obesity due to excess calories; Z68.42 Body mass index [BMI] 45.0-49.9, adult | CPT/HCPCS: 99202 ==

== ENCOUNTER 2024-08-26 14:24 | Outpatient (REF) | payer OTHER, SELFPAY ==
[2024-08-26 15:34] LABS: Alanine Aminotransferase 27 U/L (0-40); Albumin Level 4.2 g/dL (3.5-5.0); Alkaline Phosphatase 66 U/L (39-117); Anion Gap 13 (12-20); Aspartate Amino Transferase 26 U/L (5-37); Blood Urea Nitrogen 24 mg/dL (9-16); Calcium 9.2 mg/dL (8.4-10.2); Carbon Dioxide 21 mmol/L (22-29); Chloride 108 mmol/L (96-108); Estimated Glomerular Filt Rate > 60; Potassium 4.1 mmol/L (3.3-5.1); Sodium 138 mmol/L (135-145); Total Protein 7.5 g/dL (6.5-8.0)
[2024-08-26 15:35] LABS: Anion Gap 13 (12-20); Blood Urea Nitrogen 24 mg/dL (9-16); Calcium 9.0 mg/dL (8.4-10.2); Carbon Dioxide 20 mmol/L (22-29); Chloride 108 mmol/L (96-108); Estimated Glomerular Filt Rate > 60; Potassium 4.1 mmol/L (3.3-5.1); Sodium 137 mmol/L (135-145)
--- OUTSIDE RECORDS SUMMARY | 2024-08-26 15:35 | XMS_ITS | Encounter Summary ---
Author Organization [facility] Address [address] [place] [address] Phone Care Team Providers Care Seed Tester Name Role Phone Humaira Thurston MD Primary Care Provider [phone] Reason for Visit * Reason Comments Med Refill Encounter Details Date Type Department Care Team (Late st Contact Info) Description 07/03/2023 Refill [facility] [address] [place] [phone] David Perez MD [address] [place] [address], [facility] [address] [place] [address] Social History Tobacco Use Types Packs/Day Years [...] on filedocumented in this encounter Care Teams Seed Tester Relationship Specialty Start Date End Date Humaira Thurston MD [address] [place] [address] PCP - General Internal Medicine 12/27/22 documented as of this encounter
[2024-08-27 13:23] LABS: Rapid Plasma Reagin Ab Titer 1:8
[2024-08-27 21:59] LABS: HIV RNA PCR Qn Copies <20 DETECTED copies/mL (NOT DETECTED); HIV RNA PCR Qn Log Copies <1.30 DETECTED (NOT DETECTED)
[2024-09-01 01:08] LABS: TS Negative Control Passed; TS Panel A 2; TS Panel B 2; TS Positive Control Passed; TSpotTB Negative (Negative)
[2024-09-01 01:33] LABS: Absolute CD3 Count 2057 cells/uL (840-3060); Absolute CD8 Count 1407 cells/uL (180-1170); Percent CD3 Cells 78 % (57-85); Percent CD8 Cells 53 % (12-42)
== END 2024-08-26 14:25 | disposition home or self-care (01) ==
LOC: HO.LAB 14:24
PROVIDERS: Internal Medicine Hypertension Specialist; PCP Internal Medicine; Visit Provider Internal Medicine
DX: N18.31 Chronic kidney disease, stage 3a (principal); N48.1 Balanitis; Z21 Asymptomatic human immunodeficiency virus [HIV] infection status; E87.5 Hyperkalemia; Z11.1 Encounter for screening for respiratory tuberculosis
CPT/HCPCS: 36415; 80048; 80053; 86359; 86360; 86481; 86592; 86593; 87536

== ENCOUNTER 2024-09-03 14:24 | Outpatient (AMB) | payer OTHER, SELFPAY ==
--- OUTSIDE RECORDS SUMMARY | 2024-09-03 13:00 | XMS_ITS | Encounter Summary ---
Author Organization [employer] Address [address] [place] [address] Care Team Providers Care Technical Support Internship Name Role Phone Humaira Hood MD Primary Care Provider [phone] Reason for Visit * Reason Comments Pre-op Exam Bypass 09/12 Encounter Details Date Type Department Care Team (Late st Contact Info) Description 09/03/2024 1:00 PM EDT Consult Bariatric Surgery - [place] [address] [place] [phone] Daniella Nguyen PA [address] [place] [address] Class 3 severe obesity with body mass index (BMI) of 45.0 to 49.9 in adult (CMS/[facility] V24, [facility] V28) (Primary Dx) Social History Tobacco Use Types Packs/Day Years Used Date Smoking Tobacco: Never Assessed Sex and Gender Information Value Date Recorded Sex Assigned at Not on file Legal Sex Male 2:10 PM EST Gender Identity Not on file Sexual Orientation Not on file documented as of this encounter Last Filed Vital Signs Vital Sign Reading Time Taken Comments Blood Pressure 149/83 09/03/2024 1:07 PM EDT Pulse 81 09/03/2024 1:07 PM EDT Temperature - - Respiratory Rate - - Oxygen Saturation - - Inhaled Oxygen Concentration - - Weight 122 kg (268 lb 3.2 oz) 09/03/2024 1:07 P M EDT Height 162.6 cm (5' 4 ) 09/03/2024 1:07 PM EDT Body Mass Index 46.04 09/03/2024 1:07 PM EDT documented in this encounter Ordered Prescriptions Prescription Sig Dispense Quantity Refills Last Filled Start Date End Date wheat dextrin 3 gram/3.5 gram powder in packet Take 1 packet by mouth 1 (one) time each day. 30 packet 09/03/2024 ursodioL (ACTIGALL) 300 mg capsule Take 1 capsule (300 mg total) by mouth 2 (two) times a day. 60 each 5 09/03/2024 6 simethicone (MYLICON) 80 mg chewable tablet Chew 1 tablet (80 mg total) every 6 (six) hours if needed for flatulence. 120 tablet 09/03/2024 polyethylene glycol (MIRALAX) 17 gram packet Take 17 g by mouth 1 (one) time each day. 510 g 09/03/2024 5 ondansetron (ZOFRAN) 4 mg tablet Take 1 tablet (4 mg total) by mouth every 8 (eight) hours if needed for nausea or vomiting for up to 7 days. 21 tablet 09/03/2024 5 acetaminophen (TYLENOL) 500 mg tablet Take 2 tablets (1,000 mg total) by mouth every 8 (eight) hours. 180 tablet 09/03/2024 documented in this encounter Progress Notes * PAM Portillo - 09/03/2024 1:00 PM EDT Images from the original note were not included. Cheng Martinez is a 54 y.o. year old male who presents for follow up regarding obesity. 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 ECG Interpretation Normal sinus rhythm Right bundle branch block Abnormal ECG No previous ECGs available Narrative & Impression History: Preop bariatric surgery. Comparison: No comparison imaging at this institution. Findings: PA and lateral views. The cardiomediastinal silhouette, hilar contours and pulmonary vascularity are within normal limits. Atherosclerotic calcification is seen in the aortic arch. The lungs are clear. The costophrenic angles are sharp. Bones and soft tissues are unremarkable. IMPRESSION: Impression: No active pulmonary process identified. Telerad PAM ([id number]) -------- FINAL REPORT -------- Dictated By: Isaura Slade Dictated Date: 09/02/2024 12:18 ET Assigned Physician: Isaura Slade Reviewed and Electronically Signed By: Isaura Slade Signed Date: 09/02/2024 12:19 ET Workstation ID: [id number] Transcribed By: Self Edit Transcribed Date: 09/02/2024 12:18 ET Body mass index is 46.04 kg/m??. ROS: GENERAL: No malaise, significant unintentional weight loss, fever, chills or night sweats. RESPIRATORY: No cough, wheezing or shortness of breath CARDIOVASCULAR: No chest pain, leg swelling or palpitations. GI: No abdominal discomfort, nausea, vomiting, or change in bowel habits. : No dysuria, frequency or incontinence. SKIN: No lesions, rash or itching. HEMATOLOGY/LYMPHOLOGY No prolonged bleeding, easy bruisability or swollen nodes. MUSCULOSKELETAL: No abnormalities. NEURO: No abnormalities. The remainder of the review of systems is noncontributory PAST MEDICAL HISTORY: Patient Active Problem List Diagnosis Class 3 severe obesity with body mass index (BMI) of 45.0 to 49.9 in adult (CMS/HCC V24, CMS/HCC V28) Morbid obesity (CMS/HCC V24, CMS/HCC V28) PAST SURGICAL HISTORY: Past Surgical History: Procedure Laterality Date CIRCUMCISION, PRIMARY SOCIAL HISTORY: Social History Tobacco Use Smoking status: Not on file Smokeless tobacco: Not on file Substance Use Topics Alcohol use: Not on file FAMILY HISTORY: No family history on file. No family status information on file. MEDICATIONS: There are no discontinued medications. ACTIVE MEDICATIONS: No outpatient medications have been marked as taking for the 09/03/24 encounter (Consult) with PAM Portillo. ALLERGIES: Allergies Allergen Reactions Glipizide PHYSICAL EXAM: Visit Vitals BP (!) 149/83 Pulse 81 Ht 1.626 m (64 ) Wt 122 kg (268 lb 3.2 oz) BMI 46.04 kg/m?? BSA 2.22 m?? APPEARANCE: Alert and in no acute distress EYES: Conjunctiva normal and sclera normal and anicteric. LUNG: Chest no retractions. ABDOMEN: Soft, non-tender, without organomegaly or palpable masses. EXTREMITIES: Extremities warm and well perfused without clubbing, cyanosis, or edema. SKIN: Skin color and texture normal. No rashes or lesions. ASSESSMENT: 1. Class 3 severe obesity with body mass index (BMI) of 45.0 to 49.9 in adult ([facility] V24, [facility]) PLAN: 1. Obesity - Stop Plavix 1 week before surgery Stop Trulicity 1 week before surgery Post op medications discussed and sent to patient's pharmacy Patient to attend pre op class prior to surgery for more information regarding what to expect in the hospital, discharge instructions, post op diet requirements Follow up 2 weeks post op Risks and benefits of a gastric bypass were discussed with the patient in detail. General surgical risks include but are not limited to deep venous thrombosis, pulmonary embolism and . Procedural risks include anastomotic leaks, anastomotic or external bleeding leading to a need for reoperation, severe diarrhea, malabsorption that can result in neuropathy, bone disease or anemia, bowel obstruction due to adhesions or internal hernia, marginal ulceration, and josselin limb syndrome. In female patients of childbearing age, we did discuss the changes to fertility as a result of significant weight loss; this can increase fertility We do not recommend patient's become or attempt to become within 2 years of bariatric surgery soon after bariatric surgery can result in complications including but not limited to miscarriage, growth restriction, labor/delivery, significant vitamin deficiencies impacting , etc They should consult with their MANAGER MAIL in regard to control during this timeframe We discussed the importance of post op vitamin supplementation. Medication and lab orders: No orders of the defined types were placed in this encounter. Other orders: None PAM Portillo cc: Humaira Hood MD documented in this encounter Plan of Treatment Upcoming Encounters Date Type Department Care Team (Late st Contact Info) Description 09/12/2024 9:30 AM EDT Hospital Encounter [facility] [address] [place] [phone] Nereyda Pierre MD [address] [address] 09/12/2024 9:30 AM EDT - 09/12/2024 12:30 PM EDT Surgery [facility] OR [address] [place] [phone] Nereyda Pierre MD [address] [address] DAVINCI GASTRIC BYPASS [[id number] (CPT )] 09/16/2024 2:00 PM EDT Office Visit Orthopedic Surgery [facility] [address] [phone] Fernando Sosa, DPM [address] [id number] 09/30/2024 9:45 AM EDT Office Visit Bariatric Surgery [address] [phone] Daniella Nguyen PA [address] [id number] 10/30/2024 11:00 AM EDT Telemedicine Bariatric Surgery [facility] [address] [phone] Letty Crisostomo, LUIS ALFREDO [address] [phone] 12/09/2024 11:15 AM EDT Office Visit Bariatric Surgery [address] [phone] Daniella Nguyen PA 175 [facility] [address] [place] [address] Scheduled Procedures Name Priority Associated Diagnoses Date/Ti me BYPASS GASTRIC ROBOT Morbid obesity ([facility] V24, [facility] V28) 09/12/2024 9:30 AM EDT documented as of this encounter Visit Diagnoses Diagnosis Morbid obesity ([facility] V24, [facility] V28)- Primary Morbid obesity Class 3 severe obesity with body mass index (BMI) of 45.0 to 49.9 in adult ([facility] V24, [facility] V28)- Primary Morbid obesity ([facility] V24, [facility] V28) Morbid obesity documented in this encounter Care Teams Technical Support Internship Relationship Specialty Start Date End Date Humaira Hood MD [address] [place] [address] PCP - General Internal Medicine 09/02/24 documented as of this encounter
--- NOTE | 2024-09-03 14:24 | MHC.OFFVIS ---
Vital Signs 09/03/24 14:25 Height 5 ft 4 in Weight 272 lb BMI 46.7 Pulse 84 Pulse Source Pulse Oximeter Pulse Oximetry (%) 98 Oxygen Delivery Method Room Air Intake Visit Reasons: 6 month hiv follow up Specialist Physician Required: Yes Specialist Physician Services: Specialist Physician Present Specialist Physician Name: Radha Beavers Information Interpreted: clinical only Allergies glipizide Allergy (Mild, Verified 09/03/24 14:25) rash tuberculin, purified protein deriva Allergy (Mild, Verified 09/03/24 14:25) Swelling martinez Allergy (Mild, Uncoded 07/10/24 15:16) Hives HPI Comments Details: He is doing well. He is late today because he had Bariatric appt. He has no concerns His CD4 count is 724 and viral load undetectable.His GFR is 60. He has RPR titer of 1:8. [facility] Medical History Constipation Erectile dysfunction associated with type 2 diabetes mellitus Mixed hyperlipidemia Mild intermittent asthma Hyperkalemia Morbid obesity Renal calculi Morbid obesity Dyslipidemia CKD (chronic kidney disease) Essential hypertension Diabetes mellitus HIV (human immunodeficiency virus infection) Surgical History Hx of circumcision No pertinent past surgical history Family History Father Myocardial infarction Hypertension CVD (cardiovascular disease) Mother Stroke CVD (cardiovascular disease) Mental health disorder Sister Diabetes Maternal Grandmother CVD (cardiovascular disease) Maternal Uncle Pancreatic cancer Social History Housing: Apartment Alcohol intake: former Patient Tobacco Use Status: Never used Tobacco e-Cigarette/Vaping Use: Never Used Second Hand Smoke Exposure: Yes service: No Current occupational status: employed Current occupational exposures/hazards: No Cognitive needs: No Hearing needs: No Vision needs: No Review of Systems Const All systems reviewed & are unremarkable except as noted in HPI and below Physical Exam Vital Signs: Last Vital Signs Pulse 84 09/03/24 14:25 Pulse Ox 98 09/03/24 14:25 Oxygen Delivery Method Room Air 09/03/24 14:25 BMI result Body Mass Index 46.7 Const General: cooperative Orientation/consciousness: patient oriented x3 HEENT Head: Yes normal to inspection Mouth: Normal oral and palatal mucosa present Eyes General: appearance normal, both eyes and all related structures Pupils: Equal, round and reactive pupils present Resp Effort & Inspection: normal respiratory effort Cardio Rate: regular rate Rhythm: regular rhythm GI Palpation (GI): Soft to palpation and nontender General: Yes no CVA tenderness Back/Spine/Pelvis Back: no CVA tenderness Skin General skin exam: no rashes or lesions noted Neuro General: patient oriented x3 Cranial nerves: Yes CN's II-XII intact bilaterally and Yes Equal, round and reactive pupils present Extrem General: Yes normal to inspection Psych Appearance: grossly normal Assessment & Plan Assessment & Plan (1) HIV (human immunodeficiency virus infection): Comment: He has CD4 count of 724 and viral load undetectable on 08/26. He takes Biktarvy. Would continue Biktarvy and check labs February 2025 and see then. He is going to [place] on vacation in December. Code(s): B20 - Human immunodeficiency virus [HIV] disease Category: Medical Qualifiers: HIV symptom status: asymptomatic, with no history of HIV-related illness Qualified Code(s): Z21 - Asymptomatic human immunodeficiency virus [HIV] infection status Plan na Orders: Orders HIV-1 RNA QN PCR Expanded 6 Months Z21 - Asymptomatic human immunodeficiency virus [HIV] infection status RPR Monitor reflex titer 6 Months Z21 - Asymptomatic human immunodeficiency virus [HIV] infection status Lymphocyte Subset Panel 3 6 Months Z21 - Asymptomatic human immunodeficiency virus [HIV] infection status Medications: Refilled kxtoyjvck-gdhbnhnn-pzmjkse ala 50-200-25 mg (Biktarvy) 1 tab PO DAILY 30 tabs 5RF 30 days Coding Level of Care Code Est Pt Level 4 (31067) Diagnoses Asymptomatic HIV infection, with no history of HIV-related illness Z21 HIV symptom status: asymptomatic, with no history of HIV-related illness
[2024-09-03 14:25] VITALS: PULSE 84; O2SAT 98; BMI 46.7
--- OUTSIDE RECORDS SUMMARY | 2024-09-03 14:58 | XMS_ITS | Encounter Summary ---
Author Organization [facility] Address [address] [place] [address] Phone Care Team Providers Care Retail Marketing Manager Name Role Phone Humaira Thurston MD Primary Care Provider [phone] Reason for Visit * Reason Comments Med Refill Encounter Details Date Type Department Care Team (Late st Contact Info) Description 07/03/2023 Refill [facility] [address] [place] [phone] David Perez MD [address] [place] [address], [facility] [address] [place] [address] Social History Tobacco Use Types Packs/Day Years [...] on filedocumented in this encounter Care Teams Retail Marketing Manager Relationship Specialty Start Date End Date Humaira Thurston MD [address] [place] [address] PCP - General Internal Medicine 12/27/22 documented as of this encounter
== END 2024-09-03 16:43 | disposition home or self-care (01) ==
LOC: HO.HID 14:24
PROVIDERS: PCP Internal Medicine; Visit Provider Internal Medicine
DX: Z21 Asymptomatic human immunodeficiency virus [HIV] infection status (principal)
CPT/HCPCS: 99214

== ENCOUNTER → 2024-09-03 14:24 | Outpatient (BNVA) | payer OTHER, SELFPAY | PROVIDERS: PCP Internal Medicine; Visit Provider Internal Medicine | DX: Z21 Asymptomatic human immunodeficiency virus [HIV] infection status (principal) | CPT/HCPCS: 99212 ==

== ENCOUNTER 2024-09-30 10:49 | Outpatient (REF) | payer OTHER, SELFPAY ==
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
--- OUTSIDE RECORDS SUMMARY | 2024-09-30 11:33 | XMS_ITS | Encounter Summary ---
Author Organization [facility] Address [address] [place] [address] Phone Care Team Providers Care Credit Collections Rep Name Role Phone Humaira Thurston MD Primary Care Provider [phone] Reason for Visit * Reason Comments Med Refill Encounter Details Date Type Department Care Team (Late st Contact Info) Description 07/03/2023 Refill [facility] [address] [place] [phone] David Perez MD [address] [place] [address], [facility] [address] [place] [address] Social History Tobacco Use Types Packs/Day Years [...] on filedocumented in this encounter Care Teams Credit Collections Rep Relationship Specialty Start Date End Date Humaira Thurston MD [address] [place] [address] PCP - General Internal Medicine 12/27/22 documented as of this encounter
[2024-09-30 12:29] LABS: Alanine Aminotransferase 22 U/L (0-40); Albumin Level 4.0 g/dL (3.5-5.0); Alkaline Phosphatase 68 U/L (39-117); Anion Gap 20 (12-20); Aspartate Amino Transferase 31 U/L (5-37); Blood Urea Nitrogen 11 mg/dL (9-16); Calcium 9.2 mg/dL (8.4-10.2); Carbon Dioxide 19 mmol/L (22-29); Chloride 105 mmol/L (96-108); Cholesterol 188 mg/dL (<200); Estimated Glomerular Filt Rate > 60; HDL Cholesterol 28 mg/dL (>40); Potassium 4.6 mmol/L (3.3-5.1); Sodium 139 mmol/L (135-145); Total Protein 7.4 g/dL (6.5-8.0); Triglycerides 160 mg/dL (<150)
[2024-09-30 12:43] LABS: Microalbum/Creatinine Ratio Ur 22.5 ug/mg cr (<30)
== END 2024-09-30 10:50 | disposition home or self-care (01) ==
LOC: HO.LAB 10:49
PROVIDERS: PCP Internal Medicine; Visit Provider Internal Medicine
DX: E11.22 Type 2 diabetes mellitus with diabetic chronic kidney disease (principal); N18.31 Chronic kidney disease, stage 3a; E55.9 Vitamin D deficiency, unspecified; E78.5 Hyperlipidemia, unspecified; R80.9 Proteinuria, unspecified; Z79.4 Long term (current) use of insulin
CPT/HCPCS: 36415; 80053; 80061; 82043; 82306; 82570

== ENCOUNTER 2024-10-16 14:39 | Outpatient (AMB) | payer OTHER, SELFPAY ==
--- OUTSIDE RECORDS SUMMARY | 2024-10-16 14:44 | XMS_ITS | Encounter Summary ---
Author Organization [facility] Address [address] [place] [address] Phone Care Team Providers Care Salvage Engineer Name Role Phone Humaira Thurston MD Primary Care Provider [phone] Reason for Visit * Reason Comments Med Refill Encounter Details Date Type Department Care Team (Late st Contact Info) Description 07/03/2023 Refill [facility] [address] [place] [phone] David Perez MD [address] [place] [address], [facility] [address] [place] [address] Social History Tobacco Use Types Packs/Day Years [...] on filedocumented in this encounter Care Teams Salvage Engineer Relationship Specialty Start Date End Date Humaira Thurston MD [address] [place] [address] PCP - General Internal Medicine 12/27/22 documented as of this encounter
--- OUTSIDE RECORDS SUMMARY | 2024-10-16 14:45 | XMS_ITS | Clinical Summary ---
Author Organization 175 [facility] Address [address] [place] [address] Phone Care Team Providers Care Certified Pharmacy Technician Name Role Phone Humaira Hood MD Primary Care Provider [phone] Allergies Active Allergy Reactions Criticality Noted Date Comments Glipizide Other 12/09/2020 Medications omeprazole OTC (PriLOSEC OTC) 20 [...] BEDTIME ONCE EVERY DAY 06/24/19 25 Active Biktarvy 50-200-25 mg per tablet Take 1 tablet by mouth at bedtime. 06/22/19 25 Active Pulmicort Flexhaler 90 mcg/actuation inhaler Inhale 1 puff by mouth 2 (two) times a day. 03/14/19 25 Active cholecalcifero l (VITAMIN D-3) 50 mcg (2,000 unit) capsule Take 1 capsule (2,000 Units total) by mouth 1 (one) time each day. 11/06/19 24 Active fenofibrate (LOFIBRA) 54 mg tablet Take 1 tablet (54 mg total) by mouth 1 (one) time each day. 05/13/19 25 Active tadalafiL (CIALIS) 20 mg tablet TAKE 1 TABLET BY MOUTH ONCE NEEDED FOR SEXUAL ACTIVITY . ON DEMAND MEDICATION TAKE 60 MINUTES BEFORE INTENDED ACTIVITY. 05/01/19 25 Active cyanocobalamin , vitamin B-12, 1,000 mcg tablet, sublingualIndi cations:Class 3 severe obesity due to excess calories with body mass index (BMI) of 45.0 to 49.9 in adult, unspecified whether serious comorbidity present (CMS/[facility] V24, [facility] V28) Place 1 tablet under the tongue 1 (one) time each day. 90 tablet 08/09/19 25 025 Active acetaminophen (TYLENOL) 500 mg tablet Take 2 tablets (1,000 mg total) by mouth every 8 (eight) hours. 180 tablet 09/04/19 25 Active simethicone (MYLICON) 80 mg chewable tablet Chew 1 tablet (80 mg total) every 6 (six) hours if needed for flatulence. 120 tablet 09/04/19 25 Active oxyCODONE (ROXICODONE) 5 mg immediate release tabletIndicati ons:Morbid obesity (CMS/[facility] V24, [facility] V28) Take 1 tablet (5 mg total) by mouth every 4 (four) hours if needed for moderate pain. Max Daily Amount: 30 mg 15 tablet 09/16/19 25 Active topiramate (TOPAMAX) 100 mg tablet Take 1 tablet (100 mg total) by mouth 2 (two) times a day. for 30 days 07/12/19 25 Active sucralfate (CARAFATE) 1 gram tablet Take 1 tablet (1 g total) by mouth 4 (four) times a day (before meals and nightly). 120 each 09/25/19 25 025 Active Lantus Solostar U-100 Insulin 100 unit/mL (3 mL) injection pen Inject 7 Units under the skin at bedtime. 15 mL 11 09/27/19 25 Active polyethylene glycol (Gavilax) 17 gram/dose oral powder TAKE 17 GRAMS MIXED IN 8 OUNCES OF LIQUID AND TAKEN BY MOUTH ONCE EVERY DAY 510 g 10/07/19 25 Active aspirin 81 mg EC tablet Take 1 tablet (81 mg total) by mouth 1 (one) time each day. 04/14/19 025 Discontinued(St op Taking at Discharge) FreeStyle Lite Meter monitoring kit USE TO MONITOR BLOOD SUGAR DIRECTED 03/04/19 025 Discontinued( erapy completed) FreeStyle Lancets 28 gauge lancets 07/15/19 025 Discontinued( erapy completed) omeprazole (PriLOSEC) [address] capsule TAKE 1 TABLET 2 TIMES A DAY FOR 14 DAYS, THEN 1 TABLET DAILY. DO NOT CRUSH, CHEW, OR SPLIT. 06/04/19 025 Discontinued( erapy completed) BD Ultra-Fine Short Pen Needle 31 gauge x 5/16 needle 10/24/19 025 Discontinued( erapy completed) tadalafiL (CIALIS) 5 mg tablet TAKE ONE TABLET BY MOUTH EVERY DAY FOR SEXUAL ACTIVITY 05/01/19 025 Discontinued( erapy completed) polyethylene glycol (MIRALAX) 17 gram packet Take 17 g by mouth 1 (one) time each day. 510 g 09/04/19 025 Discontinued ursodioL (ACTIGALL) 300 mg capsule Take 1 capsule (300 mg total) by mouth 2 (two) times a day. 60 each 5 09/04/19 025 Discontinued( erapy completed) wheat dextrin 3 gram/3.5 gram powder in packet Take 1 packet by mouth 1 (one) time each day. 30 packet 09/04/19 025 Discontinued( erapy completed) clopidogreL (PLAVIX) 75 mg tablet Take 1 tablet (75 mg total) by mouth 1 (one) time each day. 09/20/19 025 Discontinued(St op Taking at Discharge) Lantus Solostar U-100 Insulin 100 unit/mL (3 mL) injection pen Inject 10 Units under the skin at bedtime. 15 mL 11 09/16/19 025 Discontinued ondansetron (ZOFRAN) 4 mg tablet Take 1 tablet (4 mg total) by mouth every 8 (eight) hours if needed for nausea or vomiting for up to 7 days. 21 tablet 09/16/19 025 Discontinued Synjardy 12.5-1,000 mg tablet Take 2 tablets by mouth 1 (one) time each day. 08/14/19 25 025 Discontinued(St op Taking at Discharge) dulaglutide (Trulicity) 1.5 mg/0.5 mL pen injector injection Inject 0.5 mL (1.5 mg total) under the skin every 7 (seven) days. 025 Discontinued(St op Taking at Discharge) terbinafine (LamISIL) 250 mg tablet Take 1 tablet (250 mg total) by mouth 1 (one) time each day. 025 Discontinued(Th erapy completed) sildenafil (REVATIO) 5 mg tablet Take 1 split tablet (5 mg total) by mouth 1 (one) time each day. 025 Discontinued(En tered in Error) ondansetron (ZOFRAN) 4 mg tablet Take 1 tablet (4 mg total) by mouth every 8 (eight) hours if needed for nausea or vomiting for up to 7 days. 21 tablet 09/25/19 025 Lantus Solostar U-100 Insulin 100 unit/mL (3 mL) injection pen Inject 10 Units under the skin at bedtime. 15 mL 11 09/25/19 25 025 Discontinued Active Problems Problem Noted Date Diagnosed Date Gastrointestinal hemorrhage, unspecified gastrointestinal hemorrhage type 09/21/2024 Morbid obesity ([facility] V24, [facility] V28) 2024 Resolved Problems Problem Noted Date Diagnosed Date Resolved Date Class 3 severe obesity with body mass index (BMI) of 45.0 to 49.9 in adult ([facility] V24, [facility] V28) 01/10/2024 10/03/2024 Encounters Date Type Department Care Team Description 09/30/2024 9:45 AM EDT Office Visit Bariatric Surgery - [address] [phone] Daniella Nguyen PA Gastrointestinal hemorrhage, unspecified gastrointestinal hemorrhage type (Primary Dx); Bariatric surgery status; Class 3 severe obesity due to excess calories with serious comorbidity and body mass index (BMI) of 40.0 to 44.9 in adult ([facility] V24, [facility] V28) 09/21/2024 3:08 PM EDT - 09/24/2024 6:11 PM EDT Hospital Encounter [facility] [address] [place] [phone] Rosanne Rogers MD Flores, Carlos M, MD Surendran, Anupama, MD Diabetic ketoacidosis without coma associated with type 2 diabetes mellitus ([facility] V24, [facility] V28) (Primary Dx); Gastrointestinal hemorrhage, unspecified gastrointestinal hemorrhage type; SOB (shortness of breath); Metabolic acidosis; Left upper quadrant abdominal pain; Chest pain, unspecified type; Anemia, unspecified type; History of DVT (deep vein thrombosis) Discharge Disposition: Home or Self Care 09/18/2024 2:35 PM EDT Lab Draw Station - [address] [place] [phone] S/P bariatric surgery 09/15/2024 7:41 AM EDT Anesthesia Event [facility] Endoscopy [address] [place] [phone] Jason Razo MD 09/12/2024 7:46 AM EDT Anesthesia Event [facility] Main OR [address] [place] [phone] Price Doshi MD Vermes, Rachie, CRNA 09/12/2024 7:30 AM EDT - 09/12/2024 10:30 AM EDT Surgery [facility] Main OR [address] [place] [phone] Nereyda Pierre MD [facility]INCI GASTRIC BYPASS [[id number] (CPT )] 09/12/2024 6:13 AM EDT - 09/15/2024 2:23 PM EDT Hospital Encounter [facility] [address] [place] [phone] Nereyda Pierre MD Blood per rectum (Primary Dx); Morbid obesity ([facility] V24, [facility] V28) Discharge Disposition: Home or Self Care 09/03/2024 1:00 PM EDT Consult Bariatric Surgery - [address] [place] [phone] Daniella Nguyen PA Class 3 severe obesity with body mass index (BMI) of 45.0 to 49.9 in adult ([facility] V24, [facility] V28) (Primary Dx) 09/02/2024 10:59 AM EDT - 09/02/2024 11:59 PM EDT Hospital Encounter [facility] Xray [address] [place] [phone] Discharge Disposition: Home or Self Care 08/05/2024 4:00 PM EDT Office Visit Bariatric Surgery [facility] 175 [facility] [address] [place] [phone] Nereyda Pierre MD Class 3 severe obesity due to excess calories with body mass index (BMI) of 45.0 to 49.9 in adult, unspecified whether serious comorbidity present ([facility] V24, [facility] V28) (Primary Dx); Postgastrectomy malabsorption 08/05/2024 3:30 PM EDT Office Visit Orthopedic Surgery [facility] 250 [address] [facility] [address] [place] [phone] Fernando Sosa DPM Dermatophytosis of nail (Primary Dx); Diabetic mononeuropathy simplex ([facility] V24, [facility] V28) from Last 3 Months Surgical History Surgery Date Site/Laterality Comments CIRCUMCISION, PRIMARY GASTRIC BYPASS Da Jayne gastric bypass Rufino-en-Y Medical History Medical History Date Comments Hypertension Asthma Diabetes mellitus ([facility] V24, [facility] V28) Chronic kidney disease HIV (human immunodeficiency virus infection) ( S/[facility] V24, [facility] V28) Hyperlipidemia GERD (gastroesophageal reflux disease) History of DVT (deep vein thrombosis) Family History Medical History Relation Name Comments Coronary artery disease Father Heart attack Father at 52 year s old Coronary artery disease Maternal Grandfather Heart attack Maternal Grandmother at 32 years old Blood clots Other Mother side Coronary artery disease Paternal Grandfather Coronary artery disease Paternal Grandmother Relation Name Status Comments Father Maternal Grandfather Maternal Grandmother Other Mother side Paternal Grandfather Paternal Grandmother Social History Tobacco Use Types Packs/Day Years Used Date Smoking Tobacco: Never Smokeless Tobacco: Never Tobacco Cessation:Counseling Given: Not Answered Alcohol Use Standard Drinks/Week Comments Never 0 (1 standard drink = 0.6 oz pur e alcohol) Interpersonal Safety Answer Date Record ed Physical Abuse 09/22/2024 Verbal Abuse 09/22/2024 Sex and Gender Information Value Date Recorded Sex Assigned at Not on file Legal Sex Male 2:10 PM EST Gender Identity Not on file Sexual Orientation Not on file Obstetrics History Last Filed Vital Signs Vital Sign Reading Time Taken Comments Blood Pressure 109/72 09/30/2024 9:56 AM EDT Pulse 106 09/30/2024 9:56 AM EDT Temperature 37.3 C (99.2 F) 09/24/2024 3:03 PM EDT Respiratory Rate 16 09/24/2024 3:03 PM EDT Oxygen Saturation 98% 09/24/2024 3:03 PM EDT Inhaled Oxygen Concentration - - Weight 108 kg (239 lb) 09/30/2024 9:56 AM EDT Height 162.6 cm (5' 4 ) 09/30/2024 9:56 AM EDT Body Mass Index 41.02 09/30/2024 9:56 AM EDT Plan of Treatment Upcoming Encounters Date Type Department Care Team (Late st Contact Info) Description 10/22/2024 10:30 AM EDT Office Visit Bariatric Surgery [facility] [address] [phone] Daniella Nguyen PA [address] [phone] 10/30/2024 11:00 AM EDT Telemedicine Bariatric Surgery [facility] [address] [phone] Letty Crisostomo, LUIS ALFREDO [address] [phone] 12/09/2024 10:45 AM EDT Office Visit Bariatric Surgery [address] [phone] Daniella Nguyen PA [address] [place] [phone] Health Maintenance Due Date Last Done Comments Diabetes: Annual Foot Exam 08/18/1981 Diabetes: Annual Retina Eye Exam 08/18/1981 DTaP,Tdap,and Td Vaccines (1 - Tdap) 08/18/1990 Hepatitis B Vaccines (1 of 3 - 19+ 3-dose series) 08/18/1990 HIV Screening 01/25/2022 Hepatitis C Screening 01/25/2022 Social Influencers of Health Screening 01/25/2022 Zoster Vaccines (2 of 2) 03/02/2022 01/05/2022 COVID-19 Vaccine (4 - season) 2023 02/09/2021, 07/09/2020, 06/19/2020 Diabetes: Annual Urine Albumin-Creatinine Ratio (uACR) 01/10/2024 Depression Screening 02/27/2024 Diabetes: Blood Sugar Control Test (HGBA1C) 08/25/2024 02/26/2024, 07/04/2023, 07/04/2023 Influenza Vaccine (#1) 2024 , 01/05/2022, 12/30/2019, Additional history exists Colorectal Cancer Screening: Stool Based Tests (FOBT/FIT) 09/24/2025 09/24/2024 Diabetes: Annual GFR (Glomerular Filtration Rate) 09/24/2025 09/24/2024, 09/23/2024, 09/22/2024, Additional history exists Hypertension/CHF/CAD Annual BMP Blood Test 09/24/2025 09/24/2024, 09/23/2024, 09/22/2024, Additional history exists Cholesterol Screening (Lipid Panel) 02/25/2029 02/26/2024 Pneumococcal Vaccine: 50+ Years Completed 05/19/2022 HIB Vaccines Aged Out No [...] Name Priority Date/Time Associated Diagnosis Comments HEMOGLOBIN AND HEMATOCRIT Routine 09/30/2024 10:19 AM EDT Gastrointestinal hemorrhage, unspecified gastrointestinal hemorrhage type ECG ANNOTATED 09/25/2024 HEMOGLOBIN AND HEMATOCRIT Routine 09/24/2024 1:54 PM EDT OCCULT BLOOD STOOL, GUAIAC Routine 09/24/2024 1:26 PM EDT POCT GLUCOSE BLOOD Routine 09/24/2024 11:51 AM EDT POCT GLUCOSE BLOOD Routine 09/24/2024 6:47 AM EDT IRON AND TIBC Add-On 09/24/2024 6:24 AM EDT FERRITIN Add-On 09/24/2024 6:24 AM EDT CBC WITH AUTO DIFFERENTIAL Routine 09/24/2024 6:24 AM EDT CBC AND DIFFERENTIAL Routine 09/24/2024 6:24 AM EDT BASIC METABOLIC PANEL Routine 09/24/2024 6:24 AM EDT POCT GLUCOSE BLOOD Routine 09/23/2024 8:02 PM EDT POCT GLUCOSE BLOOD Routine 09/23/2024 4:58 PM EDT POCT GLUCOSE BLOOD Routine 09/23/2024 4:04 PM EDT TRANSFUSE RED BLOOD CELLS Routine 09/23/2024 1:19 PM EDT HEMOGLOBIN AND HEMATOCRIT Routine 09/23/2024 1:01 PM EDT PREPARE RBC Routine 09/23/2024 12:11 PM EDT POCT GLUCOSE BLOOD Routine 09/23/2024 11:01 AM EDT POCT GLUCOSE BLOOD Routine 09/23/2024 7:43 AM EDT CBC WITH AUTO DIFFERENTIAL Routine 09/23/2024 4:23 AM EDT MAGNESIUM Routine 09/23/2024 4:23 AM EDT CBC AND DIFFERENTIAL Routine 09/23/2024 4:23 AM EDT BASIC METABOLIC PANEL Timed 09/23/2024 12:07 AM EDT POCT GLUCOSE BLOOD Routine 09/22/2024 10:15 PM EDT HEMOGLOBIN AND HEMATOCRIT Timed 09/22/2024 8:14 PM EDT BASIC METABOLIC PANEL Timed 09/22/2024 8:14 PM EDT POCT GLUCOSE BLOOD Routine 09/22/2024 7:34 PM EDT LT BLUE - NA CITRATE Routine 09/22/2024 4:06 PM EDT EXTRA TUBES Routine 09/22/2024 4:06 PM EDT HEMOGLOBIN AND HEMATOCRIT Timed 09/22/2024 4:06 PM EDT BASIC METABOLIC PANEL Timed 09/22/2024 4:06 PM EDT POCT GLUCOSE BLOOD Routine 09/22/2024 3:44 PM EDT POCT GLUCOSE BLOOD Routine 09/22/2024 1:17 PM EDT HEMOGLOBIN AND HEMATOCRIT Timed 09/22/2024 12:03 PM EDT BASIC METABOLIC PANEL Timed 09/22/2024 12:03 PM EDT POCT GLUCOSE BLOOD Routine 09/22/2024 10:[address] HEAD WO CONTRAST STAT 09/22/2024 9:04 AM EDT LAVENDER - EDTA Routine 09/22/2024 8:07 AM EDT EXTRA TUBES Routine 09/22/2024 8:07 AM EDT BASIC METABOLIC PANEL Timed 09/22/2024 8:07 AM EDT POCT GLUCOSE BLOOD Routine 09/22/2024 7:23 AM EDT COMPLETE BLOOD COUNT Routine 09/22/2024 6:22 AM EDT BASIC METABOLIC PANEL Routine 09/22/2024 6:22 AM EDT PHOSPHORUS STAT 09/22/2024 6:22 AM EDT POCT GLUCOSE BLOOD Routine 09/22/2024 6:05 AM EDT VAS US DUPLEX LOWER EXT VENOUS BILAT Routine 09/22/2024 2:33 AM EDT History of DVT (deep vein thrombosis) POCT GLUCOSE BLOOD Routine 09/22/2024 2:31 AM EDT POCT GLUCOSE BLOOD Routine 09/22/2024 1:30 AM EDT BASIC METABOLIC PANEL Timed 09/22/2024 1:20 AM EDT POCT GLUCOSE BLOOD Routine 09/22/2024 12:46 AM EDT POCT GLUCOSE BLOOD Routine 09/21/2024 11:22 PM EDT POCT GLUCOSE BLOOD Routine 09/21/2024 10:47 PM EDT VENOUS BLOOD GAS Timed 09/21/2024 9:39 PM EDT BASIC METABOLIC PANEL Timed 09/21/2024 9:39 PM EDT POCT GLUCOSE BLOOD Routine 09/21/2024 9:36 PM EDT POCT GLUCOSE BLOOD Routine 09/21/2024 8:56 PM EDT POCT GLUCOSE BLOOD Routine 09/21/2024 7:19 PM EDT XR HAND 3+ VIEWS RIGHT STAT 6:50 PM EDT POCT GLUCOSE BLOOD Routine 09/21/2024 6:12 PM EDT VENOUS BLOOD GAS CO-OXIMETRY STAT 09/21/2024 6:08 PM EDT LACTATE, WITH REFLEX STAT 09/21/2024 6:08 PM EDT VENOUS BLOOD GAS Timed 09/21/2024 6:08 PM EDT BASIC METABOLIC PANEL Timed 09/21/2024 6:08 PM EDT POTASSIUM STAT 09/21/2024 6:[address] ANGIO CHEST/ABDOMEN/PELVIS WO AND/OR W CONTRAST STAT 09/21/2024 5:31 PM EDT Gastrointestinal hemorrhage, unspecified gastrointestinal hemorrhage type SOB (shortness of breath) URINALYSIS WITH REFLEX MICROSCOPIC STAT 09/21/2024 5:22 PM EDT URINALYSIS WITH REFLEX MICROSCOPIC STAT 09/21/2024 5:22 PM EDT ECG 12-LEAD STAT 09/21/2024 5:04 PM EDT TROPONIN I HIGH SENSITIVITY STAT 09/21/2024 4:48 PM EDT PHOSPHORUS STAT Add-on 09/21/2024 4:04 PM EDT BETA HYDROXYBUTYRATE STAT Add-on 09/21/2024 4:04 PM EDT LIPASE STAT Add-on 09/21/2024 4:04 PM EDT MAGNESIUM STAT Add-on 09/21/2024 4:04 PM EDT CBC WITH AUTO DIFFERENTIAL STAT 09/21/2024 4:04 PM EDT TYPE AND SCREEN STAT 09/21/2024 4:04 PM EDT COMPREHENSIVE METABOLIC PANEL STAT 09/21/2024 4:04 PM EDT CBC AND DIFFERENTIAL STAT 09/21/2024 4:04 PM EDT [facility] 30-74 MINUTES Routine 09/21/2024 3:02 PM EDT CBC WITH AUTO DIFFERENTIAL Routine 09/18/2024 2:37 PM EDT S/P bariatric surgery CBC AND DIFFERENTIAL Routine 09/18/2024 2:37 PM EDT S/P bariatric surgery POCT GLUCOSE BLOOD Routine 09/15/2024 11:26 AM EDT POCT GLUCOSE BLOOD Routine 09/15/2024 8:51 AM EDT EGD Routine 09/15/2024 7:54 AM EDT CBC WITH AUTO DIFFERENTIAL Routine 09/15/2024 6:20 AM EDT MAGNESIUM Routine 09/15/2024 6:20 AM EDT BASIC METABOLIC PANEL Routine 09/15/2024 6:20 AM EDT CBC AND DIFFERENTIAL Routine 09/15/2024 6:20 AM EDT HEMOGLOBIN AND HEMATOCRIT Routine 09/14/2024 11:56 PM EDT POCT GLUCOSE BLOOD Routine 09/14/2024 8:14 PM EDT HEMOGLOBIN AND HEMATOCRIT Routine 09/14/2024 6:19 PM EDT POCT GLUCOSE BLOOD Routine 09/14/2024 4:[address] ANGIO ABDOMEN PELVIS WO AND/OR W CONTRAST STAT 09/14/2024 2:26 PM EDT Blood per rectum ACTIVATED PARTIAL THROMBOPLASTIN TIME Routine 09/14/2024 12:36 PM EDT PROTHROMBIN TIME WITH INR Routine 09/14/2024 12:36 PM EDT HEMOGLOBIN AND HEMATOCRIT Routine 09/14/2024 12:36 PM EDT POCT GLUCOSE BLOOD Routine 09/14/2024 11:10 AM EDT POCT GLUCOSE BLOOD Routine 09/14/2024 8:01 AM EDT CBC WITH AUTO DIFFERENTIAL STAT 09/14/2024 3:22 AM EDT PHOSPHORUS Routine 09/14/2024 3:22 AM EDT MAGNESIUM Routine 09/14/2024 3:22 AM EDT CBC AND DIFFERENTIAL Routine 09/14/2024 3:22 AM EDT BASIC METABOLIC PANEL Routine 09/14/2024 3:22 AM EDT POCT GLUCOSE BLOOD Routine 09/13/2024 8:17 PM EDT PINK - K EDTA Routine 09/13/2024 6:18 PM EDT EXTRA TUBES Routine 09/13/2024 6:18 PM EDT HEMOGLOBIN AND HEMATOCRIT Routine 09/13/2024 6:18 PM EDT POCT GLUCOSE BLOOD Routine 09/13/2024 4:17 PM EDT POCT GLUCOSE BLOOD Routine 09/13/2024 11:02 AM EDT POCT GLUCOSE BLOOD Routine 09/13/2024 7:41 AM EDT CBC WITH AUTO DIFFERENTIAL Routine 09/13/2024 5:47 AM EDT BASIC METABOLIC PANEL Routine 09/13/2024 5:47 AM EDT MAGNESIUM Routine 09/13/2024 5:47 AM EDT CBC AND DIFFERENTIAL Routine 09/13/2024 5:47 AM EDT POCT GLUCOSE BLOOD Routine 09/12/2024 8:12 PM EDT POCT GLUCOSE BLOOD Routine 09/12/2024 4:23 PM EDT POCT GLUCOSE BLOOD Routine 09/12/2024 11:08 AM EDT OXYGEN THERAPY, ADULT Routine 09/12/2024 10:26 AM EDT TH AN ENDOTRACHEAL(NO CHARGE) Routine 09/12/2024 8:45 AM EDT WA LAP SURG GASTRIC REST PROC W GSTR BYPASS & RUFINO-EN-Y GASTROENTEROSTOMY 09/12/2024 7:43 AM EDT Morbid obesity (CMS/HCC V24, CMS/[facility] V28) Special Needs TIME CHGD TO 730 PER RAY VIA PHONE AC 09/09 POCT GLUCOSE BLOOD Routine 09/12/2024 6:39 AM EDT XR CHEST 2 VIEWS Routine 09/02/2024 12:12 PM EDT Obesity, Class III, BMI 40-49.9 (morbid obesity) ECG 12-LEAD Routine 09/02/2024 10:54 AM EDT Obesity, Class III, BMI 40-49.9 (morbid obesity) CBC WITH AUTO DIFFERENTIAL Routine 09/02/2024 10:46 AM EDT Obesity, Class III, BMI 40-49.9 (morbid obesity) BASIC METABOLIC PANEL Routine 09/02/2024 10:46 AM EDT Obesity, Class III, BMI 40-49.9 (morbid obesity) CBC AND DIFFERENTIAL Routine 09/02/2024 10:46 AM EDT Obesity, Class III, BMI 40-49.9 (morbid obesity) MAGNESIUM Routine 09/02/2024 10:46 AM EDT Obesity, Class III, BMI 40-49.9 (morbid obesity) PROTHROMBIN TIME WITH INR Routine 09/02/2024 10:46 AM EDT Obesity, Class III, BMI 40-49.9 (morbid obesity) TYPE AND SCREEN Routine 09/02/2024 10:46 AM EDT Obesity, Class III, BMI 40-49.9 (morbid obesity) HEMOGLOBIN A1C Routine 02/26/2024 2:07 PM EST [...] obesity type, unspecified whether serious comorbidity present ([facility] V24, [facility] V28) from Last 3 Months or Most Recently Relevant to Health Maintenance Results * (ABNORMAL) Hemoglobin and hematocrit (09/30/2024 10:19 AM EDT) Only the most recent of10 resultswithin the time period is included. Pathologist [facility] Hemoglobin 9.6(L) 13.5 - 17.5 g/dL LAB HEMETOLOGY METHOD 09/30/2024 2:20 PM EDT [facility] Hematocrit 30.9(L) 42.0 - 54.0 % LAB HEMETOLOGY METHOD 09/30/2024 2:20 PM EDT [facility] Blood Venous blood specimen / Unknown Venipuncture / Unknown 09/30/2024 10:19 AM EDT 09/30/2024 10:19 AM EDT Misa OROZCO LAB BLOOD ORDERABLES Final Res ult [facility] [address] [place] [address], * ECG-Annotated (09/25/2024) us Provider Onbase MD ECG ORDERABLES Final Result * (ABNORMAL) Occult blood stool, guaiac (09/24/2024 1:26 PM EDT) Pathologist [facility] Occult Blood, Stool #1 Positive( A) Negative 09/24/2024 2:18 PM EDT [facility] Stool Rectum structure / Unknown Non-blood Collection / Unknown 09/24/2024 1:26 PM EDT 09/24/2024 1:59 PM EDT Alysa OROZCO LAB BODY FLUIDS AND STOOLS TERRENCE GAEL Final Result Performing Organization Address [facility]/ZIP Co de Phone Number [facility] [address] [place] [address], [place] [phone] * (ABNORMAL) POCT Glucose, blood (09/24/2024 11:51 AM EDT) Only the most recent of37 resultswithin the time period is included. [facility] Glucose POCT 119(H) 70 - 100 mg/dL 09/24/2024 11:51 AM EDT [facility] Blood Capillary blood specimen / Unknown 09/24/2024 11:51 AM EDT 09/29/2024 9:11 AM EDT Thao Ghosh MD LAB POINT OF CARE T EST DOCKED DEVICE UNSOLICITED RESULTS Final Result Performing Organization Address [facility]/ZIP Co de Phone Number [facility] [address] [place] [address], [place] [phone] * (ABNORMAL) CBC auto differential (09/24/2024 6:24 AM EDT) Only the most recent of8 resultswithin the time period is included. Pathologist [facility] WBC 6.3 4.8 - 10.8 K/mcL LAB HEMETOLOGY METHOD 09/24/2024 7:52 AM EDT [facility] RBC 2.80(L) 4.50 - 5.50 M/mcL LAB HEMETOLOGY METHOD 09/24/2024 7:52 AM EDT [facility] Hemoglobin 8.7(L) 13.5 - 17.5 g/dL LAB HEMETOLOGY METHOD 09/24/2024 7:52 AM EDT [facility] Hematocrit 27.0(L) 42.0 - 54.0 % LAB HEMETOLOGY METHOD 09/24/2024 7:52 AM [facility] MCV 95.7 79.0 - 98.0 FL LAB HEMETOLOGY METHOD 09/24/2024 7:52 AM [facility] MCH 30.9 27.0 - 32.0 pcg LAB HEMETOLOGY METHOD 09/24/2024 7:52 AM [facility] MCHC 32.2 32.0 - 37.0 g/dL LAB HEMETOLOGY METHOD 09/24/2024 7:52 AM [facility] RDW 16.8(H) 11.0 - 15.0 % LAB HEMETOLOGY METHOD 09/24/2024 7:52 AM [facility] LAB Platelets 382 130 - 400 K/mcL LAB HEMETOLOGY METHOD 09/24/2024 7:52 AM [facility] MPV 9.0 7.0 - 11.0 FL LAB HEMETOLOGY METHOD 09/24/2024 7:52 AM [facility] NRBC 0.3 <1.0 % LAB HEMETOLOGY METHOD 09/24/2024 7:52 AM [facility] LAB NRBC Absolute 0.02 <0.10 K/mcL LAB HEMETOLOGY METHOD 09/24/2024 7:52 AM [facility] Neutrophils Relative 55.9 % LAB HEMETOLOGY METHOD 09/24/2024 7:52 AM [facility] Lymphocytes Relative 29.5 % LAB HEMETOLOGY METHOD 09/24/2024 7:52 AM [facility] Monocytes Relative 10.1 % LAB HEMETOLOGY METHOD 09/24/2024 7:52 AM [facility] Eosinophils Relative 2.1 % LAB HEMETOLOGY METHOD 09/24/2024 7:52 AM [facility] Basophils Relative 0.3 % LAB HEMETOLOGY METHOD 09/24/2024 7:52 AM EDT [facility] Immature Granulocytes Relative 2.1 % LAB HEMETOLOGY METHOD 09/24/2024 7:52 AM EDT [facility] Neutrophils Absolute 3.54 1.50 - 7.00 K/mcL LAB HEMETOLOGY METHOD 09/24/2024 7:52 AM EDT [facility] Lymphocytes Absolute 1.87 1.00 - 5.00 K/mcL LAB HEMETOLOGY METHOD 09/24/2024 7:52 AM EDT [facility] Monocytes Absolute 0.64 0.20 - 1.00 K/mcL LAB HEMETOLOGY METHOD 09/24/2024 7:52 AM EDT [facility] Eosinophils Absolute 0.13 0.00 - 0.50 K/mcL LAB HEMETOLOGY METHOD 09/24/2024 7:52 AM EDT [facility] Basophils Absolute 0.02 0.00 - 0.20 K/mcL LAB HEMETOLOGY METHOD 09/24/2024 7:52 AM EDT [facility] Immature Granulocytes Absolute 0.13(H) 0.00 - 0.03 K/mcL LAB HEMETOLOGY METHOD 09/24/2024 7:52 AM EDT [facility] Blood Venous blood specimen / Unknown Venipuncture / Unknown 09/24/2024 6:24 AM EDT 09/24/2024 6:37 AM EDT us Misa OROZCO LAB BLOOD ORDERABLES Final Res ult [facility] [address] [place] [address], * (ABNORMAL) Iron and TIBC (09/24/2024 6:24 AM EDT) [facility] Signature Iron 31(L) 50 - 160 mcg/dL LAB CHEMISTRY METHOD 09/24/2024 4:24 PM EDT [facility] TIBC 245(L) 250 - 450 mcg/dL LAB CHEMISTRY METHOD 09/24/2024 4:24 PM EDT [facility] Iron Saturation 13(L) 20 - 50 % LAB CHEMISTRY METHOD 09/24/2024 4:24 PM EDT [facility] Blood Venous blood specimen / Unknown Venipuncture / Unknown 09/24/2024 6:24 AM EDT 09/24/2024 6:37 AM EDT us Thao Ghosh MD LAB BLOOD ORDERABLES Final Result Performing Organization Address City/[facility]/ZIP Co de Phone Number [facility] [address] [place] [address], [place] [phone] * Ferritin (09/24/2024 6:24 AM EDT) Pathologist [facility] Ferritin 172 26 - 388 ng/mL LAB CHEMISTRY METHOD 09/24/2024 4:24 PM EDT [facility] Blood Venous blood specimen / Unknown Venipuncture / Unknown 09/24/2024 6:24 AM EDT 09/24/2024 6:37 AM EDT us Thao Ghosh MD LAB BLOOD ORDERABLES Final Result [facility] [address] [place] [address], [place] [phone] * Basic metabolic panel (09/24/2024 6:24 AM EDT) Only the most recent of14 resultswithin the time period is included. Pathologist [facility] Sodium 137 133 - 145 mmol/L LAB CHEMISTRY METHOD 09/24/2024 7:29 AM EDT [facility] Potassium 4.4 3.5 - 5.5 mmol/L LAB CHEMISTRY METHOD 09/24/2024 7:29 AM [facility] Chloride 107 96 - 110 mmol/L LAB CHEMISTRY METHOD 09/24/2024 7:29 AM [facility] CO2 22 21 - 32 mmol/L LAB CHEMISTRY METHOD 09/24/2024 7:29 AM [facility] Anion Gap 8 3 - 11 LAB CHEMISTRY METHOD 09/24/2024 7:29 AM [facility] Glucose 82 70 - 100 mg/dL LAB CHEMISTRY METHOD 09/24/2024 7:29 AM [facility] BUN 10 5 - 25 mg/dL LAB CHEMISTRY METHOD 09/24/2024 7:29 AM [facility] Creatinine 0.94 0.70 - 1.30 mg/dL LAB CHEMISTRY METHOD 09/24/2024 7:29 AM [facility] eGFR 97 >=60 mL/min/1. 73m2 LAB CHEMISTRY METHOD 09/24/2024 7:29 AM [facility] Comment:Calculation based on the Chronic Kidney Disease Epidemiology Collaboration (CKD-EPI) equation refit without adjustment for race. BUN/Creatinine Ratio 10.6 LAB CHEMISTRY METHOD 09/24/2024 7:29 AM [facility] Calcium 8.8 8.5 - 10.5 mg/dL LAB CHEMISTRY METHOD 09/24/2024 7:29 AM [facility] Blood Venous blood specimen / Unknown Venipuncture / Unknown 09/24/2024 6:24 AM EDT 09/24/2024 6:37 AM EDT us Camila OROZCO LAB BLOOD ORDERABLES Fi nal Result [facility] [address] [place] [address], * Transfuse RBC (09/23/2024 3:51 PM EDT) us Thao Ghosh MD BLOOD TRANSFUSION ORDERABLE S Final Result * Prepare RBC: 1 Units (09/23/2024 12:11 PM EDT) Product Code [id number] 09/23/2024 1:27 PM EDT [facility] Unit Number [id number] 09/24/19 1:27 PM EDT [facility] Crossmatch Compatible 09/23/2024 12:17 PM EDT [facility] Dispense Status Transfused 09/23/2024 1:27 PM EDT [facility] Unit ABO Rh APOS 09/23/2024 1:27 PM EDT [facility] Unit Expiration Date Time [id number] 09/23/2024 1:27 PM EDT [facility] Unit Blood Type 6200 09/23/2024 1:27 PM EDT [facility] Blood Venous blood specimen / Unknown 09/23/2024 12:11 PM EDT 09/21/2024 4:17 PM EDT Thao Ghosh MD BLOOD BANK PRODUCT ORDERABL ES Final Result Performing Organization Address [facility]/State/ZIP Co de Phone Number [facility] [address] [place] [address], * (ABNORMAL) Magnesium (09/23/2024 4:23 AM EDT) Only the most recent of6 resultswithin the time period is included. Magnesium 1.8(L) 1.9 - 2.6 mg/dL LAB CHEMISTRY METHOD 09/23/2024 5:05 AM EDT [facility] Blood Venous blood specimen / Unknown Venipuncture / Unknown 09/23/2024 4:23 AM EDT 09/23/2024 4:46 AM EDT us Thao Ghosh MD LAB BLOOD ORDERABLES Final Result Performing Organization Address [facility]/ZIP Co de Phone Number [facility] [address] [place] [address], [place] [phone] * Light blue tube (09/22/2024 4:06 PM EDT) Extra Tube Hold for add-ons. 09/22/2024 6:01 PM EDT [facility] Comment:Auto resulted. Blood Venous blood specimen / Unknown 09/22/2024 4:06 PM EDT 09/22/2024 4:25 PM EDT Thao Ghosh MD LAB BLOOD ORDERABLES Final Result Performing Organization Address [facility] de Phone Number [facility] [address] [place] [address], [place] [phone] * CT Head wo Contrast (09/22/2024 9:04 AM EDT) Anatomical Region Laterality Modality Head and Neck Computed Tomogra phy 09/22/2024 9:26 AM EDT Impressions 09/22/2024 9:28 AM EDT No acute intracranial abnormality. -------- FINAL REPORT -------- Dictated By: CLARK PRECIADO Dictated Date: 09/22/2024 09:26 ET Assigned Physician: CLARK PRECIADO Reviewed and Electronically Signed By: CLARK PRECIADO Signed Date: 09/22/2024 09:28 ET Workstation ID: [id number] Transcribed By: Self Edit Transcribed Date: 09/22/2024 09:26 ET Narrative 09/22/2024 9:28 AM EDT PROCEDURE: HEAD CT INDICATION: Fall, pain TECHNIQUE: CT of the head without intravenous contrast. Multiplanar reformats. The examination was performed utilizing dose reduction techniques. Total DLP 1204 COMPARISON: No priors available. FINDINGS: No acute territorial infarct, mass effect, or intracranial hemorrhage. Mild scattered periventricular and subcortical white matter hypodensities are most likely related to chronic small vessel ischemic change. Ventricles, sulci, and cisterns are normal in size and configuration. No hydrocephalus or volume loss. Visualized paranasal sinuses and mastoid air cells are clear. No scalp hematoma or skull fracture. Procedure Note Clark Preciado MD - 09/22/2024 PROCEDURE: HEAD CT INDICATION: Fall, pain TECHNIQUE: CT of the head without intravenous contrast. Multiplanarreformats. The examination was performed utilizing dose reductiontechniques. Total DLP 1204 COMPARISON: No priors available. FINDINGS: No acute territorial infarct, mass effect, or intracranial hemorrhage. Mild scattered periventricular and subcortical white matter hypodensitiesare most likely related to chronic small vessel ischemic change. Ventricles, sulci, and cisterns are normal in size and configuration. Nohydrocephalus or volume loss. Visualized paranasal sinuses and mastoid air cells are clear. No scalp hematoma or skull fracture. IMPRESSION: No acute intracranial abnormality. -------- FINAL REPORT -------- Dictated By: CLARK PRECIADO Dictated Date: 09/22/2024 09:26 ET Assigned Physician: CLARK PRECIADO Reviewed and Electronically Signed By: CLARK PRECIADO Signed Date: 09/22/2024 09:28 ET Workstation ID: [id number] Transcribed By: Self Edit Transcribed Date: 09/22/2024 09:26 ET Alysa OROZCO IMG CT PROCEDURES Final Result * Lavender tube (09/22/2024 8:07 AM EDT) Extra Tube Hold for add-ons. 09/22/2024 10:01 AM EDT [facility] [place] [facility] Comment:Auto resulted. Blood Venous blood specimen / Unknown 09/22/2024 8:07 AM EDT 09/22/2024 8:42 AM EDT Thao Ghosh MD LAB BLOOD ORDERABLES Final Result [facility] [address] [place] [address], * (ABNORMAL) Complete blood count (09/22/2024 6:22 AM EDT) [facility] Signature WBC 8.1 4.8 - 10.8 K/mcL LAB HEMETOLOGY METHOD 09/22/2024 7:18 AM EDT [facility] RBC 2.40(L) 4.50 - 5.50 M/mcL LAB HEMETOLOGY METHOD 09/22/2024 7:18 AM EDT [facility] Hemoglobin 7.4(L) 13.5 - 17.5 g/dL LAB HEMETOLOGY METHOD 09/22/2024 7:18 AM [facility] Hematocrit 22.9(L) 42.0 - 54.0 % LAB HEMETOLOGY METHOD 09/22[facility]2024 [facility] MCV 95.4 79.0 - 98.0 FL LAB HEMETOLOGY METHOD 09/22/2024 7:18 [facility] MCH 30.8 27.0 - 32.0 pcg LAB HEMETOLOGY METHOD 09/22/2024 7:18 AM [facility] MCHC 32.3 32.0 - 37.0 g/dL LAB HEMETOLOGY METHOD 09/22/2024 7:18 [facility] RDW 14.0 11.0 - 15.0 % LAB HEMETOLOGY METHOD 09/22/2024 7:18 [facility] Platelets 413(H) 130 - 400 K/mcL LAB HEMETOLOGY METHOD 09/22/2024 7:18 AM [facility] MPV 9.5 7.0 - 11.0 FL LAB HEMETOLOGY METHOD 09/22/2024 7:18 AM EDT [facility] NRBC 0.0 <1.0 % LAB HEMETOLOGY METHOD 09/22/2024 7:18 AM EDT [facility] NRBC Absolute 0.00 <0.10 K/mcL LAB HEMETOLOGY METHOD 09/22/2024 7:18 AM EDT [facility] Blood Venous blood specimen / Unknown Venipuncture / Unknown 09/22/2024 6:22 AM EDT 09/22/2024 6:54 AM EDT Alysa OROZCO LAB BLOOD ORDERABLES Final Resu lt Performing Organization Address City/[facility]/ZIP Co de Phone Number [facility] [address] [place] [address], [place] [phone] * Phosphorus (09/22/2024 6:22 AM EDT) Only the most recent of3 resultswithin the time period is included. Phosphorus 3.1 2.5 - 4.5 mg/dL LAB CHEMISTRY METHOD 09/22/2024 7:41 AM EDT [facility] Blood Venous blood specimen / Unknown Venipuncture / Unknown 09/22/2024 6:22 AM EDT 09/22/2024 6:54 AM EDT Alysa OROZCO LAB BLOOD ORDERABLES Final Resu lt Performing Organization Address [facility]/ZIP Co de Phone Number [facility] [address] [place] [address], [place] [phone] * Vascular US duplex lower extremity venous bilateral (09/22/2024 2:33 AM EDT) Anatomical Region Laterality Modality Vascular, Abdomen Ultrasound 09/22/2024 2:59 AM EDT Impressions 09/22/2024 3:00 AM EDT No deep vein thrombosis identified in the bilateral lower extremity veins. -------- FINAL REPORT -------- Dictated By: Eboni Mcelroy Dictated Date: 09/22/2024 02:59 ET Assigned Physician: Eboni Mcelroy Reviewed and Electronically Signed By: Eboni Mcelroy Signed Date: 09/22/2024 03:00 ET Workstation ID: [id number] Transcribed By: Self Edit Transcribed Date: 09/22/2024 02:59 ET Narrative 09/22/2024 3:00 AM EDT INDICATION: DVT Hx lower extremity pain w/ recent surgery, rule out dvt COMPARISON: None. TECHNIQUE: Ultrasound of the bilateral lower extremity veins is performed using color-flow Doppler, graded compression with B mode Doppler with spectral analysis FINDINGS: The common femoral, superficial femoral and popliteal veins compress normally throughout their length. Normal response to distal augmentation is seen with calf compression. Included calf vessels are patent on color Doppler. Procedure Note Eboni Mcelroy MD - 09/22/2024 INDICATION: DVT Hx lower extremity pain w/ recent surgery, rule out dvt COMPARISON: None. TECHNIQUE: Ultrasound of the bilateral lower extremity veins is performedusing color-flow Doppler, graded compression with B mode Doppler withspectral analysis FINDINGS: The common femoral, superficial femoral and popliteal veinscompress normally throughout their length. Normal response to distalaugmentation is seen with calf compression. Included calf vessels arepatent on color Doppler. IMPRESSION: No deep vein thrombosis identified in the bilateral lower extremityveins. -------- FINAL REPORT -------- Dictated By: Eboni Mcelroy Dictated Date: 09/22/2024 02:59 ET Assigned Physician: Eboni Mcelroy Reviewed and Electronically Signed By: Eboni Mcelroy Signed Date: 09/22/2024 03:00 ET Workstation ID: [id number] Transcribed By: Self Edit Transcribed Date: 09/22/2024 02:59 ET us Alysa OROZCO CV VASCULAR PROCEDURES Final Re sult * (ABNORMAL) Venous blood gas (09/21/2024 9:39 PM EDT) Only the most recent of2 resultswithin the time period is included. pH, Jason 7.35 7.32 - 7.42 pH 09/21/2024 9:47 PM EDT [facility] pCO2, Jason 21(L) 41 - 51 mmHg 09/21/2024 9:47 PM EDT [facility] pO2, Jason 102(H) 25 - 40 mmHg 09/21/2024 9:47 PM EDT [facility] HCO3, Venous 15.2(L) 22.0 - 26.0 mmol/L 09/21/2024 9:47 PM EDT [facility] O2 Sat, Jason 98.6 % 09/21/2024 9:47 PM EDT [facility] Base Excess, Jason -12.5(L) -2.0 - 2.0 mmol/L 09/21/2024 9:47 PM EDT [facility] Blood Venous blood specimen / Unknown Venipuncture / Unknown 09/21/2024 9:39 PM EDT 09/21/2024 9:42 PM EDT us Rosanne Rogers MD LAB BLOOD ORDERABLES Final Resul t [facility] [address] [place] [address], * XR Hand 3+ Views Right (09/21/2024 6:50 PM EDT) Anatomical Region Laterality Modality Upper Extremities, Hand Right Radiogra phic Imaging 09/22/2024 7:59 AM EDT Impressions 09/22/2024 8:01 AM EDT No fracture, dislocation, or other bony abnormality. There is extensive atherosclerotic arterial calcification, unusual in this age group and therefore evaluation for cardiovascular disease should be considered. Code 56421 -------- FINAL REPORT -------- Dictated By: Mendel Cantu Dictated Date: 09/22/2024 07:59 ET Assigned Physician: Mendel Cantu Reviewed and Electronically Signed By: Mendel Cantu Signed Date: 09/22/2024 08:01 ET Workstation ID: [id number] Transcribed By: Self Edit Transcribed Date: 09/22/2024 07:59 ET Narrative 09/22/2024 8:01 AM EDT HISTORY: The patient is a 54-year-old male with pain in the right hand, particularly the fourth finger, following a fall. FINDINGS: AP, lateral, and oblique views of the right hand are obtained. The study demonstrates no fracture, dislocation, arthritic change, or other bony abnormality. Extensive atherosclerotic arterial calcification is noted, greater than is usually seen in this age group. No other soft tissue abnormality is seen. Procedure Note Mendel Cantu MD - 09/22/2024 HISTORY: The patient is a 54-year-old male with pain in the right hand,particularly the fourth finger, following a fall. FINDINGS: AP, lateral, and oblique views of the right hand are obtained.The study demonstrates no fracture, dislocation, arthritic change, orother bony abnormality. Extensive atherosclerotic arterial calcificationis noted, greater than is usually seen in this age group. No other softtissue abnormality is seen. IMPRESSION: No fracture, dislocation, or other bony abnormality. There is extensiveatherosclerotic arterial calcification, unusual in this age group andtherefore evaluation for cardiovascular disease should be considered. Code 98124 -------- FINAL REPORT -------- Dictated By: Mendel Cantu Dictated Date: 09/22/2024 07:59 ET Assigned Physician: Mendel Cantu Reviewed and Electronically Signed By: Mendel Cantu Signed Date: 09/22/2024 08:01 ET Workstation ID: [id number] Transcribed By: Self Edit Transcribed Date: 09/22/2024 07:59 ET us Rosanne Rogers MD IMG XR PROCEDURES Final Result * Lactate, with reflex (09/21/2024 6:08 PM EDT) LACTIC ACID 1.8 0.4 - 2.0 mmol/L LAB CHEMISTRY METHOD 09/21/2024 6:46 PM EDT [facility] Blood Venous blood specimen / Unknown Venipuncture / Unknown 09/21/2024 6:08 PM EDT 09/21/2024 6:16 PM EDT us Rosanne Rogers MD LAB BLOOD ORDERABLES Final Resul t Performing Organization Address [facility]/ZIP Co de Phone Number [facility] [address] [place] [address], [place] [phone] * (ABNORMAL) Venous blood gas co-oximetry (09/21/2024 6:08 PM EDT) Carboxyhemoglobin 0.8 0.0 - 3.0 % 09/21/2024 6:20 PM EDT [facility] Methemoglobin 0.2 0.2 - 0.5 % 09/21/2024 6:20 PM EDT [facility] Oxyhemoglobin 39.8(L) 40 - 70 % 09/21/2024 6:20 PM EDT [facility] O2 Sat, Jason 40.2 % 09/21/2024 6:20 PM EDT [facility] Total Hemoglobin Venous 9.6(L) 12.0 - 18.0 g/dL 09/21/2024 6:20 PM EDT [facility] Blood Venous blood specimen / Unknown Venipuncture / Unknown 09/21/2024 6:08 PM EDT 09/21/2024 6:15 PM EDT us Rosanne Rogers MD LAB BLOOD ORDERABLES Final Resul t Performing Organization Address City/[facility]/ZIP Co de Phone Number [facility] [address] [place] [address], [place] [phone] * Potassium (09/21/2024 6:08 PM EDT) Potassium 5.0 3.5 - 5.5 mmol/L LAB CHEMISTRY METHOD 09/21/2024 6:45 PM EDT [facility] Blood Venous blood specimen / Unknown Venipuncture / Unknown 09/21/2024 6:08 PM EDT 09/21/2024 6:16 PM EDT us Rosanen Rogers MD LAB BLOOD ORDERABLES Final Resul t [facility] [address] [place] [address], [place] [phone] * CT Angio Chest/Abdomen/Pelvis wo and/or w Contrast (09/21/2024 5:31 PM EDT) Anatomical Region Laterality Modality Body Computed Tomogra phy 09/21/2024 6:12 PM EDT Impressions 09/21/2024 6:12 PM EDT Impression: 1. Unremarkable CTA of the chest, abdomen and pelvis. No evidence of acute aortic syndrome or aortic dissection. No evidence of pulmonary embolism. 2. No acute abnormalities or CT explanation for reported history of left upper quadrant tenderness. This document has been electronically signed by: Gordon Salinas MD on 09/21/2024 18:12:46 Narrative 09/21/2024 6:12 PM EDT INDICATION: Multiple issues: 1. recent rufino-en-Y worsening bloody stool, LUQ tenderness, had negative CTA in hospital; 2. hx DVT, off AC, CP/SOB, eval PE, other acute; 3. fall with midline thoracic tenderness; 4 same with lumbar tenderness Exam: Contrast-enhanced CT angiogram of the chest, abdomen and pelvis with multiplanar reformats. Precontrast imaging was obtained as well. Comparison: None. Findings: CTA chest: Thoracic aorta is normal caliber with no evidence of aortic dissection or acute aortic syndrome. No pulmonary embolism. No mediastinal or hilar masses or adenopathy. No pleural or pericardial effusions. Lungs are clear bilaterally. Airways are patent. No pneumothorax. CTA abdomen: Abdominal aorta is normal caliber with no evidence of acute aortic syndrome or dissection. Celiac artery, superior mesenteric artery, bilateral renal arteries and inferior mesenteric arteries are patent. Liver is free of focal lesions and ductal dilatation. Gallbladder is unremarkable. Spleen is unremarkable. Pancreas and adrenal glands appear unremarkable. Kidneys are unremarkable. No free intraperitoneal fluid or retroperitoneal masses or adenopathy. 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 No abnormal bowel wall thickening or distention. Minimal colonic diverticulosis is present, without CT evidence of diverticulitis. The appendix is unremarkable. CTA pelvis: Common as well as external and internal iliac arteries and branches are patent. No pelvic masses, fluid or adenopathy. Urinary bladder is free of gross filling defects. Osseous structures reveal no destructive osseous lesions. Procedure Note Gordon Salinas MD - 09/21/2024 INDICATION: Multiple issues: 1. recent rufino-en-Y worsening bloody stool, LUQ tenderness, had negative CTA in hospital; 2. hx DVT, off AC, CP/SOB, eval PE, other acute; 3. fall with midline thoracic tenderness; 4 same with lumbar tenderness Exam: Contrast-enhanced CT angiogram of the chest, abdomen and pelviswith multiplanar reformats. Precontrast imaging was obtained as well. Comparison: None. Findings: CTA chest: Thoracic aorta is normal caliber with no evidence of aortic dissection or acute aortic syndrome. No pulmonary embolism. Nomediastinal or hilar masses or adenopathy. No pleural or pericardial effusions. Lungs are clear bilaterally. Airways are patent. No pneumothorax. CTA abdomen: Abdominal aorta is normal caliber with no evidence of acute aortic syndrome or dissection. Celiac artery, superior mesentericartery, bilateral renal arteries and inferior mesenteric arteries are patent. Liver is free of focal lesions and ductal dilatation. Gallbladder is unremarkable. Spleen is unremarkable. Pancreas and adrenal glands appear unremarkable. Kidneys areunremarkable. No free intraperitoneal fluid or retroperitoneal masses or adenopathy. 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 No abnormal bowel wall thickening or distention. Minimal colonic diverticulosis is present, without CT evidence ofdiverticulitis. The appendix is unremarkable. CTA pelvis: Common as well as external and internal iliac arteries and branches are patent. No pelvic masses, fluid or adenopathy. Urinary bladder is free of gross filling defects. Osseous structures reveal no destructive osseous lesions. IMPRESSION: Impression: 1. Unremarkable CTA of the chest, abdomen and pelvis. No evidence ofacute aortic syndrome or aortic dissection. No evidence of pulmonary embolism. 2. No acute abnormalities or CT explanation for reported history of left upper quadrant tenderness. This document has been electronically signed by: Gordon Salinas MD on 09/21/2024 18:12:46 Rosanne Rogers MD IM CT PROCEDURES Final Result * (ABNORMAL) Urinalysis with reflex microscopic (09/21/2024 5:22 PM EDT) Specific Odin Urine 1.031(H) 1.003 - 1.030 LAB URINALYSIS - AUTOMATED METHOD 09/21/2024 6:08 PM [facility] pH, Urine 5.5 5.0 - 8.0 pH LAB URINALYSIS - AUTOMATED METHOD 09/21/2024 6:08 PM [facility] Leukocytes, Urine Negative Negative LAB URINALYSIS - AUTOMATED METHOD 09/21/2024 6:08 PM [facility] Nitrite, Urine Negative Negative LAB URINALYSIS - AUTOMATED METHOD 09/21/2024 6:08 PM [facility] Protein, Urine 30(A) <=Trace mg/dL LAB URINALYSIS - AUTOMATED METHOD 09/21/2024 6:08 PM [facility] Glucose, Urine >=1000(A) Negative mg/dL LAB URINALYSIS - AUTOMATED METHOD 09/21/2024 6:08 PM [facility] Ketones, Urine >=80(A) Negative mg/dL LAB URINALYSIS - AUTOMATED METHOD 09/21/2024 6:08 PM [facility] Urobilinogen , Urine 0.2 0.2 - 1.0 mg/dL LAB URINALYSIS - AUTOMATED METHOD 09/21/2024 6:08 PM [facility] Bilirubin, Urine Negative Negative LAB URINALYSIS - AUTOMATED METHOD 09/21/2024 6:08 PM [facility] Blood, Urine Negative Negative LAB URINALYSIS - AUTOMATED METHOD 09/21/2024 6:08 PM [facility] RBC, Urine 2.0 0 - 4 /HPF LAB URINALYSIS - AUTOMATED METHOD 09/21/2024 6:08 PM EDT [facility] WBC, Urine 0.6 0 - 4 /HPF LAB URINALYSIS - AUTOMATED METHOD 09/21/2024 6:08 PM EDT [facility] Squamous Epithelial, Urine 12 0 - 60 /LPF LAB URINALYSIS - AUTOMATED METHOD 09/21/2024 6:08 PM EDT [facility] Bacteria, Urine Negative Negative /HPF LAB URINALYSIS - AUTOMATED METHOD 09/21/2024 6:08 PM EDT [facility] Hyaline Casts, Urine 0.4 0 - 3 /LPF LAB URINALYSIS - AUTOMATED METHOD 09/21/2024 6:08 PM EDT [facility] Urine Urine specimen obtained by clean catch procedure / Unknown Non-blood Collection / Unknown 09/21/2024 5:22 PM EDT 09/21/2024 5:34 PM EDT us Rosanne Rogers MD LAB URINE ORDERABLES Final Resul t [facility] [address] [place] [address], * 12-Lead ECG (09/21/2024 5:04 PM EDT) Only the most recent of2 resultswithin the time period is included. Ventricular Rate ECG 93 BPM GEMUSE Atrial Rate 93 BPM GEMUSE P-R Interval 144 ms GEMUSE QRS Duration 120 ms GEMUSE Q-T Interval 400 ms GEMUSE QTc 497 ms GEMUSE P Wave [place] 108 degrees GEMUSE R [place] 125 degrees GEMUSE T [place] -178 degrees GEMUSE ECG Interpretation Normal sinus rhythm Right bundle branch block When compared with ECG of 02-SEP-2024 10:54, Ventricular rate has increased Confirmed by JORI TATE ([id number]) on 09/21/2024 6:09:25 PM GEMUSE 09/21/2024 5:04 PM EDT 09/21/2024 6:09 PM EDT us Rosanne Rogers MD ECG ORDERABLES Final Result Performing Organization Address City/[facility]/ZIP Co de Phone Number GEMUSE * Troponin I High Sensitivity (09/21/2024 4:48 PM EDT) [facility] High Sensitivity Troponin I 6 <=79 ng/L LAB CHEMISTRY METHOD 09/21/2024 5:31 PM EDT [facility] Blood Venous blood specimen / Unknown Venipuncture / Unknown 09/21/2024 4:48 PM EDT 09/21/2024 5:01 PM EDT Narrative [facility] - 09/21/2024 5:31 PM EDT High levels of biotin in samples may falsely decrease hsTroponin values. Use caution when interpreting hsTroponin results in patients taking biotin who exhibit renal impairment (eGFR <60) or in patients taking more than 20 mg/day of biotin. us Rosanne Rogers MD LAB BLOOD ORDERABLES Final Resul t Performing Organization Address [facility] Co de Phone Number [facility] [address] [place] [address], [place] [phone] * (ABNORMAL) Beta hydroxybutyrate (09/21/2024 4:04 PM EDT) [facility] Beta-Hydroxyb utyrate >46.0(H) 0.2 - 2.8 mg/dL LAB CHEMISTRY METHOD 09/21/2024 6:07 PM EDT [facility] Blood Venous blood specimen / Unknown Venipuncture / Unknown 09/21/2024 4:04 PM EDT 09/21/2024 4:17 PM EDT us Rosanne Rogers MD LAB BLOOD ORDERABLES Final Resul t Performing Organization Address [facility]/ZIP Co de Phone Number [facility] [address] [place] [address], [place] [phone] * Type and screen (09/21/2024 4:04 PM EDT) Only the most recent of2 resultswithin the time period is included. [facility] ABO Group A 09/21/2024 5:23 PM EDT [facility] Rh Type Positive 09/21/2024 5:23 PM EDT [facility] Antibody Screen Negative 09/21/2024 5:23 PM EDT [facility] Blood Venous blood specimen / Unknown Venipuncture / Unknown 09/21/2024 4:04 PM EDT 09/21/2024 4:17 PM EDT us Rosanne Rogers MD LAB BLOOD BANK TEST ORDERABLES F inal Result Performing Organization Address [facility]/ZIP Co de Phone Number [facility] [address] [place] [address], [place] [phone] * Lipase (09/21/2024 4:04 PM EDT) [facility] Lipase 53 13 - 75 unit/L LAB CHEMISTRY METHOD 09/21/2024 4:47 PM EDT [facility] Blood Venous blood specimen / Unknown Venipuncture / Unknown 09/21/2024 4:04 PM EDT 09/21/2024 4:17 PM EDT us Rosanne Rogers MD LAB BLOOD ORDERABLES Final Resul t Performing Organization Address [facility]/ZIP Co de Phone Number [facility] [address] [place] [address], [place] [phone] * (ABNORMAL) Comprehensive metabolic panel (09/21/2024 4:04 PM EDT) [facility] Sodium 131(L) 133 - 145 mmol/L LAB CHEMISTRY METHOD 09/21/2024 5:10 PM EDT [facility] Potassium 5.6(H) 3.5 - 5.5 mmol/L LAB CHEMISTRY METHOD 09/21/2024 5:10 PM [facility] Comment:Hemolysis present Chloride 100 96 - 110 mmol/L LAB CHEMISTRY METHOD 09/21/2024 5:10 PM [facility] CO2 11(LL) 21 - 32 mmol/L LAB CHEMISTRY METHOD 09/21/2024 5:10 PM [facility] Anion Gap 20(H) 3 - 11 LAB CHEMISTRY METHOD 09/21/2024 5:10 PM [facility] Glucose 235(H) 70 - 100 mg/dL LAB CHEMISTRY METHOD 09/21/2024 5:10 PM [facility] BUN 25 5 - 25 mg/dL LAB CHEMISTRY METHOD 09/21/2024 5:10 PM [facility] Creatinine 1.31(H) 0.70 - 1.30 mg/dL LAB CHEMISTRY METHOD 09/21/2024 5:10 PM [facility] eGFR 65 >=60 mL/min/1. 73m2 LAB CHEMISTRY METHOD 09/21/2024 5:10 PM [facility] Comment:Calculation based on the Chronic Kidney Disease Epidemiology Collaboration (CKD-EPI) equation refit without adjustment for race. BUN/Creatinine Ratio 19.1 LAB CHEMISTRY METHOD 09/21/2024 5:10 PM [facility] Calcium 8.9 8.5 - 10.5 mg/dL LAB CHEMISTRY METHOD 09/21/2024 5:10 PM [facility] AST (SGOT) 22 10 - 42 unit/L LAB CHEMISTRY METHOD 09/21/2024 5:10 PM [facility] Comment:Hemolysis present ALT (SGPT) 36 10 - 60 unit/L LAB CHEMISTRY METHOD 09/21/2024 5:10 PM [facility] Alkaline Phosphatase 70 42 - 121 unit/L LAB CHEMISTRY METHOD 09/21/2024 5:10 PM [facility] Total Protein 6.8 6.0 - 8.0 g/dL LAB CHEMISTRY METHOD 09/21/2024 5:10 PM EDT [facility] Albumin 3.3 3.2 - 5.0 g/dL LAB CHEMISTRY METHOD 09/21/2024 5:10 PM EDT [facility] Total Bilirubin 0.6 0.0 - 1.4 mg/dL LAB CHEMISTRY METHOD 09/21/2024 5:10 PM EDT [facility] Blood Venous blood specimen / Unknown Venipuncture / Unknown 09/21/2024 4:04 PM EDT 09/21/2024 4:17 PM EDT us Rosanne Rogers MD LAB BLOOD ORDERABLES Final Resul t [facility] [address] [place] [address], * [place] CRITICAL CARE 30-74 MINUTES (09/21/2024 3:02 PM EDT) Rosanne Hernandez MD - 09/21/2024 3:02 PM EDT Rosanne Rogers MD 09/24/2024 11:35 PM Critical Care Performed by: Rosanne Rogers MD Authorized by: Rosanne Rogers MD Critical care provider statement: Critical care time (minutes): 75 Total face to face critical care time (minutes): 30 Critical care time was exclusive of: Separately billable procedures and treating other patients Critical care was necessary to treat or prevent imminent or life-threatening deterioration of the following conditions: Endocrine crisis and metabolic crisis Critical care was time spent personally by me on the following activities: Development of treatment plan with patient or surrogate, discussions with consultants, evaluation of patient's response to treatment, examination of patient, interpretation of cardiac output measurements, obtaining history from patient or surrogate, ordering and performing treatments and interventions, ordering and review of laboratory studies, ordering and review of radiographic studies, pulse oximetry, re-evaluation of patient's condition and review of old charts Face to face critical care was time spent personally by me on the following activities: Development of treatment plan with patient or surrogate, evaluation of patient's response to treatment, examination of patient, interpretation of cardiac output measurements, obtaining history from patient or surrogate, pulse oximetry and re-evaluation of patient's condition I assumed direction of critical care for this patient from another provider in my specialty: no Care discussed with: admitting provider 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 - Normal esophagus. - Gastric bypass with a medium-sized pouch and intact staple line. Gastrojejunal anastomosis characterized by congestion, friable mucosa, a hemorrhagic appearance, inflammation, ulceration and an intact staple line. - Normal examined jejunum. - No specimens collected. Recommendation: - [facility]. - Clear liquid diet. - Continue present medications. - Use sucralfate suspension 1 gram PO QID. - Observe patient's clinical course. Narrative 09/15/2024 7:55 AM EDT [facility] GI Patient Name: Domi Martinez Procedure Date: 09/15/2024 7:38 AM Date of : 1970 Age: 54 Room: ROOM 14 Gender: Male Note Status: Finalized Attending MD: Angelo Glover MD, Procedure Date No Time: 09/15/2024 Procedure: Upper GI endoscopy Indications: Melena Providers: Angelo Glover MD Referring MD: Angelo Glover MD Medicines: Monitored Anesthesia Care Complications: No immediate complications. Estimated Blood Loss: Estimated blood loss: none. Procedure: Pre-Anesthesia Assessment: - ASA Grade Assessment: III - A patient with severe systemic disease. - After reviewing the risks and benefits, the patient was deemed in satisfactory condition to undergo the procedure. After obtaining informed consent, the endoscope was passed under direct vision. Throughout the procedure, the patient's blood pressure, pulse, and oxygen saturations were monitored continuously.The Endoscope was introduced through the mouth, and advanced to the jejunum. The upper GI endoscopy was accomplished without difficulty. The patient tolerated the procedure well. Findings: The Z-line was regular and was found 40 cm from the incisors. The esophagus was normal. Evidence of a gastric bypass was found. A gastric pouch with a medium size was found. The staple line appeared intact. The gastrojejunal anastomosis was characterized by congestion, friable mucosa, a hemorrhagic appearance, inflammation, ulceration and an intact staple line. This was traversed. The kmsagcbi-xx-aqaewno limb was examined. The examined jejunum was normal. Procedure Code(s): --- Professional --- 11931, Esophagogastroduodenoscopy, flexible, transoral; diagnostic, including collection of specimen(s) by brushing or washing, when performed (separate procedure) Diagnosis Code(s): --- Professional --- K92.1, Melena (includes Hematochezia) CPT copyright 2020 [employer]. All rights reserved. The codes documented in this report are preliminary and upon patient care nursing assistant review may be revised to meet current compliance requirements. Angelo Glover MD 09/15/2024 7:55:45 AM This report has been signed electronically.Angelo Glover MD Number of Addenda: 0 Note Initiated On: 09/15/2024 7:38 AM Scope In: Scope Out: Endoscopy Department at [facility] - [address] [place] [id number] Procedure Note Angelo Glover MD - 09/15/2024 [facility] Patient Name: Domi Martinez Procedure Date: 09/15/2024 7:38 AM Date of : 1970 Age: 54 Room: ROOM 14 Gender: Male Note Status: Finalized Attending MD: Angelo Glover MD, Procedure Date No Time: 09/15/2024 Procedure: Upper GI endoscopy Indications: Melena Providers: Angelo Glover MD Referring MD: Angelo Glover MD Medicines: Monitored Anesthesia Care Complications: No immediate complications. Estimated Blood Loss: Estimated blood loss: none. Procedure: Pre-Anesthesia Assessment: - ASA Grade Assessment: III - A patient with severe systemic disease. - After reviewing the risks and benefits, thepatient was deemed in satisfactory condition to undergo the procedure. After obtaining informed consent, the endoscope was passed under direct vision. Throughout theprocedure, the patient's blood pressure, pulse, and oxygen saturations were monitored continuously.TheEndoscope was introduced through the mouth, and advanced tothe jejunum. The upper GI endoscopy was accomplished without difficulty. The patient tolerated the procedure well. Findings: The Z-line was regular and was found 40 cm from the incisors. The esophagus was normal. Evidence of a gastric bypass was found. A gastric pouch with a medium size was found. The staple line appeared intact. The gastrojejunal anastomosis was characterized by congestion, friable mucosa, a hemorrhagic appearance, inflammation, ulcerationand an intact staple line. This was traversed. The geczdmsq-zf-uuqwsac limb was examined. The examined jejunum was normal. Procedure Code(s): --- Professional --- 70212, Esophagogastroduodenoscopy, flexible, transoral; diagnostic, including collection of specimen(s) by brushing or washing, when performed (separate procedure) Diagnosis Code(s): --- Professional --- K92.1, Melena (includes Hematochezia) CPT copyright 2020 [employer]. All rights reserved. The codes documented in this report are preliminary and upon patient care nursing assistant reviewmay be revised to meet current compliance requirements. Angelo Glover MD 09/15/2024 7:55:45 AM This report has been signed electronically.Angelo Glover MD Number of Addenda: 0 Note Initiated On: 09/15/2024 7:38 AM Scope In: Scope Out: Endoscopy Department at [facility] - [address] [place] [id number] IMPRESSION: - Z-line regular, 40 cm from the incisors. - Normal esophagus. - Gastric bypass with a medium-sized pouch andintact staple line. Gastrojejunal anastomosischaracterized by congestion, friable mucosa, a hemorrhagic appearance, inflammation, ulceration and an intact staple line. - Normal examined jejunum. - No specimens collected. Recommendation: - [facility]. - Clear liquid diet. - Continue present medications. - Use sucralfate suspension 1 gram PO QID. - Observe patient's clinical course. us Angelo Glover MD GI~PROCEDURE ORDERABLES Final Result * CT Angio Abdomen Pelvis wo and/or w Contrast (09/14/2024 2:26 PM EDT) Anatomical Region Laterality Modality Body Computed Tomogra phy 09/14/2024 3:01 PM EDT Impressions 09/14/2024 3:19 PM EDT There is no evidence of acute GI tract bleeding. Fairly advanced atherosclerosis for patient age. Evidence of recent bariatric procedure which likely accounts for trace amounts of pneumoperitoneum. The urinary bladder is distended. -------- FINAL REPORT -------- Dictated By: Arturo Herrera Dictated Date: 09/14/2024 15:01 ET Assigned Physician: Arturo Herrera Reviewed and Electronically Signed By: Arturo Herrera Signed Date: 09/14/2024 15:19 ET Workstation ID: [id number] Transcribed By: Self Edit Transcribed Date: 09/14/2024 15:01 ET Narrative 09/14/2024 3:19 PM EDT EXAM: CT ANGIO ABDOMEN PELVIS WO AND/OR W CONTRAST INDICATION: GI bleed. GI bleed s/p gastric bypass 09/12 COMPARISON: Portions of a CT performed without contrast 08/23/21 TECHNIQUE: CT angiography of the abdomen and pelvis was performed using contiguous helical images of the abdomen and pelvis, during intravenous injection of 90 ml of ISOVUE-370. 0.625 mm axial images were reconstructed. Sagittal and coronal reformatted images were rendered. Maximum intensity projections were created. Contemporaneous supervision by the radiologist A multiphasic examination was performed including imaging before, during and after the IV administration of contrast DLP: 4116 mGy-cm FINDINGS: ABDOMINAL AORTA: There is some atherosclerotic irregularity but no significant narrowing. There is no abdominal aortic aneurysm. CELIAC AXIS: There is a patent celiac axis. There is calcified plaque near the origin. The proximal hepatic and splenic arteries enhance. SMA: The superior mesenteric artery is patent with some calcified plaque. No significant narrowing suspected. ROSETTA: The inferior mesenteric artery is patent. There is some atherosclerotic irregularity. RIGHT RENAL: There is a normal caliber patent main right renal artery. LEFT RENAL: There is a widely patent main left renal artery with some calcified plaque. There is a very small caliber accessory lower pole left renal artery. RIGHT LOWER: COMMON ILIAC ARTERY: Calcified plaque with no significant narrowing. EXTERNAL ILIAC ARTERY: There is calcified plaque without aneurysm or significant narrowing. INTERNAL ILIAC ARTERY: There is a patent internal iliac artery with extensive calcified plaques. COMMON FEMORAL ARTERY: Patent. SUPERFICIAL FEMORAL ARTERY: The proximal right SFA and profunda femoral are patent with calcified plaques. LEFT LOWER COMMON ILIAC ARTERY: The left common iliac artery demonstrates calcified plaques. No aneurysm or significant narrowing. EXTERNAL ILIAC ARTERY: The left external iliac artery is mildly irregular but patent. No significant narrowing. INTERNAL ILIAC ARTERY: The left internal iliac artery is patent with extensive calcified plaque. COMMON FEMORAL ARTERY: The common femoral artery is mildly irregular without significant narrowing. SUPERFICIAL FEMORAL ARTERY: The proximal left SFA and profunda femoral are patent with extensive calcified plaques. NONVASCULAR LIVER: There is fatty change in the liver. No suspicious focal lesion. The liver contour is smooth. BILIARY TRACT: There is no opaque gallstone. There is no biliary dilation SPLEEN: Normal size. No focal lesion. PANCREAS: Normal; no mass or surrounding fluid. ADRENAL GLANDS: Normal; no mass. KIDNEYS: The kidneys are normal in size, shape, and attenuation. No hydronephrosis, hydroureter, or calculi. GASTROINTESTINAL TRACT: Evidence of bariatric procedure. There is no evidence of active GI tract bleeding. There is no large hematoma demonstrated. No evidence of small bowel obstruction. URINARY BLADDER: The urinary bladder is distended. No focal abnormality. PELVIC VISCERA: No suspicious abnormality ABDOMINAL WALL: No significant hernia is appreciated. Evidence of surgery. There is soft tissue gas and some nodular soft tissue density in the abdominal wall which could be iatrogenic. LYMPHOVASCULAR STRUCTURES AND FLUID: There are no enlarged lymph nodes. There is no retroperitoneal hematoma. There are barely perceptible extraluminal intraperitoneal gas collections which are consistent with recent surgery. Some correlation necessary. MUSCULOSKELETAL: No acute or suspicious osseous abnormality. VISUALIZED LOWER CHEST: There is extensive coronary calcification. No acute pulmonary embolus demonstrated. There are some nonspecific linear/bandlike lower lung zone opacities which are likely atelectasis. Procedure Note Arturo Herrera MD - 09/14/2024 EXAM: CT ANGIO ABDOMEN PELVIS WO AND/OR W CONTRAST INDICATION: GI bleed. GI bleed s/p gastric bypass 09/12 COMPARISON: Portions of a CT performed without contrast 08/23/21 TECHNIQUE: CT angiography of the abdomen and pelvis was performed usingcontiguous helical images of the abdomen and pelvis, during intravenousinjection of 90 ml of ISOVUE-370. 0.625 mm axial images werereconstructed. Sagittal and coronal reformatted images were rendered.Maximum intensity projections were created. Contemporaneous supervision bythe radiologist A multiphasic examination was performed including imaging before, duringand after the IV administration of contrast DLP: 4116 mGy-cm FINDINGS: ABDOMINAL AORTA: There is some atherosclerotic irregularity but nosignificant narrowing. There is no abdominal aortic aneurysm. CELIAC AXIS: There is a patent celiac axis. There is calcified plaquenear the origin. The proximal hepatic and splenic arteries enhance. SMA: The superior mesenteric artery is patent with some calcified plaque.No significant narrowing suspected. ROSETTA: The inferior mesenteric artery is patent. There is someatherosclerotic irregularity. RIGHT RENAL: There is a normal caliber patent main right renal artery. LEFT RENAL: There is a widely patent main left renal artery with somecalcified plaque. There is a very small caliber accessory lower pole leftrenal artery. RIGHT LOWER: COMMON ILIAC ARTERY: Calcified plaque with no significant narrowing. EXTERNAL ILIAC ARTERY: There is calcified plaque without aneurysm orsignificant narrowing. INTERNAL ILIAC ARTERY: There is a patent internal iliac artery withextensive calcified plaques. COMMON FEMORAL ARTERY: Patent. SUPERFICIAL FEMORAL ARTERY: The proximal right SFA and profunda femoralare patent with calcified plaques. LEFT LOWER COMMON ILIAC ARTERY: The left common iliac artery demonstrates calcifiedplaques. No aneurysm or significant narrowing. EXTERNAL ILIAC ARTERY: The left external iliac artery is mildlyirregular but patent. No significant narrowing. INTERNAL ILIAC ARTERY: The left internal iliac artery is patent withextensive calcified plaque. COMMON FEMORAL ARTERY: The common femoral artery is mildly irregularwithout significant narrowing. SUPERFICIAL FEMORAL ARTERY: The proximal left SFA and profunda femoralare patent with extensive calcified plaques. NONVASCULAR LIVER: There is fatty change in the liver. No suspicious focal lesion. Theliver contour is smooth. BILIARY TRACT: There is no opaque gallstone. There is no biliarydilation SPLEEN: Normal size. No focal lesion. PANCREAS: Normal; no mass or surrounding fluid. ADRENAL GLANDS: Normal; no mass. KIDNEYS: The kidneys are normal in size, shape, and attenuation. Nohydronephrosis, hydroureter, or calculi. GASTROINTESTINAL TRACT: Evidence of bariatric procedure. There is noevidence of active GI tract bleeding. There is no large hematomademonstrated. No evidence of small bowel obstruction. URINARY BLADDER: The urinary bladder is distended. No focalabnormality. PELVIC VISCERA: No suspicious abnormality ABDOMINAL WALL: No significant hernia is appreciated. Evidence ofsurgery. There is soft tissue gas and some nodular soft tissue density inthe abdominal wall which could be iatrogenic. LYMPHOVASCULAR STRUCTURES AND FLUID: There are no enlarged lymph nodes.There is no retroperitoneal hematoma. There are barely perceptible extraluminal intraperitoneal gas collectionswhich are consistent with recent surgery. Some correlation necessary. MUSCULOSKELETAL: No acute or suspicious osseous abnormality. VISUALIZED LOWER CHEST: There is extensive coronary calcification. Noacute pulmonary embolus demonstrated. There are some nonspecificlinear/bandlike lower lung zone opacities which are likely atelectasis. IMPRESSION: There is no evidence of acute GI tract bleeding. Fairly advanced atherosclerosis for patient age. Evidence of recent bariatric procedure which likely accounts for traceamounts of pneumoperitoneum. The urinary bladder is distended. -------- FINAL REPORT -------- Dictated By: Arturo Herrera Dictated Date: 09/14/2024 15:01 ET Assigned Physician: Arturo Herrera Reviewed and Electronically Signed By: Arturo Herrera Signed Date: 09/14/2024 15:19 ET Workstation ID: [id number] Transcribed By: Self Edit Transcribed Date: 09/14/2024 15:01 ET [address] CT PROCEDURES Final Result * Activated partial thromboplastin time (09/14/2024 12:36 PM EDT) aPTT 30.3 24.1 - 39.3 sec LAB COAGULATION METHOD 09/14/2024 12:54 PM EDT [facility]) [facility] Blood Venous blood specimen / Unknown Venipuncture / Unknown 09/14/2024 12:36 PM EDT 09/14/2024 12:44 PM EDT us Sanjuana OROZCO LAB BLOOD ORDERABLES Final Res ult Performing Organization Address City/[facility]/ZIP Co de Phone Number [facility] [address] [place] [address], [place] [phone] * Prothrombin time with INR (09/14/2024 12:36 PM EDT) Only the most recent of2 resultswithin the time period is included. Protime 12.8 10.6 - 13.9 sec LAB COAGULATION METHOD 09/14/2024 12:54 PM EDT [facility] INR 1.0 LAB COAGULATION METHOD 09/14/2024 12:54 PM EDT [facility] Blood Venous blood specimen / Unknown Venipuncture / Unknown 09/14/2024 12:36 PM EDT 09/14/2024 12:44 PM EDT us Sanjuana OROZCO LAB BLOOD ORDERABLES Final Res ult Performing Organization Address [facility]/ZIP Co de Phone Number [facility] [address] [place] [address], [place] [phone] * Bend BB tube (09/13/2024 6:18 PM EDT) Pathologist [facility] Extra Tube Hold for add-ons. 09/13/2024 8:01 PM EDT [facility] Comment:Auto resulted. Blood Venous blood specimen / Unknown 09/13/2024 6:18 PM EDT 09/13/2024 6:26 PM EDT Nereyda Pierre MD LAB BLOOD ORDERABLES Final R esult Performing Organization Address City/[facility]/ZIP Co de Phone Number [facility] [address], [place] [address], [place] [phone] * TH AN ENDOTRACHEAL(NO CHARGE) (09/12/2024 8:45 AM EDT) Elma Hammonds CRNA - 09/12/2024 8:45 AM EDT Elma Armenta CRNA 09/12/2024 8:48 AM General Information and Staff Patient location during procedure: OR Performed: resident/SECURITY ADVISOR/CAA Performed by: Elma rAmenta CRNA Authorized by: Price Doshi MD Intubation Urgency: elective Final Airway Details Successful airway: ETT Cuffed: yes Successful intubation technique: video laryngoscopy Blade: Anthony Blade size: #3 ETT size (mm): 7.0 Cormack-Lehane Classification: grade I - full view of glottis Placement verified by: chest auscultation and capnometry Inital cuff pressure (cm H2O): 10 Measured from: lips ETT to lips (cm): 20 Number of attempts at approach: 1 Ventilation between attempts: BVM Number of other approaches attempted: 1Final airway type: endotracheal airway Indications and Patient Condition Indications for airway management: anesthesia and airway protection Spontaneous ventilation: present Sedation level: Yes Preoxygenated: yes Soft Tissue Damage: No Dentition Unchanged: Yes Patient position: sniffing MILS maintained throughout Mask difficulty assessment: 1 - vent by mask us Price Doshi MD ANESTHESIA ORDERABLES Final Re sult * XR Chest 2 Views (09/02/2024 12:12 PM EDT) Anatomical Region Laterality Modality Body Radiographic Rosetta ging 09/02/2024 12:1 8 PM EDT Impressions 09/02/2024 12:19 PM EDT Impression: No active pulmonary process identified. Telerad PAM ([id number]) -------- FINAL REPORT -------- Dictated By: Isaura Slade Dictated Date: 09/02/2024 12:18 ET Assigned Physician: Isaura Slade Reviewed and Electronically Signed By: Isaura Slade Signed Date: 09/02/2024 12:19 ET Workstation ID: [id number] Transcribed By: Self Edit Transcribed Date: 09/02/2024 12:18 ET Narrative 09/02/2024 12:19 PM EDT History: Preop bariatric surgery. Comparison: No comparison imaging at this institution. Findings: PA and lateral views. The cardiomediastinal silhouette, hilar contours and pulmonary vascularity are within normal limits. Atherosclerotic calcification is seen in the aortic arch. The lungs are clear. The costophrenic angles are sharp. Bones and soft tissues are unremarkable. Procedure Note Isaura Slade MD - 09/02/2024 History: Preop bariatric surgery. Comparison: No comparison imaging at this institution. Findings: PA and lateral views. The cardiomediastinal silhouette, hilar contours andpulmonary vascularity are within normal limits. Atheroscleroticcalcification is seen in the aortic arch. The lungs are clear. Thecostophrenic angles are sharp. Bones and soft tissues are unremarkable. IMPRESSION: Impression: No active pulmonary process identified. Telerad PA ([id number]) -------- FINAL REPORT -------- Dictated By: Isaura Slade Dictated Date: 09/02/2024 12:18 ET Assigned Physician: Isaura Slade Reviewed and Electronically Signed By: Isaura Slade Signed Date: 09/02/2024 12:19 ET Workstation ID: [id number] Transcribed By: Self Edit Transcribed Date: 09/02/2024 12:18 ET us Daniella OROZCO IMG XR PROCEDURES Final Resu lt * (ABNORMAL) Lipid panel with reflex to direct LDL (02/26/2024 2:07 PM EST) Cholesterol 185 0 - 200 mg/dL LAB CHEMISTRY METHOD 02/26/2024 6:32 PM [facility] Triglycerides 203(H) 0 - 150 mg/dL LAB CHEMISTRY METHOD 02/26/2024 6:32 PM EST [facility] HDL 37(L) >=40 mg/dL LAB CHEMISTRY METHOD 02/26/2024 6:32 PM EST [facility] LDL Calculated 107(H) 0 - 100 mg/dL LAB CHEMISTRY METHOD 02/26/2024 6:32 PM EST [facility] VLDL Cholesterol Stephen 40.6 mg/dL LAB CHEMISTRY METHOD 02/26/2024 6:32 PM EST [facility] Non HDL Chol. (LDL+VLDL) 148(H) <145 mg/dL LAB CHEMISTRY METHOD 02/26/2024 6:32 PM EST [facility] Chol/HDL Ratio 5.0(H) 0.0 - 4.4 LAB CHEMISTRY METHOD 02/26/2024 6:32 PM [facility] Blood Venous blood specimen / Unknown Venipuncture / Unknown 02/26/2024 2:07 PM EST 02/26/2024 2:07 PM EST us Nereyda Pierre MD LAB BLOOD ORDERABLES Final R esult Performing Organization Address City/[facility]/ZIP Co de Phone Number [facility] [address] [place] [address], [place] [phone] * (ABNORMAL) Hemoglobin A1c (02/26/2024 2:07 PM EST) Hemoglobin A1C 8.6(H) <6.5 % LAB CHEMISTRY METHOD 02/26/2024 8:10 PM [facility] Mean Bld Glu Estim. 200 mg/dL LAB CHEMISTRY METHOD 02/26/2024 8:10 PM [facility] Blood Venous blood specimen / Unknown Venipuncture / Unknown 02/26/2024 2:07 PM EST 02/26/2024 2:07 PM EST us Nereyda Pierre MD LAB BLOOD ORDERABLES Final R esult Performing Organization Address City/[facility]/ZIP Co de Phone Number [facility] [address] [place] [address], [place] [phone] from Last 3 Months or Most Recently Relevant to Health Maintenance Insurance [facility] [employer] Advance Directives * Full Code - Default (Latest Code Status on File) Date Activated Date Inactivated Comments 09/21/2024 8:48 PM 09/24/2024 8:16 PM This is orde r is used when code status has not been discussed with the patient, or code status is otherwise unknown/unconfirmed To update the patient's code status, place a code status order. Do not modify or discontinue any currently active code status orders. * Full Code - Default Date Activated Date Inactivated Comments 09/12/2024 6:33 AM 09/15/2024 4:29 PM This is orde r is used when code status has not been discussed with the patient, or code status is otherwise unknown/unconfirmed To update the patient's code status, place a code status order. Do not modify or discontinue any currently active code status orders. Care Teams Certified Pharmacy Technician Relationship Specialty Start Date End Date Humaira Hood MD [address] [place] [id number] PCP - General Internal Medicine 09/02/24
--- NOTE | 2024-10-16 14:46 | MHC.PC.OV ---
Vital Signs 10/16/24 14:47 Height 5 ft 4 in Weight 236 lb BMI 40.5 BP 112/64 Blood Pressure Location Lt brachial Position Sitting Respiration 18 Pulse 74 Pulse Source Pulse Oximeter Temp 97.1 F Temp Source Temporal Artery Scan Pulse Oximetry (%) 98 Oxygen Delivery Method Room Air Intake Visit Reasons: dm Vest Finisher Required: No Accompanied by: Self / Same As Patient Allergies glipizide Allergy (Mild, Verified 10/16/24 16:01) rash tuberculin, purified protein deriva Allergy (Mild, Verified 10/16/24 16:01) Swelling martinez Allergy (Mild, Uncoded 10/16/24 16:01) Hives Medication List - Last Reconciled 10/16/24 by Humaira Hood MD amitriptyline 100 mg PO BEDTIME 90 days ascorbate calcium (vitamin C) 1 g PO Q6H aspirin 81 mg PO DAILY 30 days atorvastatin 80 mg PO BEDTIME 90 days xyrlrejxi-vgxdumse-muwbauv ala 50-200-25 mg (Biktarvy) 1 tab PO DAILY 30 days bisacodyl 5 mg PO ONCE 1 day blood sugar diagnostic Use 1 test strip twice a day blood sugar diagnostic (Accu-Chek Guide test strips) Use 1 test strip three times a day blood sugar diagnostic (FreeStyle Lite Strips) As directed 3 times per day blood-glucose meter (Accu-Chek Guide Glucose Meter) As directed blood-glucose meter (FreeStyle Lite Meter kit) As directed budesonide 90 mcg/actuation (Pulmicort Flexhaler) 1 inh inhalation BID jlqcqpprqp-kokwkghsdoisc-mkrh 50-325-40 mg tabs PO clopidogrel (Plavix) 75 mg PO DAILY 30 days clotrimazole-betamethasone 1-0.05 % 1 appl topical BID 4 weeks dulaglutide (Trulicity) 1.5 mg (0.5 mL) subcut QWEEK 90 days empagliflozin-metformin 12.5-1,000 mg (Synjardy) 2 tabs PO DAILY fenofibrate 54 mg PO DAILY 90 days gabapentin 300 mg PO DAILY glyburide 5 mg PO BID insulin glargine (Lantus Solostar U-100 Insulin) 20 units (0.2 mL) subcut QPM 90 days lancets (FreeStyle Lancets) Use 1 lancet three times a day lancets (Accu-Chek Fastclix Lancet Drum) Use 1 lancet three times a day lisinopril 20 mg PO DAILY 90 days meclizine mg PO DAILY meloxicam 15 mg PO DAILY methylcellulose (laxative) (Citrucel) 500 mg PO DAILY nebulizers (AeroEclipse II Nebulizer) As directed omeprazole 20 mg PO .daily pen needle, diabetic (Comfort EZ Pen [place]) Use 1 pen needle twice a day polyethylene glycol 3350 (Miralax) 238 grams PO ONCE tadalafil 20 mg PO ONCE PRN 30 days tadalafil 5 mg PO DAILY 90 days terbinafine HCl 250 mg PO DAILY topiramate 100 mg PO BID Tobacco use date assessed: 10/16/24 Dental Screening Dental Screen Date: 10/16/24 Did you have a dental visit in the last 12 months?: Yes Did you have a dental problem in the last 6 months where you did not have access to dental care?: No Was dental information given to patient?: Patient has dentist HPI HPI Comments History of Present Illness Details The patient is a 54-year-old male presenting with follow-up for diabetes management and post-bariatric surgery status. The patient underwent bariatric surgery on September 11 at [facility]. Post-surgery, he experienced significant weight loss, reducing from 270 pounds to 236 pounds. He reported a complication of anemia post-surgery, with hemoglobin levels dropping to 6 g/dL, necessitating medical attention and blood transfusion. He still morbidly obese with a BMI of 40.5. The patient has a history of diabetes mellitus, which is currently being managed with medications including Trulicity, Synjardy, and insulin. He experienced episodes of hypoglycemia with blood sugar levels dropping to 31 mg/dL, leading to adjustments in his diabetes medications. A1c within goal with insulin. The patient also has a history of hypertension, which is well-controlled with current medication regimens. Hyperlipidemia is another condition being managed, with atorvastatin prescribed at 80 mg due to elevated LDL levels of 128 mg/dL. He also has HIV with his well control and follow by ID. [facility] Medical History Tension headache, chronic Carpal tunnel syndrome, bilateral upper limbs Carpal tunnel syndrome Cerebral microvascular disease Constipation Erectile dysfunction associated with type 2 diabetes mellitus Mixed hyperlipidemia Mild intermittent asthma Hyperkalemia Morbid obesity Renal calculi Morbid obesity Dyslipidemia CKD (chronic kidney disease) Essential hypertension Diabetes mellitus HIV (human immunodeficiency virus infection) Surgical History (Updated 10/16/24 @ 16:07 by Humaira Hood MD) History of weight loss surgery Hx of circumcision Family History Father Myocardial infarction Hypertension CVD (cardiovascular disease) Mother Stroke CVD (cardiovascular disease) Mental health disorder Sister Diabetes Maternal Grandmother CVD (cardiovascular disease) Maternal Uncle Pancreatic cancer Social History Housing: Apartment Alcohol intake: former Patient Tobacco Use Status: Never used Tobacco e-Cigarette/Vaping Use: Never Used Second Hand Smoke Exposure: Yes service: No Current occupational status: employed Current occupational exposures/hazards: No Cognitive needs: No Hearing needs: No Vision needs: No Questionnaire PHQ-9 Over the last 2 weeks, how often have you been bothered by any of the following problems? 1. Little interest or pleasure in doing things: not at all 2. Feeling down, depressed, or hopeless: not at all 3. Trouble falling or staying asleep, or sleeping too much: not at all 4. Feeling tired or having little energy: not at all 5. Poor appetite or overeating: not at all 6. Feeling bad about yourself - or that you are a failure or have let yourself or your family down: not at all 7. Trouble concentrating on things, such as reading the newspaper or watching television: not at all 8. Moving or speaking so slowly that other people could have noticed. Or the opposite - being so fidgety or restless that you have been moving around a lot more than usual: not at all 9. Thoughts that you would be better off or of hurting yourself in some way: not at all Total score: 0 Depression Screening Interpretation: Negative Depression Screening Done: Yes 14015 - PHQ-9 Billing: Yes Source: Developed by Drs. Maykel Moreau, Krystal Montaño, Deniz Burgos and colleagues, with an educational samantha from [employer] Thrive Questionnaire Date Thrive assessed: 10/16/24 I am a: Patient What is your living situation today?: I choose not to answer this question Within the past 12 months, did the food you bought not last and you didn't have the money to get more?: I choose not to answer this question Within the past 12 months, did you worry whether your food would run out before you got money to buy more?: I choose not to answer this question Do you have trouble paying for medicines?: I choose not to answer this question Do you have trouble getting transportation to medical appointments?: I choose not to answer this question Do you have trouble paying your heating and electricity bill?: I choose not to answer this question Do you have trouble taking care of your child, family member or friend?: I choose not to answer this question Do you have trouble with day-to-day activities such as bathing, preparing meals, shopping, managing finances, etc.?: I choose not to answer this question Are you currently unemployed and looking for a job?: I choose not to answer this question Are you interested in more education?: I choose not to answer this question Please select the resources that you would like help with: Transportation Currently or been in a relationship where the following occur: I choose not to answer THRIVE Score: 0 AUDIT C Alcohol Use Questionnaire (AUDIT-C) 1. How often do you have a drink containing alcohol?: Never Total Score: 0 Score Reviewed/Action Taken: No SARAH-7 AMB Questionnaire SARAH-7 Date SARAH - 7 assessed: 10/16/24 Feeling nervous, anxious, or on edge: 0 = Not at all Not being able to stop or control worryin = Not at all Worrying too much about different things: 0 = Not at all Trouble relaxin = Not at all Being so restless that it is hard to sit still: 0 = Not at all Becoming easily annoyed or irritable: 0 = Not at all Feeling afraid as if something awful might happen: 0 = Not at all Total SARAH-7 score (0-4 normal; 5-9 mild; 10-14 moderate; 15-21 severe): 0 Source: Developed by Drs. Maykel Moreau, Krystal Montaño, Deniz Burgos and colleagues, with an educational samantha from [employer] SARAH-7 Assessment Billing SARAH-7 Assessment Tool: SARAH-7 Assessment 82800 Review of Systems Const All systems reviewed & are unremarkable except as noted in HPI and below Card Denies chest pain at rest, Denies chest pain with activity, Denies edema, Denies irregular heart rhythm, Denies claudication, Denies dyspnea, Denies dyspnea on exertion, Denies orthopnea, Denies paroxysmal nocturnal dyspnea and Denies slow heart rate Resp Denies cough, Denies dyspnea and Denies dyspnea on exertion GI Denies abdominal pain, Denies change in bowel habits, Denies excessive flatus, Denies nausea and Denies vomiting Physical exam (Primary Care) Vital Signs: Last Vital Signs Temp 97.1 F 10/16/24 14:47 Pulse 74 10/16/24 14:47 Resp 18 10/16/24 14:47 BP 112/64 10/16/24 14:47 Pulse Ox 98 10/16/24 14:47 Oxygen Delivery Method Room Air 10/16/24 14:47 BMI result Body Mass Index 40.5 BMI Assessment/Plan discussion: High BMI High, discussed plan: lifestyle, weight reduction, dietary and physical activity Tobacco/Smoking Status: Tobacco use Status Tobacco use date assessed 10/16/24 10/16/24 14:48 Patient Tobacco Use Status Never used Tobacco 10/16/24 14:48 Tobacco use type 06/03/24 15:27 e-Cigarette/Vaping Use Never Used 10/16/24 14:48 PHQ-9: PHQ-9 Score PHQ-9: Total score 0 10/16/24 16:18 Depression Screening Interpretation: Negative Thrive Assessment: Date of Thrive Assessment Date Thrive assessed 10/16/24 10/16/24 14:48 Currently or been in a relationship where the following occur: I choose not to answer Resp Effort & Inspection: normal respiratory effort Auscultation: clear to auscultation bilaterally Cardio Jugular venous distension: no JVD Rate: regular rate Rhythm: regular rhythm Heart sounds: S1 normal heart sound present and S2 normal heart sound present Extrem General: Yes full ROM Results AMB Hemoglobin A1c AMB Hemoglobin A1c 5.7 % Last Edit by AIDA Esteban on 10/16/24 16:18 Results Reviewed Results Reviewed: Laboratory Last Values Hgb A1c (Clinic) 5.7 % (4.0-6.0) 10/16/24 16:08 Coding Level of Care Code Est Pt Level 4 (35910) Complex EM visit Add On G2211 Diagnoses Type 2 diabetes mellitus with stage 3a chronic kidney disease, with long-term current use of insulin E11.22; N18.31; Z79.4 Diabetes mellitus type: type 2 Diabetes mellitus longterm insulin use: with terminal operations manager use Diabetes mellitus complication status: with kidney complications Diabetes mellitus complication detail: with chronic kidney disease Chronic kidney disease stage: stage 3 (moderate) Chronic kidney disease stage 3 subtype: stage 3a (GFR 45-59) Essential hypertension I10 Asymptomatic HIV infection, with no history of HIV-related illness Z21 HIV symptom status: asymptomatic, with no history of HIV-related illness Morbid obesity E66.01 Mixed hyperlipidemia E78.2 Additional Codes SARAH-7 Assessment Billing - SARAH-7 Assessment Tool: SARAH-7 Assessment 66946 ([id number]) PHQ-9 - 84227 - PHQ-9 Billing: Yes ([id number]) Time Spent (min) 23 Assessment & Plan Assessment & Plan (1) Diabetes mellitus: Code(s): E11.9 - Type 2 diabetes mellitus without complications Category: Medical Qualifiers: Diabetes mellitus type: type 2 Diabetes mellitus longterm insulin use: with terminal operations manager use Diabetes mellitus complication status: with kidney complications Diabetes mellitus complication detail: with chronic kidney disease Chronic kidney disease stage: stage 3 (moderate) Chronic kidney disease stage 3 subtype: stage 3a (GFR 45-59) Qualified Code(s): E11.22 - Type 2 diabetes mellitus with diabetic chronic kidney disease; N18.31 - Chronic kidney disease, stage 3a; Z79.4 - tank terminal gauger (current) use of insulin (2) Essential hypertension: Code(s): I10 - Essential (primary) hypertension Category: Medical (3) HIV (human immunodeficiency virus infection): Comment: He has CD4 count of 724 and viral load undetectable on 08/26. He takes Biktarvy. Would continue Biktarvy and check labs February 2025 and see then. He is going to [place] on vacation in December. Code(s): B20 - Human immunodeficiency virus [HIV] disease Category: Medical Qualifiers: HIV symptom status: asymptomatic, with no history of HIV-related illness Qualified Code(s): Z21 - Asymptomatic human immunodeficiency virus [HIV] infection status (4) Morbid obesity: Code(s): E66.01 - Morbid (severe) obesity due to excess calories Category: Medical (5) Mixed hyperlipidemia: Code(s): E78.2 - Mixed hyperlipidemia Category: Medical Plan The management plan includes continued monitoring of diabetes mellitus with adjustments to medications as needed to prevent hypoglycemic episodes. The patient will maintain the current regimen of atorvastatin 80 mg to manage hyperlipidemia, given the LDL level of 128 mg/dL. Post-bariatric surgery follow-up will focus on monitoring for anemia and ensuring adequate nutritional intake, including vitamin supplementation as necessary. Patient was informed and verbally consented to the use of an ambient scribe for clinic note documentation during this visit. Orders: Orders AMB Hemoglobin A1c 10/16/24 Z13.9 - Encounter for screening, unspecified Lipid Panel 4 Months E78.5 - Hyperlipidemia, unspecified Microalbumin, Random (w Creat) 4 Months R80.9 - Proteinuria, unspecified [place]. Panel Fast 4 Months Z21 - Asymptomatic human immunodeficiency virus [HIV] infection status
[2024-10-16 14:47] VITALS: BP 112/64; PULSE 74; RESP 18; TEMP 36.2; O2SAT 98; BMI 40.5
== END 2024-10-16 16:20 | disposition home or self-care (01) ==
LOC: HO.HMCH 14:40
PROVIDERS: PCP Internal Medicine; Visit Provider Internal Medicine
DX: Z13.9 Encounter for screening, unspecified (principal)

== ENCOUNTER → 2024-10-16 14:39 | Outpatient (BNVA) | payer OTHER, SELFPAY | PROVIDERS: PCP Internal Medicine; Visit Provider Internal Medicine | DX: E11.22 Type 2 diabetes mellitus with diabetic chronic kidney disease (principal); I12.9 Hypertensive chronic kidney disease with stage 1 through stage 4 chronic kidney disease, or unspecified chronic kidney disease; N18.31 Chronic kidney disease, stage 3a; E78.5 Hyperlipidemia, unspecified; E66.01 Morbid (severe) obesity due to excess calories; E78.2 Mixed hyperlipidemia; Z79.4 Long term (current) use of insulin; Z21 Asymptomatic human immunodeficiency virus [HIV] infection status; Z68.41 Body mass index [BMI] 40.0-44.9, adult | CPT/HCPCS: 83036; 96127; 99212 ==

== ENCOUNTER 2024-10-21 14:41 | Outpatient (REF) | payer OTHER, SELFPAY ==
--- NOTE | ~2024-10-21 | US_ITS ---
EXAMINATION: Noninvasive assessment of the bilateral lower extremities with ARTERIAL DUPLEX, ANKLE BRACHIAL INDICES (ABIs), and PULSE VOLUME RECORDINGS (PVRs). CLINICAL INFORMATION: Peripheral vascular disease. TECHNIQUE: Duplex Doppler techniques with waveform analysis and measurement of velocities in the bilateral common femoral, profunda femoris, superficial femoral, popliteal and tibial arteries were performed. Additionally, ankle pulse volume recordings, ankle pressure measurements and ankle brachial indices were obtained of the lower extremity arterial system bilaterally. The study was performed only at rest. COMPARISON: April 02, 2024 FINDINGS: DIRECT DUPLEX DOPPLER FINDINGS: RIGHT LEG: Common femoral artery: 104 cm/s, phasicity: Triphasic. Profunda femoris artery: 52 cm/s, phasicity: Monophasic. Spectral broadening. Superficial femoral artery (proximal): 127 cm/s, phasicity: Triphasic. Spectral broadening. Superficial femoral artery (mid): 67 cm/s, phasicity: Triphasic. Superficial femoral artery (distal): 69 cm/s, phasicity: Triphasic. Popliteal artery: 64 cm/s, phasicity: Triphasic. Posterior tibial artery: 183 cm/s, phasicity: Monophasic and spectral broadening. Peroneal artery: No color Doppler flow. Anterior tibial artery: 91 cm/s, phasicity: Triphasic. Spectral broadening. Dorsalis pedis artery: 61 cm/s, phasicity:Monophasic. Spectral broadening. LEFT LEG: Common femoral artery: 118 cm/s, phasicity: Triphasic. Profunda femoris artery: 70 cm/s, phasicity: Triphasic. Superficial femoral artery (proximal): 81 cm/s, phasicity: Triphasic. Superficial femoral artery (mid): 71 cm/s, phasicity: Triphasic. Superficial femoral artery (distal): 83 cm/s, phasicity: Triphasic. Popliteal artery: 88 cm/s, phasicity: Triphasic. Spectral broadening. Posterior tibial artery: 74 cm/s, phasicity: Triphasic. Spectral broadening. Peroneal artery: 129 cm/s, phasicity: Triphasic. Anterior tibial artery: 31 cm/s, phasicity: Biphasic. Spectral broadening. Dorsalis pedis artery: 59 cm/s, phasicity: Monophasic. Spectral broadening. BRACHIAL PRESSURES: Right: 140 Left: 149 ANKLE PRESSURES: Right: PT more 200, DP 135 Left: PT 131, DP 126 ANKLE-BRACHIAL INDEX: Right: 0.91 Left: 0.88 ANKLE PVR WAVEFORMS: Right: Abnormal Left: Abnormal US/US arterial duplex BI w/ TRITSEN IMPRESSION: Right leg: Severe inflow disease, profunda femoral artery, posterior tibialis and dorsalis pedis arteries. Probable occluded versus diminutive flow, peroneal artery. Left leg: Severe inflow disease, dorsalis pedis artery. TRISTEN Reference: - >1.4 = calcified vessels - 0.9 - 1.4 = normal - no significant arterial disease - 0.7 - 0.89 = mild peripheral arterial disease - 0.51 - 0.69 = moderate peripheral arterial disease - 0.50 = severe peripheral arterial disease - < .30 = critical arterial disease Electronically signed by: Keyur Robbins MD 10/21/2024 04:02 PM EDT
--- OUTSIDE RECORDS SUMMARY | 2024-10-21 15:36 | XMS_ITS | Clinical Summary ---
Author Organization 175 [facility] Address [address] [place] [address] Phone Care Team Providers Care [employer] Name Role Phone Humaira Hood MD Primary Care Provider [phone] Allergies Active Allergy Reactions Criticality Noted Date [...] in adult, unspecified whether serious comorbidity present ([facility] V24, [facility] V28) Place 1 tablet under the tongue [...] 5 mg immediate release tabletIndicati ons:Morbid obesity ([facility] V24, [facility] V28) Take 1 tablet (5 mg total) [...] 04/14/19 025 Discontinued(St op Taking at Discharge) polyethylene glycol (MIRALAX) 17 gram packet Take 17 g by mouth 1 (one) time each day. 510 g 09/04/19 25 025 Discontinued clopidogreL (PLAVIX) 75 mg tablet Take 1 tablet (75 mg total) by mouth 1 (one) time each day. 09/20/19 25 025 Discontinued(St op Taking at Discharge) Lantus [...] mouth 1 (one) time each day. 08/14/19 025 Discontinued(St op Taking at Discharge) dulaglutide (Trulicity) 1.5 mg/0.5 mL pen injector injection Inject 0.5 mL (1.5 mg total) under the skin every 7 (seven) days. 025 Discontinued(St op Taking at Discharge) sildenafil (REVATIO) 5 mg tablet Take 1 [...] under the skin at bedtime. 15 mL 09/25/19 025 Discontinued Active Problems Problem Noted Date Diagnosed Date Gastrointestinal hemorrhage, unspecified gastrointestinal hemorrhage type 09/21/2024 Morbid obesity ([facility] V24, [facility] V28) 2024 Resolved Problems Problem Noted Date Diagnosed Date Resolved Date Class 3 severe obesity with body mass index (BMI) of 45.0 to 49.9 in adult ([facility] V24, [facility] V28) 01/10/2024 10/03/2024 Encounters Date Type Department Care Team Description 09/30/2024 9:45 AM EDT Office Visit Bariatric Surgery - [address] [place] [phone] Daniella Nguyen PA Gastrointestinal hemorrhage, unspecified gastrointestinal hemorrhage type (Primary Dx); Bariatric surgery status; Class 3 severe obesity due to excess calories with serious comorbidity and body mass index (BMI) of 40.0 to 44.9 in adult ([facility] V24, [facility] V28) 09/21/2024 3:08 PM EDT - 09/24/2024 6:11 PM EDT Hospital Encounter [facility] Medical Surgical Unit [address] [place] [phone] Rosanne Rogers MD Flores, Carlos M, MD Surendran, Anupama, MD Diabetic ketoacidosis without coma associated with type 2 diabetes mellitus ([facility] V24, [facility] V28) (Primary Dx); Gastrointestinal hemorrhage, unspecified gastrointestinal hemorrhage type; SOB (shortness of breath); Metabolic acidosis; Left upper quadrant abdominal pain; Chest pain, unspecified type; Anemia, unspecified type; History of DVT (deep vein thrombosis) Discharge Disposition: Home or Self Care 09/18/2024 2:35 PM EDT Lab Draw Station - 175 [facility] 175 [facility] [address] [place] [phone] S/P bariatric surgery 09/15/2024 7:41 AM EDT Anesthesia Event [facility] Endoscopy [address] [place] [phone] Jason Razo MD 09/12/2024 7:46 AM EDT Anesthesia Event [facility] Main OR [address] [place] [phone] Price Doshi MD Vermes, Rachie, CRNA 09/12/2024 7:30 AM EDT - 09/12/2024 10:30 AM EDT Surgery [facility] Main OR [address] [place] [phone] Nereyda Pierre MD DAVINCI GASTRIC BYPASS [[id number] (CPT )] 09/12/2024 6:13 AM EDT - 09/15/2024 2:23 PM EDT Hospital Encounter [facility] Medical Surgical Unit [address] [place] [phone] Nereyda Pierre MD Blood per rectum (Primary Dx); Morbid obesity ([facility] V[facility], [facility] V28) Discharge Disposition: Home or Self Care 09/03/2024 1:00 PM EDT Consult Bariatric Surgery [facility] [address] [phone] Daniella Nguyen PA Class 3 severe obesity with body mass index (BMI) of 45.0 to 49.9 in adult ([facility] V[facility], [facility] V28) (Primary Dx) 09/02/2024 10:59 AM EDT - 09/02/2024 11:59 PM EDT Hospital Encounter [facility] Xray [address] [place] [phone] Discharge Disposition: Home or Self Care 08/05/2024 4:00 PM EDT Office Visit Bariatric Surgery [facility] [address] [phone] Nereyda Pierre MD Class 3 severe obesity due to excess calories with body mass index (BMI) of 45.0 to 49.9 in adult, unspecified whether serious comorbidity present ([facility] V[facility], [facility] V28) (Primary Dx); Postgastrectomy malabsorption 08/05/2024 3:30 PM EDT Office Visit Orthopedic Surgery [facility] [address] [phone] Fernando Sosa DPM Dermatophytosis of nail (Primary Dx); Diabetic mononeuropathy simplex ([facility] V[facility], [facility] V28) from Last 3 Months Surgical History Surgery Date Site/Laterality Comments CIRCUMCISION, PRIMARY GASTRIC BYPASS Da Jayne gastric bypass Rufino-en-Y Medical History Medical History Date Comments Hypertension Asthma Diabetes mellitus ([facility] V[facility], [facility] V28) Chronic kidney disease HIV (human immunodeficiency virus infection) ( [facility] V24, [facility] V28) Hyperlipidemia GERD (gastroesophageal reflux disease) History [...] 10:30 AM EDT Office Visit Bariatric Surgery - [address] [place] [phone] Daniella Nguyen, PAM [address] [place] [phone] 10/30/2024 11:00 AM EDT Telemedicine Bariatric Surgery - [place] [address] [phone] Letty Crisostomo, RD [address] [phone] 12/09/2024 10:45 AM EDT Office Visit Bariatric Surgery - [place] [address] [phone] Daniella Nguyen PA [address] [place] [phone] Health Maintenance Due Date Last Done Comments [...] AND DIFFERENTIAL STAT 09/21/2024 4:04 PM EDT [facility] 30-74 MINUTES Routine 09/21/2024 3:02 [...] ENDOTRACHEAL(NO CHARGE) Routine 09/12/2024 8:45 AM EDT [place] LAP SURG GASTRIC REST PROC W GSTR BYPASS & RUFINO-EN-Y GASTROENTEROSTOMY 09/12/2024 7:43 AM EDT Morbid obesity (CMS/HCC V24, CMS/HCC V28) Special Needs TIME CHGD TO 730 [...] unspecified whether serious comorbidity present ([facility] V[facility], [facility] V28) LIPID PANEL WITH REFLEX TO DIRECT LDL Routine 02/26/2024 2:07 PM EST Class 3 severe obesity with body mass index (BMI) of 40.0 to 44.9 in adult, unspecified obesity type, unspecified whether serious comorbidity present ([facility] V[facility], [facility] V28) from Last 3 Months or Most Recently Relevant to Health Maintenance Results * (ABNORMAL) Hemoglobin and hematocrit (09/30/2024 10:19 AM EDT) Only the most recent of10 resultswithin the time period is included. Hemoglobin 9.6(L) 13.5 - 17.5 g/dL LAB HEMETOLOGY METHOD 09/30/2024 2:[address] [facility] Hematocrit 30.9(L) 42.0 - 54.0 % LAB HEMETOLOGY METHOD 09/30/2024 2:[address] [facility] Blood Venous blood specimen / Unknown Venipuncture / Unknown 09/30/2024 10:19 AM EDT 09/30/2024 10:19 AM EDT us Misa OROZCO LAB BLOOD ORDERABLES Final Res ult [facility] [address] [place] [address], * ECG-Annotated (09/25/2024) Provider Onbase MD ECG ORDERABLES Final Result * (ABNORMAL) Occult blood stool, guaiac (09/24/2024 1:26 PM EDT) Pathologist [facility] Occult Blood, Stool #1 Positive( A) Negative 09/24/2024 2:[address] [facility] Stool Rectum structure / Unknown Non-blood Collection / Unknown 09/24/2024 1:26 PM EDT 09/24/2024 1:59 PM EDT lAysa OROZCO LAB BODY FLUIDS AND STOOLS ORDE GAEL Final Result Performing Organization Address [facility]/ZIP Co de Phone Number [facility] [address] [place] [address], * (ABNORMAL) POCT Glucose, blood (09/24/2024 11:51 AM EDT) Only the most recent of37 resultswithin the time period is included. [facility] Glucose POCT 119(H) 70 - 100 mg/dL 09/24/2024 11:[address] [facility] Blood Capillary blood specimen / Unknown 09/24/2024 11:51 AM EDT 09/29/2024 9:11 AM EDT Thao Ghosh MD LAB POINT OF CARE T EST DOCKED DEVICE UNSOLICITED RESULTS Final Result Performing Organization Address City/[facility]/ZIP Co de Phone Number [facility] [address] [place] [address], * (ABNORMAL) CBC auto differential (09/24/2024 6:24 AM EDT) Only the most recent of8 resultswithin the time period is included. Pathologist [facility] WBC 6.3 4.8 - 10.8 K/[facility] LAB HEMETOLOGY METHOD 09/24/2024 7:52 AM [facility] RBC 2.80(L) 4.50 - 5.50 M/mcL LAB HEMETOLOGY METHOD 09/24/2024 7:52 AM [facility] Hemoglobin 8.7(L) 13.5 - 17.5 g/dL LAB HEMETOLOGY METHOD 09/24/2024 7:52 AM [facility] Hematocrit 27.0(L) 42.0 - 54.0 % LAB HEMETOLOGY METHOD 09/24/2024 7:52 AM [facility] MCV 95.7 79.0 - 98.0 FL LAB HEMETOLOGY METHOD 09/24/2024 7:52 AM [facility] MCH 30.9 27.0 - 32.0 pcg LAB HEMETOLOGY METHOD 09/24/2024 7:52 AM [facility] MCHC 32.2 32.0 - 37.0 g/dL LAB HEMETOLOGY METHOD 09/24/2024 7:52 AM [facility] RDW 16.8(H) 11.0 - 15.0 % LAB HEMETOLOGY METHOD 09/24/2024 7:52 AM [facility] Platelets 382 130 - 400 K/mcL LAB HEMETOLOGY METHOD 09/24/2024 7:52 AM [facility] MPV 9.0 7.0 - 11.0 FL LAB HEMETOLOGY METHOD 09/24/2024 7:52 AM [facility] NRBC 0.3 <1.0 % LAB HEMETOLOGY METHOD 09/24/2024 7:52 AM [facility] NRBC Absolute 0.02 <0.10 K/mcL LAB HEMETOLOGY METHOD 09/24/2024 7:52 AM [facility] Neutrophils Relative 55.9 % LAB HEMETOLOGY METHOD 09/24/2024 7:52 AM [facility] Lymphocytes Relative 29.5 % LAB HEMETOLOGY METHOD 09/24/2024 7:52 AM [facility] Monocytes Relative 10.1 % LAB HEMETOLOGY METHOD 09/24/2024 7:52 AM [facility] Eosinophils Relative 2.1 % LAB HEMETOLOGY METHOD 09/24/2024 7:52 AM [facility] Basophils Relative 0.3 % LAB HEMETOLOGY METHOD 09/24/2024 7:52 AM [facility] Immature Granulocytes Relative 2.1 % LAB HEMETOLOGY METHOD 09/24/2024 7:52 AM [facility] Neutrophils Absolute 3.54 1.50 - 7.00 K/mcL LAB HEMETOLOGY METHOD 09/24/2024 7:52 AM [facility] Lymphocytes Absolute 1.87 1.00 - 5.00 K/mcL LAB HEMETOLOGY METHOD 09/24/2024 7:52 AM [facility] Monocytes Absolute 0.64 0.20 - 1.00 K/mcL LAB HEMETOLOGY METHOD 09/24/2024 7:52 AM [facility] Eosinophils Absolute 0.13 0.00 - 0.50 K/mcL LAB HEMETOLOGY METHOD 09/24/2024 7:52 AM [facility] Basophils Absolute 0.02 0.00 - 0.20 K/mcL LAB HEMETOLOGY METHOD 09/24/2024 7:52 AM [facility] Immature Granulocytes Absolute 0.13(H) 0.00 - 0.03 K/mcL LAB HEMETOLOGY METHOD 09/24/2024 7:52 AM [facility] Blood Venous blood specimen / Unknown Venipuncture / Unknown 09/24/2024 6:24 AM EDT 09/24/2024 6:37 AM EDT Misa OROZCO LAB BLOOD ORDERABLES Final Res ult Performing Organization Address [facility]/ZIP Co de Phone Number [facility] [address] [place] [address], [place] [phone] * (ABNORMAL) Iron and TIBC (09/24/2024 6:24 AM EDT) Iron 31(L) 50 - 160 mcg/dL LAB CHEMISTRY METHOD 09/24/2024 4:[address] [facility] TIBC 245(L) 250 - 450 mcg/dL LAB CHEMISTRY METHOD 09/24/2024 4:[address] [facility] Iron Saturation 13(L) 20 - 50 % LAB CHEMISTRY METHOD 09/24/2024 4:[address] [facility] Blood Venous blood specimen / Unknown Venipuncture / Unknown 09/24/2024 6:24 AM EDT 09/24/2024 6:37 AM EDT Thao Ghosh MD LAB BLOOD ORDERABLES Final Result Performing Organization Address [facility] de Phone Number [facility] [address] [place] [address], [place] [phone] * Ferritin (09/24/2024 6:24 AM EDT) Ferritin 172 26 - 388 ng/mL LAB CHEMISTRY METHOD 09/24/2024 4:[address] [facility] Blood Venous blood specimen / Unknown Venipuncture / Unknown 09/24/2024 6:24 AM EDT 09/24/2024 6:37 AM EDT Thao Ghosh MD LAB BLOOD ORDERABLES Final Result Performing Organization Address City/[facility]/ZIP Co de Phone Number [facility] [address] [place] [address], [place] [phone] * Basic metabolic panel (09/24/2024 6:24 AM EDT) Only the most recent of14 resultswithin the time period is included. Sodium 137 133 - 145 mmol/L LAB CHEMISTRY METHOD 09/24/2024 7:29 AM [facility] Potassium 4.4 3.5 - 5.5 mmol/L LAB CHEMISTRY METHOD 09/24/2024 7:29 AM [facility] Chloride 107 96 - 110 mmol/L LAB CHEMISTRY METHOD 09/24/2024 7:29 AM [facility] CO2 22 21 - 32 mmol/L LAB CHEMISTRY METHOD 09/24/2024 7:29 AM [facility] Anion Gap 8 3 - 11 LAB CHEMISTRY METHOD 09/24/2024 7:29 AM [facility] Glucose 82 70 - 100 mg/dL LAB CHEMISTRY METHOD 09/24/2024 7:29 AM [facility] BUN 10 5 - 25 mg/dL LAB CHEMISTRY METHOD 09/24/2024 7:29 AM [facility] Creatinine 0.94 0.70 - 1.30 mg/dL LAB CHEMISTRY METHOD 09/24/2024 7:29 AM [facility] eGFR 97 >=60 mL/min/1. 73m2 LAB CHEMISTRY METHOD 09/24/2024 7:29 AM [facility] Comment:Calculation based on the Chronic Kidney Disease Epidemiology Collaboration (CKD-EPI) equation refit without adjustment for race. BUN/Creatinine Ratio 10.6 LAB CHEMISTRY METHOD 09/24/2024 7:29 AM [facility] Calcium 8.8 8.5 - 10.5 mg/dL LAB CHEMISTRY METHOD 09/24/2024 7:29 AM [facility] Blood Venous blood specimen / Unknown Venipuncture / Unknown 09/24/2024 6:24 AM EDT 09/24/2024 6:37 AM EDT Camila OROZCO LAB BLOOD ORDERABLES Fi nal Result Performing Organization Address [facility]/State/ZIP Co de Phone Number [facility] [address] [place] [address], [place] [phone] * Transfuse RBC (09/23/2024 3:51 PM EDT) Thao Ghosh MD BLOOD TRANSFUSION ORDERABLE S Final Result * Prepare RBC: 1 Units (09/23/2024 12:11 PM EDT) [facility] Signature Product Code [id number] 09/23/2024 1:[address] [facility] Unit Number [id number] 09/24/19 1:[address] [facility] Crossmatch Compatible 09/23/2024 12:[address] [facility] Dispense Status Transfused 09/23/2024 1:[address] [facility] Unit ABO Rh APOS 09/23/2024 1:[address] [facility] Unit Expiration Date Time [id number] 09/23/2024 1:[address] [facility] Unit Blood Type 6200 09/23/2024 1:[address] [facility] Blood Venous blood specimen / Unknown 09/23/2024 12:11 PM EDT 09/21/2024 4:17 PM EDT Thao Ghosh MD BLOOD BANK PRODUCT ORDERABL ES Final Result Performing Organization Address [facility]/ZIP Co de Phone Number [facility] [address] [place] [address], * (ABNORMAL) Magnesium (09/23/2024 4:23 AM EDT) Only the most recent of6 resultswithin the time period is included. Magnesium 1.8(L) 1.9 - 2.6 mg/dL LAB CHEMISTRY METHOD 09/23/2024 5:[address] [facility] Blood Venous blood specimen / Unknown Venipuncture / Unknown 09/23/2024 4:23 AM EDT 09/23/2024 4:46 AM EDT Thao Ghosh MD LAB BLOOD ORDERABLES Final Result [facility] [address] [place] [address], [place] [phone] * Light blue tube (09/22/2024 4:06 PM EDT) Extra Tube Hold for add-ons. 09/22/2024 6:[address] [facility] Comment:Auto resulted. Blood Venous blood specimen / Unknown 09/22/2024 4:06 PM EDT 09/22/2024 4:25 PM EDT Thao Ghosh MD LAB BLOOD ORDERABLES Final Result [facility] [address] [place] [address], [place] [phone] * CT Head wo Contrast (09/22/2024 9:04 AM EDT) Anatomical Region Laterality Modality Head and Neck Computed Tomogra phy 09/22/2024 9:26 AM EDT Impressions 09/22/2024 9:28 AM EDT No acute intracranial abnormality. -------- FINAL REPORT -------- Dictated By: CLARK PRECIADO Dictated Date: 09/22/2024 09:26 ET Assigned Physician: CLARK PRECIADO Reviewed and Electronically Signed By: CLARK PRECIADO Signed Date: 09/22/2024 09:28 ET Workstation ID: [id number] Transcribed By: Self Edit Transcribed Date: 09/22/2024 [...] Signed Date: 09/22/2024 09:28 ET Workstation ID: [id number] Transcribed By: Self Edit Transcribed Date: 09/22/2024 09:26 ET Alysa OROZCO John CT PROCEDURES Final Result * Lavender tube (09/22/2024 8:07 AM EDT) [facility] Extra Tube Hold for add-ons. 09/22/2024 10:[address] [facility] Comment:Auto resulted. Blood Venous blood specimen / Unknown 09/22/2024 8:07 AM EDT 09/22/2024 8:42 AM EDT Thao Ghosh MD LAB BLOOD ORDERABLES Final Result [facility] [address] [place] [address], * (ABNORMAL) Complete blood count (09/22/2024 6:22 AM EDT) [facility] WBC 8.1 4.8 - 10.8 K/mcL LAB HEMETOLOGY METHOD 09/22/2024 7:18 AM [facility] RBC 2.40(L) 4.50 - 5.50 M/mcL LAB HEMETOLOGY METHOD 09/22/2024 7:18 AM [facility] Hemoglobin 7.4(L) 13.5 - 17.5 g/dL LAB HEMETOLOGY METHOD 09/22/2024 7:18 AM [facility] Hematocrit 22.9(L) 42.0 - 54.0 % LAB HEMETOLOGY METHOD 09/22/2024 7:18 AM [facility] MCV 95.4 79.0 - 98.0 FL LAB HEMETOLOGY METHOD 09/22/2024 7:18 AM [facility] MCH 30.8 27.0 - 32.0 pcg LAB HEMETOLOGY METHOD 09/22/2024 7:18 AM [facility] MCHC 32.3 32.0 - 37.0 g/dL LAB HEMETOLOGY METHOD 09/22/2024 7:18 AM [facility] RDW 14.0 11.0 - 15.0 % LAB HEMETOLOGY METHOD 09/22/2024 7:[address] [facility] Platelets 413(H) 130 - 400 K/mcL LAB HEMETOLOGY METHOD 09/22/2024 7:[address] [facility] MPV 9.5 7.0 - 11.0 FL LAB HEMETOLOGY METHOD 09/22/2024 7:[address] [facility] NRBC 0.0 <1.0 % LAB HEMETOLOGY METHOD 09/22/2024 7:[address] [facility] NRBC Absolute 0.00 <0.10 K/mcL LAB HEMETOLOGY METHOD 09/22/2024 7:[address] [facility] Blood Venous blood specimen / Unknown Venipuncture / Unknown 09/22/2024 6:22 AM EDT 09/22/2024 6:54 AM EDT Alysa OROZCO LAB BLOOD ORDERABLES Final Resu lt [facility] [address] [place] [address], [place] [phone] * Phosphorus (09/22/2024 6:22 AM EDT) Only the most recent of3 resultswithin the time period is included. Phosphorus 3.1 2.5 - 4.5 mg/dL LAB CHEMISTRY METHOD 09/22/2024 7:[address] [facility] Blood Venous blood specimen / Unknown Venipuncture / Unknown 09/22/2024 6:22 AM EDT 09/22/2024 6:54 AM EDT Alysa OROZCO LAB BLOOD ORDERABLES Final Resu lt [facility] [address] [place] [address], * Vascular US duplex lower extremity venous [...] Signed Date: 09/22/2024 03:00 ET Workstation ID: [id number] Transcribed By: Self Edit Transcribed Date: 09/22/2024 [...] Signed Date: 09/22/2024 03:00 ET Workstation ID: [id number] Transcribed By: Self Edit Transcribed Date: 09/22/2024 02:59 ET us Alysa OROZCO CV VASCULAR PROCEDURES Final Re sult * (ABNORMAL) Venous blood gas (09/21/2024 9:39 PM EDT) Only the most recent of2 resultswithin the time period is included. pH, Jason 7.35 7.32 - 7.42 pH 09/21/2024 9:[address] [facility] pCO2, Jason 21(L) 41 - 51 mmHg 09/21/2024 9:[address] [facility] pO2, Jason 102(H) 25 - 40 mmHg 09/21/2024 9:[address] [facility] HCO3, Venous 15.2(L) 22.0 - 26.0 mmol/L 09/21/2024 9:[address] [facility] O2 Sat, Jason 98.6 % 09/21/2024 9:[address] [facility] Base Excess, Jason -12.5(L) -2.0 - 2.0 mmol/L 09/21/2024 9:[address] [facility] Blood Venous blood specimen / Unknown Venipuncture / Unknown 09/21/2024 9:39 PM EDT 09/21/2024 9:42 PM EDT us Rosanne Rogers MD LAB BLOOD ORDERABLES Final Resul t [facility] [address] [place] [address], * XR Hand 3+ Views Right (09/21/2024 6:50 PM EDT) Anatomical Region Laterality Modality Upper Extremities, Hand Right Radiogra phic Imaging 09/22/2024 7:59 AM EDT Impressions 09/22/2024 8:01 AM EDT No fracture, dislocation, or other bony abnormality. There is extensive atherosclerotic arterial calcification, unusual in this age group and therefore evaluation for cardiovascular disease should be considered. Code 73355 -------- FINAL REPORT -------- Dictated By: Mendel Cantu Dictated Date: 09/22/2024 07:59 ET Assigned Physician: Mendel Cantu Reviewed and Electronically Signed By: Mendel Cantu Signed Date: 09/22/2024 08:01 ET Workstation ID: [id number] Transcribed By: Self Edit Transcribed Date: 09/22/2024 [...] for cardiovascular disease should be considered. Code 30657 -------- FINAL REPORT -------- Dictated By: Mendel Cantu Dictated Date: 09/22/2024 07:59 ET Assigned Physician: Mendel Cantu Reviewed and Electronically Signed By: Mendel Cantu Signed Date: 09/22/2024 08:01 ET Workstation ID: [id number] Transcribed By: Self Edit Transcribed Date: 09/22/2024 07:59 ET us Rosanne Rogers MD IMG XR PROCEDURES Final Result * Lactate, with reflex (09/21/2024 6:08 PM EDT) [facility] LACTIC ACID 1.8 0.4 - 2.0 mmol/L LAB CHEMISTRY METHOD 09/21/2024 6:[address] [facility] Blood Venous blood specimen / Unknown Venipuncture / Unknown 09/21/2024 6:08 PM EDT 09/21/2024 6:16 PM EDT us Rosanne Rogers MD LAB BLOOD ORDERABLES Final Resul t [facility] [address] [place] [address], [place] [phone] * (ABNORMAL) Venous blood gas co-oximetry (09/21/2024 6:08 PM EDT) [facility] Carboxyhemoglobin 0.8 0.0 - 3.0 % 09/21/2024 6:[address] [facility] Methemoglobin 0.2 0.2 - 0.5 % 09/21/2024 6:[address] [facility] Oxyhemoglobin 39.8(L) 40 - 70 % 09/21/2024 6:[address] [facility] O2 Sat, Jason 40.2 % 09/21/2024 6:[address] [facility] Total Hemoglobin Venous 9.6(L) 12.0 - 18.0 g/dL 09/21/2024 6:[address] [facility] Blood Venous blood specimen / Unknown Venipuncture / Unknown 09/21/2024 6:08 PM EDT 09/21/2024 6:15 PM EDT us Rosanne Rogers MD LAB BLOOD ORDERABLES Final Resul t Performing Organization Address [facility]/ZIP Co de Phone Number [facility] [address] [place] [address], * Potassium (09/21/2024 6:08 PM EDT) Potassium 5.0 3.5 - 5.5 mmol/L LAB CHEMISTRY METHOD 09/21/2024 6:[address] [facility] Blood Venous blood specimen / Unknown Venipuncture / Unknown 09/21/2024 6:08 PM EDT 09/21/2024 6:16 PM EDT Rosanne Rogers MD LAB BLOOD ORDERABLES Final Resul t Performing Organization Address [facility] Co de Phone Number [facility] [address] [place] [address], * CT Angio Chest/Abdomen/Pelvis wo and/or w [...] MD on 09/21/2024 18:12:46 Rosanne Rogers MD [facility] PROCEDURES Final Result * (ABNORMAL) Urinalysis with reflex microscopic (09/21/2024 5:22 PM EDT) Specific [place] Urine 1.031(H) 1.003 - 1.030 LAB URINALYSIS - AUTOMATED METHOD 09/21/2024 6:08 PM [facility] pH, Urine 5.5 5.0 - 8.0 pH LAB URINALYSIS - AUTOMATED METHOD 09/21/2024 6:08 PM [facility] Leukocytes, Urine Negative Negative LAB URINALYSIS - AUTOMATED METHOD 09/21/2024 6:08 PM [facility] Nitrite, Urine Negative Negative LAB URINALYSIS - AUTOMATED METHOD 09/21/2024 6:08 PM [facility] Protein, Urine 30(A) <=Trace mg/dL LAB URINALYSIS - AUTOMATED METHOD 09/21/2024 6:08 PM [facility] Glucose, Urine >=1000(A) Negative mg/dL LAB URINALYSIS - AUTOMATED METHOD 09/21/2024 6:08 PM [facility] Ketones, Urine >=80(A) Negative mg/dL LAB URINALYSIS - AUTOMATED METHOD 09/21/2024 6:08 PM [facility] Urobilinogen , Urine 0.2 0.2 - 1.0 mg/dL LAB URINALYSIS - AUTOMATED METHOD 09/21/2024 6:[address] [facility] Bilirubin, Urine Negative Negative LAB URINALYSIS - AUTOMATED METHOD 09/21/2024 6:[address] [facility] Blood, Urine Negative Negative LAB URINALYSIS - AUTOMATED METHOD 09/21/2024 6:08 PM [facility] RBC, Urine 2.0 0 - 4 /HPF LAB URINALYSIS - AUTOMATED METHOD 09/21/2024 6:[address] [facility] WBC, Urine 0.6 0 - 4 /HPF LAB URINALYSIS - AUTOMATED METHOD 09/21/2024 6:08 PM [facility] Squamous Epithelial, Urine 12 0 - 60 /LPF LAB URINALYSIS - AUTOMATED METHOD [facility] Bacteria, Urine Negative Negative /HPF LAB URINALYSIS - AUTOMATED METHOD 09/21/2024 6:08 PM [facility] Hyaline Casts, Urine 0.4 0 - 3 /LPF LAB URINALYSIS - AUTOMATED METHOD 09/21/2024 6:08 PM [facility] Urine Urine specimen obtained by clean catch procedure / Unknown Non-blood Collection / Unknown 09/21/2024 5:22 PM EDT 09/21/2024 5:34 PM EDT us Rosanne Rogers MD LAB URINE ORDERABLES Final Resul t [facility] [address] [place] [address], * 12-Lead ECG (09/21/2024 5:04 PM EDT) Only the most recent of2 resultswithin the time period is included. Ventricular Rate ECG 93 BPM GEMUSE Atrial Rate 93 BPM GEMUSE P-R Interval 144 ms GEMUSE QRS Duration 120 ms GEMUSE Q-T Interval 400 ms GEMUSE QTc 497 ms GEMUSE P Wave Mora 108 degrees GEMUSE R Mora 125 degrees GEMUSE T Mora -178 degrees GEMUSE ECG Interpretation Normal sinus rhythm Right bundle branch block When compared with ECG of 02-SEP-2024 10:54, Ventricular rate has increased Confirmed by JORI TATE ([id number]) on 09/21/2024 6:09:25 PM GEMUSE 09/21/2024 5:0 4 PM EDT 09/21/2024 6:09 PM EDT Rosanne Rogers MD ECG ORDERABLES Final Result Performing Organization Address [facility]/ZIP Co de Phone Number GEMUSE * Troponin I High Sensitivity (09/21/2024 4:48 PM EDT) [facility] High Sensitivity Troponin I 6 <=79 ng/L LAB CHEMISTRY METHOD 09/21/2024 5:[address] [facility] Blood Venous blood specimen / Unknown Venipuncture / Unknown 09/21/2024 4:48 PM EDT 09/21/2024 5:[address] [facility] - 09/21/2024 5:31 PM EDT High levels of biotin in samples may falsely decrease hsTroponin values. Use caution when interpreting hsTroponin results in patients taking biotin who exhibit renal impairment (eGFR <60) or in patients taking more than 20 mg/day of biotin. Rosanne Rogers MD LAB BLOOD ORDERABLES Final Resul t Performing Organization Address City/[facility]/ZIP Co de Phone Number [facility] [address] [place] [address], * (ABNORMAL) Beta hydroxybutyrate (09/21/2024 4:04 PM EDT) [facility] Beta-Hydroxyb utyrate >46.0(H) 0.2 - 2.8 mg/dL LAB CHEMISTRY METHOD 09/21/2024 6:[address] [facility] Blood Venous blood specimen / Unknown Venipuncture / Unknown 09/21/2024 4:04 PM EDT 09/21/2024 4:17 PM EDT us Rosanne Rogers MD LAB BLOOD ORDERABLES Final Resul t Performing Organization Address City/[facility]/ZIP Co de Phone Number [facility] [address] [place] [address], [place] [phone] * Type and screen (09/21/2024 4:04 PM EDT) Only the most recent of2 resultswithin the time period is included. ABO Group A 09/21/2024 5:[address] [facility] Rh Type Positive 09/21/2024 5:[address] [facility] Antibody Screen Negative 09/21/2024 5:[address] [facility] Blood Venous blood specimen / Unknown Venipuncture / Unknown 09/21/2024 4:04 PM EDT 09/21/2024 4:17 PM EDT us Rosanne Rogers MD LAB BLOOD BANK TEST ORDERABLES F inal Result Performing Organization Address [facility]/ZIP Co de Phone Number [facility] [address] [place] [address], [place] [phone] * Lipase (09/21/2024 4:04 PM EDT) Lipase 53 13 - 75 unit/L LAB CHEMISTRY METHOD 09/21/2024 4:[address] [facility] Blood Venous blood specimen / Unknown Venipuncture / Unknown 09/21/2024 4:04 PM EDT 09/21/2024 4:17 PM EDT us Rosanne Rogers MD LAB BLOOD ORDERABLES Final Resul t [facility] [address] [place] [address], * (ABNORMAL) Comprehensive metabolic panel (09/21/2024 4:04 PM EDT) Sodium 131(L) 133 - 145 mmol/L LAB CHEMISTRY METHOD 09/21/2024 5:[address] [facility] Potassium 5.6(H) 3.5 - 5.5 mmol/L LAB CHEMISTRY METHOD 09/21/2024 5:[address] [facility] Comment:Hemolysis present Chloride 100 96 - 110 mmol/L LAB CHEMISTRY METHOD 09/21/2024 5:10 PM [facility] CO2 11(LL) 21 - 32 mmol/L LAB CHEMISTRY METHOD [facility] Anion Gap 20(H) 3 - 11 LAB CHEMISTRY METHOD 09/21/2024 5:10 PM [facility] Glucose 235(H) 70 - 100 mg/dL LAB CHEMISTRY METHOD [facility]2024 [facility] BUN 25 5 - 25 mg/dL LAB CHEMISTRY METHOD 09/21/2024 5:10 PM [facility] Creatinine 1.31(H) 0.70 - 1.30 mg/dL LAB CHEMISTRY METHOD 09/21/2024 5:[address] [facility] eGFR 65 >=60 mL/min/1. 73m2 LAB CHEMISTRY METHOD 09/21[facility]2024 [facility] Comment:Calculation based on the Chronic Kidney Disease Epidemiology Collaboration (CKD-EPI) equation refit without adjustment for race. BUN/Creatinine Ratio 19.1 LAB CHEMISTRY METHOD 09/21/2024 5:10 PM [facility] Calcium 8.9 8.5 - 10.5 mg/dL LAB CHEMISTRY METHOD 09/21/2024 5:[address] [facility] AST (SGOT) 22 10 - 42 unit/L LAB CHEMISTRY METHOD 09/21/2024 5:[address] [facility] Comment:Hemolysis present ALT (SGPT) 36 10 - 60 unit/L LAB CHEMISTRY METHOD 09/21/2024 5:[address] [facility] Alkaline Phosphatase 70 42 - 121 unit/L LAB CHEMISTRY METHOD 09/21/2024 5:[address] [facility] Total Protein 6.8 6.0 - 8.0 g/dL LAB CHEMISTRY METHOD 09/21/2024 5:[address] [facility] Albumin 3.3 3.2 - 5.0 g/dL LAB CHEMISTRY METHOD 09/21/2024 5:[address] [facility] Total Bilirubin 0.6 0.0 - 1.4 mg/dL LAB CHEMISTRY METHOD 09/21/2024 5:[address] [facility] Blood Venous blood specimen / Unknown Venipuncture / Unknown 09/21/2024 4:04 PM EDT 09/21/2024 4:17 PM EDT us Rosanne Rogers MD LAB BLOOD ORDERABLES Final Resul t [facility] [address] [place] [address], * [facility] 30-74 MINUTES (09/21/2024 3:02 PM EDT) Narrative Rosanne Rogers MD - 09/21/2024 3:02 PM EDT Rosanne [...] no Care discussed with: admitting provider Comments: Vehicle Dynamics Engineer us Rosanne Rogers MD IN CLINIC/BEDSIDE ORDERABLES Fin al Result * EGD Anesthesia - MAC; [facility] ENDOSCOPY (09/15/2024 7:54 AM EDT) Anatomical Region [...] clinical course. Narrative 09/15/2024 7:55 AM EDT [facility] GI Patient Name: Domi Martinez Procedure Date: [...] intact staple line. This was traversed. The wgrldnns-pr-kluvcty limb was examined. The examined jejunum was normal. Procedure Code(s): --- Professional --- 65402, Esophagogastroduodenoscopy, flexible, transoral; diagnostic, including collection of specimen(s) by brushing or washing, when performed (separate procedure) Diagnosis Code(s): --- Professional --- K92.1, Melena (includes Hematochezia) CPT copyright 2020 [employer]. All rights reserved. The codes documented in this report are preliminary and upon air transportation provider review may be revised to meet current compliance requirements. Angelo Glover MD 09/15/2024 7:55:45 AM This report has been signed electronically.Angelo Glover MD Number of Addenda: 0 Note Initiated On: 09/15/2024 7:38 AM Scope In: Scope Out: Endoscopy Department at [facility] - [address] [place] [phone] Procedure Note Angelo Glover MD - 09/15/2024 [facility] GI Patient Name: Domi Martinez Procedure Date: [...] intact staple line. This was traversed. The kmshiulw-go-hbetlxh limb was examined. The examined jejunum was normal. Procedure Code(s): --- Professional --- 13694, Esophagogastroduodenoscopy, flexible, transoral; diagnostic, including collection of specimen(s) by brushing or washing, when performed (separate procedure) Diagnosis Code(s): --- Professional --- K92.1, Melena (includes Hematochezia) CPT copyright 2020 [employer]. All rights reserved. The codes documented in this report are preliminary and upon air transportation provider reviewmay be revised to meet current compliance requirements. Angelo Glover MD 09/15/2024 7:55:45 AM This report has been signed electronically.Angelo Glover MD Number of Addenda: 0 Note Initiated On: 09/15/2024 7:38 AM Scope In: Scope Out: Endoscopy Department at [facility] - [address] [place] [id number] IMPRESSION: - Z-line regular, 40 cm from [...] Signed Date: 09/14/2024 15:19 ET Workstation ID: [id number] Transcribed By: Self Edit Transcribed Date: 09/14/2024 [...] Signed Date: 09/14/2024 15:19 ET Workstation ID: [id number] Transcribed By: Self Edit Transcribed Date: 09/14/2024 15:01 ET us Sanjuana OROZCO IMG CT PROCEDURES Final Result * Activated partial thromboplastin time (09/14/2024 12:36 PM EDT) aPTT 30.3 24.1 - 39.3 sec LAB COAGULATION METHOD 09/14/2024 12:[address] [facility] Blood Venous blood specimen / Unknown Venipuncture / Unknown 09/14/2024 12:36 PM EDT 09/14/2024 12:44 PM EDT us Sanjuana OROZCO LAB BLOOD ORDERABLES Final Res ult Performing Organization Address [facility]/ZIP Co de Phone Number [facility] [address] [place] [address], [place] [phone] * Prothrombin time with INR (09/14/2024 12:36 PM EDT) Only the most recent of2 resultswithin the time period is included. Pathologist [facility] Protime 12.8 10.6 - 13.9 sec LAB COAGULATION METHOD 09/14/2024 12:[address] [facility] INR 1.0 LAB COAGULATION METHOD 09/14/2024 12:[address] [facility] Blood Venous blood specimen / Unknown Venipuncture / Unknown 09/14/2024 12:36 PM EDT 09/14/2024 12:44 PM EDT us Sanjuana OROZCO LAB BLOOD ORDERABLES Final Res ult Performing Organization Address City/[facility]/ZIP Co de Phone Number [facility] [address] [place] [address], [place] [phone] * [place] BB tube (09/13/2024 6:18 PM EDT) Pathologist [facility] Extra Tube Hold for add-ons. 09/13/2024 8:[address] [facility] Comment:Auto resulted. Blood Venous blood specimen / Unknown 09/13/2024 6:18 PM EDT 09/13/2024 6:26 PM EDT us Nereyda Pierre MD LAB BLOOD ORDERABLES Final R esult [facility] [address] [place] [address], * TH AN ENDOTRACHEAL(NO CHARGE) (09/12/2024 8:45 AM EDT) Elma Hammonds CRNA - 09/12/2024 8:45 AM EDT Elma Armenta CRNA 09/12/2024 8:48 AM General Information and Staff Patient location during procedure: OR Performed: resident/PACKERHEAD MACHINE OPERATOR/CAA Performed by: Elma Armenta CRNA Authorized by: Price Doshi MD Intubation [...] No active pulmonary process identified. [place] PA ([id number]) -------- FINAL REPORT -------- Dictated By: Isaura Slade Dictated Date: 09/02/2024 12:18 ET Assigned Physician: Isaura Slade Reviewed and Electronically Signed By: Isaura Slade Signed Date: 09/02/2024 12:19 ET Workstation ID: [id number] Transcribed By: Self Edit Transcribed Date: 09/02/2024 [...] No active pulmonary process identified. [place] PA ([id number]) -------- FINAL REPORT -------- Dictated By: Isaura Slade Dictated Date: 09/02/2024 12:18 ET Assigned Physician: Isaura Slade Reviewed and Electronically Signed By: Isaura Slade Signed Date: 09/02/2024 12:19 ET Workstation ID: [id number] Transcribed By: Self Edit Transcribed Date: 09/02/2024 [...] 6:32 PM [facility] Chol/HDL Ratio 5.0(H) 0.0 - 4.4 LAB CHEMISTRY METHOD 02/26/2024 6:32 PM [facility] Blood Venous blood specimen / Unknown Venipuncture / Unknown 02/26/2024 2:07 PM EST 02/26/2024 2:07 PM EST us Nereyda Pierre MD LAB BLOOD ORDERABLES Final R esult [facility] [address] [place] [address], * (ABNORMAL) Hemoglobin A1c (02/26/2024 2:07 PM EST) Hemoglobin A1C 8.6(H) <6.5 % LAB CHEMISTRY METHOD 02/26/2024 8:10 PM [facility] Mean Bld Glu Estim. 200 mg/dL LAB CHEMISTRY METHOD 02/26/2024 8:10 PM [facility] Blood Venous blood specimen / Unknown Venipuncture / Unknown 02/26/2024 2:07 PM EST 02/26/2024 2:07 PM EST us Nereyda Pierre MD LAB BLOOD ORDERABLES Final R esult [facility] ([facility]) [facility] [address] [place] [address], from Last 3 Months or Most Recently Relevant to Health Maintenance Insurance [facility] [employer] Advance Directives * Full Code - [...] currently active code status orders. Care Teams Steel Rule Die Maker Relationship Specialty Start Date End Date Humaira Hood MD [address] [place] [address] PCP - General Internal Medicine 09/02/24
--- OUTSIDE RECORDS SUMMARY | 2024-10-21 15:36 | XMS_ITS | Clinical Summary ---
Author Organization [facility] Facility Address [address] [place] [id number] Care Team Providers Care Firmware Test Engineer Name Role Phone Humaira Thurston MD Primary Care Provider [phone] Allergies Active Allergy Reactions Criticality Noted Date [...] 07/21/2021, Additional history exists Influenza Vaccine (#1) 2024 Procedures Procedure Name Priority Date/Time Associated Diagnosis Comments HEMOGLOBIN A1C Routine 07/04/2023 9:39 AM EDT from Last 3 Months or Most Recently Relevant to Health Maintenance Results * (ABNORMAL) Hemoglobin A1c (07/04/2023 9:39 AM EDT) Hemoglobin A1C 7.8(H) 4.8 - 5.6 % See order comments Comment: Prediabetes: 5.7 - 6.4 Diabetes: >6.4 Glycemic control for adults with diabetes: <7.0 07/04/2023 9:39 AM EDT 07/04/2023 Narrative [facility] - 07/06/2023 6:08 AM EDT Performed at: [address] [id number] Public Address Servicer: Cheryl Goodman MD, Phone: [phone] us David Perez MD LAB BLOOD ORDERABLES Final Re sult [facility] See order comments [place] [address] from Last 3 Months or Most Recently Relevant to Health Maintenance Insurance [facility] Medicaid [facility] Medicaid Care Teams Firmware Test Engineer Relationship Specialty Start Date End Date Humaira Thurston MD [address] [place] [id number] PCP - General Internal Medicine 12/27/22
--- OUTSIDE RECORDS SUMMARY | 2024-10-21 15:36 | XMS_ITS | Encounter Summary ---
Author Organization [facility] Address [address] [place] [address] Phone Care Team Providers Care Transformer Mechanic Name Role Phone Humaira Thurston MD Primary Care Provider [phone] Reason for Visit * Reason Comments Med Refill Encounter Details Date Type Department Care Team (Late st Contact Info) Description 07/03/2023 Refill [facility] [address] [place] [phone] David Perez MD [address] [place] [address], [facility] [address] [place] [address] Social History Tobacco Use Types Packs/Day Years [...] on filedocumented in this encounter Care Teams Transformer Mechanic Relationship Specialty Start Date End Date Humaira Thurston MD [address] [place] [address] PCP - General Internal Medicine 12/27/22 documented as of this encounter
== END 2024-10-21 14:42 | disposition home or self-care (01) ==
LOC: HO.US 14:41
PROVIDERS: PCP Internal Medicine; Visit Provider Physician Assistant Surgical
DX: I73.9 Peripheral vascular disease, unspecified (principal)
CPT/HCPCS: 93922; 93925

== ENCOUNTER → 2024-10-21 14:42 | Outpatient (BNV) | payer OTHER, SELFPAY | PROVIDERS: PCP Internal Medicine; Visit Provider Radiology Diagnostic Radiology | DX: I70.201 Unspecified atherosclerosis of native arteries of extremities, right leg (principal) | CPT/HCPCS: 93922; 93925 ==

== ENCOUNTER 2024-12-09 14:16 | Outpatient (AMB) | payer OTHER, SELFPAY ==
--- NOTE | 2024-12-09 14:17 | MHC.OFFVIS ---
Intake Visit Reasons: 6m follow up Arterial 10/21/24 Intake Note: Patient presents for follow up arterial US performed on 10/21/24. No complaints. Accompanied by: Self / Same As Patient Allergies glipizide Allergy (Mild, Verified 12/09/24 14:19) rash tuberculin, purified protein deriva Allergy (Mild, Verified 12/09/24 14:19) Swelling martinez Allergy (Mild, Uncoded 10/16/24 16:01) Hives HPI HPI 6m follow up Arterial 10/21/24: Details: The patient is a 54-year-old male presenting with a follow-up for arterial health. He reports being asymptomatic with no current leg pain. The patient has a history of diabetes mellitus, which was previously managed with medication. He underwent bariatric surgery after losing approximately 100 pounds, which has significantly impacted his diabetes management. The patient also has a history of obesity, for which he underwent bariatric surgery. His weight reduced from 325 pounds to 231 pounds, aiding in the management of his diabetes. [facility] Medical History Tension headache, chronic Carpal tunnel syndrome, bilateral upper limbs Carpal tunnel syndrome Cerebral microvascular disease Constipation Erectile dysfunction associated with type 2 diabetes mellitus Mixed hyperlipidemia Mild intermittent asthma Hyperkalemia Morbid obesity Renal calculi Morbid obesity Dyslipidemia CKD (chronic kidney disease) Essential hypertension Diabetes mellitus HIV (human immunodeficiency virus infection) Surgical History History of weight loss surgery Hx of circumcision Family History Father Myocardial infarction Hypertension CVD (cardiovascular disease) Mother Stroke CVD (cardiovascular disease) Mental health disorder Sister Diabetes Maternal Grandmother CVD (cardiovascular disease) Maternal Uncle Pancreatic cancer Social History Housing: Apartment Alcohol intake: former Patient Tobacco Use Status: Never used Tobacco e-Cigarette/Vaping Use: Never Used Second Hand Smoke Exposure: Yes service: No Current occupational status: employed Current occupational exposures/hazards: No Cognitive needs: No Hearing needs: No Vision needs: No Review of Systems Const All systems reviewed & are unremarkable except as noted in HPI and below Reports no additional complaints ENT Reports Normal hearing present Card Denies chest pain, Denies chest pain at rest, Denies chest pain with activity and Denies pedal edema Resp Denies cough GI Denies abdominal pain Musc Denies abnormal gait, Denies muscle cramps and Denies radiating pain into limb Skin/Breast Denies skin ulcer and Denies wounds Neuro Reports Normal hearing present and Denies abnormal gait Psych Reports no additional complaints Physical Exam Const General: cooperative, healthy appearing and comfortable Orientation/consciousness: oriented to person, oriented to place and oriented to time HEENT Head: Yes normal to inspection Neck Neck: Yes normal visual inspection Carotids: no bruits Chest Chest palpation & inspection: normal inspection of the chest Resp Effort & Inspection: normal respiratory effort and able to speak in complete sentences Auscultation: clear to auscultation bilaterally, no crackles, no rales, no rhonchi and no wheezes Cardio Other: Palpable dorsalis pedis pulses bilaterally Rate: regular rate Rhythm: regular rhythm Heart sounds: S1 normal heart sound present and S2 normal heart sound present Bruits: no carotid bruits Peripheral pulses: Peripheral pulses 2+ throughout GI Inspection: Yes normal to inspection Skin Wounds: no wounds Hair: normal Neuro General: oriented to person, oriented to place and oriented to time Cranial nerves: Yes CN's II-XII intact bilaterally and Yes Normal hearing present Cognition (Neuro): normal cognition Motor exam (neuro): 5/5 motor strength present throughout Extrem Other: venous exam: No significant superficial varicosities or spider telangiectasias, minimal edema General: No clubbing, No cyanosis and No edema Psych Appearance: grossly normal Mental Status: mental status grossly normal Speech and movement: Normal speech and movement present Results Reviewed Results Reviewed: Noninvasive arterial testing dated 10/21/2024 demonstrates TRISTEN on the right of 0.91 and on the left of 0.88 Assessment & Plan Assessment & Plan (1) Peripheral arterial disease: Code(s): I73.9 - Peripheral vascular disease, unspecified Category: Medical Plan: In short patient has stable arterial disease. At the current time I do not believe this is an issue for him as he does have palpable arterial pulses an arterial testing is within normal limits. Routine risk factor modification was discussed with the patient. He will follow up with us on an as-needed basis. Thank you for allowing us to assist in his care. If there are any questions or concerns please do not hesitate to contact us. Plan Patient was informed and verbally consented to the use of an ambient scribe for clinic note documentation during this visit. Coding Level of Care Code Est Pt Level 4 (88188) Diagnoses Peripheral arterial disease I73.9
--- OUTSIDE RECORDS SUMMARY | 2024-12-09 17:16 | XMS_ITS | Clinical Summary ---
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 [facility] [address] [place] [address], * (ABNORMAL) Magnesium (09/23/2024 4:23 AM EDT) Only the most recent of5 resultswithin the time period is included. Magnesium 1.8(L) 1.9 - 2.6 mg/dL LAB CHEMISTRY METHOD 09/23/2024 5:05 AM EDT [facility] Blood Venous blood specimen / Unknown Venipuncture / Unknown 09/23/2024 4:23 AM EDT 09/23/2024 4:46 AM EDT us Thao Ghosh MD LAB BLOOD ORDERABLES Final Result [facility] [address] [place] [address], [place] [phone] * Light blue tube (09/22/2024 4:06 PM EDT) Extra Tube Hold for add-ons. 09/22/2024 6:01 PM EDT [facility] Comment:Auto resulted. Blood Venous blood specimen / Unknown 09/22/2024 4:06 PM EDT 09/22/2024 4:25 PM EDT us Thao Ghosh MD LAB BLOOD ORDERABLES Final Result Performing Organization Address [facility] Co de Phone Number [facility] [address] [place] [address], [place] [phone] * CT Head wo Contrast (09/22/2024 9:04 AM EDT) Anatomical Region Laterality Modality Head and Neck Computed Tomogra phy 09/22/2024 9:26 AM EDT Impressions 09/22/2024 9:28 AM EDT No acute intracranial abnormality. -------- FINAL REPORT -------- Dictated By: CLARK PRECIADO Dictated Date: 09/22/2024 09:26 ET Assigned Physician: CLARK PRECIADO Reviewed and Electronically Signed By: CLARK PRECIADO Signed Date: 09/22/2024 09:28 ET Workstation ID: [id number] Transcribed By: Self Edit Transcribed Date: 09/22/2024 [...] Signed Date: 09/22/2024 09:28 ET Workstation ID: [id number] Transcribed By: Self Edit Transcribed Date: 09/22/2024 09:26 ET Alysa OROZCO IMG CT PROCEDURES Final Result * Lavender tube (09/22/2024 8:07 AM EDT) Extra Tube Hold for add-ons. 09/22/2024 10:01 AM EDT [facility] Comment:Auto resulted. Blood Venous blood specimen / Unknown 09/22/2024 8:07 AM EDT 09/22/2024 8:42 AM EDT Thao Ghosh MD LAB BLOOD ORDERABLES Final Result [facility] [address] [place] [address], [place] [phone] * (ABNORMAL) Complete blood count (09/22/2024 6:22 AM EDT) [facility] WBC 8.1 4.8 - 10.8 K/mcL LAB HEMETOLOGY METHOD 09/22/2024 7:18 AM [facility] RBC 2.40(L) 4.50 - 5.50 M/mcL LAB HEMETOLOGY METHOD 09/22/2024 7:18 AM [facility] Hemoglobin 7.4(L) 13.5 - 17.5 g/dL LAB HEMETOLOGY METHOD 09/22/2024 7:18 AM [facility] Hematocrit 22.9(L) 42.0 - 54.0 % LAB HEMETOLOGY METHOD 09/22/2024 7:18 AM [facility] MCV 95.4 79.0 - 98.0 FL LAB HEMETOLOGY METHOD 09/22/2024 7:18 AM [facility] MCH 30.8 27.0 - 32.0 pcg LAB HEMETOLOGY METHOD 09/22/2024 7:18 AM [facility] MCHC 32.3 32.0 - 37.0 g/dL LAB HEMETOLOGY METHOD 09/22/2024 7:18 AM [facility] RDW 14.0 11.0 - 15.0 % LAB HEMETOLOGY METHOD 09/22/2024 7:18 AM [facility] Platelets 413(H) 130 - 400 K/mcL LAB HEMETOLOGY METHOD 09/22/2024 7:18 AM [facility] MPV 9.5 7.0 - 11.0 FL LAB HEMETOLOGY METHOD 09/22/2024 7:18 AM [facility] NRBC 0.0 <1.0 % LAB HEMETOLOGY METHOD 09/22/2024 7:18 AM [facility] NRBC Absolute 0.00 <0.10 K/mcL LAB HEMETOLOGY METHOD 09/22/2024 7:18 AM EDT [facility] Blood Venous blood specimen / Unknown Venipuncture / Unknown 09/22/2024 6:22 AM EDT 09/22/2024 6:54 AM EDT Alysa OROZCO LAB BLOOD ORDERABLES Final Resu lt Performing Organization Address [facility] Co de Phone Number [facility] [address] [place] [address], [place] [phone] * Phosphorus (09/22/2024 6:22 AM EDT) Only the most recent of3 resultswithin the time period is included. Phosphorus 3.1 2.5 - 4.5 mg/dL LAB CHEMISTRY METHOD 09/22/2024 7:41 AM EDT [facility] Blood Venous blood specimen / Unknown Venipuncture / Unknown 09/22/2024 6:22 AM EDT 09/22/2024 6:54 AM EDT Alysa OROZCO LAB BLOOD ORDERABLES Final Resu lt Performing Organization Address [facility] de Phone Number [facility] [address] [place] [address], [place] [phone] * Vascular US duplex lower extremity venous [...] Signed Date: 09/22/2024 03:00 ET Workstation ID: [id number] Transcribed By: Self Edit Transcribed Date: 09/22/2024 [...] Signed Date: 09/22/2024 03:00 ET Workstation ID: [id number] Transcribed By: Self Edit Transcribed Date: 09/22/2024 02:59 ET us Alysa OROZCO CV VASCULAR PROCEDURES Final Re sult * (ABNORMAL) Venous blood gas (09/21/2024 9:39 PM EDT) Only the most recent of2 resultswithin the time period is included. pH, Jason 7.35 7.32 - 7.42 pH 09/21/2024 9:47 PM EDT [facility] pCO2, Jason 21(L) 41 - 51 mmHg 09/21/2024 9:47 PM EDT [facility] pO2, Jason 102(H) 25 - 40 mmHg 09/21/2024 9:47 PM EDT [facility] HCO3, Venous 15.2(L) 22.0 - 26.0 mmol/L 09/21/2024 9:47 PM EDT [facility] O2 Sat, Jason 98.6 % 09/21/2024 9:47 PM EDT [facility] Base Excess, Jason -12.5(L) -2.0 - 2.0 mmol/L 09/21/2024 9:47 PM EDT [facility] Blood Venous blood specimen / Unknown Venipuncture / Unknown 09/21/2024 9:39 PM EDT 09/21/2024 9:42 PM EDT Rosanne Rogers MD LAB BLOOD ORDERABLES Final Resul t [facility] [address] [place] [address], [place] [phone] * XR Hand 3+ Views Right (09/21/2024 6:50 PM EDT) Anatomical Region Laterality Modality Upper Extremities, Hand Right Radiogra phic Imaging 09/22/2024 7:59 AM EDT Impressions 09/22/2024 8:01 AM EDT No fracture, dislocation, or other bony abnormality. There is extensive atherosclerotic arterial calcification, unusual in this age group and therefore evaluation for cardiovascular disease should be considered. Code 93322 -------- FINAL REPORT -------- Dictated By: Mendel Cantu Dictated Date: 09/22/2024 07:59 ET Assigned Physician: Mendel Cantu Reviewed and Electronically Signed By: Mendel Cantu Signed Date: 09/22/2024 08:01 ET Workstation ID: [id number] Transcribed By: Self Edit Transcribed Date: 09/22/2024 [...] for cardiovascular disease should be considered. Code 66019 -------- FINAL REPORT -------- Dictated By: Mendel Cantu Dictated Date: 09/22/2024 07:59 ET Assigned Physician: Mendel Cantu Reviewed and Electronically Signed By: Mendel Cantu Signed Date: 09/22/2024 08:01 ET Workstation ID: [id number] Transcribed By: Self Edit Transcribed Date: 09/22/2024 07:59 ET Rosanne Rogers MD IMG XR PROCEDURES Final Result * Lactate, with reflex (09/21/2024 6:08 PM EDT) LACTIC ACID 1.8 0.4 - 2.0 mmol/L LAB CHEMISTRY METHOD 09/21/2024 6:46 PM EDT [facility] ([facility]) [facility] Blood Venous blood specimen / Unknown Venipuncture / Unknown 09/21/2024 6:08 PM EDT 09/21/2024 6:16 PM EDT us Rosanne Rogers MD LAB BLOOD ORDERABLES Final Resul t Performing Organization Address [facility] Co de Phone Number [facility] [address] [place] [address], [place] [phone] * (ABNORMAL) Venous blood gas co-oximetry (09/21/2024 6:08 PM EDT) Carboxyhemoglobin 0.8 0.0 - 3.0 % 09/21/2024 6:20 PM EDT [facility] Methemoglobin 0.2 0.2 - 0.5 % 09/21/2024 6:20 PM EDT [facility] Oxyhemoglobin 39.8(L) 40 - 70 % 09/21/2024 6:20 PM EDT [facility] O2 Sat, Jason 40.2 % 09/21/2024 6:20 PM EDT [facility] Total Hemoglobin Venous 9.6(L) 12.0 - 18.0 g/dL 09/21/2024 6:20 PM EDT [facility] Blood Venous blood specimen / Unknown Venipuncture / Unknown 09/21/2024 6:08 PM EDT 09/21/2024 6:15 PM EDT us Rosanne Rogers MD LAB BLOOD ORDERABLES Final Resul t Performing Organization Address [facility]/ZIP Co de Phone Number [facility] [address] [place] [address], [place] [phone] * Potassium (09/21/2024 6:08 PM EDT) Potassium 5.0 3.5 - 5.5 mmol/L LAB CHEMISTRY METHOD 09/21/2024 6:45 PM EDT [facility] Blood Venous blood specimen / Unknown Venipuncture / Unknown 09/21/2024 6:08 PM EDT 09/21/2024 6:16 PM EDT us Rosanne Rogers MD LAB BLOOD ORDERABLES Final Resul t [facility] [address] [place] [address], [place] [phone] * CT Angio Chest/Abdomen/Pelvis wo and/or w [...] reflex microscopic (09/21/2024 5:22 PM EDT) Specific Raymond Urine 1.031(H) 1.003 - 1.030 LAB URINALYSIS [...] 09/21/2024 6:08 PM [facility] WBC, Urine 0.6 0 - 4 /HPF LAB URINALYSIS - AUTOMATED METHOD 09/21/2024 6:08 PM EDT [facility] Squamous Epithelial, Urine 12 0 - 60 /LPF LAB URINALYSIS - AUTOMATED METHOD 09/21/2024 6:08 PM EDT [facility] Bacteria, Urine Negative Negative /HPF LAB URINALYSIS - AUTOMATED METHOD 09/21/2024 6:08 PM EDT [facility] Hyaline Casts, Urine 0.4 0 - 3 /LPF LAB URINALYSIS - AUTOMATED METHOD 09/21/2024 6:08 PM EDT [facility] Urine Urine specimen obtained by clean catch procedure / Unknown Non-blood Collection / Unknown 09/21/2024 5:22 PM EDT 09/21/2024 5:34 PM EDT Rosanne Rogers MD LAB URINE ORDERABLES Final Resul t Performing Organization Address City/[facility]/ZIP Co de Phone Number [facility] [address] [place] [address], [place] [phone] * 12-Lead ECG (09/21/2024 5:04 PM EDT) Ventricular Rate ECG 93 BPM GEMUSE Atrial Rate 93 BPM GEMUSE P-R Interval 144 ms GEMUSE QRS Duration 120 ms GEMUSE Q-T Interval 400 ms GEMUSE QTc 497 ms GEMUSE P Wave [place] 108 degrees GEMUSE R [place] 125 degrees GEMUSE T [place] -178 degrees GEMUSE ECG Interpretation Normal sinus rhythm Right bundle branch block When compared with ECG of 02-SEP-2024 10:54, Ventricular rate has increased Confirmed by JORI TATE ([id number]) on 09/21/2024 6:09:25 PM GEMUSE 09/21/2024 5:04 PM EDT 09/21/2024 6:09 PM EDT Rosanne Rogers MD ECG ORDERABLES Final Result Performing Organization Address City/[facility]/ZIP Co de Phone Number GEMUSE * Troponin I High Sensitivity (09/21/2024 4:48 PM EDT) [facility] High Sensitivity Troponin I 6 <=79 ng/L LAB CHEMISTRY METHOD 09/21/2024 5:31 PM EDT [facility] Blood Venous blood specimen / Unknown Venipuncture / Unknown 09/21/2024 4:48 PM EDT 09/21/2024 5:01 PM EDT Narrative [facility] - 09/21/2024 5:31 PM EDT High levels of biotin in samples may falsely decrease hsTroponin values. Use caution when interpreting hsTroponin results in patients taking biotin who exhibit renal impairment (eGFR <60) or in patients taking more than 20 mg/day of biotin. us Rosanne Rogers MD LAB BLOOD ORDERABLES Final Resul t Performing Organization Address City/[facility]/ZIP Co de Phone Number [facility] [address] [place] [address], [place] [phone] * (ABNORMAL) Beta hydroxybutyrate (09/21/2024 4:04 PM EDT) [facility] Beta-Hydroxyb utyrate >46.0(H) 0.2 - 2.8 mg/dL LAB CHEMISTRY METHOD 09/21/2024 6:07 PM EDT [facility] Blood Venous blood specimen / Unknown Venipuncture / Unknown 09/21/2024 4:04 PM EDT 09/21/2024 4:17 PM EDT us Rosanne Rogers MD LAB BLOOD ORDERABLES Final Resul t [facility] [address] [place] [address], [place] [phone] * Type and screen (09/21/2024 4:04 PM EDT) [facility] ABO Group A 09/21/2024 5:23 PM EDT [facility] Rh Type Positive 09/21/2024 5:23 PM EDT [facility] Antibody Screen Negative 09/21/2024 5:23 PM EDT [facility] Blood Venous blood specimen / Unknown Venipuncture / Unknown 09/21/2024 4:04 PM EDT 09/21/2024 4:17 PM EDT Rosanne Rogers MD LAB BLOOD BANK TEST ORDERABLES F inal Result Performing Organization Address [facility] Co de Phone Number [facility] [address] [place] [address], [place] [phone] * Lipase (09/21/2024 4:04 PM EDT) Lipase 53 13 - 75 unit/L LAB CHEMISTRY METHOD 09/21/2024 4:47 PM EDT [facility] Blood Venous blood specimen / Unknown Venipuncture / Unknown 09/21/2024 4:04 PM EDT 09/21/2024 4:17 PM EDT Rosanne Rogers MD LAB BLOOD ORDERABLES Final Resul t Performing Organization Address [facility] Co de Phone Number [facility] [address] [place] [address], [place] [phone] * NC CRITICAL CARE 30-74 MINUTES (09/21/2024 3:02 PM [...] no Care discussed with: admitting provider Comments: us Rosanne Rogers MD IN CLINIC/BEDSIDE ORDERABLES Fin al Result * EGD Anesthesia - MAC; [facility] ENDOSCOPY (09/15/2024 7:54 AM EDT) Anatomical [...] clinical course. Narrative 09/15/2024 7:55 AM EDT [facility] GI Patient Name: Domi Martinez Procedure [...] intact staple line. This was traversed. The sewqbgca-cv-hakkvrx limb was examined. The examined jejunum was normal. Procedure Code(s): --- Professional --- 11131, Esophagogastroduodenoscopy, flexible, transoral; diagnostic, including collection of specimen(s) by brushing or washing, when performed (separate procedure) Diagnosis Code(s): --- Professional --- K92.1, Melena (includes Hematochezia) CPT copyright 2020 [employer]. All rights reserved. The codes documented in this report are preliminary and upon stave block roller review may be revised to meet current compliance requirements. Angelo Glover MD 09/15/2024 7:55:45 AM This report has been signed electronically.Angelo Glover MD Number of Addenda: 0 Note Initiated On: 09/15/2024 7:38 AM Scope In: Scope Out: Endoscopy Department at [facility] - [address] [place] [phone] Procedure Note Angelo Glover MD - 09/15/2024 [facility] GI Patient Name: Domi Martinez Procedure [...] intact staple line. This was traversed. The dwtlvcpo-cu-mfjkeoy limb was examined. The examined jejunum was normal. Procedure Code(s): --- Professional --- 47344, Esophagogastroduodenoscopy, flexible, transoral; diagnostic, including collection of specimen(s) by brushing or washing, when performed (separate procedure) Diagnosis Code(s): --- Professional --- K92.1, Melena (includes Hematochezia) CPT copyright 2020 [employer]. All rights reserved. The codes documented in this report are preliminary and upon stave block roller reviewmay be revised to meet current compliance requirements. Angelo Glover MD 09/15/2024 7:55:45 AM This report has been signed electronically.Angelo Glover MD Number of Addenda: 0 Note Initiated On: 09/15/2024 7:38 AM Scope In: Scope Out: Endoscopy Department at [facility] - [address] [place] [phone] IMPRESSION: - Z-line regular, 40 cm from [...] Signed Date: 09/14/2024 15:19 ET Workstation ID: [id number] Transcribed By: Self Edit Transcribed Date: 09/14/2024 [...] some calcified plaque. No significant narrowing suspected. JOHN: The inferior mesenteric artery is patent. There [...] with some calcified plaque.No significant narrowing suspected. JOHN: The inferior mesenteric artery is patent. There [...] Signed Date: 09/14/2024 15:19 ET Workstation ID: [id number] Transcribed By: Self Edit Transcribed Date: 09/14/2024 15:01 ET us Sanjuana OROZCO IMG CT PROCEDURES Final Result * Activated partial thromboplastin time (09/14/2024 12:36 PM EDT) [facility] aPTT 30.3 24.1 - 39.3 sec LAB COAGULATION METHOD 09/14/2024 12:54 PM EDT [facility] Blood Venous blood specimen / Unknown Venipuncture / Unknown 09/14/2024 12:36 PM EDT 09/14/2024 12:44 PM EDT us Sanjuana OROZCO LAB BLOOD ORDERABLES Final Res ult Performing Organization Address City/[facility]/ZIP Co de Phone Number [facility] [address] [place] [address], [place] [phone] * Prothrombin time with INR (09/14/2024 12:36 PM EDT) [facility] Protime 12.8 10.6 - 13.9 sec LAB COAGULATION METHOD 09/14/2024 12:54 PM EDT [facility] INR 1.0 LAB COAGULATION METHOD 09/14/2024 12:54 PM EDT [facility] Blood Venous blood specimen / Unknown Venipuncture / Unknown 09/14/2024 12:36 PM EDT 09/14/2024 12:44 PM EDT us Sanjuana OROZCO LAB BLOOD ORDERABLES Final Res ult [facility] [address] [place] [address], [place] [phone] * [place] BB tube (09/13/2024 6:18 PM EDT) [facility] Extra Tube Hold for add-ons. 09/13/2024 8:01 PM EDT [facility] Comment:Auto resulted. Blood Venous blood specimen / Unknown 09/13/2024 6:18 PM EDT 09/13/2024 6:26 PM EDT Nereyda Pierre MD LAB BLOOD ORDERABLES Final R esult [facility] [address] [place] [address], [place] [phone] * TH AN ENDOTRACHEAL(NO CHARGE) (09/12/2024 8:45 AM EDT) Elma Hammonds CRNA - 09/12/2024 8:45 AM EDT Elma Armenta CRNA 09/12/2024 8:48 AM General Information and Staff Patient location during procedure: [place] Performed: resident/BAG PRESSER/CAA Performed by: Elma Armenta CRNA Authorized by: [...] MD ANESTHESIA ORDERABLES Final Re sult * (ABNORMAL) Lipid panel with reflex to direct LDL (02/26/2024 2:07 PM EST) Cholesterol 185 0 - 200 mg/dL LAB CHEMISTRY METHOD 02/26/2024 6:32 PM EST [facility] Triglycerides 203(H) 0 - 150 mg/dL LAB CHEMISTRY METHOD 02/26/2024 6:32 PM EST [facility] HDL 37(L) >=40 mg/dL LAB CHEMISTRY METHOD 02/26/2024 6:32 PM EST [facility] LDL Calculated 107(H) 0 - 100 mg/dL LAB CHEMISTRY METHOD 02/26/2024 6:32 PM EST [facility] VLDL Cholesterol Stephen 40.6 mg/dL LAB CHEMISTRY METHOD 02/26/2024 6:32 PM EST [facility] Non HDL Chol. (LDL+VLDL) 148(H) <145 mg/dL LAB CHEMISTRY METHOD 02/26/2024 6:32 PM EST [facility] Chol/HDL Ratio 5.0(H) 0.0 - 4.4 LAB CHEMISTRY METHOD 02/26/2024 6:32 PM EST [facility] Blood Venous blood specimen / Unknown Venipuncture / Unknown 02/26/2024 2:07 PM EST 02/26/2024 2:07 PM EST us Nereyda Pierre MD LAB BLOOD ORDERABLES Final R esult [facility] [address] [place] [address], [place] [phone] * (ABNORMAL) Hemoglobin A1c (02/26/2024 2:07 PM EST) Hemoglobin A1C 8.6(H) <6.5 % LAB CHEMISTRY METHOD 02/26/2024 8:10 PM EST [facility] Mean Bld Glu Estim. 200 mg/dL LAB CHEMISTRY METHOD 02/26/2024 8:10 PM EST [facility] Blood Venous blood specimen / Unknown Venipuncture / Unknown 02/26/2024 2:07 PM EST 02/26/2024 2:07 PM EST us Nereyda Pierre MD LAB BLOOD ORDERABLES Final R esult [facility] ([facility] [address] [place] [address], from Last 3 Months or Most Recently Relevant to Health Maintenance Insurance [facility] [employer] Advance Directives * Full Code - [...] currently active code status orders. Care Teams Shuttle Filler Relationship Specialty Start Date End Date Humaira Hood MD [address] [place] [phone] PCP - General Internal Medicine 09/02/24
== END 2024-12-09 14:46 | disposition home or self-care (01) ==
LOC: HO.HVS 14:16
PROVIDERS: PCP Internal Medicine; Visit Provider Surgery Vascular Surgery
DX: I73.9 Peripheral vascular disease, unspecified (principal)
CPT/HCPCS: 99214

== ENCOUNTER → 2024-12-09 14:16 | Outpatient (BNVA) | payer OTHER, SELFPAY | PROVIDERS: PCP Internal Medicine; Visit Provider Surgery Vascular Surgery | DX: E11.9 Type 2 diabetes mellitus without complications (principal); I73.9 Peripheral vascular disease, unspecified; Z98.84 Bariatric surgery status | CPT/HCPCS: 99212 ==

== ENCOUNTER 2024-12-26 13:34 | Outpatient (REF) | payer OTHER, SELFPAY ==
[2024-12-26 14:31] LABS: Anion Gap 10 (12-20); Blood Urea Nitrogen 13 mg/dL (9-16); Calcium 9.6 mg/dL (8.4-10.2); Carbon Dioxide 27 mmol/L (22-29); Chloride 109 mmol/L (96-108); Estimated Glomerular Filt Rate > 60; Potassium 4.4 mmol/L (3.3-5.1); Sodium 142 mmol/L (135-145)
--- OUTSIDE RECORDS SUMMARY | 2024-12-26 14:34 | XMS_ITS | Clinical Summary ---
Author Organization [facility] Address [address] [place] [address] Phone Care Team Providers Care Intake Clerk Name Role Phone Humaira Hood MD Primary Care Provider [phone] Allergies Active Allergy Reactions Criticality Noted Date [...] immediate release tabletIndicatio ns:Morbid obesity (CMS/HCC V24, CMS/[facility] V28) Take 1 tablet (5 mg total) [...] HOURS IF NEEDED FOR FLATULENCE. 120 tablet 12/20/19 25 Active cyanocobalamin, vitamin B-12, 1,000 mcg tablet, sublingualIndic ations:Class 3 severe obesity due to excess calories with body mass index (BMI) of 45.0 to 49.9 in adult, unspecified whether serious comorbidity present (CMS/HCC V24, CMS/[facility] V28) PLACE 1 TABLET UNDER THE TONGUE 1 (ONE) TIME EACH DAY. 90 tablet 12/25/19 25 026 Active simethicone (MYLICON) 80 mg chewable tablet CHEW 1 TABLET (80 MG TOTAL) EVERY 6 (SIX) HOURS IF NEEDED FOR FLATULENCE. 120 tablet 11/06/19 25 025 Discontinued cyanocobalamin, vitamin B-12, 1,000 mcg tablet, sublingualIndic ations:Class 3 severe obesity due to excess calories with body mass index (BMI) of 45.0 to 49.9 in adult, unspecified whether serious comorbidity present ([facility] V24, [facility] V28) PLACE 1 TABLET UNDER THE TONGUE 1 (ONE) TIME EACH DAY. 90 tablet 11/11/19 025 Discontinued Active Problems Problem Noted Date Diagnosed Date S/P bariatric surgery 10/30/2024 Gastrointestinal hemorrhage, unspecified gastrointestinal hemorrhage type 09/21/2024 Morbid obesity ([facility] V24, [facility] V28) 2024 Resolved Problems Problem Noted Date Diagnosed Date Resolved Date Class 3 severe obesity with body mass index (BMI) of 45.0 to 49.9 in adult ([facility] V24, [facility] V28) 01/10/2024 10/03/2024 Encounters Date Type Department Care Team Description 11/13/2024 3:30 PM EDT Nutrition Bariatric Surgery - [address] [phone] S/P bariatric surgery (Primary Dx) 10/30/2024 11:00 AM EDT Telemedicine Bariatric Surgery - [address] [phone] S/P bariatric surgery (Primary Dx) 10/22/2024 11:30 AM EDT Office Visit Bariatric Surgery [address] [phone] Daniella Nguyen PA Morbid obesity ([facility] V24, [facility] V28) (Primary Dx); Bariatric surgery status 09/30/2024 9:45 AM EDT Office Visit Bariatric Surgery [address] [phone] Daniella Nguyen PA Gastrointestinal hemorrhage, unspecified gastrointestinal hemorrhage type (Primary Dx); Bariatric surgery status; Class 3 severe obesity due to excess calories with serious comorbidity and body mass index (BMI) of 40.0 to 44.9 in adult ([facility] V24, [facility] V28) from Last 3 Months Surgical History Surgery Date Site/Laterality Comments CIRCUMCISION, PRIMARY GASTRIC BYPASS Da Jayne gastric bypass Faviola-en-Y Medical History Medical History Date Comments Hypertension Asthma Diabetes mellitus ([facility] V24, [facility] V28) Chronic kidney disease HIV (human immunodeficiency virus infection) ( S/[facility] V24, [facility] V28) Hyperlipidemia GERD (gastroesophageal reflux disease) [...] 2:30 PM EST Nutrition Bariatric Surgery - [place] [address] [phone] Letty Crisostomo, RD [address] [phone] 03/09/2025 2:30 PM EST Nutrition Bariatric Surgery - [place] [address] [phone] Letty Crisostomo, RD [address] [phone] Health Maintenance Due Date Last [...] unspecified gastrointestinal hemorrhage type ECG ANNOTATED 09/25/2024 OCCULT BLOOD STOOL, GUAIAC Routine 09/24/2024 1:26 PM EDT HEMOGLOBIN A1C Routine 02/26/2024 2:07 PM EST Class 3 severe obesity with body mass index (BMI) of 40.0 to 44.9 in adult, unspecified obesity type, unspecified whether serious comorbidity present (CMS/HCC V24, CMS/[facility] V28) LIPID PANEL WITH REFLEX TO DIRECT LDL Routine 02/26/2024 2:07 PM EST Class 3 severe obesity with body mass index (BMI) of 40.0 to 44.9 in adult, unspecified obesity type, unspecified whether serious comorbidity present (CMS/HCC V24, CMS/[facility] V28) from Last 3 Months or Most Recently Relevant to Health Maintenance Results * (ABNORMAL) CBC auto differential (10/22/2024 11:39 AM EDT) [facility] WBC 5.8 4.8 - 10.8 K/mcL LAB HEMETOLOGY METHOD [facility] RBC 3.70(L) 4.50 - 5.50 M/mcL LAB HEMETOLOGY METHOD 10/22/2024 2:31 [facility] Hemoglobin 10.9(L) 13.5 - 17.5 g/dL LAB HEMETOLOGY METHOD 10/22/2024 2:31 PM [facility] Hematocrit 35.1(L) 42.0 - 54.0 % LAB HEMETOLOGY METHOD 10/22/2024 2:31 PM [facility] MCV 93.9 79.0 - 98.0 FL LAB HEMETOLOGY METHOD 10/22/2024 2:31 [facility] MCH 29.1 27.0 - 32.0 pcg LAB HEMETOLOGY METHOD 10/22/2024 2:31 PM [facility] MCHC 31.1(L) 32.0 - 37.0 g/dL LAB HEMETOLOGY METHOD 10/22/2024 2:31 PM [facility] RDW 14.4 11.0 - 15.0 % LAB HEMETOLOGY METHOD 10/22/2024 2:31 PM EDT [facility] Platelets 348 130 - 400 K/mcL LAB HEMETOLOGY METHOD 10/22/2024 2:31 [facility] MPV 9.7 7.0 - 11.0 FL LAB HEMETOLOGY METHOD 10/22/2024 2:31 PM [facility] NRBC 0.0 <1.0 % LAB HEMETOLOGY METHOD 10/22/2024 2:31 PM [facility] NRBC Absolute 0.00 <0.10 K/mcL LAB HEMETOLOGY METHOD 10/22/2024 2:31 PM [facility] Neutrophils Relative 55.5 % LAB HEMETOLOGY METHOD 10/22/2024 2:31 PM [facility] Lymphocytes Relative 33.0 % LAB HEMETOLOGY METHOD 10/22/2024 2:31 PM [facility] Monocytes Relative 8.2 % LAB HEMETOLOGY METHOD 10/22/2024 2:31 PM [facility] Eosinophils Relative 2.4 % LAB HEMETOLOGY METHOD 10/22/2024 2:31 PM [facility] Basophils Relative 0.7 % LAB HEMETOLOGY METHOD 10/22/2024 2:31 PM [facility] Immature Granulocytes Relative 0.2 % LAB HEMETOLOGY METHOD 10/22/2024 2:31 PM [facility] Neutrophils Absolute 3.20 1.50 - 7.00 K/mcL LAB HEMETOLOGY METHOD 10/22/2024 2:31 PM [facility] Lymphocytes Absolute 1.90 1.00 - 5.00 K/mcL LAB HEMETOLOGY METHOD 10/22/2024 2:31 PM [facility] Monocytes Absolute 0.47 0.20 - 1.00 K/mcL LAB HEMETOLOGY METHOD 10/22/2024 2:31 PM EDT [facility] Eosinophils Absolute 0.14 0.00 - 0.50 K/mcL LAB HEMETOLOGY METHOD 10/22/2024 2:31 PM EDT [facility] Basophils Absolute 0.04 0.00 - 0.20 K/[facility] LAB HEMETOLOGY METHOD 10/22/2024 2:31 PM EDT [facility] Immature Granulocytes Absolute 0.01 0.00 - 0.03 K/[facility] LAB HEMETOLOGY METHOD 10/22/2024 2:31 PM EDT [facility] Blood Venous blood specimen / Unknown Venipuncture / Unknown 10/22/2024 11:39 AM EDT 10/22/2024 11:39 AM EDT Daniella OROZCO LAB BLOOD ORDERABLES Final R esult [facility] [address] [place] [address], [place] [phone] * (ABNORMAL) Iron and TIBC (10/22/2024 11:39 AM EDT) Iron 25(L) 50 - 160 mcg/dL LAB CHEMISTRY METHOD 10/22/2024 3:43 PM EDT [facility] TIBC 354 250 - 450 mcg/dL LAB CHEMISTRY METHOD 10/22/2024 3:43 PM EDT [facility] Iron Saturation 7(L) 20 - 50 % LAB CHEMISTRY METHOD 10/22/2024 3:43 PM EDT [facility] Blood Venous blood specimen / Unknown Venipuncture / Unknown 10/22/2024 11:39 AM EDT 10/22/2024 11:39 AM EDT Daniella OROZCO LAB BLOOD ORDERABLES Final R esult [facility] [address] [place] [address], * Copper, serum (10/22/2024 11:39 AM EDT) Copper 1109 665 - 1480 ug/L 10/25/2024 10:18 AM EDT [facility] Comment: Elevated results may be due to sample collected in a non-certified trace element-free tube. This test was developed and the performance characteristics determined by [facility]. It has not been cleared or approved by the FDA. The laboratory is regulated under CLIA as qualified to perform high-complexity testing. This test is used for patient testing purposes. It should not be regarded as investigational or for research. Test performed at [facility], [address] , [place] [address] Cat Rand MD, PhD - Certified Mortician Blood Venous blood specimen / Unknown Venipuncture / Unknown 10/22/2024 11:39 AM EDT 10/22/2024 11:39 AM EDT Daniella OROZCO LAB BLOOD ORDERABLES Final R esult Performing Organization Address City/[facility] Co de Phone Number [facility] [address] [place] [address] * Zinc (10/22/2024 11:39 AM EDT) Zinc 101 60 - 130 ug/dL 10/28/2024 12:12 PM EDT [facility] Comment: Elevated results may be due to sample collected in a non-certified trace element-free tube. This test was developed and the performance characteristics determined by [facility]. It has not been cleared or approved by the FDA. The laboratory is regulated under CLIA as qualified to perform high-complexity testing. This test is used for patient testing purposes. It should not be regarded as investigational or for research. Test performed at [facility], [address] , [place] [address] Cat Rand MD, PhD - Certified Mortician Blood Venous blood specimen / Unknown Venipuncture / Unknown 10/22/2024 11:39 AM EDT 10/22/2024 11:39 AM EDT Daniella OROZCO LAB BLOOD ORDERABLES Final R esult Performing Organization Address City/[facility] Co de Phone Number [facility] [address] [place] [address] * Vitamin A (10/22/2024 11:39 AM EDT) Vitamin A 47 38 - 106 ug/dL 10/30/2024 5:55 AM EDT [facility] Comment: This test was developed and the performance characteristics determined by [facility]. It has not been cleared or approved by the FDA. The laboratory is regulated under CLIA as qualified to perform high-complexity testing. This test is used for patient testing purposes. It should not be regarded as investigational or for research. Test performed at [facility], [address] [place] [address] Cat Rand MD, PhD - Certified Mortician Blood Venous blood specimen / Unknown Venipuncture / Unknown 10/22/2024 11:39 AM EDT 10/22/2024 11:39 AM EDT Daniella OROZCO LAB BLOOD ORDERABLES Final R esult Performing Organization Address [facility] Co de Phone Number [facility] [address] [place] [address] * Selenium serum (10/22/2024 11:39 AM EDT) Selenium 98 63 - 160 mcg/L 10/26/2024 11:30 PM EDT [facility] Comment: This test was developed and its analytical performance characteristics have been determined by [facility] [place], [place]. It has not been cleared or approved by the U.S. Food and Drug Administration. This assay has been validated pursuant to the CLIA regulations and is used for clinical purposes. Test Performed by [employer], [employer], [address] [place], [place] Ariel Broussard M.D., Ph.D., Director of Laboratories , CLIA [id number] Blood Venous blood specimen / Unknown Venipuncture / Unknown 10/22/2024 11:39 AM EDT 10/22/2024 11:39 AM EDT Daniella OROZCO LAB BLOOD ORDERABLES Final R esult [facility] [address] [place] [address] * Vitamin D 25 hydroxy (10/22/2024 11:39 AM EDT) Pathologist [facility] Vit D, 25-Hydroxy 33.1 30.0 - 80.0 ng/mL LAB CHEMISTRY METHOD 10/22/2024 4:47 PM EDT [facility] Blood Venous blood specimen / Unknown Venipuncture / Unknown 10/22/2024 11:39 AM EDT 10/22/2024 11:39 AM EDT Daniella OROZCO LAB BLOOD ORDERABLES Final R esult [facility] [address] [place] [address], [place] [phone] * Vitamin B1 (10/22/2024 11:39 AM EDT) Vitamin B1 Whole Blood 69 38 - 122 ug/L 10/29/2024 10:59 AM EDT [facility] Comment: This test was developed and the performance characteristics determined by [facility]. It has not been cleared or approved by the FDA. The laboratory is regulated under CLIA as qualified to perform high-complexity testing. This test is used for patient testing purposes. It should not be regarded as investigational or for research. Test performed at [facility], [address], [place] [address] Cat Rand MD, PhD - Certified Mortician Blood Venous blood specimen / Unknown Venipuncture / Unknown 10/22/2024 11:39 AM EDT 10/22/2024 11:39 AM EDT Daniella OROZCO LAB BLOOD ORDERABLES Final R esult Performing Organization Address City/[facility]/ZIP Co de Phone Number [facility] [address] [place] [address] * Vitamin B6 (10/22/2024 11:39 AM EDT) Pathologist [facility] Vitamin B6 (Pyridoxine) Level 8 5 - 50 ug/L 10/29/2024 9:42 AM EDT [facility] Comment: This test was developed and the performance characteristics determined by [facility]. It has not been cleared or approved by the FDA. The laboratory is regulated under CLIA as qualified to perform high-complexity testing. This test is used for patient testing purposes. It should not be regarded as investigational or for research. Test performed at [facility], [address] [place] [address] Cat Rand MD, PhD - Certified Mortician Blood Venous blood specimen / Unknown Venipuncture / Unknown 10/22/2024 11:39 AM EDT 10/22/2024 11:39 AM EDT Daniella OROZCO LAB BLOOD ORDERABLES Final R esult Performing Organization Address City/[facility]/ZIP Co de Phone Number [facility] [address] [place] [address] * (ABNORMAL) Folate (10/22/2024 11:39 AM EDT) Pathologist [facility] Folate 17.7(H) 2.8 - 17.0 ng/ml LAB CHEMISTRY METHOD 10/22/2024 3:43 PM EDT [facility] Blood Venous blood specimen / Unknown Venipuncture / Unknown 10/22/2024 11:39 AM EDT 10/22/2024 11:39 AM EDT Daneilla OROZCO LAB BLOOD ORDERABLES Final R esult [facility] [address] [place] [address], [place] [phone] * Vitamin B12 (10/22/2024 11:39 AM EDT) [facility] Vitamin B-12 502 250 - 900 pcg/mL LAB CHEMISTRY METHOD 10/22/2024 3:43 PM EDT [facility] Blood Venous blood specimen / Unknown Venipuncture / Unknown 10/22/2024 11:39 AM EDT 10/22/2024 11:39 AM EDT Daniella OROZCO LAB BLOOD ORDERABLES Final R esult [facility] [address] [place] [address], [place] [phone] * (ABNORMAL) Comprehensive metabolic panel (10/22/2024 11:39 AM EDT) [facility] Sodium 143 133 - 145 mmol/L LAB CHEMISTRY METHOD 10/22/2024 3:43 PM EDT [facility] Potassium 3.9 3.5 - 5.5 mmol/L LAB CHEMISTRY METHOD 10/22/2024 3:43 PM EDT [facility] Chloride 114(H) 96 - 110 mmol/L LAB CHEMISTRY METHOD 10/22/2024 3:43 PM EDT [facility] CO2 24 21 - 32 mmol/L LAB CHEMISTRY METHOD 10/22/2024 3:43 PM EDT [facility] Anion Gap 5 3 - 11 LAB CHEMISTRY METHOD 10/22/2024 3:43 PM EDT [facility] Glucose 67(L) 70 - 100 mg/dL LAB CHEMISTRY METHOD 10/22/2024 3:43 PM [facility] BUN 11 5 - 25 mg/dL LAB CHEMISTRY METHOD 10/22/2024 3:43 PM [facility] Creatinine 1.19 0.70 - 1.30 mg/dL LAB CHEMISTRY METHOD 10/22/2024 3:43 PM [facility] eGFR 73 >=60 mL/min/1. 73m2 LAB CHEMISTRY METHOD 10/22/2024 3:43 PM [facility] Comment:Calculation based on the Chronic Kidney Disease Epidemiology Collaboration (CKD-EPI) equation refit without adjustment for race. BUN/Creatinine Ratio 9.2 LAB CHEMISTRY METHOD 10/22/2024 3:43 PM [facility] Calcium 8.9 8.5 - 10.5 mg/dL LAB CHEMISTRY METHOD 10/22/2024 3:43 PM [facility] AST (SGOT) 16 10 - 42 unit/L LAB CHEMISTRY METHOD 10/22/2024 3:43 PM [facility] ALT (SGPT) 17 10 - 60 unit/L LAB CHEMISTRY METHOD 10/22/2024 3:43 PM [facility] Alkaline Phosphatase 76 42 - 121 unit/L LAB CHEMISTRY METHOD 10/22/2024 3:43 PM [facility] Total Protein 6.5 6.0 - 8.0 g/dL LAB CHEMISTRY METHOD 10/22/2024 3:43 PM [facility] Albumin 3.2 3.2 - 5.0 g/dL LAB CHEMISTRY METHOD 10/22/2024 3:43 PM [facility] Total Bilirubin 0.3 0.0 - 1.4 mg/dL LAB CHEMISTRY METHOD 10/22/2024 3:43 PM [facility] Blood Venous blood specimen / Unknown Venipuncture / Unknown 10/22/2024 11:39 AM EDT 10/22/2024 11:39 AM EDT Daniella OROZCO LAB BLOOD ORDERABLES Final R esult Performing Organization Address [facility]/ZIP Co de Phone Number [facility] [address] [place] [address], [place] [phone] * (ABNORMAL) Hemoglobin and hematocrit (09/30/2024 10:19 AM EDT) Hemoglobin 9.6(L) 13.5 - 17.5 g/dL LAB HEMETOLOGY METHOD 09/30/2024 2:20 PM EDT [facility] Hematocrit 30.9(L) 42.0 - 54.0 % LAB HEMETOLOGY METHOD 09/30/2024 2:20 PM EDT [facility] Blood Venous blood specimen / Unknown Venipuncture / Unknown 09/30/2024 10:19 AM EDT 09/30/2024 10:19 AM EDT Misa OROZCO LAB BLOOD ORDERABLES Final Res ult Performing Organization Address City/[facility]/ZIP Co de Phone Number [facility] [address] [place] [address], [place] [phone] * ECG-Annotated (09/25/2024) Provider Onbase MD ECG ORDERABLES Final Result * (ABNORMAL) Occult blood stool, guaiac (09/24/2024 1:26 PM EDT) Occult Blood, Stool #1 Positive( A) Negative 09/24/2024 2:18 PM EDT [facility] Stool Rectum structure / Unknown Non-blood Collection / Unknown 09/24/2024 1:26 PM EDT 09/24/2024 1:59 PM EDT us Alysa OROZCO LAB BODY FLUIDS AND STOOLS TERRENCE MAYO Final Result [facility] [address] [place] [address], [place] [phone] * (ABNORMAL) Lipid panel with reflex to direct LDL (02/26/2024 2:07 PM EST) Cholesterol 185 0 - 200 mg/dL LAB CHEMISTRY METHOD 02/26/2024 6:32 PM EST [facility] Triglycerides 203(H) 0 - 150 mg/dL LAB CHEMISTRY METHOD 02/26/2024 6:32 PM EST [facility] HDL 37(L) >=40 mg/dL LAB CHEMISTRY METHOD 02/26/2024 6:32 PM [facility] LDL Calculated 107(H) 0 - 100 mg/dL LAB CHEMISTRY METHOD 02/26/2024 6:32 PM EST [facility] VLDL Cholesterol Stephen 40.6 mg/dL LAB CHEMISTRY METHOD 02/26/2024 6:32 PM EST [facility] Non HDL Chol. (LDL+VLDL) [...] MD LAB BLOOD ORDERABLES Final R esult [facility] [address] [place] [address], [place] [phone] * (ABNORMAL) Hemoglobin A1c (02/26/2024 2:07 PM [...] MD LAB BLOOD ORDERABLES Final R esult [facility] [address] [place] [address], [place] [phone] from Last 3 Months or Most Recently Relevant to Health Maintenance Insurance [facility] Advance Directives * Full Code [...] currently active code status orders. Care Teams Intake Clerk Relationship Specialty Start Date End Date Humaira Hood MD [address] [place] [phone] PCP - General Internal Medicine 09/02/24
== END 2024-12-26 13:35 | disposition home or self-care (01) ==
LOC: HO.LAB 13:34
PROVIDERS: PCP Internal Medicine; Visit Provider Internal Medicine Hypertension Specialist
DX: N18.31 Chronic kidney disease, stage 3a (principal)
CPT/HCPCS: 36415; 80048

== ENCOUNTER 2024-12-30 15:20 | Outpatient (AMB) | payer OTHER, SELFPAY ==
--- NOTE | 2024-12-30 15:22 | HO.NEPHOV ---
Vital Signs 12/30/24 15:25 Height 5 ft 4 in Weight 213 lb BMI 36.6 BP 108/62 Blood Pressure Location Lt brachial Position Sitting Pulse 80 Pulse Source Pulse Oximeter Pulse Oximetry (%) 98 Oxygen Delivery Method Room Air Intake Visit Reasons: 6 MO FU- CONF [employer] Certified Internetwork Expert Required: Yes [employer] Certified Internetwork Expert Name: Billy [id number] Accompanied by: Self / Same As Patient Allergies glipizide Allergy (Mild, Verified 12/30/24 15:28) rash tuberculin, purified protein deriva Allergy (Mild, Verified 12/30/24 15:28) Swelling martinez Allergy (Mild, Uncoded 10/16/24 16:01) Hives Medication List - Last Reconciled 12/30/24 by Bao Carreon MD amitriptyline 100 mg PO BEDTIME 90 days ascorbate calcium (vitamin C) 1 g PO Q6H atorvastatin 80 mg PO BEDTIME 90 days cswpseozn-yllzmmhi-zhoircj ala 50-200-25 mg (Biktarvy) 1 tab PO DAILY 30 days bisacodyl 5 mg PO ONCE 1 day blood sugar diagnostic Use 1 test strip twice a day blood sugar diagnostic (Accu-Chek Guide test strips) Use 1 test strip three times a day blood sugar diagnostic (FreeStyle Lite Strips) As directed 3 times per day blood-glucose meter (Accu-Chek Guide Glucose Meter) As directed blood-glucose meter (FreeStyle Lite Meter kit) As directed budesonide 90 mcg/actuation (Pulmicort Flexhaler) 1 inh inhalation BID avioavanya-eywxxgmcewfsl-uyso 50-325-40 mg tabs PO clotrimazole-betamethasone 1-0.05 % 1 appl topical BID 4 weeks dulaglutide (Trulicity) 1.5 mg (0.5 mL) subcut QWEEK 90 days empagliflozin-metformin 12.5-1,000 mg (Synjardy) 2 tabs PO DAILY fenofibrate 54 mg PO DAILY 90 days gabapentin 300 mg PO DAILY glyburide 5 mg PO BID insulin glargine (Lantus Solostar U-100 Insulin) 20 units (0.2 mL) subcut QPM 90 days lancets (FreeStyle Lancets) Use 1 lancet three times a day lancets (Accu-Chek Fastclix Lancet Drum) Use 1 lancet three times a day lisinopril 10 mg PO DAILY meclizine mg PO DAILY meloxicam 15 mg PO DAILY methylcellulose (laxative) (Citrucel) 500 mg PO DAILY nebulizers (AeroEclipse II Nebulizer) As directed omeprazole 20 mg PO .daily pen needle, diabetic (Comfort EZ Pen [place]) Use 1 pen needle twice a day polyethylene glycol 3350 (Miralax) 238 grams PO ONCE tadalafil 20 mg PO ONCE PRN 30 days tadalafil 5 mg PO DAILY 90 days terbinafine HCl 250 mg PO DAILY topiramate 100 mg PO BID HPI Comments Details: 52-year-old man with HIV and diabetes mellitus with chronic kidney disease. Recent A1c is bumped up to 7.8. Creatinine stable around 1.2 mg/dL. he is complaining of Balanitis He was on Jardiance 11/13/2023. Cheng is here for follow-up. After course of clotrimazole there was improvement in the balanitis. He was seen by Urology and circumcision has been scheduled for January of 2024. 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 He underwent bariatric surgery he has lost significant weight. Weight is decreased from 272 lb down to 213 lb. Blood pressure rather low. Overall he is feeling better [facility] Medical History Tension headache, chronic Carpal tunnel syndrome, bilateral upper limbs Carpal tunnel syndrome Cerebral microvascular disease Constipation Erectile dysfunction associated with type 2 diabetes mellitus Mixed hyperlipidemia Mild intermittent asthma Hyperkalemia Morbid obesity Renal calculi Morbid obesity Dyslipidemia CKD (chronic kidney disease) Essential hypertension Diabetes mellitus HIV (human immunodeficiency virus infection) Surgical History History of weight loss surgery Hx of circumcision Family History Father Myocardial infarction Hypertension CVD (cardiovascular disease) Mother Stroke CVD (cardiovascular disease) Mental health disorder Sister Diabetes Maternal Grandmother CVD (cardiovascular disease) Maternal Uncle Pancreatic cancer Social History Housing: Apartment Alcohol intake: former Patient Tobacco Use Status: Never used Tobacco e-Cigarette/Vaping Use: Never Used Second Hand Smoke Exposure: Yes service: No Current occupational status: employed Current occupational exposures/hazards: No Cognitive needs: No Hearing needs: No Vision needs: No Physical Exam Vital Signs: Last Vital Signs Pulse 80 12/30/24 15:25 BP 108/62 12/30/24 15:25 Pulse Ox 98 12/30/24 15:25 Oxygen Delivery Method Room Air 12/30/24 15:25 BMI result Body Mass Index 36.6 Comfortable Neck supple no JVD. Lungs entry equal no rales. Heart S1-S2 heard no gallop or rub. Abdomen soft nontender. Neuro alert awake oriented. No asterixis. Extremities no edema. Results Reviewed Nephrology Results: Sodium, (135-145) 142 mmol/L 12/26/24 Potassium, (3.3-5.1) 4.4 mmol/L 12/26/24 Chloride, (96-108) 109 mmol/L H 12/26/24 Carbon Dioxide, (22-29) 27 mmol/L 12/26/24 BUN, (9-16) 13 mg/dL 12/26/24 Creatinine, (0.5-1.4) 1.22 mg/dL 12/26/24 Calcium, (8.4-10.2) 9.6 mg/dL 12/26/24 Urine Creatinine 146.53 mg/dL 09/30/24 Assessment & Plan Assessment & Plan (1) Balanitis: Code(s): N48.1 - Balanitis Category: Medical Plan: s/p circumcision (2) CKD (chronic kidney disease): Code(s): N18.9 - Chronic kidney disease, unspecified Category: Medical Qualifiers: Chronic kidney disease stage: stage 3 (moderate) Chronic kidney disease stage 3 subtype: stage 3a (GFR 45-59) Qualified Code(s): N18.31 - Chronic kidney disease, stage 3a Plan: Mild bump in Cr with high K Both due to use of NSAIDS avoid nephrotoxic agents including NSAIDs. Cr is back to baseline now after stopping NSAIDS Optimize blood sugar. Continue with GEORGES inhibition for renal protection. Blood pressure is relatively low. I will decrease lisinopril from 20 mg down to 10 mg. Recheck renal panel in the next 4 weeks. As he continues to lose weight we may be able to lower lisinopril even further. Orders: Orders Basic Metabolic Panel 4 Weeks I10 - Essential (primary) hypertension Medications: Refilled clotrimazole-betamethasone 1-0.05 % Apply thin coat 2 times per day 1 appl topical BID 45 grams 0RF 4 weeks N48.1 - Balanitis Coding Level of Care Code Est Pt Level 4 (39393) Diagnoses Balanitis N48.1 Stage 3a chronic kidney disease N18.31 Chronic kidney disease stage: stage 3 (moderate) Chronic kidney disease stage 3 subtype: stage 3a (GFR 45-59)
[2024-12-30 15:25] VITALS: BP 108/62; PULSE 80; O2SAT 98; BMI 36.6
--- OUTSIDE RECORDS SUMMARY | 2024-12-30 18:10 | XMS_ITS | Clinical Summary ---
Author Organization 175 [facility] Address [address] [place] [address] Phone Care Team Providers Care Printing Screen Assembler Name Role Phone Humaira Hood MD Primary Care Provider [phone] Allergies Active Allergy Reactions Criticality Noted Date [...] immediate release tabletIndicatio ns:Morbid obesity (CMS/HCC V24, [facility] V28) Take 1 tablet (5 mg total) [...] unspecified whether serious comorbidity present (CMS/HCC V24, [facility] V28) PLACE 1 TABLET UNDER THE TONGUE [...] in adult, unspecified whether serious comorbidity present ([facility] V24, [facility] V28) PLACE 1 TABLET UNDER THE TONGUE 1 (ONE) TIME EACH DAY. 90 tablet 11/11/19 025 Discontinued Active Problems Problem Noted Date Diagnosed Date S/P bariatric surgery 10/30/2024 Gastrointestinal hemorrhage, unspecified gastrointestinal hemorrhage type 09/21/2024 Morbid obesity ([facility] V24, [facility] V28) 2024 Resolved Problems Problem Noted Date Diagnosed Date Resolved Date Class 3 severe obesity with body mass index (BMI) of 45.0 to 49.9 in adult ([facility] V24, [facility] V28) 01/10/2024 10/03/2024 Encounters Date Type Department Care Team Description 11/13/2024 3:30 PM EDT Nutrition Bariatric Surgery - [address] [phone] S/P bariatric surgery (Primary Dx) 10/30/2024 11:00 AM EDT Telemedicine Bariatric Surgery - [address] [phone] S/P bariatric surgery (Primary Dx) 10/22/2024 11:30 AM EDT Office Visit Bariatric Surgery [address] [phone] Daniella Nguyen PA Morbid obesity ([facility] V24, [facility] V28) (Primary Dx); Bariatric surgery status 09/30/2024 9:45 AM EDT Office Visit Bariatric Surgery [address] [phone] Daniella Nguyen PA Gastrointestinal hemorrhage, unspecified gastrointestinal hemorrhage type (Primary Dx); Bariatric surgery status; Class 3 severe obesity due to excess calories with serious comorbidity and body mass index (BMI) of 40.0 to 44.9 in adult ([facility] V24, [facility] V28) from Last 3 Months Surgical History Surgery Date Site/Laterality Comments CIRCUMCISION, PRIMARY GASTRIC BYPASS Da Jayne gastric bypass Faviola-en-Y Medical History Medical History Date Comments Hypertension Asthma Diabetes mellitus ([facility] V24, [facility] V28) Chronic kidney disease HIV (human immunodeficiency virus infection) ( S[facility] V24, [facility] V28) Hyperlipidemia GERD (gastroesophageal reflux disease) History [...] 2:30 PM EST Nutrition Bariatric Surgery - [place] [address] [phone] Letty Crisostomo, RD [address] [phone] 03/09/2025 2:30 PM EST Nutrition Bariatric Surgery - [place] [address] [phone] Letty Crisostomo, RD [address] [phone] Health Maintenance Due Date Last [...] EDT Gastrointestinal hemorrhage, unspecified gastrointestinal hemorrhage type OCCULT BLOOD STOOL, GUAIAC Routine 09/24/2024 1:26 PM EDT HEMOGLOBIN A1C Routine 02/26/2024 2:07 PM EST Class 3 severe obesity with body mass index (BMI) of 40.0 to 44.9 in adult, unspecified obesity type, unspecified whether serious comorbidity present (CMS/HCC V24, [facility] V28) LIPID PANEL WITH REFLEX TO DIRECT LDL Routine 02/26/2024 2:07 PM EST Class 3 severe obesity with body mass index (BMI) of 40.0 to 44.9 in adult, unspecified obesity type, unspecified whether serious comorbidity present (CMS/HCC V24, [facility] V28) from Last 3 Months or Most Recently Relevant to Health Maintenance Results * (ABNORMAL) CBC auto differential (10/22/2024 11:39 AM EDT) [facility] WBC 5.8 4.8 - 10.8 K/mcL LAB HEMETOLOGY [facility] RBC 3.70(L) 4.50 - 5.50 M/mcL LAB HEMETOLOGY METHOD 10/22[facility]2024 [facility] Hemoglobin 10.9(L) 13.5 - 17.5 g/dL LAB HEMETOLOGY METHOD 10/22/2024 2:31 PM [facility] Hematocrit 35.1(L) 42.0 - 54.0 % LAB HEMETOLOGY METHOD 10/22/2024 2:31 PM [facility] MCV 93.9 79.0 - 98.0 FL LAB HEMETOLOGY METHOD 10/22[facility]2024 2:[facility] MCH 29.1 27.0 - 32.0 pcg LAB HEMETOLOGY METHOD 10/22/2024 2:31 PM [facility] MCHC 31.1(L) 32.0 - 37.0 g/dL LAB HEMETOLOGY METHOD 10/22/2024 2:31 PM [facility] RDW 14.4 11.0 - 15.0 % LAB HEMETOLOGY METHOD 10/22/2024 2:31 PM EDT [facility] Platelets 348 130 - 400 K/mcL LAB HEMETOLOGY METHOD 10/22[facility]2024 2[facility] MPV 9.7 7.0 - 11.0 FL LAB HEMETOLOGY METHOD 10/22/2024 2:[facility] NRBC 0.0 <1.0 % LAB HEMETOLOGY METHOD 10/22/2024 2:31 PM EDT [facility] NRBC Absolute 0.00 <0.10 K/mcL LAB HEMETOLOGY METHOD 10/22/2024 2:31 PM [facility] Neutrophils Relative 55.5 % LAB HEMETOLOGY METHOD 10/22/2024 2:31 PM [facility] Lymphocytes Relative 33.0 % LAB HEMETOLOGY METHOD 10/22/2024 2:31 PM [facility] Monocytes Relative 8.2 % LAB HEMETOLOGY METHOD 10/22/2024 2:31 PM [facility] Eosinophils Relative 2.4 % LAB HEMETOLOGY METHOD 10/22/2024 2:31 PM [facility] Basophils Relative 0.7 % LAB HEMETOLOGY METHOD 10/22/2024 2:31 PM [facility] Immature Granulocytes Relative 0.2 % LAB HEMETOLOGY METHOD 10/22/2024 2:31 PM [facility] Neutrophils Absolute 3.20 1.50 - 7.00 K/mcL LAB HEMETOLOGY METHOD 10/22/2024 2:31 PM [facility] Lymphocytes Absolute 1.90 1.00 - 5.00 K/mcL LAB HEMETOLOGY METHOD 10/22/2024 2:31 PM [facility] Monocytes Absolute 0.47 0.20 - 1.00 K/mcL LAB HEMETOLOGY METHOD 10/22/2024 2:31 PM EDT [facility] Eosinophils Absolute 0.14 0.00 - 0.50 K/mcL LAB HEMETOLOGY METHOD 10/22/2024 2:31 PM EDT [facility] Basophils Absolute 0.04 0.00 - 0.20 K/[facility] LAB HEMETOLOGY METHOD 10/22/2024 2:31 PM EDT [facility] Immature Granulocytes Absolute 0.01 0.00 - 0.03 K/[facility] LAB HEMETOLOGY METHOD 10/22/2024 2:31 PM EDT [facility] Blood Venous blood specimen / Unknown Venipuncture / Unknown 10/22/2024 11:39 AM EDT 10/22/2024 11:39 AM EDT Daniella OROZCO LAB BLOOD ORDERABLES Final R esult [facility] [address] [place] [address], [place] [phone] * (ABNORMAL) Iron and TIBC (10/22/2024 11:39 AM EDT) Iron 25(L) 50 - 160 mcg/dL LAB CHEMISTRY METHOD 10/22/2024 3:43 PM EDT [facility] TIBC 354 250 - 450 mcg/dL LAB CHEMISTRY METHOD 10/22/2024 3:43 PM EDT [facility] Iron Saturation 7(L) 20 - 50 % LAB CHEMISTRY METHOD 10/22/2024 3:43 PM EDT [facility] Blood Venous blood specimen / Unknown Venipuncture / Unknown 10/22/2024 11:39 AM EDT 10/22/2024 11:39 AM EDT Daniella OROZCO LAB BLOOD ORDERABLES Final R esult [facility] ([facility]) [facility] [address] [place] [address], * Copper, serum (10/22/2024 11:39 AM EDT) Copper 1109 665 - 1480 ug/L 10/25/2024 10:18 AM EDT [facility] Comment: Elevated results may be due [...] investigational or for research. Test performed at [facility], [address] [place] [address] Cat Rand MD, PhD - Commercial Loan Manager Blood Venous blood specimen / Unknown Venipuncture / Unknown 10/22/2024 11:39 AM EDT 10/22/2024 11:39 AM EDT Daniella OROZCO LAB BLOOD ORDERABLES Final R esult [facility] [address] [place] [address] * Zinc (10/22/2024 11:39 AM EDT) Zinc 101 60 - 130 ug/dL 10/28/2024 12:12 PM EDT [facility] Comment: Elevated results may be due to sample collected in a non-certified trace element-free tube. This test was developed and the performance characteristics determined by [facility]. It has not been cleared or approved by the FDA. The laboratory is regulated under CLIA as qualified to perform high-complexity testing. This test is used for patient testing purposes. It should not be regarded as investigational or for research. Test performed at [facility], [address] , [place] [address] Cat Rand MD, PhD - Commercial Loan Manager Blood Venous blood specimen / Unknown Venipuncture / Unknown 10/22/2024 11:39 AM EDT 10/22/2024 11:39 AM EDT Daniella OROZCO LAB BLOOD ORDERABLES Final R esult Performing Organization Address [facility] Co de Phone Number [facility] [address] [place] [address] * Vitamin A (10/22/2024 11:39 AM EDT) Vitamin A 47 38 - 106 ug/dL 10/30/2024 5:55 AM EDT [facility] Comment: This test was developed and the performance characteristics determined by [facility]. It has not been cleared or approved by the FDA. The laboratory is regulated under CLIA as qualified to perform high-complexity testing. This test is used for patient testing purposes. It should not be regarded as investigational or for research. Test performed at [facility], [address] [facility], [place] [address] Cat Rand MD, PhD - Commercial Loan Manager Blood Venous blood specimen / Unknown Venipuncture / Unknown 10/22/2024 11:39 AM EDT 10/22/2024 11:39 AM EDT Result [facility] Daniellagideon OROZCO LAB BLOOD ORDERABLES Final R esult Performing Organization Address [facility] Co de Phone Number [facility] [address] [place] [address] * Selenium serum (10/22/2024 11:39 AM EDT) Selenium 98 63 - 160 mcg/L 10/26/2024 11:30 PM EDT [facility] Comment: This test was developed and its analytical performance characteristics have been determined by [facility] [place]. It has not been cleared or approved by the U.S. Food and Drug Administration. This assay has been validated pursuant to the CLIA regulations and is used for clinical purposes. Test Performed by [facility], [facility], [address] [place], [place] Ariel Broussard M.D., Ph.D., Director of Laboratories , CLIA [id number] Blood Venous blood specimen / Unknown Venipuncture / Unknown 10/22/2024 11:39 AM EDT 10/22/2024 11:39 AM EDT Daniella OROZCO LAB BLOOD ORDERABLES Final R esult [facility] [address] [place] [address] * Vitamin D 25 hydroxy (10/22/2024 11:39 AM EDT) Vit D, 25-Hydroxy 33.1 30.0 - 80.0 ng/mL LAB CHEMISTRY METHOD 10/22/2024 4:47 PM EDT [facility] Blood Venous blood specimen / Unknown Venipuncture / Unknown 10/22/2024 11:39 AM EDT 10/22/2024 11:39 AM EDT Daniella OROZCO LAB BLOOD ORDERABLES Final R esult Performing Organization Address City/[facility]/ZIP Co de Phone Number [facility] [address] [place] [address], * Vitamin B1 (10/22/2024 11:39 AM EDT) Vitamin B1 Whole Blood 69 38 - 122 ug/L 10/29/2024 10:59 AM EDT [facility] Comment: This test was developed [...] at [facility], [address] [place] [phone] Cat Rand MD, PhD - Commercial Loan Manager Blood Venous blood specimen / Unknown Venipuncture / Unknown 10/22/2024 11:39 AM EDT 10/22/2024 11:39 AM EDT Daniella OROZCO LAB BLOOD ORDERABLES Final R esult Performing Organization Address City/[facility]/ZIP Co de Phone Number [facility] [address] [place] [address] * Vitamin B6 (10/22/2024 11:39 AM EDT) Pathologist [facility] Vitamin B6 (Pyridoxine) Level 8 5 - 50 ug/L 10/29/2024 9:42 AM EDT [facility] Comment: This test was developed and the performance characteristics determined by [facility]. It has not been cleared or approved by the FDA. The laboratory is regulated under CLIA as qualified to perform high-complexity testing. This test is used for patient testing purposes. It should not be regarded as investigational or for research. Test performed at [facility], [address] [place] [address] Cat Rand MD, PhD - Commercial Loan Manager Blood Venous blood specimen / Unknown Venipuncture / Unknown 10/22/2024 11:39 AM EDT 10/22/2024 11:39 AM EDT Daniella OROZCO LAB BLOOD ORDERABLES Final R esult [facility] [address] [place] [address] * (ABNORMAL) Folate (10/22/2024 11:39 AM EDT) Pathologist [facility] Folate 17.7(H) 2.8 - 17.0 ng/ml LAB CHEMISTRY METHOD 10/22/2024 3:43 PM EDT [facility] Blood Venous blood specimen / Unknown Venipuncture / Unknown 10/22/2024 11:39 AM EDT 10/22/2024 11:39 AM EDT Daniella OROZCO LAB BLOOD ORDERABLES Final R esult Performing Organization Address City/[facility]/ZIP Co de Phone Number [facility] [address] [place] [address], [place] [phone] * Vitamin B12 (10/22/2024 11:39 AM EDT) [facility] Vitamin B-12 502 250 - 900 pcg/mL LAB CHEMISTRY METHOD 10/22/2024 3:43 PM EDT [facility] Blood Venous blood specimen / Unknown Venipuncture / Unknown 10/22/2024 11:39 AM EDT 10/22/2024 11:39 AM EDT Daniella OROZCO LAB BLOOD ORDERABLES Final R esult [facility] [address] [place] [address], [place] [phone] * (ABNORMAL) Comprehensive metabolic panel (10/22/2024 11:39 AM EDT) [facility] Sodium 143 133 - 145 mmol/L LAB CHEMISTRY METHOD 10/22/2024 3:43 PM EDT [facility] Potassium 3.9 3.5 - 5.5 mmol/L LAB CHEMISTRY METHOD 10/22/2024 3:43 PM EDT [facility] Chloride 114(H) 96 - 110 mmol/L LAB CHEMISTRY METHOD 10/22/2024 3:43 PM EDT [facility] CO2 24 21 - 32 mmol/L LAB CHEMISTRY METHOD 10/22/2024 3:43 PM EDT [facility] Anion Gap 5 3 - 11 LAB CHEMISTRY METHOD 10/22/2024 3:43 PM EDT [facility] Glucose 67(L) 70 - 100 mg/dL LAB CHEMISTRY METHOD 10/22/2024 3:43 PM [facility] BUN 11 5 - 25 mg/dL LAB CHEMISTRY METHOD 10/22/2024 3:43 PM [facility] Creatinine 1.19 0.70 - 1.30 mg/dL LAB CHEMISTRY METHOD 10/22/2024 3:43 PM [facility] eGFR 73 >=60 mL/min/1. 73m2 LAB CHEMISTRY METHOD 10/22/2024 3:43 PM [facility] Comment:Calculation based on the Chronic Kidney Disease Epidemiology Collaboration (CKD-EPI) equation refit without adjustment for race. BUN/Creatinine Ratio 9.2 LAB CHEMISTRY METHOD 10/22/2024 3:43 PM [facility] Calcium 8.9 8.5 - 10.5 mg/dL LAB CHEMISTRY METHOD 10/22/2024 3:43 PM [facility] AST (SGOT) 16 10 - 42 unit/L LAB CHEMISTRY METHOD 10/22/2024 3:43 PM [facility] ALT (SGPT) 17 10 - 60 unit/L LAB CHEMISTRY METHOD 10/22/2024 3:43 PM [facility] Alkaline Phosphatase 76 42 - 121 unit/L LAB CHEMISTRY METHOD 10/22/2024 3:43 PM [facility] Total Protein 6.5 6.0 - 8.0 g/dL LAB CHEMISTRY METHOD 10/22/2024 3:43 PM [facility] Albumin 3.2 3.2 - 5.0 g/dL LAB CHEMISTRY METHOD 10/22/2024 3:43 PM [facility] Total Bilirubin 0.3 0.0 - 1.4 mg/dL LAB CHEMISTRY METHOD 10/22/2024 3:43 PM [facility] Blood Venous blood specimen / Unknown Venipuncture / Unknown 10/22/2024 11:39 AM EDT 10/22/2024 11:39 AM EDT Daniella OROZCO LAB BLOOD ORDERABLES Final R esult Performing Organization Address [facility]/ZIP Co de Phone Number [facility] [address] [place] [address], [place] [phone] * (ABNORMAL) Hemoglobin and hematocrit (09/30/2024 10:19 AM EDT) Pathologist [facility] Hemoglobin 9.6(L) 13.5 - 17.5 g/dL LAB HEMETOLOGY METHOD 09/30/2024 2:20 PM EDT [facility] Hematocrit 30.9(L) 42.0 - 54.0 % LAB HEMETOLOGY METHOD 09/30/2024 2:20 PM EDT [facility] Blood Venous blood specimen / Unknown Venipuncture / Unknown 09/30/2024 10:19 AM EDT 09/30/2024 10:19 AM EDT Misa OROZCO LAB BLOOD ORDERABLES Final Res ult Performing Organization Address [facility] Co de Phone Number [facility] [address] [place] [address], [place] [phone] * (ABNORMAL) Occult blood stool, guaiac (09/24/2024 1:26 PM EDT) Pathologist [facility] Occult Blood, Stool #1 Positive( A) Negative 09/24/2024 2:18 PM EDT [facility] Stool Rectum structure / Unknown Non-blood Collection / Unknown 09/24/2024 1:26 PM EDT 09/24/2024 1:59 PM EDT Alysa OROZCO LAB BODY FLUIDS AND STOOLS ORDE RABLES Final Result Performing Organization Address City/[facility]/ZIP Co de Phone Number [facility] [address] [place] [address], [place] [phone] * (ABNORMAL) Lipid panel with reflex to direct LDL (02/26/2024 2:07 PM EST) Cholesterol 185 0 - 200 mg/dL LAB CHEMISTRY METHOD 02/26/2024 6:32 PM EST [facility] Triglycerides 203(H) 0 - 150 mg/dL LAB CHEMISTRY METHOD 02/26/2024 6:32 PM [facility] HDL 37(L) >=40 mg/dL LAB CHEMISTRY METHOD 02/26/2024 6:32 PM [facility] LDL Calculated 107(H) 0 - 100 mg/dL LAB CHEMISTRY METHOD 02/26/2024 6:32 PM [facility] VLDL Cholesterol Stephen 40.6 mg/dL LAB CHEMISTRY METHOD 02/26/2024 6:32 PM [facility] Non HDL Chol. (LDL+VLDL) 148(H) <145 mg/dL LAB CHEMISTRY METHOD 02/26/2024 6:32 PM [facility] Chol/HDL Ratio 5.0(H) 0.0 - 4.4 LAB CHEMISTRY METHOD 02/26/2024 6:32 PM [facility] Blood Venous blood specimen / Unknown Venipuncture / Unknown 02/26/2024 2:07 PM EST 02/26/2024 2:07 PM EST us Nereyda Pierre MD LAB BLOOD ORDERABLES Final R esult [facility] [address] [place] [address], [place] [phone] * (ABNORMAL) Hemoglobin A1c (02/26/2024 2:07 PM [...] Final R esult [facility] [address] [place] [address], [place] [phone] from Last 3 Months or Most Recently Relevant to Health Maintenance Insurance [facility] [facility] Advance Directives * Full Code [...] currently active code status orders. Care Teams Printing Screen Assembler Relationship Specialty Start Date End Date Humaira Hood MD [address] [place] [address] PCP - General Internal Medicine 09/02/24
--- OUTSIDE RECORDS SUMMARY | 2024-12-30 18:10 | XMS_ITS | Encounter Summary ---
Author Organization [facility] Address [address] [place] [address] Phone Care Team Providers Care Linseed Oil Press Tender Name Role Phone Humaira Thurston MD Primary Care Provider Reason for Visit * Reason Comments Med Refill Encounter Details Date Type Department Care Team (Late st Contact Info) Description 07/03/2023 Refill [facility] [address] [place] [phone] David Perez MD [address] [place] [address], [facility] [address] [place] [address] Social History Tobacco Use Types Packs/Day Years [...] on filedocumented in this encounter Care Teams Linseed Oil Press Tender Relationship Specialty Start Date End Date Humaira Thurston MD [address] [place] [address] PCP - General Internal Medicine 12/27/22 documented as of this encounter
--- OUTSIDE RECORDS SUMMARY | 2024-12-30 18:10 | XMS_ITS | Clinical Summary ---
Author Organization [facility] Address [address] [place] [address] Care Team Providers Care National Sales Trainer Name Role Phone Humaira Thurston MD Primary Care Provider [phone] Allergies Active Allergy Reactions Criticality Noted Date [...] 6:08 AM EDT Performed at: 01 - [facility] [id number] Gerontology Aide: Cheryl Goodman MD, Phone: [phone] us David Perez MD LAB BLOOD ORDERABLES Final Re sult [facility] See order comments [place] [address] from Last 3 Months or Most Recently Relevant to Health Maintenance Insurance [facility] Medicaid [facility] Medicaid Care Teams National Sales Trainer Relationship Specialty Start Date End Date Humaira Thurston MD [address] [place] [id number] PCP - General Internal Medicine 12/27/22
== END 2024-12-30 15:49 | disposition home or self-care (01) ==
LOC: HO.HKA 15:21
PROVIDERS: PCP Internal Medicine; Visit Provider Internal Medicine Hypertension Specialist
DX: N48.1 Balanitis (principal); N18.31 Chronic kidney disease, stage 3a
CPT/HCPCS: 99214

== ENCOUNTER → 2024-12-30 15:20 | Outpatient (BNVA) | payer OTHER, SELFPAY | PROVIDERS: PCP Internal Medicine; Visit Provider Internal Medicine Hypertension Specialist | DX: N48.1 Balanitis (principal); N18.31 Chronic kidney disease, stage 3a | CPT/HCPCS: 99212 ==

== ENCOUNTER 2025-01-02 14:11 | Outpatient (AMB) | payer OTHER, SELFPAY ==
--- NOTE | 2025-01-02 14:12 | MHC.OFFVIS ---
Intake Visit Reasons: 6m follow up(Balanitis) Intake Note: Patient is Present for Follow Up Balanitis Urology Medication: Tadalafil Antibiotic Allergies:None Blood Thinners: None PVR: English Composition Instructor Required: No Accompanied by: Self / Same As Patient Allergies glipizide Allergy (Mild, Verified 01/02/25 14:13) rash tuberculin, purified protein deriva Allergy (Mild, Verified 01/02/25 14:13) Swelling martinez Allergy (Mild, Uncoded 01/02/25 14:13) Hives HPI Comments Details: Cheng is a pleasant Citizen Of [place]-speaking male. He is a patient of Dr. Hood. He seen for the following urologic issues - lower tract symptoms - erectile dysfunction - balanitis Underwent bypass surgery Has lost 120 lb No issues with balanitis Restart daily tadalafil for bladder stability Balanitis Circumcision performed Topical therapy completed Lower urinary tract symptoms Episode of pyelonephritis with admission to [facility] October 2021 Had changed in the counter for diabetic management Feels he had a 2nd UTI in the meantime Prior prostate medication Prior medications included low-dose tadalafil with doxazosin Erectile dysfunction HIV associated with type 2 diabetes Background HIV, morbid obesity, type 2 diabetes Progressive erectile dysfunction Prior therapy intermittent Plan for daily tadalafil with on demand 20 mg PFSH Medical History Tension headache, chronic Carpal tunnel syndrome, bilateral upper limbs Carpal tunnel syndrome Cerebral microvascular disease Constipation Erectile dysfunction associated with type 2 diabetes mellitus Mixed hyperlipidemia Mild intermittent asthma Hyperkalemia Morbid obesity Renal calculi Morbid obesity Dyslipidemia CKD (chronic kidney disease) Essential hypertension Diabetes mellitus HIV (human immunodeficiency virus infection) Surgical History History of weight loss surgery Hx of circumcision Family History Father Myocardial infarction Hypertension CVD (cardiovascular disease) Mother Stroke CVD (cardiovascular disease) Mental health disorder Sister Diabetes Maternal Grandmother CVD (cardiovascular disease) Maternal Uncle Pancreatic cancer Social History Housing: Apartment Alcohol intake: former Patient Tobacco Use Status: Never used Tobacco e-Cigarette/Vaping Use: Never Used Second Hand Smoke Exposure: Yes service: No Current occupational status: employed Current occupational exposures/hazards: No Cognitive needs: No Hearing needs: No Vision needs: No Review of Systems Const Denies chills and Denies fever(s) Card Reports no additional complaints and Denies syncope Resp Denies cough GI Denies abdominal pain and Denies heartburn Reports as per HPI and Denies change in libido Neuro Denies syncope Psych Denies change in libido Endo Denies change in libido Physical Exam Const General: cooperative, healthy appearing, comfortable and no acute distress Orientation/consciousness: patient oriented x3 HEENT Face and sinus: Yes normal facial exam Mouth: moist mucous membranes Neck Neck: Yes normal visual inspection, Yes full ROM and Yes trachea midline Chest Chest palpation & inspection: normal inspection of the chest Resp Effort & Inspection: normal respiratory effort, able to speak in complete sentences and no respiratory distress GI Inspection: Yes normal to inspection Back/Spine/Pelvis Cervical Spine: normal cervical lordosis Thoracic/Lumbar Spine: thoracic and lumbar spine normal to inspection Skin General skin exam: no rashes or lesions noted Neuro General: patient oriented x3, gait normal, tone normal and moves all extremities Extrem General: Yes normal to inspection and Yes capillary refill normal Assessment & Plan Assessment & Plan (1) BPH loc w urin obs/LUTS: Code(s): N40.1 - Benign prostatic hyperplasia with lower urinary tract symptoms Category: Medical (2) Erectile dysfunction associated with type 2 diabetes mellitus: Code(s): E11.69 - Type 2 diabetes mellitus with other specified complication; N52.1 - Erectile dysfunction due to diseases classified elsewhere Category: Medical Plan Twelve month follow-up Medications: Refilled tadalafil 5 mg PO DAILY 90 tabs 3RF sexual activity 90 days E11.69 - Type 2 diabetes mellitus with other specified complication, N52.1 - Erectile dysfunction due to diseases classified elsewhere Patient Instructions: This note is constructed using voice recognition software. While every effort has been made to ensure accuracy interlocking machine operator errors may have been included. Imaging studies, laboratory and physical exam results were discussed and reviewed in detail. No major barriers to patient understanding were identified. An opportunity to ask questions regarding the treatment plan was provided. All questions were answered. The patient expressed understanding and agreement with the above treatment plan. The patient is aware they should contact our office by phone for worsening of their current condition or the appearance of new urologic symptoms. Compliance is encouraged with any medications and followup testing that is ordered. It is a privilege to participate in the urologic care of your patient. If you have any questions or concerns regarding treatment for the above conditions, or other urologic issues, please do not hesitate to contact me. The office telephone contact is [phone]. Sincerely, Dr Donny Irvin MD, [facility] - Urology Compassionate Specialist Care for the Genitourinary System Coding Level of Care Code Est Pt Level 3 (19993) Complex EM visit Add On G2211 Diagnoses BPH loc w urin obs/LUTS N40.1 Erectile dysfunction associated with type 2 diabetes mellitus E11.69; N52.1
--- OUTSIDE RECORDS SUMMARY | 2025-01-02 15:58 | XMS_ITS | Clinical Summary ---
Author Organization [facility] Facility Address [address] [place] [id number] Care Team Providers Care Motorcycle Subassembly Repairer Name Role Phone Humaira Thurston MD Primary Care Provider [phone] Allergies Active Allergy Reactions Criticality Noted Date [...] 6:08 AM EDT Performed at: 01 - [facility] [id number] Naturopathic Oncology Provider: Cheryl Goodman MD, Phone: [phone] us David Perez MD LAB BLOOD ORDERABLES Final Re sult [facility] See order comments [place] [address] from Last 3 Months or Most Recently Relevant to Health Maintenance Insurance [facility] Medicaid [facility] Medicaid Care Teams Motorcycle Subassembly Repairer Relationship Specialty Start Date End Date Humaira Thurston MD [address] [place] [id number] PCP - General Internal Medicine 12/27/22
--- OUTSIDE RECORDS SUMMARY | 2025-01-02 15:58 | XMS_ITS | Clinical Summary ---
Author Organization [address] [facility] Address [address] [place] [address] Phone Care Team Providers Care Franchise Consultant Name Role Phone Humaira Hood MD Primary Care Provider [phone] Allergies Active Allergy Reactions Criticality Noted Date [...] immediate release tabletIndicatio ns:Morbid obesity (CMS/HCC V24, CMS/[facility] V28) Take 1 tablet (5 mg [...] serious comorbidity present (CMS/HCC V24, CMS/[facility] V28) PLACE 1 TABLET UNDER THE [...] in adult, unspecified whether serious comorbidity present ([facility] V24, [facility] V28) PLACE 1 TABLET UNDER THE TONGUE 1 (ONE) TIME EACH DAY. 90 tablet 11/11/19 025 Discontinued Active Problems Problem Noted Date Diagnosed Date S/P bariatric surgery 10/30/2024 Gastrointestinal hemorrhage, unspecified gastrointestinal hemorrhage type 09/21/2024 Morbid obesity ([facility] V24, [facility] V28) 2024 Resolved Problems Problem Noted Date Diagnosed Date Resolved Date Class 3 severe obesity with body mass index (BMI) of 45.0 to 49.9 in adult ([facility] V24, [facility] V28) 01/10/2024 10/03/2024 Encounters Date Type Department Care Team Description 11/13/2024 3:30 PM EDT Nutrition Bariatric Surgery - [address] [address] S/P bariatric surgery (Primary Dx) 10/30/2024 11:00 AM EDT Telemedicine Bariatric Surgery - [address] [address] S/P bariatric surgery (Primary Dx) 10/22/2024 11:30 AM EDT Office Visit Bariatric Surgery [address] [address] Daniella Nguyen PA Morbid obesity ([facility] V24, [facility] V28) (Primary Dx); Bariatric surgery status from Last 3 Months Surgical History Surgery Date Site/Laterality Comments CIRCUMCISION, PRIMARY GASTRIC BYPASS Da Jayne gastric bypass Faviola-en-Y Medical History Medical History Date Comments Hypertension Asthma Diabetes mellitus ([facility] V24, [facility] V28) Chronic kidney disease HIV (human immunodeficiency virus infection) ( S/[facility] V24, [facility] V28) Hyperlipidemia GERD (gastroesophageal reflux disease) [...] 2:30 PM EST Nutrition Bariatric Surgery - [address] [place] [phone] Letty Crisostomo, RD [address] [facility] [address] [place] [address] 03/09/2025 2:30 PM EST Nutrition Bariatric Surgery - [place] [address] [facility] [address] [place] [address] Letty Crisostomo, RD 175 [facility] [address] [place] [address] Health Maintenance Due Date Last Done [...] 11:39 AM EDT Morbid obesity (CMS/HCC V24, CMS/[facility] V28) Bariatric surgery status CBC AND DIFFERENTIAL [...] (CMS/HCC V24, CMS/HCC V28) Bariatric surgery status OCCULT BLOOD STOOL, GUAIAC Routine 09/24/2024 1:26 [...] CBC auto differential (10/22/2024 11:39 AM EDT) [facility] WBC 5.8 4.8 - 10.8 K/mcL LAB HEMETOLOGY METHOD 10/22/2024 2:31 PM [facility] RBC 3.70(L) 4.50 - 5.50 M/mcL LAB HEMETOLOGY METHOD [facility] Hemoglobin 10.9(L) 13.5 - 17.5 g/dL LAB HEMETOLOGY METHOD 10/22/2024 2:31 PM [facility] Hematocrit 35.1(L) 42.0 - 54.0 % LAB HEMETOLOGY METHOD 10/22/2024 2:31 PM [facility] MCV 93.9 79.0 - 98.0 FL LAB HEMETOLOGY METHOD 10/22/2024 2:31 PM [facility] MCH 29.1 27.0 - 32.0 pcg LAB HEMETOLOGY METHOD 10/22/2024 2:31 PM [facility] MCHC 31.1(L) 32.0 - 37.0 g/dL LAB HEMETOLOGY METHOD 10/22/2024 2:31 PM [facility] RDW 14.4 11.0 - 15.0 % LAB HEMETOLOGY METHOD 10/22/2024 2:31 PM [facility] Platelets 348 130 - 400 K/mcL LAB HEMETOLOGY METHOD 10/22/2024 2:31 PM [facility] MPV 9.7 7.0 - 11.0 FL LAB HEMETOLOGY METHOD 10/22/2024 2:31 PM [facility] NRBC 0.0 <1.0 % LAB HEMETOLOGY METHOD [facility]/22[facility]24 2:[facility] NRBC Absolute 0.00 <0.10 K/mcL LAB HEMETOLOGY METHOD 10/22/2024 2:31 PM EDT [facility] Neutrophils Relative 55.5 % LAB HEMETOLOGY METHOD 10/22/2024 2:31 PM [facility] Lymphocytes Relative 33.0 % LAB HEMETOLOGY METHOD 10/22/2024 2:[facility] Monocytes Relative 8.2 % LAB HEMETOLOGY METHOD 10/22/2024 2:31 PM [facility] Eosinophils Relative 2.4 % LAB HEMETOLOGY METHOD 10/22/2024 2:31 PM [facility] Basophils Relative 0.7 % LAB HEMETOLOGY METHOD 10/22/2024 2:31 PM [facility] Immature Granulocytes Relative 0.2 % LAB HEMETOLOGY METHOD 10/22/2024 2:31 PM [facility] Neutrophils Absolute 3.20 1.50 - 7.00 K/mcL LAB HEMETOLOGY METHOD 10/22/2024 2:31 PM [facility] Lymphocytes Absolute 1.90 1.00 - 5.00 K/mcL LAB HEMETOLOGY METHOD 10/22/2024 2:31 PM [facility] Monocytes Absolute 0.47 0.20 - 1.00 K/mcL LAB HEMETOLOGY METHOD 10/22/2024 2:31 PM [facility] Eosinophils Absolute 0.14 0.00 - 0.50 K/mcL LAB HEMETOLOGY METHOD 10/22/2024 2:31 PM [facility] Basophils Absolute 0.04 0.00 - 0.20 K/mcL LAB HEMETOLOGY METHOD 10/22/2024 2:31 PM [facility] Immature Granulocytes Absolute 0.01 0.00 - 0.03 K/mcL LAB HEMETOLOGY METHOD 10/22/2024 2:31 PM EDT [facility] Blood Venous blood specimen / Unknown Venipuncture / Unknown 10/22/2024 11:39 AM EDT 10/22/2024 11:39 AM EDT Daniella OROZCO LAB BLOOD ORDERABLES Final R esult Performing Organization Address [facility] de Phone Number [facility] [address] [place] [address], [place] [phone] * (ABNORMAL) Iron and TIBC (10/22/2024 11:39 AM EDT) Iron 25(L) 50 - 160 mcg/dL LAB CHEMISTRY METHOD 10/22/2024 3:43 PM EDT [facility] TIBC 354 250 - 450 mcg/dL LAB CHEMISTRY METHOD 10/22/2024 3:43 PM EDT [facility] Iron Saturation 7(L) 20 - 50 % LAB CHEMISTRY METHOD 10/22/2024 3:43 PM EDT [facility] Blood Venous blood specimen / Unknown Venipuncture / Unknown 10/22/2024 11:39 AM EDT 10/22/2024 11:39 AM EDT Daniella OROZCO LAB BLOOD ORDERABLES Final R esult Performing Organization Address [facility] de Phone Number [facility] [address] [place] [address], [place] [phone] * Copper, serum (10/22/2024 11:39 AM EDT) Copper 1109 665 - 1480 ug/L 10/25/2024 10:18 AM EDT [facility] Comment: Elevated results may be due to sample collected in a non-certified trace element-free tube. This test was developed and the performance characteristics determined by [facility]. It has not been cleared or approved by the FDA. The laboratory is regulated under CLIA as qualified to perform high-complexity testing. This test is used for patient testing purposes. It should not be regarded as investigational or for research. Test performed at [facility], [address] [place] [address] Cat Rand MD, PhD - [facility] Blood Venous blood specimen / Unknown Venipuncture / Unknown 10/22/2024 11:39 AM EDT 10/22/2024 11:39 AM EDT Daniella OROZCO LAB BLOOD ORDERABLES Final R esult Performing Organization Address City/[facility]/ZIP Co de Phone Number [facility] [address] [place] [address] * Zinc (10/22/2024 11:39 AM EDT) Zinc 101 60 - 130 ug/dL 10/28/2024 12:12 PM EDT [facility] Comment: Elevated results may be due to sample collected in a non-certified trace element-free tube. This test was developed and the performance characteristics determined by [facility]. It has not been cleared or approved by the FDA. The laboratory is regulated under CLIA as qualified to perform high-complexity testing. This test is used for patient testing purposes. It should not be regarded as investigational or for research. Test performed at [facility], [address] [place] [address] Cat Rand MD, PhD - [employer] Blood Venous blood specimen / Unknown Venipuncture / Unknown 10/22/2024 11:39 AM EDT 10/22/2024 11:39 AM EDT Daniella OROZCO LAB BLOOD ORDERABLES Final R esult Performing Organization Address [facility]/ZIP Co de Phone Number [facility] [address] [place] [address] * Vitamin A (10/22/2024 11:39 AM EDT) Vitamin A 47 38 - 106 ug/dL 10/30/2024 5:55 AM EDT [facility] Comment: This test was developed and the performance characteristics determined by [facility]. It has not been cleared or approved by the FDA. The laboratory is regulated under CLIA as qualified to perform high-complexity testing. This test is used for patient testing purposes. It should not be regarded as investigational or for research. Test performed at [facility], [address] , [place] [address] Cat Rand MD, PhD - [employer] Blood Venous blood specimen / Unknown Venipuncture / Unknown 10/22/2024 11:39 AM EDT 10/22/2024 11:39 AM EDT Daniella OROZCO LAB BLOOD ORDERABLES Final R esult Performing Organization Address [facility]/ZIP Co de Phone Number [facility] [address] [place] [address] * Selenium serum (10/22/2024 11:39 AM EDT) Selenium 98 63 - 160 mcg/L 10/26/2024 11:30 PM EDT [facility] Comment: This test was developed and its analytical performance characteristics have been determined by [facility] [place]. It has not been cleared or approved by the U.S. Food and Drug Administration. This assay has been validated pursuant to the CLIA regulations and is used for clinical purposes. Test Performed by [employer], [facility], [address] [place] [address] Ariel Broussard M.D., Ph.D., Director of Laboratories , CLIA [id number] Blood Venous blood specimen / Unknown Venipuncture / Unknown 10/22/2024 11:39 AM EDT 10/22/2024 11:39 AM EDT Daniella OROZCO LAB BLOOD ORDERABLES Final R esult [facility] [address] [place] [address] * Vitamin D 25 hydroxy (10/22/2024 11:39 AM EDT) [facility] Vit D, 25-Hydroxy 33.1 30.0 - 80.0 ng/mL LAB CHEMISTRY METHOD 10/22/2024 4:47 PM EDT [facility] Blood Venous blood specimen / Unknown Venipuncture / Unknown 10/22/2024 11:39 AM EDT 10/22/2024 11:39 AM EDT Daniella OROZCO LAB BLOOD ORDERABLES Final R esult Performing Organization Address City[facility]/ZIP Co de Phone Number [facility] [address] [place] [address], [place] [phone] * Vitamin B1 (10/22/2024 11:39 AM EDT) [facility] Vitamin B1 Whole Blood 69 38 - 122 ug/L 10/29/2024 10:59 AM EDT [facility] Comment: This test was developed and the performance characteristics determined by [facility]. It has not been cleared or approved by the FDA. The laboratory is regulated under CLIA as qualified to perform high-complexity testing. This test is used for patient testing purposes. It should not be regarded as investigational or for research. Test performed at [facility], [address] , [place] [address] Cat Rand MD, PhD - [employer] Blood Venous blood specimen / Unknown Venipuncture / Unknown 10/22/2024 11:39 AM EDT 10/22/2024 11:39 AM EDT Daniella OROZCO LAB BLOOD ORDERABLES Final R esult [facility] [address] [place] [address] * Vitamin B6 (10/22/2024 11:39 AM EDT) [facility] Vitamin B6 (Pyridoxine) Level 8 5 - 50 ug/L 10/29/2024 9:42 AM EDT [facility] Comment: This test was developed and the performance characteristics determined by [facility]. It has not been cleared or approved by the FDA. The laboratory is regulated under CLIA as qualified to perform high-complexity testing. This test is used for patient testing purposes. It should not be regarded as investigational or for research. Test performed at [facility], [address] , [place] [address] Cat Rand MD, PhD - [employer] Blood Venous blood specimen / Unknown Venipuncture / Unknown 10/22/2024 11:39 AM EDT 10/22/2024 11:39 AM EDT Daniella OROZCO LAB BLOOD ORDERABLES Final R esult Performing Organization Address City[facility]/ZIP Co de Phone Number [facility] [address] [place] [address] * (ABNORMAL) Folate (10/22/2024 11:39 AM EDT) [facility] Folate 17.7(H) 2.8 - 17.0 ng/ml LAB CHEMISTRY METHOD 10/22/2024 3:43 PM EDT [facility] Blood Venous blood specimen / Unknown Venipuncture / Unknown 10/22/2024 11:39 AM EDT 10/22/2024 11:39 AM EDT Daniella OROZCO LAB BLOOD ORDERABLES Final R esult [facility] [address] [place] [address], * Vitamin B12 (10/22/2024 11:39 AM EDT) [facility] Vitamin B-12 502 250 - 900 pcg/mL LAB CHEMISTRY METHOD 10/22/2024 3:43 PM [facility] Blood Venous blood specimen / Unknown Venipuncture / Unknown 10/22/2024 11:39 AM EDT 10/22/2024 11:39 AM EDT us Daniella OROZCO LAB BLOOD ORDERABLES Final R esult [facility] [address] [place] [address], [place] [phone] * (ABNORMAL) Comprehensive metabolic panel (10/22/2024 11:39 AM EDT) Sodium 143 133 - 145 mmol/L LAB CHEMISTRY METHOD 10/22/2024 3:43 PM [facility] Potassium 3.9 3.5 - 5.5 mmol/L LAB CHEMISTRY METHOD 10/22/2024 3:43 PM [facility] Chloride 114(H) 96 - 110 mmol/L LAB CHEMISTRY METHOD 10/22/2024 3:43 PM [facility] CO2 24 21 - 32 mmol/L LAB CHEMISTRY METHOD 10/22/2024 3:43 PM [facility] Anion Gap 5 3 - 11 LAB CHEMISTRY METHOD 10/22/2024 3:43 PM [facility] Glucose 67(L) 70 - 100 mg/dL LAB CHEMISTRY METHOD 10/22/2024 3:43 PM [facility] BUN 11 5 - 25 mg/dL LAB CHEMISTRY METHOD 10/22/2024 3:43 PM [facility] Creatinine 1.19 0.70 - 1.30 mg/dL LAB CHEMISTRY METHOD 10/22/2024 3:43 PM [facility] eGFR 73 >=60 mL/min/1. 73m2 LAB CHEMISTRY METHOD 10/22/2024 3:43 PM [facility] Comment:Calculation based on the Chronic Kidney Disease Epidemiology Collaboration (CKD-EPI) equation refit without adjustment for race. BUN/Creatinine Ratio 9.2 LAB CHEMISTRY METHOD 10/22/2024 3:43 PM EDT [facility] Calcium 8.9 8.5 - 10.5 mg/dL LAB CHEMISTRY METHOD 10/22/2024 3:43 PM [facility] AST (SGOT) 16 10 - 42 unit/L LAB CHEMISTRY METHOD 10/22/2024 3:43 PM T [facility] ALT (SGPT) 17 10 - 60 unit/L LAB CHEMISTRY METHOD 10/22/2024 3:43 [facility] Alkaline Phosphatase 76 42 - 121 unit/L LAB CHEMISTRY METHOD 10/22/2024 3:43 PM [facility] Total Protein 6.5 6.0 - 8.0 g/dL LAB CHEMISTRY METHOD 10/22/2024 3:43 [facility] Albumin 3.2 3.2 - 5.0 g/dL LAB CHEMISTRY METHOD 10/22/2024 3:43 PM [facility] Total Bilirubin 0.3 0.0 - 1.4 mg/dL LAB CHEMISTRY METHOD 10/22/2024 3:43 PM T [facility] Blood Venous blood specimen / Unknown Venipuncture / Unknown 10/22/2024 11:39 AM EDT 10/22/2024 11:39 AM EDT us Daniella OROZCO LAB BLOOD ORDERABLES Final R esult [facility] [address] [place] [address], * (ABNORMAL) Occult blood stool, guaiac (09/24/2024 1:26 PM EDT) Occult Blood, Stool #1 Positive( A) Negative 09/24/2024 2:18 PM EDT [facility] Stool Rectum structure / Unknown Non-blood Collection / Unknown 09/24/2024 1:26 PM EDT 09/24/2024 1:59 PM EDT us Alysa OROZCO LAB BODY FLUIDS AND STOOLS TERRENCE MAYO Final Result [facility] [address] [place] [address], [place] [phone] * (ABNORMAL) Lipid panel with reflex to direct LDL (02/26/2024 2:07 PM EST) Cholesterol 185 0 - 200 mg/dL LAB CHEMISTRY METHOD 02/26/2024 6:32 PM EST [facility] Triglycerides 203(H) 0 - 150 mg/dL LAB CHEMISTRY METHOD 02/26/2024 6:32 PM EST [facility] HDL 37(L) >=40 mg/dL LAB CHEMISTRY METHOD 02/26/2024 6:32 PM EST [facility] LDL Calculated 107(H) 0 - 100 mg/dL LAB CHEMISTRY METHOD 02/26/2024 6:32 PM EST [facility] VLDL Cholesterol Stephen 40.6 mg/dL LAB CHEMISTRY METHOD 02/26/2024 6:32 PM EST [facility] Non HDL Chol. (LDL+VLDL) 148(H) <145 mg/dL LAB CHEMISTRY METHOD 02/26/2024 6:32 PM EST [facility] Chol/HDL Ratio 5.0(H) 0.0 - 4.4 LAB CHEMISTRY METHOD 02/26/2024 6:32 PM [facility] Blood Venous blood specimen / Unknown Venipuncture / Unknown 02/26/2024 2:07 PM EST 02/26/2024 2:07 PM EST us Nereyda Pierre MD LAB BLOOD ORDERABLES Final R esult Performing Organization Address City/[facility]/ZIP Co de Phone Number [facility] [address] [place] [address], [place] [phone] * (ABNORMAL) Hemoglobin A1c (02/26/2024 2:07 PM EST) Hemoglobin A1C 8.6(H) <6.5 % LAB CHEMISTRY METHOD 02/26/2024 8:10 PM EST [facility] Mean Bld Glu Estim. 200 mg/dL LAB CHEMISTRY METHOD 02/26/2024 8:10 PM EST [facility] Blood Venous blood specimen / Unknown Venipuncture / Unknown 02/26/2024 2:07 PM EST 02/26/2024 2:07 PM EST Nereyda Pierre MD LAB BLOOD ORDERABLES Final R esult Performing Organization Address [facility] Co de Phone Number [facility] [address] [place] [address], [place] [phone] from Last 3 Months or Most Recently Relevant to Health Maintenance Insurance [employer] Advance Directives * Full Code [...] currently active code status orders. Care Teams Franchise Consultant Relationship Specialty Start Date End Date Humaira Hood MD [address] [place] [address] PCP - General Internal Medicine 09/02/24
--- OUTSIDE RECORDS SUMMARY | 2025-01-02 15:58 | XMS_ITS | Encounter Summary ---
Author Organization [facility] Address [address] [place] [address] Phone Care Team Providers Care Registered Nurse Maternity Name Role Phone Humaira Thurston MD Primary Care Provider [phone] Reason for Visit * Reason Comments Med Refill Encounter Details Date Type Department Care Team (Late st Contact Info) Description 07/03/2023 Refill [facility] [address] [place] [phone] David Perez MD [address] [place] [address], [facility] [address] [place] [address] Social History Tobacco Use Types Packs/Day Years [...] on filedocumented in this encounter Care Teams Registered Nurse Maternity Relationship Specialty Start Date End Date Humaira Thurston MD [address] [place] [address] PCP - General Internal Medicine 12/27/22 documented as of this encounter
== END 2025-01-02 14:39 | disposition home or self-care (01) ==
LOC: HO.HUSH 14:12
PROVIDERS: PCP Internal Medicine; Visit Provider Urology
DX: N40.1 Benign prostatic hyperplasia with lower urinary tract symptoms (principal); E11.69 Type 2 diabetes mellitus with other specified complication; N52.1 Erectile dysfunction due to diseases classified elsewhere
CPT/HCPCS: 99213

== ENCOUNTER → 2025-01-02 14:11 | Outpatient (BNVA) | payer OTHER, SELFPAY | PROVIDERS: PCP Internal Medicine; Visit Provider Urology | DX: B20 Human immunodeficiency virus [HIV] disease (principal); E11.69 Type 2 diabetes mellitus with other specified complication; N52.9 Male erectile dysfunction, unspecified; Z87.438 Personal history of other diseases of male genital organs | CPT/HCPCS: 99212 ==

== ENCOUNTER 2025-01-27 16:41 | Outpatient (REF) | payer OTHER, SELFPAY ==
--- OUTSIDE RECORDS SUMMARY | 2025-01-27 17:23 | XMS_ITS | Clinical Summary ---
Author Organization [address] [facility] Address [address] [place] [address] Phone Care Team Providers Care Wood Milling Machine Tender Name Role Phone Humaira Hood MD Primary Care Provider [phone] Allergies Active Allergy Reactions Criticality Noted Date Comments Glipizide Other 12/09/2020 Medications omeprazole OTC (PriLOSEC OTC) 20 mg EC tablet Take 1 tablet (20 mg total) by mouth 2 (two) times a day for 14 days, THEN 1 tablet (20 mg total) 1 (one) time each day. Do not crush, chew, or split.. 58 tablet 5 04/14/19 26 Active lisinopriL (PRINIVIL,ZESTRI L) 20 mg tablet Take 1 tablet (20 mg total) by mouth 1 (one) time each day. 4 Active amitriptyline (ELAVIL) 100 mg tablet TAKE 1 TABLET BY MOUTH AT BEDTIME ONCE EVERY DAY 5 Active Biktarvy 50-200-25 mg per tablet Take 1 tablet by mouth at bedtime. 5 Active Pulmicort Flexhaler 90 mcg/actuation inhaler Inhale 1 puff by mouth 2 (two) times a day. 5 Active cholecalciferol (VITAMIN D-3) 50 mcg (2,000 unit) capsule Take 1 capsule (2,000 Units total) by mouth 1 (one) time each day. 4 Active fenofibrate (LOFIBRA) 54 mg tablet Take 1 tablet (54 mg total) by mouth 1 (one) time each day. 5 Active tadalafiL (CIALIS) 20 mg tablet TAKE 1 TABLET BY MOUTH ONCE NEEDED FOR SEXUAL ACTIVITY . ON DEMAND MEDICATION TAKE 60 MINUTES BEFORE INTENDED ACTIVITY. 5 Active acetaminophen (TYLENOL) 500 mg tablet Take 2 tablets (1,000 mg total) by mouth every 8 (eight) hours. 180 tablet 5 Active oxyCODONE (ROXICODONE) 5 mg immediate release tabletIndication s:Morbid obesity (CMS/HCC V24, CMS/HCC V28) Take 1 tablet (5 mg total) by mouth every 4 (four) hours if needed for moderate pain. Max Daily Amount: 30 mg 15 tablet 5 Active topiramate (TOPAMAX) 100 mg tablet Take 1 tablet (100 mg total) by mouth 2 (two) times a day. for 30 days 5 Active Lantus Solostar U-100 Insulin 100 unit/mL (3 mL) injection pen Inject 7 Units under the skin at bedtime. 15 mL 11 5 Active ferrous sulfate 325 mg (65 mg iron) EC tablet Take 1 tablet (325 mg total) by mouth 1 (one) time each day with breakfast. Do not crush, chew, or split. 30 each 2 5 01/30/20 25 Active Gavilax 17 gram/dose oral powder TAKE 17 GRAMS MIXED IN 8 OUNCES OF LIQUID AND TAKEN BY MOUTH ONCE EVERY DAY 510 g 5 Active simethicone (MYLICON) 80 mg chewable tablet CHEW 1 TABLET (80 MG TOTAL) EVERY 6 (SIX) HOURS IF NEEDED FOR FLATULENCE. 120 tablet 5 Active cyanocobalamin, vitamin B-12, 1,000 mcg tablet, sublingualIndica tions:Class 3 severe obesity due to excess calories with body mass index (BMI) of 45.0 to 49.9 in adult, unspecified whether serious comorbidity present (CMS/HCC V24, CMS/HCC V28) PLACE 1 TABLET UNDER THE TONGUE 1 (ONE) TIME EACH DAY. 90 tablet 10/03/24/19 26 Active Active Problems Problem Noted Date Diagnosed Date S/P bariatric surgery 10/30/2024 Gastrointestinal hemorrhage, unspecified gastrointestinal hemorrhage type 09/21/2024 Morbid obesity ([facility] V24, [facility] V28) 2024 Resolved Problems Problem Noted Date Diagnosed Date Resolved Date Class 3 severe obesity with body mass index (BMI) of 45.0 to 49.9 in adult ([facility] V24, [facility] V28) 01/10/2024 10/03/2024 Encounters Date Type Department Care Team Description 11/13/2024 3:30 PM EDT Nutrition Bariatric Surgery - [address] [phone] S/P bariatric surgery (Primary Dx) 10/30/2024 11:00 AM EDT Telemedicine Bariatric Surgery [address] [phone] S/P bariatric surgery (Primary Dx) from Last 3 Months Surgical History Surgery Date Site/Laterality Comments CIRCUMCISION, PRIMARY GASTRIC BYPASS Da Jayne gastric bypass Faviola-en-Y Medical History Medical History Date Comments Hypertension Asthma Diabetes mellitus ([facility] V24, [facility] V28) Chronic kidney disease HIV (human immunodeficiency virus infection) ([facility] V24, [facility] V28) Hyperlipidemia GERD (gastroesophageal reflux disease) History [...] 2:30 PM EST Nutrition Bariatric Surgery - [place] [address] [phone] [phone] 03/09/2025 2:30 PM EST Nutrition Bariatric Surgery - [place] [address] [phone] [address] [phone] Health Maintenance Due Date Last Done Comments [...] Procedure Name Priority Date/Time Associated Diagnosis Comments COMPREHENSIVE METABOLIC PANEL Routine 10/22/2024 11:39 AM EDT Morbid obesity (CMS/[facility] V24, [facility] V28) Bariatric surgery status OCCULT BLOOD STOOL, GUAIAC Routine 09/24/2024 1:26 PM EDT HEMOGLOBIN A1C Routine 02/26/2024 2:07 PM EST Class 3 severe obesity with body mass index (BMI) of 40.0 to 44.9 in adult, unspecified obesity type, unspecified whether serious comorbidity present ([facility] V24, [facility] V28) LIPID PANEL WITH REFLEX TO DIRECT LDL Routine 02/26/2024 2:07 PM EST Class 3 severe obesity with body mass index (BMI) of 40.0 to 44.9 in adult, unspecified obesity type, unspecified whether serious comorbidity present ([facility] V24, [facility] V28) from Last 3 Months or Most Recently Relevant to Health Maintenance Results * (ABNORMAL) Comprehensive metabolic panel (10/22/2024 11:39 AM EDT) Sodium 143 133 - 145 mmol/L LAB CHEMISTRY METHOD 10/22/2024 3:43 PM [facility] Potassium 3.9 3.5 - 5.5 mmol/L LAB CHEMISTRY METHOD 10/22/2024 3:43 PM [facility] Chloride 114(H) 96 - 110 mmol/L LAB CHEMISTRY METHOD 10/22/2024 3:43 PM [facility] CO2 24 21 - 32 mmol/L LAB CHEMISTRY METHOD 10/22/2024 3:43 PM [facility] Anion Gap 5 3 - 11 LAB CHEMISTRY METHOD 10/22/2024 3:43 PM [facility] Glucose 67(L) 70 - 100 mg/dL LAB CHEMISTRY METHOD 10/22/2024 3:43 PM [facility] BUN 11 5 - 25 mg/dL LAB CHEMISTRY METHOD 10/22/2024 3:43 PM [facility] Creatinine 1.19 0.70 - 1.30 mg/dL LAB CHEMISTRY METHOD 10/22/2024 3:43 PM EDT [facility] eGFR 73 >=60 mL/min/1. 73m2 LAB CHEMISTRY METHOD 10/22/2024 3:43 PM T [facility] Comment:Calculation [...] LAB CHEMISTRY METHOD 10/22/2024 3:43 PM T [facility] Total [...] [facility] [address] [place] [address], [place] [phone] * (ABNORMAL) Occult blood stool, guaiac (09/24/2024 1:26 PM EDT) Occult Blood, Stool #1 Positive( A) Negative 09/24/2024 2:18 PM EDT [facility] Stool Rectum structure / Unknown Non-blood Collection / Unknown 09/24/2024 1:26 PM EDT 09/24/2024 1:59 PM EDT [facility] BODY FLUIDS AND STOOLS TERRENCE MAYO Final Result [facility] [address] [place] [address], [place] [phone] * (ABNORMAL) Lipid panel with reflex to direct LDL (02/26/2024 2:07 PM EST) Cholesterol 185 0 - 200 mg/dL LAB CHEMISTRY METHOD 02/26/2024 6:32 PM [facility] Triglycerides 203(H) 0 - 150 mg/dL LAB CHEMISTRY METHOD 02/26/2024 6:32 PM [facility] HDL 37(L) >=40 mg/dL LAB CHEMISTRY METHOD 02/26/2024 6:32 PM [facility] LDL Calculated 107(H) 0 - [...] R esult Performing Organization Address [facility]/ZIP Co de Phone Number [facility] [address] [place] [address], [place] [phone] * (ABNORMAL) Hemoglobin A1c (02/26/2024 2:07 PM [...] R esult Performing Organization Address [facility] Co de Phone Number [facility] [address] [place] [address], [place] [phone] from Last 3 Months or Most Recently Relevant to Health Maintenance Insurance [address] [phone] [employer] Advance Directives * Full Code [...] currently active code status orders. Care Teams Wood Milling Machine Tender Relationship Specialty Start Date End Date Humaira Hood MD [address] [place] [address] PCP - General Internal Medicine 09/02/24
[2025-01-27 18:28] LABS: Anion Gap 14 (12-20); Blood Urea Nitrogen 11 mg/dL (9-16); Calcium 9.7 mg/dL (8.4-10.2); Carbon Dioxide 22 mmol/L (22-29); Chloride 110 mmol/L (96-108); Estimated Glomerular Filt Rate > 60; Potassium 4.3 mmol/L (3.3-5.1); Sodium 142 mmol/L (135-145)
== END 2025-01-27 16:42 | disposition home or self-care (01) ==
LOC: HO.LAB 16:41
PROVIDERS: PCP Internal Medicine; Visit Provider Internal Medicine Hypertension Specialist
DX: I10 Essential (primary) hypertension (principal)
CPT/HCPCS: 36415; 80048

== ENCOUNTER 2025-02-03 14:40 | Outpatient (AMB) | payer OTHER, SELFPAY ==
[2025-02-03 15:02] VITALS: BP 144/82; PULSE 84; O2SAT 97; BMI 34.7
--- NOTE | 2025-02-03 15:02 | HO.NEPHOV ---
Vital Signs 02/03/25 15:02 Height 5 ft 4 in Weight 202 lb BMI 34.7 BP 144/82 H Blood Pressure Location Rt brachial Position Sitting Pulse 84 Pulse Source Pulse Oximeter Pulse Oximetry (%) 97 Oxygen Delivery Method Room Air Intake Visit Reasons: 5-6 wks f/u w/ labs-Conf [employer] C[employer] Developer Required: Yes [employer] Crm Developer Name: Pedro [id number] Accompanied by: Self / Same As Patient Allergies glipizide Allergy (Mild, Verified 02/03/25 15:06) rash tuberculin, purified protein deriva Allergy (Mild, Verified 02/03/25 15:06) Swelling martinez Allergy (Mild, Uncoded 01/02/25 14:13) Hives Medication List - Last Reconciled 02/03/25 by Bao Carreon MD amitriptyline 100 mg PO BEDTIME 90 days ascorbate calcium (vitamin C) 1 g PO Q6H atorvastatin (Lipitor) 10 mg PO DAILY xgcpscego-mcojwloz-ajayoyc ala 50-200-25 mg (Biktarvy) 1 tab PO DAILY 30 days bisacodyl 5 mg PO ONCE 1 day blood sugar diagnostic Use 1 test strip twice a day blood sugar diagnostic (Accu-Chek Guide test strips) Use 1 test strip three times a day blood sugar diagnostic (FreeStyle Lite Strips) As directed 3 times per day blood-glucose meter (Accu-Chek Guide Glucose Meter) As directed blood-glucose meter (FreeStyle Lite Meter kit) As directed budesonide 90 mcg/actuation (Pulmicort Flexhaler) 1 inh inhalation BID dngmlpgkmt-zxvadessbotkv-opbo 50-325-40 mg tabs PO clotrimazole-betamethasone 1-0.05 % 1 appl topical BID 4 weeks empagliflozin-metformin 12.5-1,000 mg (Synjardy) 2 tabs PO DAILY fenofibrate 54 mg PO DAILY 90 days gabapentin 300 mg PO DAILY glyburide 5 mg PO BID lancets (FreeStyle Lancets) Use 1 lancet three times a day lancets (Accu-Chek Fastclix Lancet Drum) Use 1 lancet three times a day lisinopril 10 mg PO DAILY meclizine mg PO DAILY meloxicam 15 mg PO DAILY methylcellulose (laxative) (Citrucel) 500 mg PO DAILY nebulizers (AeroEclipse II Nebulizer) As directed omeprazole 20 mg PO .daily pen needle, diabetic (Comfort EZ Pen Cunningham) Use 1 pen needle twice a day polyethylene glycol 3350 (Miralax) 238 grams PO ONCE tadalafil 20 mg PO ONCE PRN 30 days tadalafil 5 mg PO DAILY 90 days terbinafine HCl 250 mg PO DAILY topiramate 100 mg PO BID HPI Comments Details: History of Present Illness The patient is a 54 year old male presenting for a nephrology follow-up. He reports urinating normally with no current kidney-related issues. Previously, his blood pressure was low, which resulted in a medication dose reduction from 20 mg to 10 mg. The patient reports recent episodes of hypoglycemia, with blood sugar levels of 51 the previous day and a fasting level of 43 in the morning. His postprandial blood sugar was 166. He has a history of significant weight loss of 70 pounds following a surgery, with his weight decreasing from 272 pounds to 202 pounds. His goal weight is 170 pounds. Since the surgery, his fluid intake has decreased from eight to three bottles of water per day due to reduced stomach capacity, but he ensures he drinks small amounts frequently. [facility] Medical History Tension headache, chronic Carpal tunnel syndrome, bilateral upper limbs Carpal tunnel syndrome Cerebral microvascular disease Constipation Erectile dysfunction associated with type 2 diabetes mellitus Mixed hyperlipidemia Mild intermittent asthma Hyperkalemia Morbid obesity Renal calculi Morbid obesity Dyslipidemia CKD (chronic kidney disease) Essential hypertension Diabetes mellitus HIV (human immunodeficiency virus infection) Surgical History History of weight loss surgery Hx of circumcision Family History Father Myocardial infarction Hypertension CVD (cardiovascular disease) Mother Stroke CVD (cardiovascular disease) Mental health disorder Sister Diabetes Maternal Grandmother CVD (cardiovascular disease) Maternal Uncle Pancreatic cancer Social History Housing: Apartment Alcohol intake: former Patient Tobacco Use Status: Never used Tobacco e-Cigarette/Vaping Use: Never Used Second Hand Smoke Exposure: Yes service: No Current occupational status: employed Current occupational exposures/hazards: No Cognitive needs: No Hearing needs: No Vision needs: No Physical Exam Exam Exam: Physical Exam General: Awake. Comfortable. HENT: Neck supple. Mucosa moist. Pulmonary: Lungs aeration equal. No rales. Cardiology: Heart S1-S2 heard. No gallop. Abdomen: Soft. Non tender. Bowel sounds normal. Neurologic: No involuntary movements. No myoclonus. Extremities: No edema. No rash. Vital Signs: Last Vital Signs Pulse 84 02/03/25 15:02 BP 144/82 H 02/03/25 15: Pulse Ox 97 02/03/25 15:02 Oxygen Delivery Method Room Air 02/03/25 15:02 BMI result Body Mass Index 34.7 Results Reviewed Nephrology Results: Sodium, (135-145) 142 mmol/L 01/27/25 Potassium, (3.3-5.1) 4.3 mmol/L 01/27/25 Chloride, (96-108) 110 mmol/L H 01/27/25 Carbon Dioxide, (22-29) 22 mmol/L 01/27/25 BUN, (9-16) 11 mg/dL 01/27/25 Creatinine, (0.5-1.4) 1.23 mg/dL 01/27/25 Calcium, (8.4-10.2) 9.7 mg/dL 01/27/25 Assessment & Plan Assessment & Plan (1) CKD (chronic kidney disease): Code(s): N18.9 - Chronic kidney disease, unspecified Category: Medical Qualifiers: Chronic kidney disease stage: stage 3 (moderate) Chronic kidney disease stage 3 subtype: stage 3a (GFR 45-59) Qualified Code(s): N18.31 - Chronic kidney disease, stage 3a Plan: Mild bump in Cr with high K Both due to use of NSAIDS avoid nephrotoxic agents including NSAIDs. Cr is back to baseline now after stopping NSAIDS (2) Balanitis: Code(s): N48.1 - Balanitis Category: Medical Plan: s/p circumcision (3) Essential hypertension: Code(s): I10 - Essential (primary) hypertension Category: Medical Plan: After lowering lisinopril blood pressure well controlled We will continue to watch blood pressure since he is losing weight I expect the blood pressure to drop further in that case we will continue to taper at the antihypertensive medications as tolerated. Plan 4. Status Post-Bariatric Surgery With Significant Weight Loss - The patient has lost 70 pounds since his surgery, with a current weight of 202 pounds and a goal of 170 pounds. - Continue with slow and steady weight loss. - Advised to maintain adequate hydration by drinking small and frequent amounts of water to prevent dehydration, considering his reduced stomach capacity. Orders: Orders Basic Metabolic Panel 2 Months N18.31 - Chronic kidney disease, stage 3a Coding Level of Care Code Est Pt Level 4 (65659) Diagnoses Stage 3a chronic kidney disease N18.31 Chronic kidney disease stage: stage 3 (moderate) Chronic kidney disease stage 3 subtype: stage 3a (GFR 45-59) Kayden N48.1 Essential hypertension I10
--- OUTSIDE RECORDS SUMMARY | 2025-02-03 20:35 | XMS_ITS | Clinical Summary ---
Author Organization [facility] Facility Address [address] [place] [address] Care Team Providers Care Assessment Counselor Name Role Phone Humaira Thurston MD Primary Care Provider [phone] Allergies Active Allergy Reactions Criticality Noted Date [...] 6:08 AM EDT Performed at: 01 - [facility] [id number] [employer] Faculty Member: Cheryl Goodman MD, Phone: [phone] us David Perez MD LAB BLOOD ORDERABLES Final Re sult [facility] See order comments [place] [address] from Last 3 Months or Most Recently Relevant to Health Maintenance Insurance [facility] Medicaid [facility] Medicaid Care Teams Assessment Counselor Relationship Specialty Start Date End Date Humaira Thurston MD [address] [place] [id number] PCP - General Internal Medicine 12/27/22
--- OUTSIDE RECORDS SUMMARY | 2025-02-03 20:35 | XMS_ITS | Clinical Summary ---
Author Organization [address] [facility] Address [address] [place] [address] Phone Care Team Providers Care Photovoltaic Fabrication Technician Name Role Phone Humaira Hood MD Primary Care Provider [phone] Allergies Active Allergy Reactions Criticality Noted Date [...] 5 mg immediate release tabletIndication s:Morbid obesity (CMS/[facility] V24, CMS/[facility] V28) Take 1 tablet (5 mg total) [...] at bedtime. 15 mL 11 5 Active Gavilax 17 gram/dose oral powder TAKE [...] in adult, unspecified whether serious comorbidity present (CMS/[facility] V24, CMS/[facility] V28) PLACE 1 TABLET UNDER THE TONGUE 1 (ONE) TIME EACH DAY. 90 tablet 5 03/24/19 26 Active ferrous sulfate 325 mg (65 mg iron) EC tablet Take 1 tablet (325 mg total) by mouth 1 (one) time each day with breakfast. Do not crush, chew, or split. 30 each 2 09/01/30/20 25 Active Problems Problem Noted Date Diagnosed Date S/P bariatric surgery 10/30/2024 Gastrointestinal hemorrhage, unspecified gastrointestinal hemorrhage type 09/21/2024 Morbid obesity 08/21/2024 Resolved Problems Problem Noted Date Diagnosed Date Resolved Date Class 3 severe obesity with body mass index (BMI) of 45.0 to 49.9 in adult 01/10/2024 5 Encounters Date Type Department Care Team Description 11/13/2024 3:30 PM EDT Nutrition Bariatric Surgery - [address] [place] [address] S/P bariatric surgery (Primary Dx) from Last 3 Months Surgical History Surgery Date Site/Laterality Comments CIRCUMCISION, PRIMARY GASTRIC BYPASS Da Jayne gastric bypass Faviola-en-Y Medical History Medical History Date Comments Hypertension Asthma Diabetes mellitus ([facility] V24, [facility] V28) Chronic kidney disease HIV (human immunodeficiency virus infection) ( S/[facility] V24, [facility] V28) Hyperlipidemia GERD (gastroesophageal reflux disease) History [...] 2:30 PM EST Nutrition Bariatric Surgery - [place] [address] [phone] Letty Crisostomo, LUIS ALFREDO [address] [phone] 03/09/2025 2:30 PM EST Nutrition Bariatric Surgery - [place] [address] [phone] [phone] Health Maintenance Due Date Last Done Comments [...] obesity type, unspecified whether serious comorbidity present ([facility] V24, [facility] V28) LIPID PANEL WITH REFLEX TO DIRECT LDL Routine 02/26/2024 2:07 PM EST Class 3 severe obesity with body mass index (BMI) of 40.0 to 44.9 in adult, unspecified obesity type, unspecified whether serious comorbidity present ([facility] V24, [facility] V28) from Last 3 Months or Most Recently Relevant to Health Maintenance Results * (ABNORMAL) Comprehensive metabolic panel (10/22/2024 11:39 AM EDT) Sodium 143 133 - 145 mmol/L LAB CHEMISTRY METHOD 10/22/2024 3:43 PM [facility] Potassium 3.9 3.5 - 5.5 mmol/L LAB CHEMISTRY METHOD 10/22/2024 3:43 PM [facility] Chloride 114(H) 96 - 110 mmol/L LAB CHEMISTRY METHOD 10/22/2024 3:43 PM [facility] CO2 24 21 - 32 mmol/L LAB CHEMISTRY METHOD 10/22/2024 3:43 PM [facility] Anion Gap 5 3 - 11 LAB CHEMISTRY METHOD 10/22/2024 3:43 PM [facility] Glucose 67(L) 70 - 100 mg/dL LAB CHEMISTRY METHOD 10/22/2024 3:43 PM [facility] BUN 11 5 - 25 mg/dL LAB CHEMISTRY METHOD 10/22/2024 3:43 PM [facility] Creatinine 1.19 0.70 - 1.30 mg/dL LAB CHEMISTRY METHOD 10/22/2024 3:43 PM [facility] eGFR 73 >=60 mL/min/1. 73m2 LAB CHEMISTRY METHOD 10/22/2024 3:43 PM EDT [facility] Comment:Calculation based on the Chronic Kidney Disease Epidemiology Collaboration (CKD-EPI) equation refit without adjustment for race. BUN/Creatinine Ratio 9.2 LAB CHEMISTRY METHOD 10/22/2024 3:43 PM EDT [facility] Calcium 8.9 8.5 - 10.5 mg/dL LAB CHEMISTRY METHOD 10/22/2024 3:43 PM EDT [facility] AST (SGOT) 16 10 - 42 unit/L LAB CHEMISTRY METHOD 10/22/2024 3:43 PM EDT [facility] ALT (SGPT) 17 10 - 60 unit/L LAB CHEMISTRY METHOD 10/22/2024 3:43 PM EDT [facility] Alkaline Phosphatase 76 42 - 121 unit/L LAB CHEMISTRY METHOD 10/22/2024 3:43 PM EDT [facility] Total Protein 6.5 6.0 - 8.0 g/dL LAB CHEMISTRY METHOD 10/22/2024 3:43 PM EDT [facility] Albumin 3.2 3.2 - 5.0 g/dL LAB CHEMISTRY METHOD 10/22/2024 3:43 PM EDT [facility] Total Bilirubin 0.3 0.0 - 1.4 mg/dL LAB CHEMISTRY METHOD 10/22/2024 3:43 PM EDT [facility] Blood Venous blood specimen / Unknown Venipuncture / Unknown 10/22/2024 11:39 AM EDT 10/22/2024 11:39 AM EDT us Daniella OROZCO LAB BLOOD ORDERABLES Final R esult [facility] [address] [place] [address], * (ABNORMAL) Occult blood stool, guaiac (09/24/2024 1:26 PM EDT) Occult Blood, Stool #1 Positive( A) Negative 09/24/2024 2:18 PM EDT [facility] Stool Rectum structure / Unknown Non-blood Collection / Unknown 09/24/2024 1:26 PM EDT 09/24/2024 1:59 PM EDT us Alysa OROZCO LAB BODY FLUIDS AND STOOLS TERRENCE MAYO Final Result [facility] [address] [place] [address], [place] [phone] * (ABNORMAL) Lipid panel with reflex to direct LDL (02/26/2024 2:07 PM EST) Cholesterol 185 0 - 200 mg/dL LAB CHEMISTRY METHOD 02/26/2024 6:32 PM EST [facility] Triglycerides 203(H) 0 - 150 mg/dL LAB CHEMISTRY METHOD 02/26/2024 6:32 PM EST [facility] HDL 37(L) >=40 mg/dL LAB CHEMISTRY METHOD 02/26/2024 6:32 PM EST [facility] LDL Calculated 107(H) 0 - 100 mg/dL LAB CHEMISTRY METHOD 02/26/2024 6:32 PM [facility] VLDL Cholesterol Stephen 40.6 mg/dL LAB CHEMISTRY METHOD 02/26/2024 6:32 PM EST [facility] Non HDL Chol. (LDL+VLDL) 148(H) <145 mg/dL LAB CHEMISTRY METHOD 02/26/2024 6:32 PM EST [facility] Chol/HDL Ratio 5.0(H) 0.0 - 4.4 LAB CHEMISTRY METHOD 02/26/2024 6:32 PM [facility] Blood Venous blood specimen / Unknown Venipuncture / Unknown 02/26/2024 2:07 PM EST 02/26/2024 2:07 PM EST us Nereyda Pierre MD LAB BLOOD ORDERABLES Final R esult Performing Organization Address City/[facility]/ZIP Co de Phone Number [facility] [address] [place] [address], [place] [phone] * (ABNORMAL) Hemoglobin A1c (02/26/2024 2:07 PM EST) Hemoglobin A1C 8.6(H) <6.5 % LAB CHEMISTRY METHOD 02/26/2024 8:10 PM EST [facility] Mean Bld Glu Estim. 200 mg/dL LAB CHEMISTRY METHOD 02/26/2024 8:10 PM EST [facility] Blood Venous blood specimen / Unknown Venipuncture / Unknown 02/26/2024 2:07 PM EST 02/26/2024 2:07 PM EST us Nereyda Pierre MD LAB BLOOD ORDERABLES Final R esult Performing Organization Address [facility]/ZIP Co de Phone Number [facility] [address] [place] [address], [place] [phone] from Last 3 Months or Most Recently Relevant to Health Maintenance Insurance [facility] Advance Directives * [...] currently active code status orders. Care Teams Photovoltaic Fabrication Technician Relationship Specialty Start Date End Date Humaira Hood MD [address] [place] [address] PCP - General Internal Medicine 09/02/24
--- OUTSIDE RECORDS SUMMARY | 2025-02-03 20:35 | XMS_ITS | Encounter Summary ---
Author Organization [facility] Address [address] [place] [address] Phone Care Team Providers Care Supervisor [employer] Name Role Phone Humaira Thurston MD Primary Care Provider [phone] Reason for Visit * Reason Comments Med Refill Encounter Details Date Type Department Care Team (Late st Contact Info) Description 07/03/2023 Refill [facility] [address] [place] [phone] David Perez MD [address] [place] [address], [facility] [address] [place] [address] Social History Tobacco Use Types Packs/Day Years [...] on filedocumented in this encounter Care Teams Supervisor [employer] Relationship Specialty Start Date End Date Humaira Thurston MD [address] [place] [address] PCP - General Internal Medicine 12/27/22 documented as of this encounter
== END 2025-02-03 15:26 | disposition home or self-care (01) ==
LOC: HO.HKA 14:40
PROVIDERS: PCP Internal Medicine; Visit Provider Internal Medicine Hypertension Specialist
DX: N18.31 Chronic kidney disease, stage 3a (principal); N48.1 Balanitis; I10 Essential (primary) hypertension
CPT/HCPCS: 99214

== ENCOUNTER → 2025-02-03 14:40 | Outpatient (BNVA) | payer OTHER, SELFPAY | PROVIDERS: PCP Internal Medicine; Visit Provider Internal Medicine Hypertension Specialist | DX: I12.9 Hypertensive chronic kidney disease with stage 1 through stage 4 chronic kidney disease, or unspecified chronic kidney disease (principal); N18.31 Chronic kidney disease, stage 3a; N48.1 Balanitis; Z79.899 Other long term (current) drug therapy; Z98.84 Bariatric surgery status | CPT/HCPCS: 99212 ==